=== PATIENT | female | born 1935 | race Caucasian/White ===

== ENCOUNTER 2020-12-06 07:54 | Inpatient (IN) | payer MEDICARE, OTHER, SELFPAY ==
[2020-12-06] VITALS (12 sets, daily range): BP systolic 125–182; BP diastolic 59–81; PULSE 63–84; RESP 15–95; TEMP 36.3–37.2; O2SAT 94–97; BMI 22.6
--- NOTE | ~2020-12-06 | XR_ITS ---
EXAMINATION: XR CHEST CLINICAL INFORMATION: Coughing up blood. COMPARISON: Chest radiographs dated 12/14/2017 and 09/17/2017. TECHNIQUE: Frontal view of the chest was obtained. FINDINGS: An irregular opacity is seen in the right suprahilar region. Mild increased prominence of the right hilum is seen. The left lung is clear. Generalized hyperinflation is seen. The heart and mediastinal structures are unremarkable. XR/XR chest 1V IMPRESSION: Irregular opacity in the right suprahilar region and mild increased prominence of the right hilum. Malignancy cannot be excluded. Further evaluation with a contrast-enhanced chest CT scan is recommended.
--- NOTE | ~2020-12-06 | US_ITS ---
EXAMINATION: US VENOUS ULTRASOUND WITH DOPPLER LOWER EXTREMITY, BILATERAL CLINICAL INFORMATION: Elevated d-dimer. COMPARISON: None TECHNIQUE: Ultrasound of the deep veins is performed from the hip to the calf with compression sonography and color and pulse Doppler assessment. Spectral analysis with color-flow imaging is performed. FINDINGS: RIGHT: There is normal venous compression and respiratory variation and augmented flow. The visualized common femoral vein, superficial femoral vein, profunda femoral vein, popliteal vein, and the trifurcation region shows no evidence of deep venous thrombosis. There is no significant popliteal fossa cyst. LEFT: There is normal venous compression and respiratory variation and augmented flow. The visualized common femoral vein, superficial femoral vein, profunda femoral vein, popliteal vein, and the trifurcation region shows no evidence of deep venous thrombosis. There is no significant popliteal fossa cyst. If the patient's symptoms persist, followup ultrasound in 5 days 7 days might be of value to exclude proximal propagation from a non-visualized calf vein. US/US venous duplex LE BI IMPRESSION: No DVT demonstrated in the bilateral lower extremity.
--- NOTE | ~2020-12-06 | CT_ITS ---
EXAMINATION: CT ANGIOGRAM OF THE CHEST WITH AND WITHOUT CONTRAST (CT PULMONARY ANGIOGRAM FOR PE) CLINICAL INFORMATION: Reason for Exam Hemoptysis and elevated D-dimer. COMPARISON: CT chest November 06, 2007 TECHNIQUE: Prior to contrast administration, noncontrast localization images were obtained. Subsequently, multidetector volumetric imaging was performed from the thoracic inlet to below the diaphragms following the administration of 55 mL Omnipaque 350 intravenous contrast. No contrast reaction reported Sagittal, coronal, and MIP oblique sagittal reformatted images were obtained on the CT workstation, uploaded to PACS, and reviewed. This CT examination was performed using dose optimization techniques as appropriate, variously including the following: *Automated exposure control *Adjustment of mA and/or kV according to patient size (this includes techniques or standardized protocols for targeted exams where dose is matched to indication/reason for exam; i.e. extremities or head) *Use of iterative reconstruction technique Total exam dose-length product 177 mGy-cm FINDINGS: QUALITY OF STUDY/CONTRAST BOLUS: Satisfactory. PULMONARY ARTERIES: No central or segmental pulmonary emboli. THORACIC AORTA: No aneurysm or dissection. There is nonocclusive calcified plaque seen in the aortic arch. LUNG: Central airways are patent. There are changes of centrilobular emphysema seen bilaterally. No significant bronchial wall thickening is seen. No bronchiectasis appreciated. There are a few calcified granulomas present. Scattered sub-4 mm densities present. There is a region of airspace disease seen within the posterior aspects of the left upper lobe which may be secondary to aspiration or blood. There is a suspicious spiculated mass seen within the right upper lobe adjacent to the major fissure with some linear attachments seen to the lateral pleura and right hilar region. The mass measures approximately 2.6 x 2.3 x 3.5 cm in size. There are some ossifications present within the mass. No cavitation is seen. There is a 9 mm spiculated mass seen within the right upper lobe which is not calcified on image 218 of 464. There is a 4 mm noncalcified density seen within the right upper lobe on image 69 of 464 in series #7. There is a stable 5 mm noncalcified density seen within the right upper lobe on image 159 of 464. There is a 4 mm noncalcified nodule seen within the right upper lobe on image 192 of 464. There is a 6 mm noncalcified nodule seen within the right lower lobe on image 232 of 464. There is a 10 x 5 mm somewhat spiculated density within the left upper lobe on image 69 of 464. This has some pleural attachments posteriorly. PLEURA: No pleural effusion or pneumothorax. MEDIASTINUM: Heart upper limits of normal in size. Coronary artery calcification present. No evidence of septal bowing or right heart strain. There is right hilar lymphadenopathy. There is precarinal and subcarinal lymphadenopathy present which is difficult to evaluate due to the high density contrast for the CTA study. CHEST WALL/AXILLA: No axillary or internal mammary lymphadenopathy. OSSEOUS STRUCTURES: No acute destructive bony lesions identified. There is severe degenerative disease glenohumeral joint on the left. Multilevel degenerative disc disease is present. UPPER ABDOMEN: Low density lesions likely representing hepatic cysts present. No reflux of contrast into the hepatic veins to suggest elevated right heart pressures. CT/CT angio chest PE protocol IMPRESSION: No evidence of acute pulmonary artery emboli. No thoracic aortic aneurysm or dissection. Lung lesions as described above with 2 very suspicious lesions within the right upper lobe consistent with malignancy. There is right hilar and mediastinal lymphadenopathy. Old granulomatous disease. VTE:
--- NOTE | 2020-12-06 08:32 | ECG_ITS ---
Test Reason : SOB Blood Pressure : / mmHG Vent. Rate : 070 BPM Atrial Rate : 070 BPM P-R Int : 154 ms QRS Dur : 080 ms QT Int : 378 ms P-R-T Axes : 051 017 025 degrees QTc Int : 408 ms Normal sinus rhythm with sinus arrhythmia Nonspecific ST and T wave abnormality Abnormal ECG When compared with ECG of 11-OCT-2006 06:58, Non-specific change in ST segment in Inferior leads Referred By: Juan Miguel Leiva Electronically Signed By:CLARIBEL MARCANO MD
--- NOTE | 2020-12-06 08:46 | ED.URI ---
HPI - URI/Sore Throat General Chief Complaint: Upper Respiratory Symptoms Stated Complaint: coughing up blood Time Seen by Provider: 12/06/20 08:32 Source: patient and family (Spouse) Mode of arrival: ambulatory Limitations: no limitations History of Present Illness HPI Narrative: 85 years old female walked to the emergency department for evaluation of productive cough with streaks of blood. Patient has been coughing with clear phlegm and streaks of blood, no blood clots in sputum or massive bright red blood when she coughs, patient declined chest pain, patient decline difficulty breathing, patient declined any recent prolonged immobilization or traveling, no history of DVT/PE. Patient with history of COPD/former smoker 20 years ago, do not use supplemental oxygen at home. Related Data Home Medications Medication Instructions Recorded Confirmed albuterol sulfate 2 puff INHALATION Q4H PRN 12/06/20 12/06/20 atenolol 1 tab PO DAILY 12/06/20 12/06/20 clorazepate dipotassium 3.75 mg PO BID PRN 12/06/20 12/06/20 digoxin 1 tab PO DAILY 12/06/20 12/06/20 fluticasone propion-salmeterol 1 inh INHALATION BID 12/06/20 12/06/20 [Advair Diskus] guaifenesin [Mucinex] 600 mg PO BID 12/06/20 12/06/20 levothyroxine 1 tab PO QAM 12/06/20 12/06/20 montelukast 1 tab PO DAILY 12/06/20 12/06/20 tiotropium bromide [Spiriva with 18 mcg INHALATION QAM 12/06/20 12/06/20 HandiHaler] Allergies Allergy/AdvReac Type Severity Reaction Status Date / Time Carbapenems Allergy Unknown RASH Unverified 04/30/20 15:23 cefaclor Allergy Unknown rash, Verified 09/20/18 00:00 itching cefadroxil [Cefadroxil] Allergy Unknown RASH Unverified 04/30/20 15:23 cephalexin [From KEFLEX] Allergy Unknown RASH Unverified 04/30/20 15:23 Cephalosporins Allergy Unknown RASH Unverified 04/30/20 15:23 chlorhexidine Allergy Unknown MUMPS LIKE Unverified 04/30/20 15:23 SWELLING TO MOUTH ciprofloxacin Allergy Unknown RASH Unverified 04/30/20 15:23 ibuprofen [IBUPROFEN] Allergy Unknown RASH Unverified 04/30/20 15:23 naproxen Allergy Unknown RASH, Unverified 04/30/20 15:23 rash, itching penicillin V Allergy Unknown Verified 09/20/18 00:00 Penicillins Allergy Unknown RASH, HIVES Unverified 04/30/20 15:23 Sulfa (Sulfonamide Allergy Unknown RASH Unverified 04/30/20 15:23 Antibiotics) acetaminophen AdvReac Unknown PALPITATION Unverified 04/30/20 15:23 S adhesives Allergy Unknown skin Uncoded 09/20/18 00:00 irritation antiperspirants, deodorants Allergy Unknown Uncoded 09/20/18 00:00 carbapenam Allergy Unknown Uncoded 09/20/18 00:00 chephlasporins Allergy Unknown rash, Uncoded 09/20/18 00:00 itching Chlorhexidine Allergy Unknown Uncoded 09/20/18 00:00 chlorhexidine Allergy Unknown Uncoded 09/20/18 00:00 duracef Allergy Unknown rash, Uncoded 09/20/18 00:00 itching DURACEPT Allergy Unknown RASH Uncoded 04/30/20 15:23 keflex Allergy Unknown rash, Uncoded 09/20/18 00:00 itching shellfish Allergy Unknown severe Uncoded 09/20/18 00:00 hives Review of Systems Review of Systems: All other systems are reviewed and are negative Constitutional: Reports as per HPI and Reports no additional constitutional complaints Eyes: Reports as per HPI and Reports no additional eye complaints Reports system reviewed and no additional complaints, except as documented Cardiovascular: Reports as per HPI and Reports no additional cardiovascular complaints Respiratory: Reports as per HPI and Reports no additional respiratory complaints Gastrointestinal: Reports as per HPI and Reports no additional gastrointestinal complaints Genitourinary: Reports no additional female genitourinary complaints Musculoskeletal: Reports no additional musculoskeletal complaints Skin/Breast: Reports system reviewed and no additional complaints, except as docu Psychiatric: Reports no additional psychiatric complaints Endocrine: Reports no additional endocrine complaints Hematologic/Lymphatic: Reports no additional hematologic/lymphatic complaints Allergic/Immunologic: Reports no additional allergic/immunologic complaints Reports system reviewed and no additional complaints, except as documented and Reports Abnormal speech present PMFSH Past Medical History Medical History Breast CA COPD (chronic obstructive pulmonary disease) HTN (hypertension) Thyroid disease Social History Social History Alcohol intake: never Smoking Status: Former smoker Smoked in Last 30 Days: No Use of substances other than those prescribed or required for medical reasons: No Advance Directives: No Advance Directives Information Provided: No Physical Exam Vital Signs: Vital Signs: Last Vital Signs Temp 97.8 F 12/06/20 09:51 Pulse 63 12/06/20 09:51 Resp 15 12/06/20 09:51 BP 148/63 H 12/06/20 09:51 Pulse Ox 95 12/06/20 09:51 Body Mass Index 22.6 Vital signs have been reviewed as appeared to be correct. Blood pressure elevated. Heart rate normal. Respiration rate normal. Temperature normal. Oxygen saturation normal. Appearance: Alert. Oriented X3. No acute distress. Head: Normal external exam. Normocephalic. Atraumatic. No Crain signs noted. No raccoon eyes noted Eyes: PERRLA. EOMI. Conjunctiva and sclera normal. Eyelids normal. ENT: TM's Normal. Pharynx normal. Uvula midline. Moist mucous membranes. No trismus noted. No drooling noted. No muffled voice noted. Neck: Normal inspection. Neck supple. FROM. No adenopathy. Thyroid Normal. No meningeal signs. No neck mass noted. CVS: Normal heart rate and rhythm. Heart sound normal. No murmurs noted. Pulses normal throughout. Respiratory: No respiratory distress. Painless inspiration. Breath sounds normal. No wheezes/rales/rhonchi noted. Chest nontender. No accessory muscle usage noted or decreased air movement noted. Abdomen: Soft and nontender. Bowel sounds normal in all 4 quadrants. No distention noted. No organomegaly noted. No visible injury noted. Back: No CVA tenderness. Full range of motion noted. Skin: Skin warm and dry. Normal skin color. Normal skin turgor. No rashes/lesions/lacerations noted. Extremities: No lower extremity edema. Extremities exhibit normal range of motion. Extremities nontender. Neuro: Oriented X 3. No motor deficit. No sensory deficit. Reflexes normal. Course Course Course Narrative: Assessment and plan. 85-year-old female presented with hemoptysis for the past 5 days. 1. Because elevated D-dimer patient had CT of the chest showed no pulmonary embolism but suspicious mass for malignancy in the right lung which may explain patient's hemoptysis. 2. Thrombocytopenia: Dr. 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 Maldonado recommendation was transfuse 1 unit of platelets, and prednisone 60 mg p.o. and admit the patient. MDM - URI/Sore Throat Lab Data Attestation: I reviewed the patient's lab results. Result diagrams: 12/06/20 08:48 12/06/20 08:49 Labs: Lab Results 12/06/20 12/06/20 12/06/20 Range/Units 08:46 08:46 08:48 WBC 7.2 (4.8-10.8) X10*3/uL RBC 4.32 (4.20-5.50) X10*6/uL Hgb 12.4 (12.0-16.0) g/dl Hct 36.9 L (37-47) % MCV 85.4 (80-98) fL MCH 28.7 (27.0-33.0) pg MCHC 33.6 (31.0-35.0) g/dl RDW 13.5 (11.0-16.0) % Plt Count 7 L* (160-400) X10*3/uL MPV Not Reportable Immature Gran % (Auto) 1.4 H (0.0-0.4) % Neut % (Auto) 79.9 H (45-73) % Lymph % (Auto) 8.4 L (20-40) % [place] % (Auto) 8.5 (2-11) % Eos % (Auto) 1.1 (0-4) % Baso % (Auto) 0.7 (0-2) % Lymph # (Auto) 0.6 L (1.2-4.9) X10*3/uL [place] # (Auto) 0.6 (0.1-1.2) X10*3/uL Eos # (Auto) 0.1 (0.0-0.4) X10*3/uL Baso # (Auto) 0.1 (0.0-0.2) X10*3/uL Abs Immat Gran (auto) 0.10 H (0.00-0.03) X10*3/uL Absolute Neuts (auto) 5.7 (2.0-8.3) X10*3/uL Absolute Nucleated RBC 0.000 (0.0-0.012) X10*3/uL Nucleated RBC % (auto) 0.0 (0.0-0.2) /100WBC Smear Tech's Comments VERIFIED D-Dimer NG/ML Sodium (135-145) mmol/L Potassium (3.3-5.1) mmol/L Chloride (96-108) mmol/L Carbon Dioxide (22-29) mmol/L Anion Gap (12-20) BUN (9-16) mg/dL Creatinine (0.5-1.4) mg/dL Estim Creat Clear Calc Estimated GFR Random Glucose (60-115) mg/dL Calcium (8.4-10.2) mg/dL Total Bilirubin (0.0-1.0) mg/dL Direct Bilirubin (0.0-0.5) mg/dL AST (5-31) U/L ALT (0-31) U/L Alkaline Phosphatase (39-117) U/L Troponin I High Sens (<3.5-17.0) ng/L B-Natriuretic Peptide (<100) pg/mL Total Protein (6.5-8.0) g/dL Albumin (3.5-5.0) g/dL Lipase (8-78) U/L Urine Color YELLOW Urine Appearance CLEAR Urine pH 6.5 (5.0-8.0) Ur Specific Allen 1.015 (1.005-1.025) Urine Protein NEG (NEG-TRACE) MG/DL Urine Glucose (UA) NEG (NEG) MG/DL Urine Ketones NEG (NEG) MG/DL Urine Blood NEG (NEG) Urine Nitrite NEG (NEG) Ur Leukocyte Esterase NEG (NEG) COVID-19 (J LUIS) Negative (Negative) COVID-19 Clin Com See Note Blood Type Antibody Screen 12/06/20 12/06/20 12/06/20 Range/Units 08:48 08:48 08:49 WBC (4.8-10.8) X10*3/uL RBC (4.20-5.50) X10*6/uL Hgb (12.0-16.0) g/dl Hct (37-47) % MCV (80-98) fL MCH (27.0-33.0) pg MCHC (31.0-35.0) g/dl RDW (11.0-16.0) % Plt Count (160-400) X10*3/uL MPV Immature Gran % (Auto) (0.0-0.4) % Neut % (Auto) (45-73) % Lymph % (Auto) (20-40) % [place] % (Auto) (2-11) % Eos % (Auto) (0-4) % Baso % (Auto) (0-2) % Lymph # (Auto) (1.2-4.9) X10*3/uL [place] # (Auto) (0.1-1.2) X10*3/uL Eos # (Auto) (0.0-0.4) X10*3/uL Baso # (Auto) (0.0-0.2) X10*3/uL Abs Immat Gran (auto) (0.00-0.03) X10*3/uL Absolute Neuts (auto) (2.0-8.3) X10*3/uL Absolute Nucleated RBC (0.0-0.012) X10*3/uL Nucleated RBC % (auto) (0.0-0.2) /100WBC Smear Tech's Comments D-Dimer NG/ML Sodium 133 L (135-145) mmol/L Potassium 4.5 (3.3-5.1) mmol/L Chloride 101 (96-108) mmol/L Carbon Dioxide 23 (22-29) mmol/L Anion Gap 14 (12-20) BUN 22 H (9-16) mg/dL Creatinine 0.76 (0.5-1.4) mg/dL Estim Creat Clear Calc 45.6 Estimated GFR > 60 Random Glucose 97 (60-115) mg/dL Calcium 9.3 (8.4-10.2) mg/dL Total Bilirubin 0.7 (0.0-1.0) mg/dL Direct Bilirubin 0.2 (0.0-0.5) mg/dL AST 23 (5-31) U/L ALT 20 (0-31) U/L Alkaline Phosphatase 102 (39-117) U/L Troponin I High Sens < 3.5 (<3.5-17.0) ng/L B-Natriuretic Peptide 84 (<100) pg/mL Total Protein 7.5 (6.5-8.0) g/dL Albumin 4.1 (3.5-5.0) g/dL Lipase 116 H (8-78) U/L Urine Color Urine Appearance Urine pH (5.0-8.0) Ur Specific Allen (1.005-1.025) Urine Protein (NEG-TRACE) MG/DL Urine Glucose (UA) (NEG) MG/DL Urine Ketones (NEG) MG/DL Urine Blood (NEG) Urine Nitrite (NEG) Ur Leukocyte Esterase (NEG) COVID-19 (J LUIS) (Negative) COVID-19 Clin Com Blood Type Antibody Screen 12/06/20 12/06/20 Range/Units 08:49 10:06 WBC (4.8-10.8) X10*3/uL RBC (4.20-5.50) X10*6/uL Hgb (12.0-16.0) g/dl Hct (37-47) % MCV (80-98) fL MCH (27.0-33.0) pg MCHC (31.0-35.0) g/dl RDW (11.0-16.0) % Plt Count (160-400) X10*3/uL MPV Immature Gran % (Auto) (0.0-0.4) % Neut % (Auto) (45-73) % Lymph % (Auto) (20-40) % [place] % (Auto) (2-11) % Eos % (Auto) (0-4) % Baso % (Auto) (0-2) % Lymph # (Auto) (1.2-4.9) X10*3/uL [place] # (Auto) (0.1-1.2) X10*3/uL Eos # (Auto) (0.0-0.4) X10*3/uL Baso # (Auto) (0.0-0.2) X10*3/uL Abs Immat Gran (auto) (0.00-0.03) X10*3/uL Absolute Neuts (auto) (2.0-8.3) X10*3/uL Absolute Nucleated RBC (0.0-0.012) X10*3/uL Nucleated RBC % (auto) (0.0-0.2) /100WBC Smear Tech's Comments D-Dimer 6064 NG/ML Sodium (135-145) mmol/L Potassium (3.3-5.1) mmol/L Chloride (96-108) mmol/L Carbon Dioxide (22-29) mmol/L Anion Gap (12-20) BUN (9-16) mg/dL Creatinine (0.5-1.4) mg/dL Estim Creat Clear Calc Estimated GFR Random Glucose (60-115) mg/dL Calcium (8.4-10.2) mg/dL Total Bilirubin (0.0-1.0) mg/dL Direct Bilirubin (0.0-0.5) mg/dL AST (5-31) U/L ALT (0-31) U/L Alkaline Phosphatase (39-117) U/L Troponin I High Sens (<3.5-17.0) ng/L B-Natriuretic Peptide (<100) pg/mL Total Protein (6.5-8.0) g/dL Albumin (3.5-5.0) g/dL Lipase (8-78) U/L Urine Color Urine Appearance Urine pH (5.0-8.0) Ur Specific Allen (1.005-1.025) Urine Protein (NEG-TRACE) MG/DL Urine Glucose (UA) (NEG) MG/DL Urine Ketones (NEG) MG/DL Urine Blood (NEG) Urine Nitrite (NEG) Ur Leukocyte Esterase (NEG) COVID-19 (J LUIS) (Negative) COVID-19 Clin Com Blood Type B Positive Antibody Screen NEGATIVE Imaging Data CTA chest: Radiologist's impression: No evidence of acute pulmonary artery emboli. No thoracic aortic aneurysm or dissection. Lung lesions as described above with 2 very suspicious lesions within the right upper lobe consistent with malignancy. There is right hilar and mediastinal lymphadenopathy. Old granulomatous disease. Chest x-ray: Radiologist's impression: irregular opacity in the right suprahilar region and mild increased prominence of the right hilum. Malignancy cannot be excluded. Further evaluation with a contrast-enhanced chest CT scan is recommended. ECG Data Interpretation: Normal sinus rhythm with sinus arrhythmia, normal axis deviation, normal interval, diffuse ST-T nonspecific abnormalities in lead II,III and AVF. Discharge Plan Discharge Clinical Impression: Thrombocytopenia, Hemoptysis, Lung mass Patient Disposition: Admitted As Inpatient Prescriptions: No Action fluticasone propion-salmeterol [Advair Diskus] 250-50 mcg/dose Blister With Device 1 inh INHALATION BID RF: 0 atenolol 25 mg tablet 1 tab PO DAILY RF: 0 digoxin 250 mcg (0.25 mg) tablet 1 tab PO DAILY RF: 0 levothyroxine 75 mcg tablet 1 tab PO QAM RF: 0 montelukast 10 mg tablet 1 tab PO DAILY RF: 0 albuterol sulfate 90 mcg/actuation HFA aerosol inhaler 2 puff inhalation Q4H PRN (Reason: Shortness Of Breath Or Wheezing) RF: 0 Spiriva with HandiHaler 18 mcg Capsule, W/Inhalation Device 18 mcg INHALATION QAM RF: 0 guaifenesin [Mucinex] 600 mg Tablet Extended Release 12hr 600 mg PO BID RF: 0 clorazepate dipotassium 3.75 mg Tablet 3.75 mg PO BID PRN (Reason: Anxiety) RF: 0
[2020-12-06] MEDS: 0.9 % Sodium Chloride 1,000 ML 999 ML IVCONT (08:52)
[2020-12-06 08:56] LABS: MANUAL DIFF FLAG SCAN; Neutrophils Absolute Auto 5.7 X10*3/uL (2.0-8.3); Red Blood Count 4.32 X10*6/uL (4.20-5.50); SCAN SMEAR FLAG 1
[2020-12-06 08:57] LABS: Glucose Urine UA NEG (NEG); Leukocyte Esterase Urine NEG (NEG); Nitrite Urine NEG (NEG); PH 6.5 (5.0-8.0); Specific Gravity - Urine 1.015 (1.005-1.025); Urine Blood NEG (NEG); Urine Ketones NEG (NEG); Urine Protein NEG (NEG-TRACE)
[2020-12-06 08:58] LABS: Appearance Urine CLEAR; Color Urine YELLOW
[2020-12-06 08:58] LABS: Basophils Absolute Auto 0.1 X10*3/uL (0.0-0.2); Basophils Percent Auto 0.7 % (0-2); Eosinophils Absolute Auto 0.1 X10*3/uL (0.0-0.4); Eosinophils Percent Auto 1.1 % (0-4); Hematocrit 36.9 % (37-47); Hemoglobin 12.4 g/dl (12.0-16.0); Imm Gran Pct Auto 1.4 % (0.0-0.4); Lymphocytes Absolute Auto 0.6 X10*3/uL (1.2-4.9); Lymphocytes Percent Auto 8.4 % (20-40); Mean Corpuscular HGB Conc 33.6 g/dl (31.0-35.0); Mean Corpuscular Hemoglobin 28.7 pg (27.0-33.0); Mean Corpuscular Volume 85.4 fL (80-98); Monocytes Absolute Auto 0.6 X10*3/uL (0.1-1.2); Monocytes Percent Auto 8.5 % (2-11); Neutrophils Percent Auto 79.9 % (45-73); Red Cell Distribution Width 13.5 % (11.0-16.0)
[2020-12-06 09:03] LABS: PLT ABN DIST 1
[2020-12-06 09:17] LABS: White Blood Count 7.2 X10*3/uL (4.8-10.8)
[2020-12-06 09:17] LABS: COVID-19 Test Negative (Negative); IDNOW Serial# 9DD0AD1C
[2020-12-06 09:18] LABS: Platelet Count 7 X10*3/uL (160-400)
[2020-12-06 09:19] LABS: SLIDE REVIEW VERIFIED
[2020-12-06 09:20] LABS: D Dimer 6064 NG/ML
[2020-12-06 09:28] LABS: B Type Natriuretic Peptide 84 pg/mL (<100); Troponin-I High Sensitivity < 3.5 ng/L (<3.5-17.0)
[2020-12-06 09:29] LABS: Alanine Aminotransferase 20 U/L (0-31); Albumin Level 4.1 g/dL (3.5-5.0); Alkaline Phosphatase 102 U/L (39-117); Anion Gap 14 (12-20); Aspartate Amino Transferase 23 U/L (5-31); Bilirubin Direct 0.2 mg/dL (0.0-0.5); Bilirubin Total 0.7 mg/dL (0.0-1.0); Blood Urea Nitrogen 22 mg/dL (9-16); Calcium 9.3 mg/dL (8.4-10.2); Carbon Dioxide 23 mmol/L (22-29); Chloride 101 mmol/L (96-108); Creatinine Clr Calc Pharmacy 45.6; Estimated Glomerular Filt Rate > 60; Glucose Random 97 mg/dL (60-115); Potassium 4.5 mmol/L (3.3-5.1); Sodium 133 mmol/L (135-145); Total Protein 7.5 g/dL (6.5-8.0)
[2020-12-06 09:42] LABS: Lipase 116 U/L (8-78)
[2020-12-06] MEDS: predniSONE 20 MG TABLET 60 MG PO (09:52)
[2020-12-06] MEDS: diphenhydrAMINE HCL 25 MG TABLET 50 MG PO (11:12)
[2020-12-06] MEDS: iohexoL 350 MG/ML 100 ML INFUS..BTL IV (11:56)
[2020-12-06 13:35] LABS: Lactate Dehydrogenase 212 U/L (122-220)
--- NOTE | 2020-12-06 14:00 | PC.NURSE ---
Hospitalist at bedside for eval. Pt is aox3, ambulates w/ cane at baseline, pleasant. Pt VSS, speaking in clear and full sentences, skin w/p/d w/ scattered bruising on legs and bruise on l shoulder, pt denies falls or injury.
[2020-12-06 14:35] LABS: Fibrinogen 694 MG/DL (259-690)
--- NOTE | 2020-12-06 14:36 | PM.IMHP ---
History of Present Illness Date of Service: 12/06/20 <KERRY Flores Last Filed: 12/06/20 15:24> Chief Complaint: coughing up blood <KERRY Flores Last Filed: 12/06/20 15:24> This is an 85 year old female with a history of COPD, breast cancer, HTN, who presents to the ED with hemoptysis. She reports 5 days of intermittent cough productive of clear phlegm mixed with blood. She has some shortness of breath which is chronic and unchanged from her baseline. She denies any fevers or chills. She denies chest pain or palpitations. Her workup in the emergency department was significant for severe thrombocytopenia with platelets of 7, D-dimer of 6064. She underwent CTA which showed no evidence of pulmonary embolism but 2 right upper lobe lung lesions concerning for malignancy. She denies a known history of thrombocytopenia, although her previous CBC from April 2020 shows a platelet count of 117. She denies the use of blood thinner or aspirin at home. She denies any hematuria or bleeding from the gums or nose. She has had hemorrhoidal bleeding in the past, but not right now. She may have lost a few pounds over the past month or so, but no significant weight loss noted. She has been fully vaccinated for COVID 19 with Pfizer vaccine, the second dose of which she received 11/04. One unit of platelets was ordered in the ED and has been transfused. <KERRY Flores - Last Filed: 12/06/20 15:24> Review of Systems Review of Systems: Yes all other systems are reviewed and are negative <KERRY Flores Last Filed: 12/06/20 15:24> Constitutional: Constitutional: Denies body ache(s), Denies chills, Denies fever(s) and Denies frequent falls <KERRY Flores Last Filed: 12/06/20 15:24> Cardiovascular: Cardiovascular: Denies chest pain and Denies palpitations <KERRY Flores Last Filed: 12/06/20 15:24> Respiratory: Respiratory: Reports cough and Reports hemoptysis <KERRY Flores Last Filed: 12/06/20 15:24> Gastrointestinal: Gastrointestinal: Denies abdominal pain <KERRY Flores - Last Filed: 12/06/20 15:24> Neurologic: Denies frequent falls <KERRY Flores - Last Filed: 12/06/20 15:24> Endocrine: Endocrine: Denies palpitations <KERRY Flores - Last Filed: 12/06/20 15:24> [facility] Medical History: Medical History (Updated 12/06/20 @ 14:53 by KERRY Flores) Breast CA COPD (chronic obstructive pulmonary disease) Fibrocystic breast changes HTN (hypertension) Irregular heart beat Thyroid disease <KERRY Flores - Last Filed: 12/06/20 15:24> Functional capacity: uses cane/walker <KERRY Flores - Last Filed: 12/06/20 15:24> Family History: Family History Other No family history of breast cancer <KERRY Flores - Last Filed: 12/06/20 15:24> Pertinent family history: No history of lung cancer <KERRY Flores - Last Filed: 12/06/20 15:24> Surgical History: Surgical History (Updated 12/06/20 @ 14:53 by KERRY Flores) S/P breast lumpectomy S/P hip replacement <KERRY Flores - Last Filed: 12/06/20 15:24> Social History: Social History (Updated 12/06/20 @ 14:56 by KERRY Flores) Household Members: Spouse Alcohol intake: never Smoking Status: Former smoker Years Smoked: 40 Smoked in Last 30 Days: No Smoking Quit Date: 20 years ago Use of substances other than those prescribed or required for medical reasons: No Advance Directives: No Advance Directives Information Provided: No <KERRY Flores - Last Filed: 12/06/20 15:24> Meds Allergies/Adverse reactions: Allergies Allergy/AdvReac Type Severity Reaction Status Date / Time Carbapenems Allergy Unknown RASH Verified 12/06/20 13:59 cefaclor Allergy Unknown rash, Verified 12/06/20 13:59 itching cefadroxil [Cefadroxil] Allergy Unknown RASH Verified 12/06/20 13:59 cephalexin [From KEFLEX] Allergy Unknown RASH Verified 12/06/20 13:59 Cephalosporins Allergy Unknown RASH Verified 12/06/20 13:59 chlorhexidine Allergy Unknown MUMPS LIKE Verified 12/06/20 13:59 SWELLING TO MOUTH ciprofloxacin Allergy Unknown RASH Verified 12/06/20 13:59 ibuprofen [IBUPROFEN] Allergy Unknown RASH Verified 12/06/20 13:59 naproxen Allergy Unknown RASH, Verified 12/06/20 13:59 rash, itching penicillin V Allergy Unknown Rash Verified 12/06/20 13:59 Penicillins Allergy Unknown RASH, HIVES Verified 12/06/20 13:59 Sulfa (Sulfonamide Allergy Unknown RASH Verified 12/06/20 13:59 Antibiotics) acetaminophen AdvReac Unknown PALPITATION Verified 12/06/20 13:59 S adhesives Allergy Unknown skin Uncoded 09/20/18 00:00 irritation antiperspirants, deodorants Allergy Unknown Rash Uncoded 12/06/20 13:59 carbapenam Allergy Unknown Rash Uncoded 12/06/20 13:59 chephlasporins Allergy Unknown rash, Uncoded 09/20/18 00:00 itching Chlorhexidine Allergy Unknown Rash Uncoded 12/06/20 13:59 chlorhexidine Allergy Unknown Rash Uncoded 12/06/20 13:59 duracef Allergy Unknown rash, Uncoded 09/20/18 00:00 itching DURACEPT Allergy Unknown RASH Uncoded 04/30/20 15:23 keflex Allergy Unknown rash, Uncoded 09/20/18 00:00 itching shellfish Allergy Unknown severe Uncoded 09/20/18 00:00 hives <KERRY Flores - Last Filed: 12/06/20 15:24> Home medications: Home Medications Medication Instructions Recorded Confirmed Last Taken Type albuterol sulfate 2 puff INHALATION Q4H PRN 12/06/20 12/06/20 12/05/20 History atenolol 1 tab PO DAILY 12/06/20 12/06/20 12/05/20 History clorazepate dipotassium 3.75 mg PO BID PRN 12/06/20 12/06/20 1 Day Ago History ~12/05/20 digoxin 1 tab PO DAILY 12/06/20 12/06/20 12/05/20 History fluticasone propion-salmeterol 1 inh INHALATION BID 12/06/20 12/06/20 12/05/20 History [Advair Diskus] guaifenesin [Mucinex] 600 mg PO BID 12/06/20 12/06/20 12/05/20 History levothyroxine 1 tab PO QAM 12/06/20 12/06/20 12/05/20 History montelukast 1 tab PO DAILY 12/06/20 12/06/20 12/05/20 History tiotropium bromide [Spiriva with 18 mcg INHALATION QAM 12/06/20 12/06/20 12/05/20 History HandiHaler] <KERRY Flores - Last Filed: 12/06/20 15:24> Physical Exam Vital Signs and Narrative: Vital Signs: Last Vital Signs Temp 98.3 F 12/06/20 14:08 Pulse 70 12/06/20 14:08 Resp 16 12/06/20 14:08 BP 149/71 H 12/06/20 14:08 Pulse Ox 95 12/06/20 13:54 Body Mass Index 22.6 <KERRY Flores - Last Filed: 12/06/20 15:24> Const: General: comfortable, no acute distress, alert and awake <KERRY Flores - Last Filed: 12/06/20 15:24> Nutritional Appearance: well nourished <KERRY Flores Last Filed: 12/06/20 15:24> Orientation/consciousness: patient oriented x3 <KERRY Flores Last Filed: 12/06/20 15:24> HENMT: Head: Yes normocephalic and Yes atraumatic <KERRY Flores Last Filed: 12/06/20 15:24> Eyes: Sclerae: sclerae normal <KERRY Flores Last Filed: 12/06/20 15:24> Chest: Chest palpation & inspection: normal inspection of the chest <KERRY Flores Last Filed: 12/06/20 15:24> Resp: Other: left side diminished, clear on right side; no wheezing, no rales <KERRY Flores - Last Filed: 12/06/20 15:24> Effort & Inspection: normal respiratory effort and no respiratory distress <KERRY Flores - Last Filed: 12/06/20 15:24> Cardio: Rate: regular rate <KERRY Flores - Last Filed: 12/06/20 15:24> Rhythm: regular rhythm <KERRY Flores - Last Filed: 12/06/20 15:24> GI: Palpation (GI): Soft to palpation and nontender <KERRY Flores - Last Filed: 12/06/20 15:24> Skin: Other: few small scattered bruises, right upper thigh, left shoulder, left chest wall <KERRY Flores - Last Filed: 12/06/20 15:24> Neuro: General: patient oriented x3 <KERRY Flores - Last Filed: 12/06/20 15:24> Cranial nerves: Yes CN's II-XII intact bilaterally and Yes Bilaterally intact EOM present <KERRY Flores - Last Filed: 12/06/20 15:24> Extrem: Other: no edema <KERRY Flores - Last Filed: 12/06/20 15:24> General: Yes normal to inspection <KERRY Flores - Last Filed: 12/06/20 15:24> Results Labs CBC and Chem 7: : 12/06/20 08:48 12/06/20 08:49 <KERRY Flores - Last Filed: 12/06/20 15:24> Labs: Laboratory Results - last 24 hr 12/06/20 12/06/20 12/06/20 08:46 08:46 08:48 MCV 85.4 MCH 28.7 MCHC 33.6 RDW 13.5 Plt Count 7 L* MPV Not Reportable Immature Gran % (Auto) 1.4 H Neut % (Auto) 79.9 H Lymph % (Auto) 8.4 L [place] % (Auto) 8.5 Eos % (Auto) 1.1 Baso % (Auto) 0.7 Lymph # (Auto) 0.6 L [place] # (Auto) 0.6 Eos # (Auto) 0.1 Baso # (Auto) 0.1 Abs Immat Gran (auto) 0.10 H Absolute Neuts (auto) 5.7 Absolute Nucleated RBC 0.000 Nucleated RBC % (auto) 0.0 Smear Tech's Comments VERIFIED D-Dimer Anion Gap Estim Creat Clear Calc Estimated GFR Random Glucose Calcium Total Bilirubin Direct Bilirubin AST ALT Alkaline Phosphatase Lactate Dehydrogenase Troponin I High Sens B-Natriuretic Peptide Total Protein Albumin Lipase Urine Color YELLOW Urine Appearance CLEAR Urine pH 6.5 Ur Specific [place] 1.015 Urine Protein NEG Urine Glucose (UA) NEG Urine Ketones NEG Urine Blood NEG Urine Nitrite NEG Ur Leukocyte Esterase NEG COVID-19 (J LUIS) Negative COVID-19 Clin Com See Note Blood Type Antibody Screen 12/06/20 12/06/20 12/06/20 08:48 08:48 08:49 MCV MCH MCHC RDW Plt Count MPV Immature Gran % (Auto) Neut % (Auto) Lymph % (Auto) [place] % (Auto) Eos % (Auto) Baso % (Auto) Lymph # (Auto) [place] # (Auto) Eos # (Auto) Baso # (Auto) Abs Immat Gran (auto) Absolute Neuts (auto) Absolute Nucleated RBC Nucleated RBC % (auto) Smear Tech's Comments D-Dimer Anion Gap 14 Estim Creat Clear Calc 45.6 Estimated GFR > 60 Random Glucose 97 Calcium 9.3 Total Bilirubin 0.7 Direct Bilirubin 0.2 AST 23 ALT 20 Alkaline Phosphatase 102 Lactate Dehydrogenase 212 Troponin I High Sens < 3.5 B-Natriuretic Peptide 84 Total Protein 7.5 Albumin 4.1 Lipase 116 H Urine Color Urine Appearance Urine pH Ur Specific [place] Urine Protein Urine Glucose (UA) Urine Ketones Urine Blood Urine Nitrite Ur Leukocyte Esterase COVID-19 (J LUIS) COVID-19 Clin Com Blood Type Antibody Screen 12/06/20 12/06/20 08:49 10:06 MCV MCH MCHC RDW Plt Count MPV Immature Gran % (Auto) Neut % (Auto) Lymph % (Auto) [place] % (Auto) Eos % (Auto) Baso % (Auto) Lymph # (Auto) [place] # (Auto) Eos # (Auto) Baso # (Auto) Abs Immat Gran (auto) Absolute Neuts (auto) Absolute Nucleated RBC Nucleated RBC % (auto) Smear Tech's Comments D-Dimer 6064 Anion Gap Estim Creat Clear Calc Estimated GFR Random Glucose Calcium Total Bilirubin Direct Bilirubin AST ALT Alkaline Phosphatase Lactate Dehydrogenase Troponin I High Sens B-Natriuretic Peptide Total Protein Albumin Lipase Urine Color Urine Appearance Urine pH Ur Specific [place] Urine Protein Urine Glucose (UA) Urine Ketones Urine Blood Urine Nitrite Ur Leukocyte Esterase COVID-19 (J LUIS) COVID-19 Clin Com Blood Type B Positive Antibody Screen NEGATIVE <KERRY Flores - Last Filed: 12/06/20 15:24> Imaging Radiologist's Impressions: Impressions Chest X-Ray 12/06/20 08:32 IMPRESSION: Irregular opacity in the right suprahilar region and mild increased prominence of the right hilum. Malignancy cannot be excluded. Further evaluation with a contrast-enhanced chest CT scan is recommended. Chest CTA 12/06/20 09:33 IMPRESSION: No evidence of acute pulmonary artery emboli. No thoracic aortic aneurysm or dissection. Lung lesions as described above with 2 very suspicious lesions within the right upper lobe consistent with malignancy. There is right hilar and mediastinal lymphadenopathy. Old granulomatous disease. VTE: <KERRY Flores - Last Filed: 12/06/20 15:24> Assessment and Plan (1) Thrombocytopenia: Status: Acute <KERRY Flores - Last Filed: 12/06/20 15:24> (2) Hemoptysis: Status: Acute <KERRY Flores - Last Filed: 12/06/20 15:24> (3) Lung mass: Status: Acute <KERRY Flores - Last Filed: 12/06/20 15:24> This is an 85-year-old female with history of COPD, breast cancer status post lumpectomy, hypertension, irregular heartbeat who presents to the emergency department with 5 days of hemoptysis found to have severe thrombocytopenia and new lung mass concerning for malignancy Severe thrombocytopenia. platelet of 7 with hemoptysis. ?area of aspiration vs blood on CTA s/p 1U platelets in ED -follow CBC -hematology consult, pulmonology consult -monitor for bleeding -avoid anti-platelet agents, AC Hemoptysis r/t above also with new lung mass -follow CBC New lung mass concerning for malignancy h/o breast CA and long h/o smoking -oncology consult ?aspiration on CTA Afebrile, no leukocytosis, no hypoxia due to multiple allergies will hold off on antibiotics at this time. irregular heartbeat pt reports h/o irregular heartbeat, but denies afib. previous indicate she is on digoxin for h/o SVT EKG today with NSR -continue digoxin (level pending) HTN -Continue atenolol COPD No wheezing on exam -continue home inhalers hypothyroidism -continue levothyroxine DVT ppx - mechanical devices HCP - daughter Sara [phone]. She asked me not to call any family at this time. Code status - DNR Attending: Dr. Haro <KERRY Flores - Last Filed: 12/06/20 15:24> Addendum to documentation by midlevel I saw and examined the patient and participated in the sahu portion of the E/M service. I agree with the history and exam as documented by /PA. 85/F has history of breast cancer and has been doing well, she completed both Pfizer vaccine about 1 month ago. She presents with hemopytis and is found to have platlets of 7 without Petechaia and incidental spiculated lung mass worrisome for malignance. Exam: unrelmarkable, no petechia, lungs well arearated. DDx: lung CA from, vaccine-induced immune thrombotic thrombocytopenia, a delayed type. Will admit for further work-up with oncology and Pulmonology consultation, avoid heparin/lovenox.and work up. Otherwise, I agree with assessment and plan as outlined in the H and P. <Agus Haro MD - Last Filed: 12/06/20 15:41>
[2020-12-06 15:15] LABS: Digoxin 0.8 ng/mL (0.8-2.0)
--- NOTE | 2020-12-06 16:47 | PC.NURSE ---
pt is alert and oriented x 3. CARVAJAL, follows commands, speech clear and coherent. Pt satting 94% on RA with no resp complaints. Denies pain, other complaints. Pt with #20 angio to RAC. Report given to MIGUEL Jaffe. Pt ready for transport
[2020-12-06] MEDS: 0.9 % Sodium Chloride Flush 3 ML SYRINGE IVFLUSH ×2 (18:26→20:26)
[2020-12-06] MEDS: Digoxin 0.25 MG TABLET PO (19:21)
[2020-12-06] MEDS: guaiFENesin LA 600 MG TAB.ER.12H PO (20:24)
[2020-12-06] MEDS: Fluticasone/Vilanterol 100/25 BLST.W.DEV 1 PUFF INHALE (21:36)
[2020-12-06] MEDS: diazePAM 5 MG TABLET 2.5 MG PO (21:50)
[2020-12-06] MEDS: Montelukast Sodium 10 MG TABLET PO (21:50)
[2020-12-07] VITALS (7 sets, daily range): BP systolic 113–165; BP diastolic 59–77; PULSE 63–78; RESP 14–18; TEMP 36.4–37.2; O2SAT 95–97
--- NOTE | 2020-12-07 05:35 | P.CNHO_ITS ---
Subjective - Subjective Patient: known to practice within the last 3 years Consult date: 12/06/20 (new onset thrombocytopenia) Primary Care Provider: Raheem Domínguez MD HPI - Consult Narrative Reason for consult: thrombocytopenia Narrative: Isabell Deshpande is a 85 year old female Pleasaant 85 year old current patient of Dr. Harrison with seven day history of hemoptysis and low platelet count who received Pfizer vaccination for COVID in September 2020 presents with 7,000 platelets and elevated D-dimer. A possible mass was seen on imaging and she has blu a nodule in the past. Review of Systems - Constitutional Reports fatigue - ENT Reports system reviewed and no additional complaints, except as documented - Cardiovascular Reports lightheadedness - Respiratory Reports hemoptysis - Gastrointestinal Reports other - Genitourinary Reports absent period - Musculoskeletal Reports stiffness - Neurologic Reports system reviewed and no additional complaints, except as documented, Denies frequent falls [facility] Medical History: Medical History (Last Updated 12/06/20 @ 14:53 by KERRY Flores) Breast CA COPD (chronic obstructive pulmonary disease) Fibrocystic breast changes HTN (hypertension) Irregular heart beat Thyroid disease Functional capacity: uses cane/walker Family History: Family History (Last Reviewed 12/06/20 @ 14:56 by KERRY Flores) Other No family history of breast cancer Surgical History: Surgical History (Last Updated 12/06/20 @ 14:53 by KERRY Flores) S/P breast lumpectomy S/P hip replacement Social History: Social History (Last Updated 12/06/20 @ 14:56 by KERRY Flores) Living Situation History: Household Members: Spouse Housing: House Do you presently have visiting nurse or other home services: No Alcohol History: Alcohol intake: never Tobacco History: Smoking Status: Former smoker Years Smoked: 40 Smoked in Last 30 Days: No Smoking Quit Date: 20 years ago Substance Use History: Use of substances other than those prescribed or required for medical reasons : No Currently Displaying Signs/Symptoms of Drug Intoxication Withdrawal: No Domestic Abuse History: Have you been hit, kicked, punched, or otherwise hurt by someone within the past year? If so, by whom?: No Do you feel safe in your current relationship?: Yes Is there a partner from a previous relationship who is making you feel unsafe now?: No Are you made to feel afraid or neglected: No Advance Directives: Advance Directives: No Advance Directives Information Provided: No Homicidal Assessment: Do you have thoughts of harming others: None Do you have a plan to hurt others: No Plan Nutrition Assessment: Nutrition Risks: No Nutritional Risk Patient : No : No Poor oral hygiene: No Smoking status: Former smoker Home Medications and Allergies Current Medications: Current Medications Generic Name Dose Route Start Last Admin Trade Name Freq PRN Reason Stop Dose Admin Acetaminophen 650 mg 12/06/20 17:29 Acetaminophen 325 Mg Tablet PO Q6H PRN Pain, Mild (Pain Scale 1-3) Albuterol Sulfate 2 puff 12/06/20 17:29 Albuterol Sulfate 90 Mcg 8 Gm Inhaler INHALE Q4H PRN Shortness Of Breath Or Wheezing Atenolol 25 mg 12/07/20 09:00 Atenolol 25 Mg Tablet PO DAILY [facility] Protocol Diazepam 2.5 mg 12/06/20 17:36 12/06/20 21:50 Diazepam 5 Mg Tablet PO 2.5 mg BID PRN Administration Anxiety Digoxin 0.25 mg 12/06/20 21:00 12/06/20 20:08 Digoxin 0.25 Mg Tablet PO Not Given BEDTIME FAY Docusate Sodium 100 mg 12/06/20 17:29 Docusate Sodium 100 Mg Capsule PO DAILY PRN Constipation Fluticasone/Vilanterol 1 puff 12/06/20 21:05 12/06/20 21:36 Fluticasone/Vilanterol 100/25 Blst.W.Dev INHALE 1 puff RBID FAY Administration Guaifenesin 600 mg 12/06/20 21:00 12/06/20 20:24 Guaifenesin [place] 600 Mg Tab.Er.12h PO 600 mg BID FAY Administration Levothyroxine Sodium 75 mcg 12/07/20 06:00 Levothyroxine Sodium 75 Mcg Tablet PO DAILY@0600 FAY Montelukast Sodium 10 mg 12/06/20 21:45 12/06/20 21:50 Montelukast Sodium 10 Mg Tablet PO 10 mg BEDTIME FAY Administration Sodium Chloride 3 ml 12/06/20 17:29 12/06/20 20:26 0.9 % Sodium Chloride Flush 3 Ml Syringe IVFLUSH 3 ml QSHIFT FAY Administration Tiotropium [place] 1 puff 12/07/20 08:00 Tiotropium [place] 18 Mcg Cap.W.Dev INHALE [facility] Home Medications Medication Instructions Recorded Confirmed Type albuterol sulfate 2 puff INHALATION Q4H PRN 12/06/20 12/06/20 History atenolol 1 tab PO DAILY 12/06/20 12/06/20 History clorazepate dipotassium 3.75 mg PO BID PRN 12/06/20 12/06/20 History digoxin 1 tab PO DAILY 12/06/20 12/06/20 History fluticasone propion-salmeterol 1 inh INHALATION BID 12/06/20 12/06/20 History [Advair Diskus] guaifenesin [Mucinex] 600 mg PO BID 12/06/20 12/06/20 History levothyroxine 1 tab PO QAM 12/06/20 12/06/20 History montelukast 1 tab PO DAILY 12/06/20 12/06/20 History tiotropium bromide [Spiriva with 18 mcg INHALATION QAM 12/06/20 12/06/20 History HandiHaler] Allergies Allergy/AdvReac Type Severity Reaction Status Date / Time Carbapenems Allergy Unknown RASH Verified 12/06/20 13:59 cefaclor Allergy Unknown rash, Verified 12/06/20 13:59 itching cefadroxil [Cefadroxil] Allergy Unknown RASH Verified 12/06/20 13:59 cephalexin [From KEFLEX] Allergy Unknown RASH Verified 12/06/20 13:59 Cephalosporins Allergy Unknown RASH Verified 12/06/20 13:59 chlorhexidine Allergy Unknown MUMPS LIKE Verified 12/06/20 13:59 SWELLING TO MOUTH ciprofloxacin Allergy Unknown RASH Verified 12/06/20 13:59 ibuprofen [IBUPROFEN] Allergy Unknown RASH Verified 12/06/20 13:59 naproxen Allergy Unknown RASH, Verified 12/06/20 13:59 rash, itching penicillin V Allergy Unknown Rash Verified 12/06/20 13:59 Penicillins Allergy Unknown RASH, HIVES Verified 12/06/20 13:59 Sulfa (Sulfonamide Allergy Unknown RASH Verified 12/06/20 13:59 Antibiotics) acetaminophen AdvReac Unknown PALPITATION Verified 12/06/20 13:59 S adhesives Allergy Unknown skin Uncoded 09/20/18 00:00 irritation antiperspirants, deodorants Allergy Unknown Rash Uncoded 12/06/20 13:59 carbapenam Allergy Unknown Rash Uncoded 12/06/20 13:59 chephlasporins Allergy Unknown rash, Uncoded 09/20/18 00:00 itching Chlorhexidine Allergy Unknown Rash Uncoded 12/06/20 13:59 chlorhexidine Allergy Unknown Rash Uncoded 12/06/20 13:59 duracef Allergy Unknown rash, Uncoded 09/20/18 00:00 itching DURACEPT Allergy Unknown RASH Uncoded 04/30/20 15:23 keflex Allergy Unknown rash, Uncoded 09/20/18 00:00 itching shellfish Allergy Unknown severe Uncoded 09/20/18 00:00 hives Physical Exam Vital signs: Vital Signs Temp 99 F 12/07/20 03:56 Pulse 71 12/07/20 03:56 Resp 14 12/07/20 03:56 BP 113/59 L 12/07/20 03:56 Pulse Ox 95 12/07/20 03:56 Intake & Output 12/06/20 12/06/20 12/07/20 06:59 18:59 06:59 Intake Total 1322 / 1442 120 / 1442 Balance 1322 / 1442 120 / 1442 Intake: Intake, Oral Amount 120 / 120 Intake (Blood Product) Amount 322 / 322 Plt Aph Pas Pathreduced(E8342) 322 / 322 Unit [id number] Intake, IV Amount 1000 / 1000 0.9 % Sodium Chloride 1,000 ml 1000 / 1000 @ 999 mls/hr IVCONT .Q1H1M [facility] Rx#:[id number] Other: Number of Unmeasured Voids 1 Urine Bathroom Urine Color Yellow Last Bowel Movement 12/06/20 Weight 58.06 kg Weight 58.06 kg - Constitutional Present: no acute distress - Routine HEENT Exam Head: Present: atraumatic - Routine Neck Exam Present: supple - Routine Chest/Breast/Axilla Exam Breast: Present: right mastectomy - Routine Respiratory Exam Present: decreased breath sounds, rhonchi - Routine Cardiovascular Exam Cardiovascular: Present: RRR - Routine Abdominal Exam Present: diminished bowel sounds - Routine Rectal Exam Patient deferred: visual exam - Routine Extremities Exam Present: nontender Hem/Onc Consult Result - Labs CBC & Chem 7: 12/06/20 08:48 12/06/20 08:49 Labs: Short CBC 12/06/20 Range/Units 08:48 WBC 7.2 (4.8-10.8) X10*3/uL Hgb 12.4 (12.0-16.0) g/dl Hct 36.9 L (37-47) % Plt Count 7 L* (160-400) X10*3/uL BMP 12/06/20 08:49 Sodium 133 L Potassium 4.5 Chloride 101 Carbon Dioxide 23 BUN 22 H Creatinine 0.76 Calcium 9.3 Liver Function 12/06/20 Range/Units 08:49 Total Bilirubin 0.7 (0.0-1.0) mg/dL Direct Bilirubin 0.2 (0.0-0.5) mg/dL AST 23 (5-31) U/L ALT 20 (0-31) U/L Alkaline Phosphatase 102 (39-117) U/L Albumin 4.1 (3.5-5.0) g/dL Urine 12/06/20 Range/Units 08:46 Urine Color YELLOW Urine Appearance CLEAR Urine pH 6.5 (5.0-8.0) Ur Specific [place] 1.015 (1.005-1.025) Urine Protein NEG (NEG-TRACE) MG/DL Urine Glucose (UA) NEG (NEG) MG/DL Assessment and Plan (1) Thrombocytopenia Start date: 12/06/20 (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 She should have a daily cbc and d-dimer and begin 60 mg of prednisone a day. We should transfuse one pheresis unit of ;platelets adye.y ) Status: Acute (2) Lung mass Start date: 12/06/20 (I will review the images with IR and advise.) Status: Acute
[2020-12-07 06:17] LABS: Hemoglobin 11.6 g/dl (12.0-16.0); PLT CLUMP 1; Red Cell Distribution Width 13.7 % (11.0-16.0); SCAN SMEAR FLAG 1
[2020-12-07 06:20] LABS: Basophils Percent Auto 0.6 % (0-2); Eosinophils Absolute Auto 0.1 X10*3/uL (0.0-0.4); Eosinophils Percent Auto 1.3 % (0-4); Hematocrit 34.9 % (37-47); Imm Gran Abs Auto 0.07 X10*3/uL (0.00-0.03); Lymphocytes Percent Auto 14.1 % (20-40); Mean Corpuscular HGB Conc 33.2 g/dl (31.0-35.0); Mean Corpuscular Hemoglobin 28.8 pg (27.0-33.0); Mean Corpuscular Volume 86.6 fL (80-98); Mean Platelet Volume 12.8 fL (9.4-12.3); Monocytes Absolute Auto 0.7 X10*3/uL (0.1-1.2); Red Blood Count 4.03 X10*6/uL (4.20-5.50); White Blood Count 6.8 X10*3/uL (4.8-10.8)
[2020-12-07 06:25] LABS: MANUAL DIFF FLAG NO
[2020-12-07] MEDS: Fluticasone/Vilanterol 100/25 BLST.W.DEV 1 PUFF INHALE (06:27)
[2020-12-07 06:44] LABS: Platelet Count 9 X10*3/uL (160-400)
[2020-12-07 06:54] LABS: Anion Gap 13 (12-20); Blood Urea Nitrogen 17 mg/dL (9-16); Calcium 8.7 mg/dL (8.4-10.2); Carbon Dioxide 22 mmol/L (22-29); Chloride 105 mmol/L (96-108); Creatinine Clr Calc Pharmacy 49.5; Estimated Glomerular Filt Rate > 60; Glucose Random 80 mg/dL (60-115); Potassium 4.6 mmol/L (3.3-5.1); Sodium 135 mmol/L (135-145)
[2020-12-07] MEDS: guaiFENesin LA 600 MG TAB.ER.12H PO (08:35)
[2020-12-07] MEDS: atenoloL 25 MG TABLET PO (08:36)
[2020-12-07] MEDS: 0.9 % Sodium Chloride Flush 3 ML SYRINGE IVFLUSH ×3 (08:36→19:56)
--- NOTE | 2020-12-07 08:40 | MHC.CM.PN ---
pt lives c her in their home. she reports that she is independent in her care, but that she has a and they care for eachother. he will be providing transportation at [place].. pt also has 3 children, 2 live on the [place] and the one that lives locally is limited in the support he can offer d/t medical issues. pt has no svcs in the home. she uses a cane c ambulation. she denies the need for vna at this time. dc plan is home no svcs. cm to cont. to follow.
--- NOTE | 2020-12-07 10:20 | P.EN_ITS ---
Event Note Date of Service: 12/07/20 Event Note: I saw this 85 years old female is this morning for pulmonary consu ltation. She is admitted because of cough and hemoptysis for a few days. Hemoptysis is minor and almost in active at present. She has to her thrombocytopenia with platelet count of 7 K She has to masses in the right upper lobe suspicious for malignancy. Once thrombocytopenia is controlled and improved to a reasonable level, she will need to undergo bronchoscopy with biopsy and or bronchial washings for cytology. I would discuss the case with my colleague Dr. Romero who will be performing bronchoscopy at and appropriate timing..
--- NOTE | 2020-12-07 10:24 | P.PNIM_ITS ---
Subjective Subjective Date of Service: 12/07/20 Interval History: Patient feeling better, less frequent episodes of hemoptysis, denies chest pain, no shortness of breath, no other acute issues overnight. ROS General no headache, no dizziness, no fever chills. CVS no chest pain, no palpitation. Respiratory no shortness of breath Gastrointestinal no nausea no vomiting, no abdominal pain Physical Exam Vital Signs: Vital Signs: Last Vital Signs Temp 97.5 F 12/07/20 07:40 Pulse 72 12/07/20 08:36 Resp 18 12/07/20 07:40 BP 147/72 H 12/07/20 08:36 Pulse Ox 96 12/07/20 07:40 Body Mass Index 22.6 General ambulating in room, no acute distress. Neck no JVD. CVS regular rate rhythm, Respiratory lungs clear to auscultation, no respiratory distress, no wheeze, no rhonchi. Gastrointestinal abdomen soft, nontender, bowel sounds audible, no guarding , no rigidity. Extremities no edema. Neuro nonfocal Psych appropriate affect Skin no rash Objective Data Current Medications Generic Name Dose Route Start Last Admin Trade Name Freq PRN Reason Stop Dose Admin Acetaminophen 650 mg 12/06/20 17:29 Acetaminophen 325 Mg Tablet PO Q6H PRN Pain, Mild (Pain Scale 1-3) Albuterol Sulfate 2 puff 12/06/20 17:29 Albuterol Sulfate 90 Mcg 8 Gm Inhaler INHALE Q4H PRN Shortness Of Breath Or Wheezing Atenolol 25 mg 12/07/20 09:00 12/07/20 08:36 Atenolol 25 Mg Tablet PO 25 mg DAILY FAY Administration Protocol Diazepam 2.5 mg 12/06/20 17:36 12/06/20 21:50 Diazepam 5 Mg Tablet PO 2.5 mg BID PRN Administration Anxiety Digoxin 0.25 mg 12/06/20 21:00 12/06/20 20:08 Digoxin 0.25 Mg Tablet PO Not Given BEDTIME FAY Docusate Sodium 100 mg 12/06/20 17:29 Docusate Sodium 100 Mg Capsule PO DAILY PRN Constipation Fluticasone/Vilanterol 1 puff 12/06/20 21:05 12/07/20 06:27 Fluticasone/Vilanterol 100/25 Blst.W.Dev INHALE 1 puff RBID FAY Administration Guaifenesin 600 mg 12/06/20 21:00 12/07/20 08:35 Guaifenesin [place] 600 Mg Tab.Er.12h PO 600 mg BID FAY Administration Levothyroxine Sodium 75 mcg 12/07/20 06:00 12/07/20 06:35 Levothyroxine Sodium 75 Mcg Tablet PO Not Given DAILY@0600 FAY Montelukast Sodium 10 mg 12/06/20 21:45 12/06/20 21:50 Montelukast Sodium 10 Mg Tablet PO 10 mg BEDTIME FAY Administration Prednisone 60 mg 12/07/20 09:30 Prednisone 20 Mg Tablet PO DAILY FAY Sodium Chloride 3 ml 12/06/20 17:29 12/07/20 08:36 0.9 % Sodium Chloride Flush 3 Ml Syringe IVFLUSH 3 ml QSHIFT FAY Administration Tiotropium [place] 1 puff 12/07/20 08:00 12/07/20 08:35 Tiotropium [place] 18 Mcg Cap.W.Dev INHALE 1 puff RDAILY FAY Administration Labs CBC & Chem 7: 12/07/20 06:03 12/07/20 06:03 Assessment and Plan (1) Thrombocytopenia: Status: Acute (2) Hemoptysis: Status: Acute (3) Lung mass: Status: Acute Assessment and Plan: 85-year-old female with history of COPD, breast cancer status post lumpectomy, hypertension, irregular heartbeat who presents to the emergency department with 5 days of hemoptysis found to have severe thrombocytopenia and new lung mass concerning for malignancy Severe thrombocytopenia. platelet of 7 on admission Less frequent episode of hemoptysis today, status post 1 unit of platelet transfusion, platelet remains low around [address] Maldonado and started on prednisone 60 mg daily with concern for ITP, follow CBC,monitor for bleeding avoid anti-platelet agents, AC Hemoptysis r/t a thrombocytopenia and new lung mass Case discussed with Dr. Romero, due to low platelet count no further testing can be obtained at this time however patient will be followed by pulmonology once platelet count improves then we will proceed with lung biopsy. ?aspiration on CTA Afebrile, no leukocytosis, no hypoxia, hold antibiotics follow clinical course irregular heartbeat pt reports h/o irregular heartbeat, but denies afib. previous indicate she is on digoxin for h/o SVT EKG with NSR,continue digoxin , digoxin level within therapeutic range 0.8 HTN BP stable, Continue atenolol COPD No wheezing on exam,continue home inhalers hypothyroidism continue levothyroxine DVT ppx - mechanical devices HCP - daughter Sara [phone]. Daughter requested PA not to call any family at this time. Code status - DNR
[2020-12-07] MEDS: predniSONE 20 MG TABLET 60 MG PO (10:29)
--- NOTE | 2020-12-07 15:32 | CONS_ITS ---
DATE OF SERVICE: 12/07/2020 HISTORY OF PRESENT ILLNESS: This 85-year-old female is admitted to the hospital since yesterday with about 5 days history of intermittent cough and expectorating some blood. She denies fever, chills, or any recent respiratory infection. Her lab workup is significant showing a rather severe degree of thrombocytopenia. The CTA of the chest does not show any pulmonary embolism, but does show 2 suspicious masses in the right upper lobe. The patient denies any chest pain. Denies fever, chills, and also denies any increased degree of shortness of breath. Recent history indicates that she had COVID-19 Pfizer vaccine in September and the second dose completed on 11/04. REVIEW OF SYSTEMS: Basically as noted above. She denies fever, chills, or any body aches and pains. Denies chest pain. She does have mild cough, but denies any wheezing or any increased shortness of breath. PAST MEDICAL HISTORY: Includes chronic obstructive pulmonary disease for many years, but has been relatively stable. She has had previous right mastectomy for CA of the breast. Hypertension. Chronic atrial fibrillation. Thyroid disease. PERSONAL HISTORY: Denies smoking or drinking. She is living at home. Walks around with cane. PHYSICAL EXAMINATION: GENERAL: 85-year-old female, is alert and orientated, does not seem to be in distress at this time. VITAL SIGNS: Respiratory rate 14, O2 saturation is 95%. EAR, NOSE, THROAT EXAMINATION: Normal. There is no active bleeding. NECK: No lymphadenopathy. Trachea in midline. CHEST: Percussion note is resonant. Breath sounds are distant. A few fine crepitations heard over the basilar areas. No wheezes. CARDIAC: Sounds are distant. Rhythm irregular, but stable. No murmurs. ABDOMEN: Flat, soft, nontender. No palpable mass. EXTREMITIES: No edema or varicosities. DIAGNOSTIC STUDIES: Platelet count 7000. COVID test is negative. CT scan of the chest shows 2 spiculated masses in the right upper lobe, one is 2.6 x 2.3 x 3.5. The second one is 9 mm mass. CLINICAL IMPRESSION: 1. Acute hemoptysis, most likely related to thrombocytopenia. 2. Two masses in the right upper lobe suspicious for malignancy, especially in the background of her previous breast cancer. RECOMMENDATIONS: At this time, she needs any further workup or treatment for thrombocytopenia to bring up her platelet count to a reasonable level. As far as pulmonary masses in the right upper lobe are concerned, I think as a part of initial workup, she can have bronchoscopy with bronchial washing and cytology, but this would need to be done once her thrombocytopenia is well controlled and treated. For COPD, she should be continued on her regular medicine including Advair and Spiriva and use albuterol 2 puffs q.4-6 hours p.r.n. I would discuss this case with my colleague, Dr. Nikolay Romero, who will follow her up for the pulmonary issues and also plan to do bronchoscopy at an appropriate time. Thank you very much for asking me to see this patient. MD ALYSON Raymond/JUANIS / [id number]
--- NOTE | 2020-12-07 16:15 | PM.HEMONCPN ---
Medical Summary - Medical Summary Date of Service: 12/07/20 Chief complaint: Progress note for thrombocytopenia. Lung mass. Medical Summary: DIAGNOSIS: 1. THROMBOCYTOPENIA. 2. LUNG MASS. 3. ELEVATED D-DIMER LEVEL. Interval History Interval history: This is a pleasant 85 year old lady, with a history of COPD, breast cancer, HTN, who presented with hemoptysis. She reported 5 days of intermittent cough, productive of clear phlegm mixed with blood. She had some shortness of breath, which is chronic and unchanged from her baseline. She denies any fevers or chills. She denies chest pain or palpitations. Her workup in the ER was significant for severe thrombocytopenia with platelets of 7, D-dimer of 6064. She underwent CTA which showed: No evidence of pulmonary embolism but 2 right upper lobe lung lesions concerning for malignancy. She denies a known history of thrombocytopenia, although her previous CBC from April 2020 shows a platelet count of 117. She denies the use of blood thinner or aspirin at home. She denies any hematuria or bleeding from the gums or nose. She denies obvious GI bleeding however she has had hemorrhoidal bleeding in the past. Her appetite is fair. She may have lost a few pounds over the past month or so, but denies any significant weight loss. She has been fully vaccinated for COVID 19 with Pfizer vaccine, the second dose of which she received 11/04. One unit of platelets was transfused. 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 Review of Systems - Constitutional Reports system reviewed and no additional complaints, except as documented, Reports lack of energy - Eyes Reports system reviewed and no additional complaints, except as documented - ENT Reports system reviewed and no additional complaints, except as documented - Cardiovascular Reports system reviewed and no additional complaints, except as documented - Respiratory Reports no additional respiratory complaints - Gastrointestinal Reports system reviewed and no additional complaints, except as documented - Genitourinary Reports no additional female genitourinary complaints - Musculoskeletal Reports system reviewed and no additional complaints, except as documented - Integumentary/Breasts Skin/Breast: Reports no additional skin complaints - Neurologic Reports system reviewed and no additional complaints, except as documented, Denies frequent falls - Psychiatric Reports system reviewed and no additional complaints, except as documented - Endocrine Reports no additional endocrine complaints - Hematologic/Lymphatic Reports system reviewed and no additional complaints, except as documented - Allergic/Immunologic Reports system reviewed and no additional complaints, except as documented [facility] Medical History: Medical History (Last Updated 12/06/20 @ 14:53 by KERRY Flores) Breast CA COPD (chronic obstructive pulmonary disease) Fibrocystic breast changes HTN (hypertension) Irregular heart beat Thyroid disease Functional capacity: uses cane/walker Patient : No Family History: Family History (Last Reviewed 12/06/20 @ 14:56 by KERRY Flores) Other No family history of breast cancer Surgical History: Surgical History (Last Updated 12/06/20 @ 14:53 by KERRY Flores) S/P breast lumpectomy S/P hip replacement Social History: Social History (Last Updated 12/06/20 @ 14:56 by KERRY Flores) Living Situation History: Household Members: Spouse Housing: House Alcohol History: Alcohol intake: never Occupation Assessmet: service: No Current occupational status: retired Smoking status: Former smoker Oncology Screenings - ECOG Performance Status ECOG Performance Status: 1 Home Medications and Allergies Current Medications: Current Medications Generic Name Dose Route Start Last Admin Trade Name Freq PRN Reason Stop Dose Admin Acetaminophen 650 mg 12/06/20 17:29 Acetaminophen 325 Mg Tablet PO Q6H PRN Pain, Mild (Pain Scale 1-3) Albuterol Sulfate 2 puff 12/06/20 17:29 Albuterol Sulfate 90 Mcg 8 Gm Inhaler INHALE Q4H PRN Shortness Of Breath Or Wheezing Atenolol 25 mg 12/07/20 09:00 12/07/20 08:36 Atenolol 25 Mg Tablet PO 25 mg DAILY FAY Administration Protocol Diazepam 2.5 mg 12/06/20 17:36 12/06/20 21:50 Diazepam 5 Mg Tablet PO 2.5 mg BID PRN Administration Anxiety Digoxin 0.25 mg 12/06/20 21:00 12/06/20 20:08 Digoxin 0.25 Mg Tablet PO Not Given BEDTIME FAY Docusate Sodium 100 mg 12/06/20 17:29 Docusate Sodium 100 Mg Capsule PO DAILY PRN Constipation Guaifenesin/Dextromethorphan 10 ml 12/07/20 10:53 Guaifenesin Dm 100/10/5 Ml 5 Ml Syrup PO Q6H PRN cough Montelukast Sodium 10 mg 12/06/20 21:45 12/06/20 21:50 Montelukast Sodium 10 Mg Tablet PO 10 mg BEDTIME FAY Administration Pat Own Med ( 1 each 12/08/20 06:00 Levothyroxine Sodium PO 75 Mcg) DAILY@0600 [facility] Pat Own Med ( 1 each 12/07/20 21:00 Latanoprost 0.005% EYE-RIGHT Eye Drops) BEDTIME FAY Pat Own Med (Advair 1 each 12/07/20 20:00 250/50 Mcg Diskus) INHALE RBID FAY Pat Own Med ( Advair 1 each 12/07/20 20:00 250/50 Mcg Diskus) INHALE RBID FAY Prednisone 60 mg 12/07/20 09:30 12/07/20 10:29 Prednisone 20 Mg Tablet PO 60 mg DAILY [facility] Administration Sodium Chloride 3 ml 12/06/20 17:29 12/07/20 14:55 0.9 % Sodium Chloride Flush 3 Ml Syringe IVFLUSH 3 ml QSHIFT [facility] Administration Tiotropium [place] 1 puff 12/07/20 08:00 12/07/20 08:35 Tiotropium [place] 18 Mcg Cap.W.Dev INHALE 1 puff RDAILY [facility] Administration Home Medications Medication Instructions Recorded Confirmed Type albuterol sulfate 2 puff INHALATION Q4H PRN 12/06/20 12/06/20 History atenolol 1 tab PO DAILY 12/06/20 12/06/20 History clorazepate dipotassium 3.75 mg PO BID PRN 12/06/20 12/06/20 History digoxin 1 tab PO DAILY 12/06/20 12/06/20 History fluticasone propion-salmeterol 1 inh INHALATION BID 12/06/20 12/06/20 History [Advair Diskus] guaifenesin [Mucinex] 600 mg PO BID 12/06/20 12/06/20 History levothyroxine 1 tab PO QAM 12/06/20 12/06/20 History montelukast 1 tab PO DAILY 12/06/20 12/06/20 History tiotropium bromide [Spiriva with 18 mcg INHALATION QAM 12/06/20 12/06/20 History HandiHaler] latanoprost 1 drp OPHTHALMIC-RIGHT BEDTIME 12/07/20 12/07/20 History Allergies Allergy/AdvReac Type Severity Reaction Status Date / Time Carbapenems Allergy Unknown RASH Verified 12/06/20 13:59 cefaclor Allergy Unknown rash, Verified 12/06/20 13:59 itching cefadroxil [Cefadroxil] Allergy Unknown RASH Verified 12/06/20 13:59 cephalexin [From KEFLEX] Allergy Unknown RASH Verified 12/06/20 13:59 Cephalosporins Allergy Unknown RASH Verified 12/06/20 13:59 chlorhexidine Allergy Unknown MUMPS LIKE Verified 12/06/20 13:59 SWELLING TO MOUTH ciprofloxacin Allergy Unknown RASH Verified 12/06/20 13:59 ibuprofen [IBUPROFEN] Allergy Unknown RASH Verified 12/06/20 13:59 naproxen Allergy Unknown RASH, Verified 12/06/20 13:59 rash, itching penicillin V Allergy Unknown Rash Verified 12/06/20 13:59 Penicillins Allergy Unknown RASH, HIVES Verified 12/06/20 13:59 Sulfa (Sulfonamide Allergy Unknown RASH Verified 12/06/20 13:59 Antibiotics) acetaminophen AdvReac Unknown PALPITATION Verified 12/06/20 13:59 S adhesives Allergy Unknown skin Uncoded 09/20/18 00:00 irritation antiperspirants, deodorants Allergy Unknown Rash Uncoded 12/06/20 13:59 carbapenam Allergy Unknown Rash Uncoded 12/06/20 13:59 chephlasporins Allergy Unknown rash, Uncoded 09/20/18 00:00 itching Chlorhexidine Allergy Unknown Rash Uncoded 12/06/20 13:59 chlorhexidine Allergy Unknown Rash Uncoded 12/06/20 13:59 duracef Allergy Unknown rash, Uncoded 09/20/18 00:00 itching DURACEPT Allergy Unknown RASH Uncoded 04/30/20 15:23 keflex Allergy Unknown rash, Uncoded 09/20/18 00:00 itching shellfish Allergy Unknown severe Uncoded 09/20/18 00:00 hives Exam Vital signs: Vital Signs Temp 98.1 F 12/07/20 15:48 Pulse 65 12/07/20 15:48 Resp 15 12/07/20 15:48 BP 147/69 H 12/07/20 15:48 Pulse Ox 95 12/07/20 15:48 Intake & Output 12/06/20 12/07/20 12/07/20 18:59 06:59 18:59 Intake Total 1322 / 1442 120 / 1442 480 / 480 Balance 1322 / 1442 120 / 1442 480 / 480 Intake: Intake, Oral Amount 120 / 120 480 / 480 Intake (Blood Product) Amount 322 / 322 Plt Aph Pas Pathreduced([id number]) 322 / 322 Unit [id number] Intake, IV Amount 1000 / 1000 0.9 % Sodium Chloride 1,000 ml 1000 / 1000 @ 999 mls/hr IVCONT .Q1H1M [facility] Rx#:[id number] Other: Breakfast % Eaten 75% Lunch % Eaten 50% Number of Unmeasured Voids 1 1 Urine Bathroom Bathroom Urine Color Yellow Last Bowel Movement 12/06/20 Weight 58.06 kg Weight 58.06 kg Body Mass Index 22.6 - Constitutional Present: no acute distress - Routine HEENT Exam Head: Present: atraumatic Eye: Present: normal appearance ENT: Present: mucous membranes moist - Routine Neck Exam Present: full ROM - Routine Respiratory Exam Present: decreased breath sounds, rhonchi - Routine Cardiovascular Exam Cardiovascular: Present: RRR - Routine Abdominal Exam Present: diminished bowel sounds - Routine Rectal Exam Patient deferred: visual exam - Routine Extremities Exam Present: nontender - Routine Back/Spine/Pelvis Exam Back/Spine: Present: full ROM - Routine Skin Exam Present: intact - Routine Neurological Exam Present: alert, oriented X3 - Routine Psychiatric Exam Present: normal affect Data - Labs CBC & Chem 7: 12/13/20 06:15 12/07/20 06:03 Labs: 12/06/20 08:32 ECG 12 lead EKG Stat EKG Documentation DIRECTED XR chest 1V Stat 12/06/20 08:45 0.9 % Sodium Chloride [Ns] 1,000 ml IVCONT 999 mls/hr 12/06/20 08:46 COVID-19 ID NOW (Rizvi) Stat UA CC w/rflx Micro + Cult Stat 12/06/20 08:48 B Type Natriuretic Peptide Stat Complete Blood Count Auto Diff Stat SLIDE REVIEW Stat Troponin-I High Sensitivity Stat 12/06/20 08:49 Basic Metabolic Panel Stat D-Dimer [D Dimer] Stat Fibrinogen Stat Lactate Dehydrogenase Stat Lipase Stat Liver Panel Stat 12/06/20 09:33 CT angio chest PE protocol Stat 12/06/20 09:42 predniSONE 60 mg PO ONCE ONE 12/06/20 10:06 Pheresis Platelets Stat Type and Screen Stat 12/06/20 10:59 diphenhydrAMINE HCL [Benadryl] 50 mg PO ONCE ONE 12/06/20 11:09 diphenhydrAMINE HCL [Benadryl] 25 mg .ROUTE .STK-MED ONE 12/06/20 11:56 iohexoL 350 MG/ML [Omnipaque 350 MG/ML] 100 ml IV ONCE ONE 12/06/20 13:21 Add Laboratory Test Routine 12/06/20 14:10 Transfer Order Routine 12/06/20 14:29 Digoxin Stat 12/06/20 14:30 Add Laboratory Test Stat 12/06/20 17:29 Vital Signs QSHIFT 12/06/20 21:00 guaiFENesin LA [Mucinex] 600 mg PO BID 12/06/20 21:05 Fluticasone/Vilanterol 100/25 [Breo Ellipta 100/25] 1 puff INHALE RBID 12/07/20 06:00 Levothyroxine Sodium [Synthroid] 75 mcg PO DAILY@0600 12/07/20 06:03 Basic Metabolic Panel DAILY@0600 Complete Blood Count Auto Diff DAILY@0600 12/07/20 08:00 Fluticasone/Vilanterol 100/25 [Breo Ellipta 100/25] 1 puff INHALE RDAILY 12/07/20 09:00 Digoxin [Lanoxin] 0.25 mg PO DAILY Montelukast Sodium [Singulair] 10 mg PO DAILY Laboratory Last Values WBC 6.8 X10*3/uL (4.8-10.8) 12/07/20 06:03 RBC 4.03 X10*6/uL (4.20-5.50) L 12/07/20 06:03 Hgb 11.6 g/dl (12.0-16.0) L 12/07/20 06:03 Hct 34.9 % (37-47) L 12/07/20 06:03 MCV 86.6 fL (80-98) 12/07/20 06:03 MCH 28.8 pg (27.0-33.0) 12/07/20 06:03 MCHC 33.2 g/dl (31.0-35.0) 12/07/20 06:03 RDW 13.7 % (11.0-16.0) 12/07/20 06:03 Plt Count 9 X10*3/uL (160-400) L* 12/07/20 06:03 MPV 12.8 fL (9.4-12.3) H 12/07/20 06:03 Immature Gran % (Auto) 1.0 % (0.0-0.4) H 12/07/20 06:03 Neut % (Auto) 73.0 % (45-73) 12/07/20 06:03 Lymph % (Auto) 14.1 % (20-40) L 12/07/20 06:03 [place] % (Auto) 10.0 % (2-11) 12/07/20 06:03 Eos % (Auto) 1.3 % (0-4) 12/07/20 06:03 Baso % (Auto) 0.6 % (0-2) 12/07/20 06:03 Lymph # (Auto) 1.0 X10*3/uL (1.2-4.9) L 12/07/20 06:03 [place] # (Auto) 0.7 X10*3/uL (0.1-1.2) 12/07/20 06:03 Eos # (Auto) 0.1 X10*3/uL (0.0-0.4) 12/07/20 06:03 Baso # (Auto) 0.0 X10*3/uL (0.0-0.2) 12/07/20 06:03 Abs Immat Gran (auto) 0.07 X10*3/uL (0.00-0.03) H 12/07/20 06:03 Absolute Neuts (auto) 5.0 X10*3/uL (2.0-8.3) 12/07/20 06:03 Absolute Nucleated RBC 0.000 X10*3/uL (0.0-0.012) 12/07/20 06:03 Nucleated RBC % (auto) 0.0 /100WBC (0.0-0.2) 12/07/20 06:03 Smear Tech's Comments VERIFIED 12/06/20 08:48 Smear Path Review SEE NOTE 12/06/20 08:48 Fibrinogen 694 MG/DL (259-690) H 12/06/20 08:49 D-Dimer 6064 NG/ML 12/06/20 08:49 Sodium 135 mmol/L (135-145) 12/07/20 06:03 Potassium 4.6 mmol/L (3.3-5.1) 12/07/20 06:03 Chloride 105 mmol/L (96-108) 12/07/20 06:03 Carbon Dioxide 22 mmol/L (22-29) 12/07/20 06:03 Anion Gap 13 (12-20) 12/07/20 06:03 BUN 17 mg/dL (9-16) H 12/07/20 06:03 Creatinine 0.70 mg/dL (0.5-1.4) 12/07/20 06:03 Estim Creat Clear Calc 49.5 12/07/20 06:03 Estimated GFR > 60 12/07/20 06:03 Random Glucose 80 mg/dL (60-115) 12/07/20 06:03 Calcium 8.7 mg/dL (8.4-10.2) D 12/07/20 06:03 Total Bilirubin 0.7 mg/dL (0.0-1.0) 12/06/20 08:49 Direct Bilirubin 0.2 mg/dL (0.0-0.5) 12/06/20 08:49 AST 23 U/L (5-31) 12/06/20 08:49 ALT 20 U/L (0-31) 12/06/20 08:49 Alkaline Phosphatase 102 U/L (39-117) 12/06/20 08:49 Lactate Dehydrogenase 212 U/L (122-220) 12/06/20 08:49 Troponin I High Sens < 3.5 ng/L (<3.5-17.0) 12/06/20 08:48 B-Natriuretic Peptide 84 pg/mL (<100) 12/06/20 08:48 Total Protein 7.5 g/dL (6.5-8.0) 12/06/20 08:49 Albumin 4.1 g/dL (3.5-5.0) 12/06/20 08:49 Lipase 116 U/L (8-78) H 12/06/20 08:49 Urine Color YELLOW 12/06/20 08:46 Urine Appearance CLEAR 12/06/20 08:46 Urine pH 6.5 (5.0-8.0) 12/06/20 08:46 Ur Specific [place] 1.015 (1.005-1.025) 12/06/20 08:46 Urine Protein NEG MG/DL (NEG-TRACE) 12/06/20 08:46 Urine Glucose (UA) NEG MG/DL (NEG) 12/06/20 08:46 Urine Ketones NEG MG/DL (NEG) 12/06/20 08:46 Urine Blood NEG (NEG) 12/06/20 08:46 Urine Nitrite NEG (NEG) 12/06/20 08:46 Ur Leukocyte Esterase NEG (NEG) 12/06/20 08:46 Digoxin 0.8 ng/mL (0.8-2.0) 12/06/20 14:29 COVID-19 (J LUIS) Negative (Negative) 12/06/20 08:46 COVID-19 Clin Com See Note 12/06/20 08:46 Blood Type B Positive 12/06/20 10:06 Antibody Screen NEGATIVE 12/06/20 10:06 - Imaging Radiologist's impression: ITS Impressions Chest X-Ray 12/06/20 08:32 IMPRESSION: Irregular opacity in the right suprahilar region and mild increased prominence of the right hilum. Malignancy cannot be excluded. Further evaluation with a contrast-enhanced chest CT scan is recommended. Chest CTA 12/06/20 09:33 IMPRESSION: No evidence of acute pulmonary artery emboli. No thoracic aortic aneurysm or dissection. Lung lesions as described above with 2 very suspicious lesions within the right upper lobe consistent with malignancy. There is right hilar and mediastinal lymphadenopathy. Old granulomatous disease. VTE: Progress Note: A/P (1) Thrombocytopenia Start date: 12/06/20 (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 She should have a daily cbc and d-dimer and begin 60 mg of prednisone a day. We should transfuse one pheresis unit of ;platelets ayde.y ) Status: Acute Assessment and plan: This is a pleasant 85-year-old lady who has been noted to have significant Thrombocytopenia. This appears to be rather an acute drop. Concern is ITP. Differential diagnosis: 2. DIC: She does have an elevated D-dimer level however her fibrinogen is high as opposed to being low in the setting of DIC. 3. Underlying myelo infiltrative disorder: Lymphoma versus myelodysplastic syndrome versus multiple myeloma. 4. 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 is likely to be a very uncommon occurrence. 20 cases have been reported. Onset of symptoms: Days 1 till 23). Treatment has included: Steroids, platelet transfusion, IVIG, rituximab, romiplostim, Vincristine and Amicar. Elevated D-dimer level: Concern would be underlying thromboembolism. CTA is negative for any PE. Question is if it is related to the of COVID vaccine. There are case reports of DVT after vaccination. However the incidence is rather low,(1 case, per 5889.) HIT ab: Negative. PLAN: Will check ultrasound of the lower extremities to look for any occult DVTs: Negative. Check LDH: 212 and SIEP: faint IgG kappa band. Will monitor her platelet count carefully on the prednisone and follow the trend. If the platelets do not started trending upwards will proceed with a bone marrow exam. If ITP confirmed, consider IVIG or rituximab therapy. Thank you, CC: Frantz. (2) Lung mass Start date: 12/06/20 (I will review the images with IR and advise.) Status: Acute Assessment and plan: 85-year-old lady presented with hemoptysis. CT chest revealed: No evidence of acute pulmonary artery emboli. No thoracic aortic aneurysm or dissection. Lung lesions as described above with 2 very suspicious lesions within the right upper lobe consistent with malignancy. There is right hilar and mediastinal lymphadenopathy. Old granulomatous disease. Patient is significantly thrombocytopenic. PLAN: Will arrange for a biopsy versus bronchoscopy, once her platelets have improved above 50,000 range. She has been seen by Pulmonary for that. - Time Spent With Patient Total time spent is greater than 50% in coordination of care (as documented) at patient's floor/unit and/or counseling patient: 15 - 24 minutes
[2020-12-07 17:15] LABS: Lactate Dehydrogenase 219 U/L (122-220)
[2020-12-07] MEDS: Digoxin 0.25 MG TABLET PO (17:26)
[2020-12-07 17:59] LABS: Folate 18.6 ng/mL (> or = 4.0); Vitamin B12 756 pg/mL (200-900)
[2020-12-07] MEDS: Montelukast Sodium 10 MG TABLET PO (19:55)
[2020-12-07] MEDS: diazePAM 5 MG TABLET 2.5 MG PO (22:21)
[2020-12-08] VITALS (7 sets, daily range): BP systolic 127–167; BP diastolic 73–88; PULSE 62–69; RESP 16–18; TEMP 36.2–36.8; O2SAT 95–98
[2020-12-08] MEDS: 0.9 % Sodium Chloride Flush 3 ML SYRINGE IVFLUSH ×3 (07:39→20:19)
[2020-12-08] MEDS: predniSONE 20 MG TABLET 60 MG PO (08:12)
[2020-12-08] MEDS: atenoloL 25 MG TABLET PO (08:12)
[2020-12-08 08:24] LABS: MANUAL DIFF FLAG SCAN; PLT CLUMP 1; SCAN SMEAR FLAG 1
[2020-12-08 08:26] LABS: Basophils Absolute Auto 0.1 X10*3/uL (0.0-0.2); Basophils Percent Auto 0.7 % (0-2); Eosinophils Absolute Auto 0.1 X10*3/uL (0.0-0.4); Eosinophils Percent Auto 1.3 % (0-4); Hemoglobin 12.4 g/dl (12.0-16.0); Imm Gran Abs Auto 0.09 X10*3/uL (0.00-0.03); Imm Gran Pct Auto 1.2 % (0.0-0.4); Lymphocytes Absolute Auto 0.9 X10*3/uL (1.2-4.9); Lymphocytes Percent Auto 12.2 % (20-40); Mean Corpuscular HGB Conc 32.6 g/dl (31.0-35.0); Mean Corpuscular Hemoglobin 28.2 pg (27.0-33.0); Mean Corpuscular Volume 86.4 fL (80-98); Mean Platelet Volume 11.8 fL (9.4-12.3); Monocytes Absolute Auto 0.7 X10*3/uL (0.1-1.2); Monocytes Percent Auto 9.5 % (2-11); Neutrophils Absolute Auto 5.7 X10*3/uL (2.0-8.3); Neutrophils Percent Auto 75.1 % (45-73); Red Cell Distribution Width 13.5 % (11.0-16.0); White Blood Count 7.6 X10*3/uL (4.8-10.8)
[2020-12-08 09:09] LABS: Platelet Count 8 X10*3/uL (160-400)
[2020-12-08 09:12] LABS: SLIDE REVIEW VERIFIED
--- NOTE | 2020-12-08 12:28 | P.PNHO_ITS ---
Medical Summary - Medical Summary Date of Service: 12/08/20 (ITP) Medical Summary: DIAGNOSIS: 1. THROMBOCYTOPENIA. 2. LUNG MASS. 3. ELEVATED D-DIMER LEVEL. Interval History Interval history: Isabell Deshpande is a 85 year old female Pleasant 85 year old current patient of Dr. Harrison with seven day history of hemoptysis and low platelet count who received Pfizer vaccination for COVID in September 2020 presents with 7,000 platelets and elevated D-dimer. A possible mass was seen on imaging and she has had a nodule in the past.She has been seen by Dr. Harrison of Hematology who recommends bone marrow land possibley ivig if the prednisone is ineffective. The chest xray shows a tumor which will be investigated after resolution of the thrombocytopenia. Review of Systems - Neurologic Reports system reviewed and no additional complaints, except as documented, Denies frequent falls PMFSH Medical History: Medical History (Last Updated 12/06/20 @ 14:53 by KERRY Flores) Breast CA COPD (chronic obstructive pulmonary disease) Fibrocystic breast changes HTN (hypertension) Irregular heart beat Thyroid disease Functional capacity: uses cane/walker Family History: Family History (Last Reviewed 12/06/20 @ 14:56 by KERRY Flores) Other No family history of breast cancer Surgical History: Surgical History (Last Updated 12/06/20 @ 14:53 by KERRY Flores) S/P breast lumpectomy S/P hip replacement Social History: Social History (Last Updated 12/06/20 @ 14:56 by KERRY Flores) Living Situation History: Household Members: Spouse Housing: House Alcohol History: Alcohol intake: never Occupation Assessmet: service: No Current occupational status: retired Smoking status: Former smoker Home Medications and Allergies Current Medications: Current Medications Generic Name Dose Route Start Last Admin Trade Name Freq PRN Reason Stop Dose Admin Acetaminophen 650 mg 12/06/20 17:29 Acetaminophen 325 Mg Tablet PO Q6H PRN Pain, Mild (Pain Scale 1-3) Albuterol Sulfate 2 puff 12/06/20 17:29 Albuterol Sulfate 90 Mcg 8 Gm Inhaler INHALE Q4H PRN Shortness Of Breath Or Wheezing Atenolol 25 mg 12/07/20 09:00 12/08/20 08:12 Atenolol 25 Mg Tablet PO 25 mg DAILY FAY Administration Protocol Diazepam 2.5 mg 12/06/20 17:36 12/07/20 22:21 Diazepam 5 Mg Tablet PO 2.5 mg BID PRN Administration Anxiety Digoxin 0.25 mg 12/06/20 21:00 12/07/20 17:26 Digoxin 0.25 Mg Tablet PO 0.25 mg BEDTIME FAY Administration Docusate Sodium 100 mg 12/06/20 17:29 Docusate Sodium 100 Mg Capsule PO DAILY PRN Constipation Guaifenesin/Dextromethorphan 10 ml 12/07/20 10:53 Guaifenesin Dm 100/10/5 Ml 5 Ml Syrup PO Q6H PRN cough Montelukast Sodium 10 mg 12/06/20 21:45 12/07/20 19:55 Montelukast Sodium 10 Mg Tablet PO 10 mg BEDTIME FAY Administration Pat Own Med ( 1 each 12/08/20 06:00 12/08/20 05:45 Levothyroxine Sodium PO 1 each 75 Mcg) DAILY@0600 FAY Administration Pat Own Med ( 1 each 12/07/20 21:00 12/07/20 22:21 Latanoprost 0.005% EYE-RIGHT 1 each Eye Drops) BEDTIME FAY Administration Pat Own Med ( Advair 1 each 12/07/20 20:00 12/08/20 07:39 250/50 Mcg Diskus) INHALE 1 each RBID FAY Administration Prednisone 60 mg 12/07/20 09:30 12/08/20 08:12 Prednisone 20 Mg Tablet PO 60 mg DAILY FAY Administration Sodium Chloride 3 ml 12/06/20 17:29 12/08/20 07:39 0.9 % Sodium Chloride Flush 3 Ml Syringe IVFLUSH 3 ml QSHIFT FAY Administration Tiotropium [place] 1 puff 12/07/20 08:00 12/08/20 07:39 Tiotropium [place] 18 Mcg Cap.W.Dev INHALE 1 puff RDAILY FAY Administration Home Medications Medication Instructions Recorded Confirmed Type albuterol sulfate 2 puff INHALATION Q4H PRN 12/06/20 12/06/20 History atenolol 1 tab PO DAILY 12/06/20 12/06/20 History clorazepate dipotassium 3.75 mg PO BID PRN 12/06/20 12/06/20 History digoxin 1 tab PO DAILY 12/06/20 12/06/20 History fluticasone propion-salmeterol 1 inh INHALATION BID 12/06/20 12/06/20 History [Advair Diskus] guaifenesin [Mucinex] 600 mg PO BID 12/06/20 12/06/20 History levothyroxine 1 tab PO QAM 12/06/20 12/06/20 History montelukast 1 tab PO DAILY 12/06/20 12/06/20 History tiotropium bromide [Spiriva with 18 mcg INHALATION QAM 12/06/20 12/06/20 History HandiHaler] latanoprost 1 drp OPHTHALMIC-RIGHT BEDTIME 12/07/20 12/07/20 History Allergies Allergy/AdvReac Type Severity Reaction Status Date / Time Carbapenems Allergy Unknown RASH Verified 12/06/20 13:59 cefaclor Allergy Unknown rash, Verified 12/06/20 13:59 itching cefadroxil [Cefadroxil] Allergy Unknown RASH Verified 12/06/20 13:59 cephalexin [From KEFLEX] Allergy Unknown RASH Verified 12/06/20 13:59 Cephalosporins Allergy Unknown RASH Verified 12/06/20 13:59 chlorhexidine Allergy Unknown MUMPS LIKE Verified 12/06/20 13:59 SWELLING TO MOUTH ciprofloxacin Allergy Unknown RASH Verified 12/06/20 13:59 ibuprofen [IBUPROFEN] Allergy Unknown RASH Verified 12/06/20 13:59 naproxen Allergy Unknown RASH, Verified 12/06/20 13:59 rash, itching penicillin V Allergy Unknown Rash Verified 12/06/20 13:59 Penicillins Allergy Unknown RASH, HIVES Verified 12/06/20 13:59 Sulfa (Sulfonamide Allergy Unknown RASH Verified 12/06/20 13:59 Antibiotics) acetaminophen AdvReac Unknown PALPITATION Verified 12/06/20 13:59 S adhesives Allergy Unknown skin Uncoded 09/20/18 00:00 irritation antiperspirants, deodorants Allergy Unknown Rash Uncoded 12/06/20 13:59 carbapenam Allergy Unknown Rash Uncoded 12/06/20 13:59 chephlasporins Allergy Unknown rash, Uncoded 09/20/18 00:00 itching Chlorhexidine Allergy Unknown Rash Uncoded 12/06/20 13:59 chlorhexidine Allergy Unknown Rash Uncoded 12/06/20 13:59 duracef Allergy Unknown rash, Uncoded 09/20/18 00:00 itching DURACEPT Allergy Unknown RASH Uncoded 04/30/20 15:23 keflex Allergy Unknown rash, Uncoded 09/20/18 00:00 itching shellfish Allergy Unknown severe Uncoded 09/20/18 00:00 hives Exam Vital signs: Vital Signs Temp 97.1 F 12/08/20 07:47 Pulse 69 12/08/20 08:12 Resp 18 12/08/20 07:47 BP 127/88 12/08/20 08:12 Pulse Ox 96 12/08/20 07:47 Intake & Output 12/07/20 12/08/20 12/08/20 18:59 06:59 18:59 Intake Total 480 / 780 300 / 780 Balance 480 / 780 300 / 780 Intake: Intake, Oral Amount 480 / 780 300 / 780 Other: Breakfast % Eaten 75% Lunch % Eaten 50% Dinner % Eaten 75% Evening Snack % Eaten 50 Number of Unmeasured Voids 1 1 Urine Bathroom Bathroom Urine Color Yellow Weight 58.06 kg Body Mass Index 22.6 - Constitutional Present: no acute distress - Routine HEENT Exam Head: Present: atraumatic - Routine Neck Exam Present: full ROM - Routine Respiratory Exam Present: decreased breath sounds, rhonchi - Routine Cardiovascular Exam Cardiovascular: Present: RRR - Routine Abdominal Exam Present: diminished bowel sounds - Routine Rectal Exam Patient deferred: visual exam - Routine Extremities Exam Present: nontender - Routine Back/Spine/Pelvis Exam Back/Spine: Present: full ROM - Routine Skin Exam Present: intact - Routine Neurological Exam Present: alert, oriented X3 - Routine Psychiatric Exam Present: normal affect Data - Labs CBC & Chem 7: 12/08/20 07:55 12/07/20 06:03 Labs: 12/06/20 08:32 ECG 12 lead EKG Stat EKG Documentation DIRECTED XR chest 1V Stat 12/06/20 08:45 0.9 % Sodium Chloride [Ns] 1,000 ml IVCONT 999 mls/hr 12/06/20 08:46 COVID-19 ID NOW (Rizvi) Stat UA CC w/rflx Micro + Cult Stat 12/06/20 08:48 B Type Natriuretic Peptide Stat Complete Blood Count Auto Diff Stat SLIDE REVIEW Stat Troponin-I High Sensitivity Stat 12/06/20 08:49 Basic Metabolic Panel Stat D-Dimer [D Dimer] Stat Fibrinogen Stat Lactate Dehydrogenase Stat Lipase Stat Liver Panel Stat 12/06/20 09:33 CT angio chest PE protocol Stat 12/06/20 09:42 predniSONE 60 mg PO ONCE ONE 12/06/20 10:06 Pheresis Platelets Stat Type and Screen Stat 12/06/20 10:59 diphenhydrAMINE HCL [Benadryl] 50 mg PO ONCE ONE 12/06/20 11:09 diphenhydrAMINE HCL [Benadryl] 25 mg .ROUTE .STK-MED ONE 12/06/20 11:56 iohexoL 350 MG/ML [Omnipaque 350 MG/ML] 100 ml IV ONCE ONE 12/06/20 13:21 Add Laboratory Test Routine 12/06/20 14:10 Transfer Order Routine 12/06/20 14:29 Digoxin Stat 12/06/20 14:30 Add Laboratory Test Stat 12/06/20 17:29 Vital Signs QSHIFT 12/06/20 21:00 guaiFENesin LA [Mucinex] 600 mg PO BID 12/06/20 21:05 Fluticasone/Vilanterol 100/25 [Breo Ellipta 100/25] 1 puff INHALE RBID 12/07/20 06:00 Levothyroxine Sodium [Synthroid] 75 mcg PO DAILY@0600 12/07/20 06:03 Basic Metabolic Panel DAILY@0600 Complete Blood Count Auto Diff DAILY@0600 12/07/20 08:00 Fluticasone/Vilanterol 100/25 [Breo Ellipta 100/25] 1 puff INHALE RDAILY 12/07/20 09:00 Digoxin [Lanoxin] 0.25 mg PO DAILY Montelukast Sodium [Singulair] 10 mg PO DAILY Laboratory Last Values WBC 6.8 X10*3/uL (4.8-10.8) 12/07/20 06:03 RBC 4.03 X10*6/uL (4.20-5.50) L 12/07/20 06:03 Hgb 11.6 g/dl (12.0-16.0) L 12/07/20 06:03 Hct 34.9 % (37-47) L 12/07/20 06:03 MCV 86.6 fL (80-98) 12/07/20 06:03 MCH 28.8 pg (27.0-33.0) 12/07/20 06:03 MCHC 33.2 g/dl (31.0-35.0) 12/07/20 06:03 RDW 13.7 % (11.0-16.0) 12/07/20 06:03 Plt Count 9 X10*3/uL (160-400) L* 12/07/20 06:03 MPV 12.8 fL (9.4-12.3) H 12/07/20 06:03 Immature Gran % (Auto) 1.0 % (0.0-0.4) H 12/07/20 06:03 Neut % (Auto) 73.0 % (45-73) 12/07/20 06:03 Lymph % (Auto) 14.1 % (20-40) L 12/07/20 06:03 [place] % (Auto) 10.0 % (2-11) 12/07/20 06:03 Eos % (Auto) 1.3 % (0-4) 12/07/20 06:03 Baso % (Auto) 0.6 % (0-2) 12/07/20 06:03 Lymph # (Auto) 1.0 X10*3/uL (1.2-4.9) L 12/07/20 06:03 [place] # (Auto) 0.7 X10*3/uL (0.1-1.2) 12/07/20 06:03 Eos # (Auto) 0.1 X10*3/uL (0.0-0.4) 12/07/20 06:03 Baso # (Auto) 0.0 X10*3/uL (0.0-0.2) 12/07/20 06:03 Abs Immat Gran (auto) 0.07 X10*3/uL (0.00-0.03) H 12/07/20 06:03 Absolute Neuts (auto) 5.0 X10*3/uL (2.0-8.3) 12/07/20 06:03 Absolute Nucleated RBC 0.000 X10*3/uL (0.0-0.012) 12/07/20 06:03 Nucleated RBC % (auto) 0.0 /100WBC (0.0-0.2) 12/07/20 06:03 Smear Tech's Comments VERIFIED 12/06/20 08:48 Smear Path Review SEE NOTE 12/06/20 08:48 Fibrinogen 694 MG/DL (259-690) H 12/06/20 08:49 D-Dimer 6064 NG/ML 12/06/20 08:49 Sodium 135 mmol/L (135-145) 12/07/20 06:03 Potassium 4.6 mmol/L (3.3-5.1) 12/07/20 06:03 Chloride 105 mmol/L (96-108) 12/07/20 06:03 Carbon Dioxide 22 mmol/L (22-29) 12/07/20 06:03 Anion Gap 13 (12-20) 12/07/20 06:03 BUN 17 mg/dL (9-16) H 12/07/20 06:03 Creatinine 0.70 mg/dL (0.5-1.4) 12/07/20 06:03 Estim Creat Clear Calc 49.5 12/07/20 06:03 Estimated GFR > 60 12/07/20 06:03 Random Glucose 80 mg/dL (60-115) 12/07/20 06:03 Calcium 8.7 mg/dL (8.4-10.2) D 12/07/20 06:03 Total Bilirubin 0.7 mg/dL (0.0-1.0) 12/06/20 08:49 Direct Bilirubin 0.2 mg/dL (0.0-0.5) 12/06/20 08:49 AST 23 U/L (5-31) 12/06/20 08:49 ALT 20 U/L (0-31) 12/06/20 08:49 Alkaline Phosphatase 102 U/L (39-117) 12/06/20 08:49 Lactate Dehydrogenase 212 U/L (122-220) 12/06/20 08:49 Troponin I High Sens < 3.5 ng/L (<3.5-17.0) 12/06/20 08:48 B-Natriuretic Peptide 84 pg/mL (<100) 12/06/20 08:48 Total Protein 7.5 g/dL (6.5-8.0) 12/06/20 08:49 Albumin 4.1 g/dL (3.5-5.0) 12/06/20 08:49 Lipase 116 U/L (8-78) H 12/06/20 08:49 Urine Color YELLOW 12/06/20 08:46 Urine Appearance CLEAR 12/06/20 08:46 Urine pH 6.5 (5.0-8.0) 12/06/20 08:46 Ur Specific [place] 1.015 (1.005-1.025) 12/06/20 08:46 Urine Protein NEG MG/DL (NEG-TRACE) 12/06/20 08:46 Urine Glucose (UA) NEG MG/DL (NEG) 12/06/20 08:46 Urine Ketones NEG MG/DL (NEG) 12/06/20 08:46 Urine Blood NEG (NEG) 12/06/20 08:46 Urine Nitrite NEG (NEG) 12/06/20 08:46 Ur Leukocyte Esterase NEG (NEG) 12/06/20 08:46 Digoxin 0.8 ng/mL (0.8-2.0) 12/06/20 14:29 COVID-19 (J LUIS) Negative (Negative) 12/06/20 08:46 COVID-19 Clin Com See Note 12/06/20 08:46 Blood Type B Positive 12/06/20 10:06 Antibody Screen NEGATIVE 12/06/20 10:06 - Imaging Radiologist's impression: ITS Impressions Chest X-Ray 12/06/20 08:32 IMPRESSION: Irregular opacity in the right suprahilar region and mild increased prominence of the right hilum. Malignancy cannot be excluded. Further evaluation with a contrast-enhanced chest CT scan is recommended. Chest CTA 12/06/20 09:33 IMPRESSION: No evidence of acute pulmonary artery emboli. No thoracic aortic aneurysm or dissection. Lung lesions as described above with 2 very suspicious lesions within the right upper lobe consistent with malignancy. There is right hilar and mediastinal lymphadenopathy. Old granulomatous disease. VTE: Venous Duplex 12/07/20 17:04 IMPRESSION: No DVT demonstrated in the bilateral lower extremity. Progress Note: A/P (1) Thrombocytopenia Start date: 12/06/20 (The hematology evaluation is greatly appreciated. Ayakan di will continue. I spoke at length with her about allowing the bone marrow and she says she will consent to it tomorrow. ) Status: Acute (2) Lung mass Start date: 12/06/20 (I will review the images with IR and advise.) Status: Acute - Time Spent With Patient Total time spent is greater than 50% in coordination of care (as documented) at patient's floor/unit and/or counseling patient: 15 - 24 minutes
--- NOTE | 2020-12-08 13:10 | P.PNIM_ITS ---
Subjective Subjective Date of Service: 12/08/20 Interval History: Hemoptysis has resolved. No dyspnea. No gum bleeding. No hematuria or hematochezia. Physical Exam Vital Signs: Vital Signs: Last Vital Signs Temp 97.1 F 12/08/20 07:47 Pulse 69 12/08/20 08:12 Resp 18 12/08/20 07:47 BP 127/88 12/08/20 08:12 Pulse Ox 96 12/08/20 07:47 Body Mass Index 22.6 Gen: in no acute distress HEENT: sclera anicteric, moist mucus membranes Neck: supple Lungs: clear to auscultation bilaterally Heart: regular rate and rhythm, no murmurs Abd: soft, non-tender, non-distended Ext: no edema Skin: warm/well-perfused Neuro: alert and oriented x3, no focal findings Psych: appropriate affect Objective Data Current Medications Generic Name Dose Route Start Last Admin Trade Name Freq PRN Reason Stop Dose Admin Acetaminophen 650 mg 12/06/20 17:29 Acetaminophen 325 Mg Tablet PO Q6H PRN Pain, Mild (Pain Scale 1-3) Albuterol Sulfate 2 puff 12/06/20 17:29 Albuterol Sulfate 90 Mcg 8 Gm Inhaler INHALE Q4H PRN Shortness Of Breath Or Wheezing Atenolol 25 mg 12/07/20 09:00 12/08/20 08:12 Atenolol 25 Mg Tablet PO 25 mg DAILY FAY Administration Protocol Diazepam 2.5 mg 12/06/20 17:36 12/07/20 22:21 Diazepam 5 Mg Tablet PO 2.5 mg BID PRN Administration Anxiety Digoxin 0.25 mg 12/06/20 21:00 12/07/20 17:26 Digoxin 0.25 Mg Tablet PO 0.25 mg BEDTIME FAY Administration Docusate Sodium 100 mg 12/06/20 17:29 Docusate Sodium 100 Mg Capsule PO DAILY PRN Constipation Guaifenesin/Dextromethorphan 10 ml 12/07/20 10:53 Guaifenesin Dm 100/10/5 Ml 5 Ml Syrup PO Q6H PRN cough Montelukast Sodium 10 mg 12/06/20 21:45 12/07/20 19:55 Montelukast Sodium 10 Mg Tablet PO 10 mg BEDTIME FAY Administration Pat Own Med ( 1 each 12/08/20 06:00 12/08/20 05:45 Levothyroxine Sodium PO 1 each 75 Mcg) DAILY@0600 FAY Administration Pat Own Med ( 1 each 12/07/20 21:00 12/07/20 22:21 Latanoprost 0.005% EYE-RIGHT 1 each Eye Drops) BEDTIME FAY Administration Pat Own Med ( Advair 1 each 12/07/20 20:00 12/08/20 07:39 250/50 Mcg Diskus) INHALE 1 each RBID FAY Administration Prednisone 60 mg 12/07/20 09:30 12/08/20 08:12 Prednisone 20 Mg Tablet PO 60 mg DAILY FAY Administration Sodium Chloride 3 ml 12/06/20 17:29 12/08/20 07:39 0.9 % Sodium Chloride Flush 3 Ml Syringe IVFLUSH 3 ml QSHIFT FAY Administration Tiotropium [place] 1 puff 12/07/20 08:00 12/08/20 07:39 Tiotropium [place] 18 Mcg Cap.W.Dev INHALE 1 puff RDAILY FAY Administration Labs CBC & Chem 7: 12/08/20 07:55 12/07/20 06:03 Labs: Laboratory Results - last 24 hr 12/06/20 12/07/20 12/07/20 08:48 06:03 06:03 WBC RBC Hgb Hct MCV MCH MCHC RDW Plt Count MPV Immature Gran % (Auto) Neut % (Auto) Lymph % (Auto) [place] % (Auto) Eos % (Auto) Baso % (Auto) Lymph # (Auto) [place] # (Auto) Eos # (Auto) Baso # (Auto) Abs Immat Gran (auto) Absolute Neuts (auto) Absolute Nucleated RBC Nucleated RBC % (auto) Smear Tech's Comments Smear Path Review SEE NOTE Lactate Dehydrogenase 219 Vitamin B12 756 Folate 18.6 12/08/20 07:55 WBC 7.6 RBC 4.40 Hgb 12.4 Hct 38.0 MCV 86.4 MCH 28.2 MCHC 32.6 RDW 13.5 Plt Count 8 L* MPV 11.8 Immature Gran % (Auto) 1.2 H Neut % (Auto) 75.1 H Lymph % (Auto) 12.2 L [place] % (Auto) 9.5 Eos % (Auto) 1.3 Baso % (Auto) 0.7 Lymph # (Auto) 0.9 L [place] # (Auto) 0.7 Eos # (Auto) 0.1 Baso # (Auto) 0.1 Abs Immat Gran (auto) 0.09 H Absolute Neuts (auto) 5.7 Absolute Nucleated RBC 0.000 Nucleated RBC % (auto) 0.0 Smear Tech's Comments VERIFIED Smear Path Review Lactate Dehydrogenase Vitamin B12 Folate Assessment and Plan (1) Thrombocytopenia: Status: Acute (2) Hemoptysis: Status: Acute (3) Lung mass: Status: Acute Assessment and Plan: hospital d#3 85yo F with COPD, breast CA s/p lumpectomy, HTN, SVT presented with hemoptysis x5d found to have severe thrombocytopenia and new lung mass concerning for malignancy # 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 will send anti-PF4 though cases of [id number] vaccination were associated with adenovirus-based vaccines from [employer] and [employer], not the [employer] vaccine # hemoptysis # suspicious lung mass due to thrombocytopenia + lung mass - pulmonology consulted; bronchoscopy with biopsy deferred pending improvement in platelet count # hx SVT - continue digoxin, atenolol # HTN - continue atenolol # COPD - continue LAMA, ICS/LABA, prn DANIEL # hypothyroidism - continue LT4 # VTE ppx - SCDs, heparin contraindicated by thrombocytopenia
[2020-12-08] MEDS: Digoxin 0.25 MG TABLET PO (18:32)
[2020-12-08] MEDS: Montelukast Sodium 10 MG TABLET PO (20:18)
[2020-12-08] MEDS: diazePAM 5 MG TABLET 2.5 MG PO (23:35)
[2020-12-08] MEDS: Docusate Sodium 100 MG CAPSULE PO (23:36)
[2020-12-09] VITALS (10 sets, daily range): BP systolic 135–172; BP diastolic 62–87; PULSE 64–101; RESP 16–18; TEMP 36–37.1; O2SAT 94–98
[2020-12-09] MEDS: 0.9 % Sodium Chloride Flush 3 ML SYRINGE IVFLUSH ×3 (05:54→20:45)
[2020-12-09 06:18] LABS: Basophils Percent Auto 0.4 % (0-2); Eosinophils Absolute Auto 0.1 X10*3/uL (0.0-0.4); Eosinophils Percent Auto 1.3 % (0-4); MANUAL DIFF FLAG SCAN; Mean Corpuscular Volume 84.8 fL (80-98); PLT ABN DIST 1; SCAN SMEAR FLAG 1
[2020-12-09 06:20] LABS: Hematocrit 35.2 % (37-47); Imm Gran Abs Auto 0.11 X10*3/uL (0.00-0.03); Imm Gran Pct Auto 1.6 % (0.0-0.4); Lymphocytes Absolute Auto 1.1 X10*3/uL (1.2-4.9); Lymphocytes Percent Auto 15.8 % (20-40); Mean Corpuscular HGB Conc 34.1 g/dl (31.0-35.0); Mean Corpuscular Hemoglobin 28.9 pg (27.0-33.0); Monocytes Absolute Auto 0.6 X10*3/uL (0.1-1.2); Monocytes Percent Auto 9.3 % (2-11); Neutrophils Absolute Auto 4.9 X10*3/uL (2.0-8.3); Neutrophils Percent Auto 71.6 % (45-73); Red Blood Count 4.15 X10*6/uL (4.20-5.50); Red Cell Distribution Width 13.5 % (11.0-16.0); White Blood Count 6.9 X10*3/uL (4.8-10.8)
[2020-12-09 06:22] LABS: Platelet Count 8 X10*3/uL (160-400)
[2020-12-09 06:30] LABS: SLIDE REVIEW VERIFIED
[2020-12-09] MEDS: guaiFENesin DM 600/30 1 TAB TAB.ER.12H PO ×2 (08:52→20:44)
[2020-12-09] MEDS: predniSONE 20 MG TABLET 60 MG PO (08:52)
[2020-12-09] MEDS: atenoloL 25 MG TABLET PO (08:52)
[2020-12-09 13:21] LABS: HIT-Patient Optical Density 0.038 OD UNITS (<OR= 0.300); Heparin Induced Plt Ab NEGATIVE (NEGATIVE)
--- NOTE | 2020-12-09 14:37 | HO.PM.IMPN ---
Subjective Subjective Date of Service: 12/09/20 Interval History: Minimal cough. Insists on taking Advair and Spiriva in the morning at the same time and requests Mucinex. No further hemoptysis; no gum bleeding. No headache. Physical Exam Vital Signs: Vital Signs: Last Vital Signs Temp 97.0 F 12/09/20 11:05 Pulse 69 12/09/20 11:05 Resp 16 12/09/20 11:05 BP 157/77 H 12/09/20 11:05 Pulse Ox 96 12/09/20 11:05 Body Mass Index 22.6 Gen: in no acute distress HEENT: sclera anicteric, moist mucus membranes Neck: supple Lungs: clear to auscultation bilaterally Heart: regular rate and rhythm, no murmurs Abd: soft, non-tender, non-distended Ext: no edema Skin: warm/well-perfused Neuro: alert and oriented x3, no focal findings Psych: appropriate affect Objective Data Current Medications Generic Name Dose Route Start Last Admin Trade Name Freq PRN Reason Stop Dose Admin Acetaminophen 650 mg 12/06/20 17:29 Acetaminophen 325 Mg Tablet PO Q6H PRN Pain, Mild (Pain Scale 1-3) Albuterol Sulfate 2 puff 12/06/20 17:29 Albuterol Sulfate 90 Mcg 8 Gm Inhaler INHALE Q4H PRN Shortness Of Breath Or Wheezing Atenolol 25 mg 12/07/20 09:00 12/09/20 08:52 Atenolol 25 Mg Tablet PO 25 mg DAILY FAY Administration Protocol Diazepam 2.5 mg 12/06/20 17:36 12/08/20 23:35 Diazepam 5 Mg Tablet PO 2.5 mg BID PRN Administration Anxiety Digoxin 0.25 mg 12/06/20 21:00 12/08/20 18:32 Digoxin 0.25 Mg Tablet PO 0.25 mg BEDTIME FAY Administration Docusate Sodium 100 mg 12/06/20 17:29 12/08/20 23:36 Docusate Sodium 100 Mg Capsule PO 100 mg DAILY PRN Administration Constipation Guaifenesin/Dextromethorphan 1 tab 12/09/20 08:10 12/09/20 08:52 Guaifenesin Dm 600/30 1 Tab Tab.Er.12h PO 1 tab BID PRN Administration cough Montelukast Sodium 10 mg 12/06/20 21:45 12/08/20 20:18 Montelukast Sodium 10 Mg Tablet PO 10 mg BEDTIME FAY Administration Pat Own Med ( 1 each 12/08/20 06:00 12/09/20 05:54 Levothyroxine Sodium PO 1 each 75 Mcg) DAILY@0600 FAY Administration Pat Own Med ( 1 each 12/07/20 21:00 12/08/20 20:18 Latanoprost 0.005% EYE-RIGHT 1 each Eye Drops) BEDTIME FAY Administration Non-Formulary Medication 1 each 12/09/20 18:30 Patient Own Medication INHALE BID@0630,1830 [facility] Prednisone 60 mg 12/07/20 09:30 12/09/20 08:52 Prednisone 20 Mg Tablet PO 60 mg DAILY FAY Administration Sodium Chloride 3 ml 12/06/20 17:29 12/09/20 05:54 0.9 % Sodium Chloride Flush 3 Ml Syringe IVFLUSH 3 ml QSHIFT [facility] Administration Tiotropium [place] 1 puff 12/10/20 06:30 Tiotropium [place] 18 Mcg Cap.W.Dev INHALE DAILY@0630 [facility] Labs CBC & Chem 7: 12/09/20 05:44 12/07/20 06:03 Labs: Laboratory Results - last 24 hr 12/06/20 12/08/20 12/09/20 10:06 13:15 05:44 WBC 6.9 RBC 4.15 L Hgb 12.0 Hct 35.2 L MCV 84.8 MCH 28.9 MCHC 34.1 RDW 13.5 Plt Count 8 L* MPV 12.0 Immature Gran % (Auto) 1.6 H Neut % (Auto) 71.6 Lymph % (Auto) 15.8 L [place] % (Auto) 9.3 Eos % (Auto) 1.3 Baso % (Auto) 0.4 Lymph # (Auto) 1.1 L [place] # (Auto) 0.6 Eos # (Auto) 0.1 Baso # (Auto) 0.0 Abs Immat Gran (auto) 0.11 H Absolute Neuts (auto) 4.9 Absolute Nucleated RBC 0.000 Nucleated RBC % (auto) 0.0 Smear Tech's Comments VERIFIED Hep-Ind Thrombocytop Com See Below Heparin Dep Plt Ab OD 0.038 Hep-Induced Plt Ab Renee NEGATIVE Blood Type B Positive Antibody Screen NEGATIVE Assessment and Plan (1) Thrombocytopenia: Status: Acute (2) Hemoptysis: Status: Acute (3) Lung mass: Status: Acute Assessment and Plan: hospital d#4 85yo F with COPD, breast CA s/p lumpectomy, HTN, SVT presented with hemoptysis x5d found to have severe thrombocytopenia and new lung mass concerning for malignancy # 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
[2020-12-09 15:46] LABS: IgA 136 mg/dL (70-320); IgG 1553 mg/dL (600-1540); IgM 233 mg/dL (50-300)
[2020-12-09] MEDS: Digoxin 0.25 MG TABLET PO (17:25)
[2020-12-09] MEDS: Montelukast Sodium 10 MG TABLET PO (20:41)
[2020-12-09] MEDS: diazePAM 5 MG TABLET 2.5 MG PO (22:42)
[2020-12-09] MEDS: Docusate Sodium 100 MG CAPSULE PO (22:42)
[2020-12-10] VITALS (14 sets, daily range): BP systolic 122–177; BP diastolic 70–92; PULSE 63–77; RESP 16–19; TEMP 35.9–36.6; O2SAT 93–98
[2020-12-10 06:49] LABS: MANUAL DIFF FLAG SCAN; Mean Corpuscular Volume 84.4 fL (80-98); SCAN SMEAR FLAG 1
[2020-12-10 06:51] LABS: Basophils Percent Auto 0.4 % (0-2); Eosinophils Absolute Auto 0.1 X10*3/uL (0.0-0.4); Eosinophils Percent Auto 1.7 % (0-4); Hematocrit 35.2 % (37-47); Hemoglobin 11.9 g/dl (12.0-16.0); Imm Gran Pct Auto 1.4 % (0.0-0.4); Lymphocytes Absolute Auto 1.2 X10*3/uL (1.2-4.9); Lymphocytes Percent Auto 16.8 % (20-40); Mean Corpuscular HGB Conc 33.8 g/dl (31.0-35.0); Mean Corpuscular Hemoglobin 28.5 pg (27.0-33.0); Mean Platelet Volume 13.6 fL (9.4-12.3); Monocytes Absolute Auto 0.7 X10*3/uL (0.1-1.2); Monocytes Percent Auto 9.3 % (2-11); Neutrophils Absolute Auto 5.1 X10*3/uL (2.0-8.3); Neutrophils Percent Auto 70.4 % (45-73); Red Blood Count 4.17 X10*6/uL (4.20-5.50); Red Cell Distribution Width 13.5 % (11.0-16.0); White Blood Count 7.2 X10*3/uL (4.8-10.8)
[2020-12-10 08:08] LABS: PLT ABN DIST 1
[2020-12-10 08:09] LABS: Platelet Count 9 X10*3/uL (160-400)
--- NOTE | 2020-12-10 08:41 | P.PNIM_ITS ---
Subjective Subjective Date of Service: 12/10/20 Interval History: Seen in f/u [facility] with provisional diagnosis of ITP, No further hemoptysis; no gum bleeding. No headache. Review of Systems no fever bruses all over Physical Exam Vital Signs: Vital Signs: Last Vital Signs Temp 97.5 F 12/10/20 07:33 Pulse 74 12/10/20 07:33 Resp 16 12/10/20 07:33 BP 158/83 H 12/10/20 07:33 Pulse Ox 95 12/10/20 07:33 Body Mass Index 22.6 Const: Other: Gen: in no acute distress Lungs: clear to auscultation bilaterally Heart: regular rate and rhythm, no murmurs Abd: soft, non-tender, non-distended Ext: no edema Skin: has bruses all arms, torso, sparing face Neuro: alert and oriented x3, no focal findings Psych: appropriate affect Objective Data Current Medications Generic Name Dose Route Start Last Admin Trade Name Freq PRN Reason Stop Dose Admin Acetaminophen 650 mg 12/06/20 17:29 Acetaminophen 325 Mg Tablet PO Q6H PRN Pain, Mild (Pain Scale 1-3) Albuterol Sulfate 2 puff 12/06/20 17:29 Albuterol Sulfate 90 Mcg 8 Gm Inhaler INHALE Q4H PRN Shortness Of Breath Or Wheezing Atenolol 25 mg 12/07/20 09:00 12/09/20 08:52 Atenolol 25 Mg Tablet PO 25 mg DAILY FAY Administration Protocol Diazepam 2.5 mg 12/06/20 17:36 12/09/20 22:42 Diazepam 5 Mg Tablet PO 2.5 mg BID PRN Administration Anxiety Docusate Sodium 100 mg 12/06/20 17:29 12/09/20 22:42 Docusate Sodium 100 Mg Capsule PO 100 mg DAILY PRN Administration Constipation Guaifenesin/Dextromethorphan 1 tab 12/09/20 08:10 12/09/20 20:44 Guaifenesin Dm 600/30 1 Tab Tab.Er.12h PO 1 tab BID PRN Administration cough Montelukast Sodium 10 mg 12/06/20 21:45 12/09/20 20:41 Montelukast Sodium 10 Mg Tablet PO 10 mg BEDTIME FAY Administration Pat Own Med ( 1 each 12/08/20 06:00 12/10/20 05:29 Levothyroxine Sodium PO 1 each 75 Mcg) DAILY@0600 [facility] Administration Pat Own Med ( 1 each 12/07/20 21:00 12/09/20 20:41 Latanoprost 0.005% EYE-RIGHT 1 each Eye Drops) BEDTIME FAY Administration Non-Formulary Medication 1 each 12/09/20 18:30 12/10/20 06:11 Patient Own Medication INHALE Not Given BID@0630,1830 [facility] Prednisone 60 mg 12/07/20 09:30 12/09/20 08:52 Prednisone 20 Mg Tablet PO 60 mg DAILY FAY Administration Sodium Chloride 3 ml 12/06/20 17:29 12/09/20 20:45 0.9 % Sodium Chloride Flush 3 Ml Syringe IVFLUSH 3 ml QSHIFT [facility] Administration Tiotropium [place] 1 puff 12/10/20 06:30 12/10/20 06:11 Tiotropium [place] 18 Mcg Cap.W.Dev INHALE Not Given DAILY@0630 [facility] Labs CBC & Chem 7: 12/10/20 05:54 12/07/20 06:03 Assessment and Plan (1) Thrombocytopenia: Status: Acute (2) Hemoptysis: Status: Acute (3) Lung mass: Status: Acute Assessment and Plan: hospital d#5 85yo F with COPD, breast CA s/p lumpectomy, HTN, SVT presented with hemoptysis x5d found to have severe thrombocytopenia and new lung mass concerning for malignancy # severe thrombocytopenia - suspected ITP, on prednisone d#4, still fairly low. To be consider for IVIg if no improvement; continue to monitor CBC; plan bone marrow biopsy for today 12/10 - pending: SIEP, anti-PF4 # hemoptysis # suspicious lung mass - pulmonology consulted; bronchoscopy with biopsy deferred pending improvement in platelet count # hx SVT - continue digoxin, atenolol # HTN - continue atenolol # COPD - continue LAMA, ICS/LABA, prn DANIEL # hypothyroidism - continue LT4 # VTE ppx - SCDs, heparin contraindicated by thrombocytopenia Will check with hematology when safe to go home
[2020-12-10] MEDS: atenoloL 25 MG TABLET PO (09:21)
[2020-12-10] MEDS: 0.9 % Sodium Chloride Flush 3 ML SYRINGE IVFLUSH ×2 (09:27→17:09)
[2020-12-10] MEDS: predniSONE 20 MG TABLET 60 MG PO (09:38)
--- NOTE | 2020-12-10 12:39 | HO.ANESPROP2 ---
[facility] Active Problems Active Problems: All Active Problems (Updated 12/07/20 @ 05:45 by Jae Maldonado MD) Thrombocytopenia (Acute) Hemoptysis (Acute) Lung mass (Acute) Past Medical History Medical History (Updated 12/07/20 @ 05:45 by Jae Maldonado MD) Breast CA COPD (chronic obstructive pulmonary disease) Fibrocystic breast changes HTN (hypertension) Irregular heart beat Thyroid disease Functional capacity: uses cane/walker Family History Family History Other No family history of breast cancer Surgical History Surgical History (Updated 12/07/20 @ 05:45 by Jae Maldonado MD) S/P breast lumpectomy S/P hip replacement Social History Social History (Updated 12/06/20 @ 14:56 by KERRY Flores) Household Members: Spouse Housing: House Alcohol intake: never Smoking Status: Former smoker Years Smoked: 40 service: No Current occupational status: retired Meds Allergies Allergy/AdvReac Type Severity Reaction Status Date / Time Carbapenems Allergy Unknown RASH Verified 12/06/20 13:59 cefaclor Allergy Unknown rash, Verified 12/06/20 13:59 itching cefadroxil [Cefadroxil] Allergy Unknown RASH Verified 12/06/20 13:59 cephalexin [From KEFLEX] Allergy Unknown RASH Verified 12/06/20 13:59 Cephalosporins Allergy Unknown RASH Verified 12/06/20 13:59 chlorhexidine Allergy Unknown MUMPS LIKE Verified 12/06/20 13:59 SWELLING TO MOUTH ciprofloxacin Allergy Unknown RASH Verified 12/06/20 13:59 ibuprofen [IBUPROFEN] Allergy Unknown RASH Verified 12/06/20 13:59 naproxen Allergy Unknown RASH, Verified 12/06/20 13:59 rash, itching penicillin V Allergy Unknown Rash Verified 12/06/20 13:59 Penicillins Allergy Unknown RASH, HIVES Verified 12/06/20 13:59 Sulfa (Sulfonamide Allergy Unknown RASH Verified 12/06/20 13:59 Antibiotics) acetaminophen AdvReac Unknown PALPITATION Verified 12/06/20 13:59 S adhesives Allergy Unknown skin Uncoded 09/20/18 00:00 irritation antiperspirants, deodorants Allergy Unknown Rash Uncoded 12/06/20 13:59 carbapenam Allergy Unknown Rash Uncoded 12/06/20 13:59 chephlasporins Allergy Unknown rash, Uncoded 09/20/18 00:00 itching Chlorhexidine Allergy Unknown Rash Uncoded 12/06/20 13:59 chlorhexidine Allergy Unknown Rash Uncoded 12/06/20 13:59 duracef Allergy Unknown rash, Uncoded 09/20/18 00:00 itching DURACEPT Allergy Unknown RASH Uncoded 04/30/20 15:23 keflex Allergy Unknown rash, Uncoded 09/20/18 00:00 itching shellfish Allergy Unknown severe Uncoded 09/20/18 00:00 hives Active Medications: Current Medications Generic Name Dose Route Start Last Admin Trade Name Freq PRN Reason Stop Dose Admin Acetaminophen 650 mg 12/06/20 17:29 Acetaminophen 325 Mg Tablet PO Q6H PRN Pain, Mild (Pain Scale 1-3) Albuterol Sulfate 2 puff 12/06/20 17:29 Albuterol Sulfate 90 Mcg 8 Gm Inhaler INHALE Q4H PRN Shortness Of Breath Or Wheezing Atenolol 25 mg 12/07/20 09:00 12/10/20 09:21 Atenolol 25 Mg Tablet PO 25 mg DAILY FAY Administration Protocol Diazepam 2.5 mg 12/06/20 17:36 12/09/20 22:42 Diazepam 5 Mg Tablet PO 2.5 mg BID PRN Administration Anxiety Digoxin 0.25 mg 12/10/20 09:00 Digoxin 0.25 Mg Tablet PO DAILY FAY Docusate Sodium 100 mg 12/06/20 17:29 12/09/20 22:42 Docusate Sodium 100 Mg Capsule PO 100 mg DAILY PRN Administration Constipation Guaifenesin/Dextromethorphan 1 tab 12/09/20 08:10 12/09/20 20:44 Guaifenesin Dm 600/30 1 Tab Tab.Er.12h PO 1 tab BID PRN Administration cough Montelukast Sodium 10 mg 12/06/20 21:45 12/09/20 20:41 Montelukast Sodium 10 Mg Tablet PO 10 mg BEDTIME FAY Administration Pat Own Med ( 1 each 12/08/20 06:00 12/10/20 05:29 Levothyroxine Sodium PO 1 each 75 Mcg) DAILY@0600 FAY Administration Pat Own Med ( 1 each 12/07/20 21:00 12/09/20 20:41 Latanoprost 0.005% EYE-RIGHT 1 each Eye Drops) BEDTIME [facility] Administration Non-Formulary Medication 1 each 12/09/20 18:30 12/10/20 06:11 Patient Own Medication INHALE Not Given BID@0630,1830 [facility] Prednisone 60 mg 12/07/20 09:30 12/10/20 09:38 Prednisone 20 Mg Tablet PO 60 mg DAILY [facility] Administration Sodium Chloride 3 ml 12/06/20 17:29 12/10/20 09:27 0.9 % Sodium Chloride Flush 3 Ml Syringe IVFLUSH 3 ml QSHIFT [facility] Administration Tiotropium [place] 1 puff 12/10/20 06:30 12/10/20 06:11 Tiotropium [place] 18 Mcg Cap.W.Dev INHALE Not Given DAILY@0630 [facility] Home Medications Medication Instructions Recorded Confirmed Last Taken Type albuterol sulfate 2 puff INHALATION Q4H PRN 12/06/20 12/06/20 12/05/20 History atenolol 1 tab PO DAILY 12/06/20 12/06/20 12/05/20 History clorazepate dipotassium 3.75 mg PO BID PRN 12/06/20 12/06/20 1 Day Ago History ~12/05/20 digoxin 1 tab PO DAILY 12/06/20 12/06/20 12/05/20 History fluticasone propion-salmeterol 1 inh INHALATION BID 12/06/20 12/06/20 12/05/20 History [Advair Diskus] guaifenesin [Mucinex] 600 mg PO BID 12/06/20 12/06/20 12/05/20 History levothyroxine 1 tab PO QAM 12/06/20 12/06/20 12/05/20 History montelukast 1 tab PO DAILY 12/06/20 12/06/20 12/05/20 History tiotropium bromide [Spiriva with 18 mcg INHALATION QAM 12/06/20 12/06/20 12/05/20 History HandiHaler] latanoprost 1 drp OPHTHALMIC-RIGHT BEDTIME 12/07/20 12/07/20 Unknown History Exam Exam Date and Time: December 10, 2020 1239 Height,Weight and Vital Signs: Height 5 ft 3 in Weight 58.06 kg Last Vital Signs Temp 97.1 F 12/10/20 11:39 Pulse 65 12/10/20 11:39 Resp 18 12/10/20 11:39 BP 168/88 H 12/10/20 11:39 Pulse Ox 96 12/10/20 11:14 Pertinent Lab Results Pertinent Lab Results: Laboratory Tests 12/06/20 12/06/20 12/06/20 08:46 08:46 08:48 WBC 7.2 RBC 4.32 Hgb 12.4 Hct 36.9 L MCV 85.4 MCH 28.7 MCHC 33.6 RDW 13.5 Plt Count 7 L* MPV Not Reportable Immature Gran % (Auto) 1.4 H Neut % (Auto) 79.9 H Lymph % (Auto) 8.4 L [place] % (Auto) 8.5 Eos % (Auto) 1.1 Baso % (Auto) 0.7 Lymph # (Auto) 0.6 L [place] # (Auto) 0.6 Eos # (Auto) 0.1 Baso # (Auto) 0.1 Abs Immat Gran (auto) 0.10 H Absolute Neuts (auto) 5.7 Absolute Nucleated RBC 0.000 Nucleated RBC % (auto) 0.0 Smear Tech's Comments VERIFIED Smear Path Review SEE NOTE Fibrinogen D-Dimer Hep-Ind Thrombocytop Com Sodium Potassium Chloride Carbon Dioxide Anion Gap BUN Creatinine Estim Creat Clear Calc Estimated GFR Random Glucose Calcium Total Bilirubin Direct Bilirubin AST ALT Alkaline Phosphatase Lactate Dehydrogenase Troponin I High Sens B-Natriuretic Peptide Total Protein Albumin Lipase Vitamin B12 Folate Urine Color YELLOW Urine Appearance CLEAR Urine pH 6.5 Ur Specific [place] 1.015 Urine Protein NEG Urine Glucose (UA) NEG Urine Ketones NEG Urine Blood NEG Urine Nitrite NEG Ur Leukocyte Esterase NEG Digoxin IgG Total IgA Total IgM SHERRI Interpretation Heparin Dep Plt Ab OD Hep-Induced Plt Ab Renee COVID-19 (J LUIS) Negative COVID-19 Clin Com See Note Blood Type Antibody Screen 12/06/20 12/06/20 12/06/20 08:48 08:48 08:49 WBC RBC Hgb Hct MCV MCH MCHC RDW Plt Count MPV Immature Gran % (Auto) Neut % (Auto) Lymph % (Auto) [place] % (Auto) Eos % (Auto) Baso % (Auto) Lymph # (Auto) [place] # (Auto) Eos # (Auto) Baso # (Auto) Abs Immat Gran (auto) Absolute Neuts (auto) Absolute Nucleated RBC Nucleated RBC % (auto) Smear Tech's Comments Smear Path Review Fibrinogen D-Dimer Hep-Ind Thrombocytop Com Sodium 133 L Potassium 4.5 Chloride 101 Carbon Dioxide 23 Anion Gap 14 BUN 22 H Creatinine 0.76 Estim Creat Clear Calc 45.6 Estimated GFR > 60 Random Glucose 97 Calcium 9.3 Total Bilirubin 0.7 Direct Bilirubin 0.2 AST 23 ALT 20 Alkaline Phosphatase 102 Lactate Dehydrogenase 212 Troponin I High Sens < 3.5 B-Natriuretic Peptide 84 Total Protein 7.5 Albumin 4.1 Lipase 116 H Vitamin B12 Folate Urine Color Urine Appearance Urine pH Ur Specific [place] Urine Protein Urine Glucose (UA) Urine Ketones Urine Blood Urine Nitrite Ur Leukocyte Esterase Digoxin IgG Total IgA Total IgM SHERRI Interpretation Heparin Dep Plt Ab OD Hep-Induced Plt Ab Renee COVID-19 (J LUIS) COVID-19 Jipio Com Blood Type Antibody Screen 12/06/20 12/06/20 12/06/20 08:49 10:06 14:29 WBC RBC Hgb Hct MCV MCH MCHC RDW Plt Count MPV Immature Gran % (Auto) Neut % (Auto) Lymph % (Auto) [place] % (Auto) Eos % (Auto) Baso % (Auto) Lymph # (Auto) [place] # (Auto) Eos # (Auto) Baso # (Auto) Abs Immat Gran (auto) Absolute Neuts (auto) Absolute Nucleated RBC Nucleated RBC % (auto) Smear Tech's Comments Smear Path Review Fibrinogen 694 H D-Dimer 6064 Hep-Ind Thrombocytop Com Sodium Potassium Chloride Carbon Dioxide Anion Gap BUN Creatinine Estim Creat Clear Calc Estimated GFR Random Glucose Calcium Total Bilirubin Direct Bilirubin AST ALT Alkaline Phosphatase Lactate Dehydrogenase Troponin I High Sens B-Natriuretic Peptide Total Protein Albumin Lipase Vitamin B12 Folate Urine Color Urine Appearance Urine pH Ur Specific [place] Urine Protein Urine Glucose (UA) Urine Ketones Urine Blood Urine Nitrite Ur Leukocyte Esterase Digoxin 0.8 IgG Total IgA Total IgM SHERRI Interpretation Heparin Dep Plt Ab OD Hep-Induced Plt Ab Renee COVID-19 (J LUIS) COVID-19 Clin Com Blood Type B Positive Antibody Screen NEGATIVE 12/07/20 12/07/20 12/07/20 06:03 06:03 06:03 WBC 6.8 RBC 4.03 L Hgb 11.6 L Hct 34.9 L MCV 86.6 MCH 28.8 MCHC 33.2 RDW 13.7 Plt Count 9 L* MPV 12.8 H Immature Gran % (Auto) 1.0 H Neut % (Auto) 73.0 Lymph % (Auto) 14.1 L [place] % (Auto) 10.0 Eos % (Auto) 1.3 Baso % (Auto) 0.6 Lymph # (Auto) 1.0 L [place] # (Auto) 0.7 Eos # (Auto) 0.1 Baso # (Auto) 0.0 Abs Immat Gran (auto) 0.07 H Absolute Neuts (auto) 5.0 Absolute Nucleated RBC 0.000 Nucleated RBC % (auto) 0.0 Smear Tech's Comments Smear Path Review Fibrinogen D-Dimer Hep-Ind Thrombocytop Com Sodium 135 Potassium 4.6 Chloride 105 Carbon Dioxide 22 Anion Gap 13 BUN 17 H Creatinine 0.70 Estim Creat Clear Calc 49.5 Estimated GFR > 60 Random Glucose 80 Calcium 8.7 D Total Bilirubin Direct Bilirubin AST ALT Alkaline Phosphatase Lactate Dehydrogenase 219 Troponin I High Sens B-Natriuretic Peptide Total Protein Albumin Lipase Vitamin B12 756 Folate 18.6 Urine Color Urine Appearance Urine pH Ur Specific [place] Urine Protein Urine Glucose (UA) Urine Ketones Urine Blood Urine Nitrite Ur Leukocyte Esterase Digoxin IgG Total IgA Total IgM SHERRI Interpretation Heparin Dep Plt Ab OD Hep-Induced Plt Ab Renee COVID-19 (J LUIS) COVID-19 Clin Com Blood Type Antibody Screen 12/07/20 12/08/20 12/08/20 06:03 07:55 13:15 WBC 7.6 RBC 4.40 Hgb 12.4 Hct 38.0 MCV 86.4 MCH 28.2 MCHC 32.6 RDW 13.5 Plt Count 8 L* MPV 11.8 Immature Gran % (Auto) 1.2 H Neut % (Auto) 75.1 H Lymph % (Auto) 12.2 L [place] % (Auto) 9.5 Eos % (Auto) 1.3 Baso % (Auto) 0.7 Lymph # (Auto) 0.9 L [place] # (Auto) 0.7 Eos # (Auto) 0.1 Baso # (Auto) 0.1 Abs Immat Gran (auto) 0.09 H Absolute Neuts (auto) 5.7 Absolute Nucleated RBC 0.000 Nucleated RBC % (auto) 0.0 Smear Tech's Comments VERIFIED Smear Path Review Fibrinogen D-Dimer Hep-Ind Thrombocytop Com See Below Sodium Potassium Chloride Carbon Dioxide Anion Gap BUN Creatinine Estim Creat Clear Calc Estimated GFR Random Glucose Calcium Total Bilirubin Direct Bilirubin AST ALT Alkaline Phosphatase Lactate Dehydrogenase Troponin I High Sens B-Natriuretic Peptide Total Protein Albumin Lipase Vitamin B12 Folate Urine Color Urine Appearance Urine pH Ur Specific [place] Urine Protein Urine Glucose (UA) Urine Ketones Urine Blood Urine Nitrite Ur Leukocyte Esterase Digoxin IgG Total 1553 H IgA Total 136 IgM 233 SHERRI Interpretation SEE NOTE Heparin Dep Plt Ab OD 0.038 Hep-Induced Plt Ab Renee NEGATIVE COVID-19 (J LUIS) COVID-19 Clin Com Blood Type Antibody Screen 12/09/20 12/10/20 12/10/20 05:44 05:54 06:25 WBC 6.9 7.2 RBC 4.15 L 4.17 L Hgb 12.0 11.9 L Hct 35.2 L 35.2 L MCV 84.8 84.4 MCH 28.9 28.5 MCHC 34.1 33.8 RDW 13.5 13.5 Plt Count 8 L* 9 L* MPV 12.0 13.6 H Immature Gran % (Auto) 1.6 H 1.4 H Neut % (Auto) 71.6 70.4 Lymph % (Auto) 15.8 L 16.8 L [place] % (Auto) 9.3 9.3 Eos % (Auto) 1.3 1.7 Baso % (Auto) 0.4 0.4 Lymph # (Auto) 1.1 L 1.2 [place] # (Auto) 0.6 0.7 Eos # (Auto) 0.1 0.1 Baso # (Auto) 0.0 0.0 Abs Immat Gran (auto) 0.11 H 0.10 H Absolute Neuts (auto) 4.9 5.1 Absolute Nucleated RBC 0.000 0.000 Nucleated RBC % (auto) 0.0 0.0 Smear Tech's Comments VERIFIED Not Reportable Smear Path Review Fibrinogen D-Dimer Hep-Ind Thrombocytop Com Sodium Potassium Chloride Carbon Dioxide Anion Gap BUN Creatinine Estim Creat Clear Calc Estimated GFR Random Glucose Calcium Total Bilirubin Direct Bilirubin AST ALT Alkaline Phosphatase Lactate Dehydrogenase Troponin I High Sens B-Natriuretic Peptide Total Protein Albumin Lipase Vitamin B12 Folate Urine Color Urine Appearance Urine pH Ur Specific [place] Urine Protein Urine Glucose (UA) Urine Ketones Urine Blood Urine Nitrite Ur Leukocyte Esterase Digoxin IgG Total IgA Total IgM SHERRI Interpretation Heparin Dep Plt Ab OD Hep-Induced Plt Ab Renee COVID-19 (J LUIS) COVID-19 Clin Com Blood Type B Positive Antibody Screen NEGATIVE Airway Mallampati Class: III TM Dist: >3cm Neck ROM: Full Loose/Missing/Broken Teeth: No Heart: RRR Lungs: NL Assessment and Plan Assessment Anesthesia Assessment: Anesthesia Plan Discussed and Chart Reviewed Final Anesthetic Review NPO: Yes ASA Class: III Final Preanesthetic Review: No Changes in Pt Med Stat, Meds/Allgs Chart Reviewed, Consent Obtained/Reviewed and Anes Risks/Benef Reviewed Patient Risk: Intermediate Procedure Risk: Low Anesthetic Plan Anesthetic Plan: MAC: Disposition: Standard PACU
--- NOTE | 2020-12-10 13:23 | PC.NURSE ---
PATIENTS UPPER RIGHT ARM IV WAS REMOVED IT WAS LEAKING. PATIENT STARTED TO BLEED AFTER REMOVED AND APPLIED PRESSURE TO IV SITE. NO LONGER BLEEDING. MD PRASAD AWARE. PATIENT HAD RECEIVED ALL THREE UNIT OF FFP PER BLOOD BANK.
[2020-12-10 13:52] LABS: Bone Marrow SEE SEPARATE REPORT
--- NOTE | 2020-12-10 13:53 | PM.HEMONCBM ---
Bone Marrow Aspiration - Bone Marrow Aspiration Procedure:: *Service Date: [12/10/20] Pre Op Diagnosis:: Thrombocytopenia. Post Op Diagnosis:: Same. Surgeon:: William Harrison. Anesthesia:: MAC. Consent:: Informed consent obtained from the patient for the procedure. Pros and cons of biopsy explained. The patient was willing to proceed with the procedure under local anesthesia. Procedure in Detail:: *Service Date: 12/10/20. *Procedure: Bone Marrow Aspirate and Biopsy. *Pre Op Dx: Thrombocytopenia. *Post Op Dx: Thrombocytopenia. *Surgeon: William Harrison. The patient was positioned prone, and the left posterior superior iliac spine prepped and draped. Under aseptic precautions, 5 ml of 1% lidocaine used for local anesthesia. Bone marrow aspirate was taken. With the Jamshidi needle, a core biopsy obtained without any complications. Specimens were sent for Jimenez stain, flow cytometry and cytogenetics. Biopsy was sent for histology. The patient tolerated the procedure well. Bandage was applied and patient was positioned on her back for 10 to 15 minutes after the procedure. The patient will continue to be monitored for any pain or swelling at the surgical site. Will review the bone marrow and decide about further treatment. If she has ITP then will arrange for IVIG. CC: Dr. Landry.
[2020-12-10] MEDS: Digoxin 0.25 MG TABLET PO (21:31)
[2020-12-10] MEDS: Montelukast Sodium 10 MG TABLET PO (21:33)
[2020-12-10] MEDS: diazePAM 5 MG TABLET 2.5 MG PO (22:38)
[2020-12-11] VITALS (10 sets, daily range): BP systolic 148–170; BP diastolic 69–79; PULSE 61–75; RESP 16–19; TEMP 36–37; O2SAT 95–98
[2020-12-11] MEDS: 0.9 % Sodium Chloride Flush 3 ML SYRINGE IVFLUSH ×3 (01:09→17:39)
[2020-12-11 06:33] LABS: MANUAL DIFF FLAG NO
[2020-12-11 06:51] LABS: Basophils Absolute Auto 0.1 X10*3/uL (0.0-0.2); Basophils Percent Auto 0.8 % (0-2); Eosinophils Absolute Auto 0.1 X10*3/uL (0.0-0.4); Eosinophils Percent Auto 1.6 % (0-4); Hematocrit 36.8 % (37-47); Hemoglobin 12.3 g/dl (12.0-16.0); Imm Gran Abs Auto 0.15 X10*3/uL (0.00-0.03); Imm Gran Pct Auto 2.1 % (0.0-0.4); Lymphocytes Percent Auto 13.7 % (20-40); Mean Corpuscular HGB Conc 33.4 g/dl (31.0-35.0); Mean Corpuscular Hemoglobin 28.7 pg (27.0-33.0); Mean Corpuscular Volume 85.8 fL (80-98); Monocytes Absolute Auto 0.8 X10*3/uL (0.1-1.2); Monocytes Percent Auto 10.4 % (2-11); Neutrophils Absolute Auto 5.2 X10*3/uL (2.0-8.3); Neutrophils Percent Auto 71.4 % (45-73); Red Blood Count 4.29 X10*6/uL (4.20-5.50); Red Cell Distribution Width 13.7 % (11.0-16.0); White Blood Count 7.3 X10*3/uL (4.8-10.8)
[2020-12-11 07:07] LABS: Platelet Count 21 X10*3/uL (160-400)
[2020-12-11] MEDS: predniSONE 20 MG TABLET 60 MG PO (08:26)
[2020-12-11] MEDS: atenoloL 25 MG TABLET PO (08:27)
--- NOTE | 2020-12-11 12:05 | P.PNIM_ITS ---
Subjective Subjective Date of Service: 12/11/20 Interval History: Patient offers no acute complaints, coughing up small amount of blood, denies fever chills, no other acute issues overnight. ROS General no headache, no dizziness, no fever chills. CVS no chest pain, no palpitation. Respiratory no cough no sob. Gastrointestinal no nausea, no vomiting, no abdominal pain,+ constipation Physical Exam Vital Signs: Vital Signs: Last Vital Signs Temp 97.9 F 12/11/20 11:34 Pulse 64 12/11/20 11:34 Resp 18 12/11/20 11:34 BP 148/69 H 12/11/20 11:34 Pulse Ox 95 12/11/20 11:34 Body Mass Index 22.6 Gen: no acute distress Lungs: clear to auscultation , no respiratory distress Heart: regular rate and rhythm, no murmurs Abd: soft, non-tender, non-distended Ext: no edema Skin: Bruising/ecchymosis right upper extremity greater than left Neuro: alert and oriented x3, no focal findings Psych: appropriate affect Objective Data Current Medications Generic Name Dose Route Start Last Admin Trade Name Freq PRN Reason Stop Dose Admin Acetaminophen 650 mg 12/06/20 17:29 Acetaminophen 325 Mg Tablet PO Q6H PRN Pain, Mild (Pain Scale 1-3) Acetaminophen 650 mg 12/10/20 12:42 Acetaminophen 325 Mg Tablet PO ONCE PRN Pain, Mild (Pain Scale 1-3) Albuterol Sulfate 2 puff 12/06/20 17:29 Albuterol Sulfate 90 Mcg 8 Gm Inhaler INHALE Q4H PRN Shortness Of Breath Or Wheezing Atenolol 25 mg 12/07/20 09:00 12/11/20 08:27 Atenolol 25 Mg Tablet PO 25 mg DAILY FAY Administration Protocol Diazepam 2.5 mg 12/06/20 17:36 12/10/20 22:38 Diazepam 5 Mg Tablet PO 2.5 mg BID PRN Administration Anxiety Digoxin 0.25 mg 12/10/20 21:00 12/10/20 21:31 Digoxin 0.25 Mg Tablet PO 0.25 mg BEDTIME FAY Administration Docusate Sodium 100 mg 12/06/20 17:29 12/09/20 22:42 Docusate Sodium 100 Mg Capsule PO 100 mg DAILY PRN Administration Constipation Guaifenesin/Dextromethorphan 1 tab 12/09/20 08:10 12/09/20 20:44 Guaifenesin Dm 600/30 1 Tab Tab.Er.12h PO 1 tab BID PRN Administration cough Montelukast Sodium 10 mg 12/06/20 21:45 12/10/20 21:33 Montelukast Sodium 10 Mg Tablet PO 10 mg BEDTIME FAY Administration Pat Own Med ( 1 each 12/08/20 06:00 12/11/20 06:42 Levothyroxine Sodium PO 1 each 75 Mcg) DAILY@0600 FAY Administration Pat Own Med ( 1 each 12/07/20 21:00 12/10/20 22:33 Latanoprost 0.005% EYE-RIGHT Not Given Eye Drops) BEDTIME [facility] Non-Formulary Medication 1 each 12/09/20 18:30 12/11/20 06:38 Patient Own Medication INHALE Not Given BID@0630,1830 [facility] Oxycodone HCl 2.5 mg 12/10/20 12:42 Oxycodone Hcl Immed Release 5 Mg Tablet PO ONCE PRN Pain, Severe (Pain Scale 7-10) Prednisone 60 mg 12/07/20 09:30 12/11/20 08:26 Prednisone 20 Mg Tablet PO 60 mg DAILY [facility] Administration Sodium Chloride 3 ml 12/06/20 17:29 12/11/20 11:04 0.9 % Sodium Chloride Flush 3 Ml Syringe IVFLUSH 3 ml QSHIFT [facility] Administration Tiotropium [place] 1 puff 12/10/20 06:30 12/11/20 06:39 Tiotropium [place] 18 Mcg Cap.W.Dev INHALE Not Given DAILY@0630 [facility] Labs CBC & Chem 7: 12/11/20 06:12 12/07/20 06:03 Assessment and Plan (1) Thrombocytopenia: Status: Acute (2) Hemoptysis: Status: Acute (3) Lung mass: Status: Acute Assessment and Plan: hospital d#6 85yo F with COPD, breast CA s/p lumpectomy, HTN, SVT presented with hemoptysis x5d found to have severe thrombocytopenia and new lung mass concerning for malignancy # severe thrombocytopenia/suspected ITP - persistent hemoptysis less frequent, platelet count [id number], likely slow response to prednisone continue prednisone 60 mg d#6, status post bone marrow biopsy yesterday, await pathology report Case discussed with Dr. Harrison follow CBC and bone marrow report - pending: SIEP, anti-PF4 # suspicious lung mass - pulmonology consulted, bronchoscopy with biopsy deferred pending improvement in platelet count. # hx SVT - stable ventricular rate, continue digoxin, and atenolol. # HTN - elevated blood pressure on atenolol, follow BP closely. # COPD - no acute exacerbation, continue LAMA, ICS/LABA, prn DANIEL. # hypothyroidism - continue LT4 # VTE ppx - SCDs, heparin contraindicated due to thrombocytopenia
--- NOTE | 2020-12-11 14:09 | HO.POSTANES ---
Post Anesthesia Evaluation Post Anesthesia Evaluation Vital Signs: Vital Signs Temp Pulse Resp BP Pulse Ox 12/11/20 12:42 98 12/11/20 11:34 97.9 F 64 18 148/69 H 95 12/11/20 08:27 68 165/74 H 12/11/20 07:22 97.2 F 68 18 165/74 H 95 12/11/20 04:00 97.2 F 70 18 150/73 H 96 Anesthesia: Monitored Mental Status: Awake Pain Control: Satisfactory Nausea/Vomiting: None Hydration: Adequate Anesthesia-Related Issues: No Anes. Related Issues
[2020-12-11] MEDS: Digoxin 0.25 MG TABLET PO (17:39)
[2020-12-11] MEDS: Montelukast Sodium 10 MG TABLET PO (20:13)
[2020-12-11] MEDS: diphenhydrAMINE HCL 25 MG TABLET PO (23:11)
[2020-12-12] VITALS (7 sets, daily range): BP systolic 126–153; BP diastolic 70–78; PULSE 65–70; RESP 16–19; TEMP 36.4–36.8; O2SAT 94–97
[2020-12-12 06:55] LABS: Basophils Percent Auto 0.6 % (0-2); Hematocrit 36.9 % (37-47); Lymphocytes Percent Auto 15.9 % (20-40); MANUAL DIFF FLAG SCAN; Mean Corpuscular Volume 85.6 fL (80-98); Red Blood Count 4.31 X10*6/uL (4.20-5.50); SCAN SMEAR FLAG 1
[2020-12-12 06:57] LABS: Eosinophils Absolute Auto 0.1 X10*3/uL (0.0-0.4); Hemoglobin 12.2 g/dl (12.0-16.0); Imm Gran Abs Auto 0.11 X10*3/uL (0.00-0.03); Imm Gran Pct Auto 1.6 % (0.0-0.4); Lymphocytes Absolute Auto 1.1 X10*3/uL (1.2-4.9); Mean Corpuscular HGB Conc 33.1 g/dl (31.0-35.0); Mean Corpuscular Hemoglobin 28.3 pg (27.0-33.0); Mean Platelet Volume 13.3 fL (9.4-12.3); Monocytes Absolute Auto 0.7 X10*3/uL (0.1-1.2); Monocytes Percent Auto 9.5 % (2-11); Neutrophils Percent Auto 70.4 % (45-73); Red Cell Distribution Width 13.7 % (11.0-16.0)
[2020-12-12 07:18] LABS: PLT ABN DIST 1
[2020-12-12 07:25] LABS: Platelet Count 13 X10*3/uL (160-400)
[2020-12-12 07:46] LABS: SLIDE REVIEW VERIFIED
[2020-12-12] MEDS: predniSONE 20 MG TABLET 60 MG PO (09:02)
[2020-12-12] MEDS: atenoloL 25 MG TABLET PO (09:02)
[2020-12-12] MEDS: Docusate Sodium 100 MG CAPSULE 200 MG PO (09:02)
--- NOTE | 2020-12-12 11:50 | HO.PM.IMPN ---
Subjective Subjective Date of Service: 12/12/20 Interval History: Patient had no episode of hemoptysis yesterday but this morning noticed small amount of blood-tinged phlegm, feels discouraged since platelet count dropped to 13,000. ROS General no headache, no dizziness, no fever chills. CVS no chest pain, no palpitation. Respiratory no cough no sob. Gastrointestinal no nausea, no vomiting, no abdominal pain Physical Exam Vital Signs: Vital Signs: Last Vital Signs Temp 97.9 F 12/12/20 07:44 Pulse 69 12/12/20 09:02 Resp 19 12/12/20 07:44 BP 153/70 H 12/12/20 09:02 Pulse Ox 96 12/12/20 07:44 Body Mass Index 22.6 Gen: no acute distress Lungs: clear to auscultation , no respiratory distress Heart: regular rate and rhythm, no murmurs Abd: soft, non-tender, non-distended Ext: no edema Skin: Bruising/ecchymosis right upper extremity gradually fading no new areas of bruising Neuro: alert and oriented x3, no focal findings Psych: appropriate affect Objective Data Current Medications Generic Name Dose Route Start Last Admin Trade Name Freq PRN Reason Stop Dose Admin Acetaminophen 650 mg 12/06/20 17:29 Acetaminophen 325 Mg Tablet PO Q6H PRN Pain, Mild (Pain Scale 1-3) Acetaminophen 650 mg 12/10/20 12:42 Acetaminophen 325 Mg Tablet PO ONCE PRN Pain, Mild (Pain Scale 1-3) Albuterol Sulfate 2 puff 12/06/20 17:29 Albuterol Sulfate 90 Mcg 8 Gm Inhaler INHALE Q4H PRN Shortness Of Breath Or Wheezing Atenolol 25 mg 12/07/20 09:00 12/12/20 09:02 Atenolol 25 Mg Tablet PO 25 mg DAILY FAY Administration Protocol Digoxin 0.25 mg 12/10/20 21:00 12/11/20 17:39 Digoxin 0.25 Mg Tablet PO 0.25 mg BEDTIME FAY Administration Diphenhydramine HCl 25 mg 12/11/20 22:10 12/11/20 23:11 Diphenhydramine Hcl 25 Mg Tablet PO 25 mg BEDTIME PRN Administration Insomnia Docusate Sodium 200 mg 12/12/20 09:00 12/12/20 09:02 Docusate Sodium 100 Mg Capsule PO 200 mg DAILY FAY Administration Guaifenesin/Dextromethorphan 1 tab 12/09/20 08:10 12/09/20 20:44 Guaifenesin Dm 600/30 1 Tab Tab.Er.12h PO 1 tab BID PRN Administration cough Montelukast Sodium 10 mg 12/06/20 21:45 12/11/20 20:13 Montelukast Sodium 10 Mg Tablet PO 10 mg BEDTIME FAY Administration Pat Own Med ( 1 each 12/08/20 06:00 12/12/20 06:09 Levothyroxine Sodium PO 1 each 75 Mcg) DAILY@0600 [facility] Administration Pat Own Med ( 1 each 12/07/20 21:00 12/11/20 22:22 Latanoprost 0.005% EYE-RIGHT 1 each Eye Drops) BEDTIME [facility]AY Administration Non-Formulary Medication 1 each 12/09/20 18:30 12/12/20 06:11 Patient Own Medication INHALE Not Given BID@0630,1830 [facility] Oxycodone HCl 2.5 mg 12/10/20 12:42 Oxycodone Hcl Immed Release 5 Mg Tablet PO ONCE PRN Pain, Severe (Pain Scale 7-10) Prednisone 60 mg 12/07/20 09:30 12/12/20 09:02 Prednisone 20 Mg Tablet PO 60 mg DAILY [facility] Administration Sodium Chloride 3 ml 12/06/20 17:29 12/12/20 09:07 0.9 % Sodium Chloride Flush 3 Ml Syringe IVFLUSH Not Given QSHIFT [facility] Tiotropium [place] 1 puff 12/10/20 06:30 12/12/20 06:11 Tiotropium [place] 18 Mcg Cap.W.Dev INHALE Not Given DAILY@0630 [facility] Labs CBC & Chem 7: 12/12/20 06:21 12/07/20 06:03 Assessment and Plan (1) Thrombocytopenia: Status: Acute (2) Hemoptysis: Status: Acute (3) Lung mass: Status: Acute Assessment and Plan: 85yo F with COPD, breast CA s/p lumpectomy, HTN, SVT presented with hemoptysis x5d found to have severe thrombocytopenia and new lung mass concerning for malignancy # 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 Harrison follow CBC and bone marrow report, continue current treatment - SIEP consistent with MGUS #suspicious lung mass - pulmonology consulted, bronchoscopy with biopsy deferred pending improvement in platelet count. # hx SVT - stable ventricular rate, continue digoxin, and atenolol. # HTN - elevated blood pressure on atenolol 25 mg will increase dose to atenolol 50 mg, and follow BP closely. # COPD - no acute exacerbation, continue LAMA, ICS/LABA, prn DANIEL. # hypothyroidism - continue LT4 # VTE ppx - SCDs, heparin contraindicated due to thrombocytopenia
[2020-12-12] MEDS: Digoxin 0.25 MG TABLET PO (21:07)
[2020-12-12] MEDS: Montelukast Sodium 10 MG TABLET PO (21:07)
[2020-12-12] MEDS: diazePAM 2 MG TABLET PO (22:37)
[2020-12-13] VITALS (13 sets, daily range): BP systolic 122–181; BP diastolic 58–86; PULSE 61–72; RESP 14–19; TEMP 35.6–36.8; O2SAT 95–98
[2020-12-13 06:31] LABS: MANUAL DIFF FLAG NO
[2020-12-13 07:08] LABS: Basophils Percent Auto 0.4 % (0-2); Eosinophils Absolute Auto 0.1 X10*3/uL (0.0-0.4); Eosinophils Percent Auto 1.5 % (0-4); Hematocrit 36.8 % (37-47); Hemoglobin 12.2 g/dl (12.0-16.0); Imm Gran Abs Auto 0.11 X10*3/uL (0.00-0.03); Imm Gran Pct Auto 1.4 % (0.0-0.4); Lymphocytes Absolute Auto 1.2 X10*3/uL (1.2-4.9); Lymphocytes Percent Auto 14.6 % (20-40); Mean Corpuscular HGB Conc 33.2 g/dl (31.0-35.0); Mean Corpuscular Hemoglobin 28.3 pg (27.0-33.0); Mean Corpuscular Volume 85.4 fL (80-98); Monocytes Absolute Auto 0.7 X10*3/uL (0.1-1.2); Monocytes Percent Auto 8.8 % (2-11); Neutrophils Absolute Auto 5.9 X10*3/uL (2.0-8.3); Neutrophils Percent Auto 73.3 % (45-73); Red Blood Count 4.31 X10*6/uL (4.20-5.50); Red Cell Distribution Width 13.7 % (11.0-16.0)
[2020-12-13 07:27] LABS: Platelet Count 7 X10*3/uL (160-400)
[2020-12-13] MEDS: predniSONE 20 MG TABLET 60 MG PO (09:20)
[2020-12-13] MEDS: Docusate Sodium 100 MG CAPSULE 200 MG PO (09:21)
[2020-12-13] MEDS: atenoloL 50 MG TABLET PO (09:21)
--- NOTE | 2020-12-13 10:38 | HO.PM.IMPN ---
Subjective Subjective Date of Service: 12/13/20 Interval History: Patient did not have a good night sleep due to issues with patient in next room , elevated blood pressure due to anxiety now normalized, otherwise no issues with bleeding, no hemoptysis, no gum bleeding. ROS General no headache, no dizziness, no fever chills. CVS no chest pain, no palpitation. Respiratory no cough no sob. Gastrointestinal no nausea, no vomiting, no abdominal pain Physical Exam Vital Signs: Vital Signs: Last Vital Signs Temp 97.7 F 12/13/20 08:00 Pulse 71 12/13/20 09:21 Resp 17 12/13/20 08:00 BP 142/66 H 12/13/20 09:21 Pulse Ox 97 12/13/20 08:00 Body Mass Index 22.6 Gen: no acute distress Lungs: clear to auscultation , no respiratory distress Heart: regular rate and rhythm, no murmurs Abd: soft, non-tender, non-distended Ext: no edema Skin: Bruising/ecchymosis upper extremities gradually fading, no new areas of bruising Neuro: alert and oriented x3, no focal findings Psych: appropriate affect Objective Data Current Medications Generic Name Dose Route Start Last Admin Trade Name Freq PRN Reason Stop Dose Admin Acetaminophen 650 mg 12/06/20 17:29 Acetaminophen 325 Mg Tablet PO Q6H PRN Pain, Mild (Pain Scale 1-3) Acetaminophen 650 mg 12/10/20 12:42 Acetaminophen 325 Mg Tablet PO ONCE PRN Pain, Mild (Pain Scale 1-3) Albuterol Sulfate 2 puff 12/06/20 17:29 Albuterol Sulfate 90 Mcg 8 Gm Inhaler INHALE Q4H PRN Shortness Of Breath Or Wheezing Atenolol 50 mg 12/13/20 09:00 12/13/20 09:21 Atenolol 50 Mg Tablet PO 50 mg DAILY [facility] Administration Protocol Diazepam 2 mg 12/12/20 13:14 12/12/20 22:37 Diazepam 2 Mg Tablet PO 2 mg BEDTIME PRN Administration Insomnia Digoxin 0.25 mg 12/10/20 21:00 12/12/20 21:07 Digoxin 0.25 Mg Tablet PO 0.25 mg BEDTIME [facility] Administration Diphenhydramine HCl 25 mg 12/11/20 22:10 12/11/20 23:11 Diphenhydramine Hcl 25 Mg Tablet PO 25 mg BEDTIME PRN Administration Insomnia Docusate Sodium 200 mg 12/12/20 09:00 12/13/20 09:21 Docusate Sodium 100 Mg Capsule PO 200 mg DAILY [facility] Administration Guaifenesin/Dextromethorphan 1 tab 12/09/20 08:10 12/09/20 20:44 Guaifenesin Dm 600/30 1 Tab Tab.Er.12h PO 1 tab BID PRN Administration cough Montelukast Sodium 10 mg 12/06/20 21:45 12/12/20 21:07 Montelukast Sodium 10 Mg Tablet PO 10 mg BEDTIME [facility] Administration Pat Own Med ( 1 each 12/08/20 06:00 12/13/20 06:12 Levothyroxine Sodium PO 1 each 75 Mcg) DAILY@0600 [facility] Administration Pat Own Med ( 1 each 12/07/20 21:00 12/12/20 22:37 Latanoprost 0.005% EYE-RIGHT 1 each Eye Drops) BEDTIME [facility] Administration Non-Formulary Medication 1 each 12/09/20 18:30 12/13/20 06:14 Patient Own Medication INHALE Not Given BID@0630,1830 [facility] Oxycodone HCl 2.5 mg 12/10/20 12:42 Oxycodone Hcl Immed Release 5 Mg Tablet PO ONCE PRN Pain, Severe (Pain Scale 7-10) Prednisone 60 mg 12/07/20 09:30 12/13/20 09:20 Prednisone 20 Mg Tablet PO 60 mg DAILY [facility] Administration Sodium Chloride 3 ml 12/06/20 17:29 12/13/20 09:10 0.9 % Sodium Chloride Flush 3 Ml Syringe IVFLUSH Not Given QSHIFT [facility] Tiotropium [place] 1 puff 12/10/20 06:30 12/13/20 06:14 Tiotropium [place] 18 Mcg Cap.W.Dev INHALE Not Given DAILY@0630 [facility] Labs CBC & Chem 7: 12/13/20 06:15 12/07/20 06:03 Assessment and Plan (1) Thrombocytopenia: Status: Acute (2) Hemoptysis: Status: Acute (3) Lung mass: Status: Acute Assessment and Plan: 85yo F with COPD, breast CA s/p lumpectomy, HTN, SVT presented with hemoptysis x5d found to have severe thrombocytopenia and new lung mass concerning for malignancy # 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 Harrison she recommend to give IVIG follow CBC and bone marrow report, continue current treatment SIEP consistent with MGUS #suspicious lung mass - pulmonology consulted, bronchoscopy with biopsy deferred pending improvement in platelet count, outpatient follow-up with Dr. Romero. # hx SVT - stable ventricular rate, continue digoxin, and atenolol. # HTN - better blood pressure control since dose of atenolol increased to 50 mg , elevated blood pressure last night due to anxiety. # COPD - no acute exacerbation, continue LAMA, ICS/LABA, prn DANIEL. # hypothyroidism - continue LT4 # VTE ppx with mechanical device hold anticoagulation due to thrombocytopenia
[2020-12-13] MEDS: methylPREDNISolone Sod Succ 40 MG/ML VIAL IVPUSH (14:00)
[2020-12-13] MEDS: diphenhydrAMINE HCL 50 MG/ML VIAL 25 MG IVPUSH (14:00)
[2020-12-13] MEDS: 0.9 % Sodium Chloride Flush 3 ML SYRINGE IVFLUSH (20:25)
[2020-12-13] MEDS: Digoxin 0.25 MG TABLET PO (20:25)
[2020-12-13] MEDS: Montelukast Sodium 10 MG TABLET PO (20:25)
[2020-12-13] MEDS: diazePAM 2 MG TABLET 2.5 MG PO (22:18)
[2020-12-14] VITALS (8 sets, daily range): BP systolic 129–186; BP diastolic 60–94; PULSE 60–78; RESP 15–18; TEMP 36.4–37; O2SAT 94–97
[2020-12-14 05:58] LABS: MANUAL DIFF FLAG NO
[2020-12-14 06:17] LABS: Basophils Percent Auto 0.1 % (0-2); Eosinophils Percent Auto 0.4 % (0-4); Hematocrit 33.8 % (37-47); Hemoglobin 11.3 g/dl (12.0-16.0); Imm Gran Abs Auto 0.15 X10*3/uL (0.00-0.03); Imm Gran Pct Auto 2.2 % (0.0-0.4); Lymphocytes Absolute Auto 0.8 X10*3/uL (1.2-4.9); Lymphocytes Percent Auto 12.6 % (20-40); Mean Corpuscular HGB Conc 33.4 g/dl (31.0-35.0); Mean Corpuscular Hemoglobin 28.5 pg (27.0-33.0); Mean Corpuscular Volume 85.4 fL (80-98); Mean Platelet Volume 12.8 fL (9.4-12.3); Monocytes Absolute Auto 0.6 X10*3/uL (0.1-1.2); Monocytes Percent Auto 8.4 % (2-11); Neutrophils Absolute Auto 5.1 X10*3/uL (2.0-8.3); Neutrophils Percent Auto 76.3 % (45-73); Red Blood Count 3.96 X10*6/uL (4.20-5.50); Red Cell Distribution Width 13.8 % (11.0-16.0); White Blood Count 6.7 X10*3/uL (4.8-10.8)
[2020-12-14 06:29] LABS: Platelet Count 33 X10*3/uL (160-400)
[2020-12-14] MEDS: predniSONE 20 MG TABLET 60 MG PO (08:15)
[2020-12-14] MEDS: atenoloL 50 MG TABLET PO (08:15)
[2020-12-14] MEDS: Docusate Sodium 100 MG CAPSULE 200 MG PO (08:15)
[2020-12-14] MEDS: 0.9 % Sodium Chloride Flush 3 ML SYRINGE IVFLUSH ×2 (08:16→20:17)
--- NOTE | 2020-12-14 14:05 | P.PNIM_ITS ---
Subjective Subjective Date of Service: 12/14/20 Interval History: seen and examined this AM she is feeling better today, was able to get some sleep last night she is happy about her platelet counts increasing she denies any new complaints she reports she is lactose intolerant but that is limiting her dietary choices. she requests for this to be removed and she tells me she normally takes lactaid at home and knows how to manage her food Ros General - no fevers or chills Cardiovascular - no chest pain Respiratory - no shortness of breath or cough Abdominal- no abdominal pain, nausea, vomiting, diarrhea Physical Exam Vital Signs: Vital Signs: Last Vital Signs Temp 97.6 F 12/14/20 11:51 Pulse 64 12/14/20 11:51 Resp 17 12/14/20 11:51 BP 186/86 H 12/14/20 11:51 Pulse Ox 95 12/14/20 12:00 Body Mass Index 22.6 Const: Other: Gen: no acute distress Lungs: clear to auscultation , no respiratory distress Heart: regular rate and rhythm, no murmurs Abd: soft, non-tender, non-distended Ext: no edema Skin: Bruising/ecchymosis upper extremities gradually fading, no new areas of bruising Neuro: alert and oriented x3, no focal findings Psych: appropriate affect Objective Data Current Medications Generic Name Dose Route Start Last Admin Trade Name Harshalq PRN Reason Stop Dose Admin Acetaminophen 650 mg 12/06/20 17:29 Acetaminophen 325 Mg Tablet PO Q6H PRN Pain, Mild (Pain Scale 1-3) Acetaminophen 650 mg 12/10/20 12:42 Acetaminophen 325 Mg Tablet PO ONCE PRN Pain, Mild (Pain Scale 1-3) Albuterol Sulfate 2 puff 12/06/20 17:29 Albuterol Sulfate 90 Mcg 8 Gm Inhaler INHALE Q4H PRN Shortness Of Breath Or Wheezing Atenolol 50 mg 12/13/20 09:00 12/14/20 08:15 Atenolol 50 Mg Tablet PO 50 mg DAILY [facility]AY Administration Protocol Diazepam 2.5 mg 12/13/20 18:01 12/13/20 22:18 Diazepam 2 Mg Tablet PO 2.5 mg BID PRN Administration anxiety/restlessness Digoxin 0.25 mg 12/10/20 21:00 12/13/20 20:25 Digoxin 0.25 Mg Tablet PO 0.25 mg BEDTIME [facility] Administration Diphenhydramine HCl 25 mg 12/11/20 22:10 12/11/20 23:11 Diphenhydramine Hcl 25 Mg Tablet PO 25 mg BEDTIME PRN Administration Insomnia Docusate Sodium 200 mg 12/12/20 09:00 12/14/20 08:15 Docusate Sodium 100 Mg Capsule PO 200 mg DAILY [facility] Administration Guaifenesin/Dextromethorphan 1 tab 12/09/20 08:10 12/09/20 20:44 Guaifenesin Dm 600/30 1 Tab Tab.Er.12h PO 1 tab BID PRN Administration cough Immune Globulin 20 gm in 200 mls @ 35 mls/hr 12/14/20 14:30 Flebogamma 10% IV 12/14/20 20:12 ONCE ONE Immune Globulin 20 gm in 200 mls @ 35 mls/hr 12/14/20 20:13 Flebogamma 10% IV 12/15/20 01:55 ONCE ONE Immune Globulin 20 gm in 200 mls @ 35 mls/hr 12/15/20 01:55 Flebogamma 10% IV 12/15/20 07:37 ONCE ONE Montelukast Sodium 10 mg 12/06/20 21:45 12/13/20 20:25 Montelukast Sodium 10 Mg Tablet PO 10 mg BEDTIME [facility] Administration Pat Own Med ( 1 each 12/08/20 06:00 12/14/20 05:45 Levothyroxine Sodium PO 1 each 75 Mcg) DAILY@0600 [facility] Administration Pat Own Med ( 1 each 12/07/20 21:00 12/13/20 20:24 Latanoprost 0.005% EYE-RIGHT 1 each Eye Drops) BEDTIME [facility] Administration Non-Formulary Medication 1 each 12/09/20 18:30 12/14/20 08:16 Patient Own Medication INHALE Not Given BID@0630,1830 [facility] Oxycodone HCl 2.5 mg 12/10/20 12:42 Oxycodone Hcl Immed Release 5 Mg Tablet PO ONCE PRN Pain, Severe (Pain Scale 7-10) Sodium Chloride 3 ml 12/06/20 17:29 12/14/20 08:16 0.9 % Sodium Chloride Flush 3 Ml Syringe IVFLUSH 3 ml QSHIFT [facility]AY Administration Tiotropium [place] 1 puff 12/10/20 06:30 12/14/20 06:45 Tiotropium [place] 18 Mcg Cap.W.Dev INHALE Not Given DAILY@0630 [facility] Labs CBC & Chem 7: 12/14/20 05:36 12/07/20 06:03 Assessment and Plan (1) Thrombocytopenia: Status: Acute (2) Hemoptysis: Status: Acute (3) Lung mass: Status: Acute Assessment and Plan: 85yo F with COPD, breast CA s/p lumpectomy, HTN, SVT presented with hemoptysis x5d found to have severe thrombocytopenia and new lung mass concerning for malignancy 1.severe thrombocytopenia suspected secondry to ITP bone marrow completed -- showing evidence of peripheral destruction Platets improved to >30k now s/p 1 IVIG and will be getting a second dose today d/w Dr. Harrison today re: plan --> will start prednisone taper -- 10mg q3 days will need f/u with her tomorrow to follow remainder of work up done 2. suspicious lung mass d/w Dr. Romero -- will give outpatient f/u with him and will need eventual biopsy once platelets stble 3.History of x SVT\ stable ventricular rate, continue digoxin, and atenolol. 4. HTN - better blood pressure control since dose of atenolol increased to 50 mg , elevated blood pressure last night due to anxiety. 5. COPD - no acute exacerbation, continue LAMA, ICS/LABA, prn DANIEL. 6. hypothyroidism - continue LT4 7. Lactose intolerace pt requested removal of dietary restrictions as she tells me she is well aware of how to manage her food. Will remove intolerance as to allow pt to have more options to eat DNR/DNI DVT pptx, mechanical due to severe thrombocyptonia Dispo: anticipate home tomorrow if platelets continue to rise and no further issues
[2020-12-14] MEDS: Digoxin 0.25 MG TABLET PO (20:17)
[2020-12-14] MEDS: Montelukast Sodium 10 MG TABLET PO (20:17)
[2020-12-14] MEDS: diazePAM 2 MG TABLET 2.5 MG PO (22:09)
[2020-12-15] VITALS: BP 141/66; PULSE 52; RESP 20; TEMP 36.5; O2SAT 97
[2020-12-15 03:30] VITALS: BP 167/68; PULSE 66; RESP 20; TEMP 36.2; O2SAT 94
[2020-12-15 06:40] LABS: Anion Gap 7 (12-20); Blood Urea Nitrogen 21 mg/dL (9-16); Calcium 8.3 mg/dL (8.4-10.2); Carbon Dioxide 26 mmol/L (22-29); Chloride 103 mmol/L (96-108); Creatinine Clr Calc Pharmacy 46.2; Estimated Glomerular Filt Rate > 60; Glucose Random 75 mg/dL (60-115); Potassium 4.1 mmol/L (3.3-5.1); Sodium 132 mmol/L (135-145)
[2020-12-15 07:48] VITALS: BP 191/85; PULSE 61; RESP 16; TEMP 36.1; O2SAT 96
[2020-12-15] MEDS: predniSONE 10 MG TABLET 50 MG PO (08:30)
[2020-12-15] MEDS: Docusate Sodium 100 MG CAPSULE 200 MG PO (08:30)
[2020-12-15 08:31] VITALS: BP 191/85; PULSE 61
[2020-12-15] MEDS: atenoloL 50 MG TABLET PO (08:31)
[2020-12-15 08:35] LABS: Hematocrit 33.5 % (37-47); Hemoglobin 11.1 g/dl (12.0-16.0); Mean Corpuscular HGB Conc 33.1 g/dl (31.0-35.0); Mean Corpuscular Hemoglobin 28.4 pg (27.0-33.0); Mean Corpuscular Volume 85.7 fL (80-98); Mean Platelet Volume 11.3 fL (9.4-12.3); Red Blood Count 3.91 X10*6/uL (4.20-5.50); Red Cell Distribution Width 14.1 % (11.0-16.0); White Blood Count 5.1 X10*3/uL (4.8-10.8)
[2020-12-15 08:39] LABS: Platelet Count 63 X10*3/uL (160-400)
--- NOTE | 2020-12-15 09:31 | HO.PM.IMPN ---
Subjective Subjective Date of Service: 12/15/20 Interval History: seen and examined feeling better concerned re: her BP being high ROS General - no fevers or chills Cardiovascular - no chest pain Respiratory - no shortness of breath or cough Abdominal- no abdominal pain, nausea, vomiting, diarrhea Physical Exam Vital Signs: Vital Signs: Last Vital Signs Temp 97.0 F 12/15/20 07:48 Pulse 61 12/15/20 08:31 Resp 16 12/15/20 07:48 BP 191/85 H 12/15/20 08:31 Pulse Ox 96 12/15/20 07:48 Body Mass Index 22.6 Const: Other: Gen: no acute distress Lungs: clear to auscultation , no respiratory distress Heart: regular rate and rhythm, no murmurs Abd: soft, non-tender, non-distended Ext: no edema Skin: bruising improving Neuro: alert and oriented x3, no focal findings Psych: appropriate affect Objective Data Current Medications Generic Name Dose Route Start Last Admin Trade Name Freq PRN Reason Stop Dose Admin Acetaminophen 650 mg 12/06/20 17:29 Acetaminophen 325 Mg Tablet PO Q6H PRN Pain, Mild (Pain Scale 1-3) Acetaminophen 650 mg 12/10/20 12:42 Acetaminophen 325 Mg Tablet PO ONCE PRN Pain, Mild (Pain Scale 1-3) Albuterol Sulfate 2 puff 12/06/20 17:29 Albuterol Sulfate 90 Mcg 8 Gm Inhaler INHALE Q4H PRN Shortness Of Breath Or Wheezing Atenolol 50 mg 12/13/20 09:00 12/15/20 08:31 Atenolol 50 Mg Tablet PO 50 mg DAILY [facility] Administration Protocol Diazepam 2.5 mg 12/13/20 18:01 12/14/20 22:09 Diazepam 2 Mg Tablet PO 2.5 mg BID PRN Administration anxiety/restlessness Digoxin 0.25 mg 12/10/20 21:00 12/14/20 20:17 Digoxin 0.25 Mg Tablet PO 0.25 mg BEDTIME [facility] Administration Diphenhydramine HCl 25 mg 12/11/20 22:10 12/11/20 23:11 Diphenhydramine Hcl 25 Mg Tablet PO 25 mg BEDTIME PRN Administration Insomnia Docusate Sodium 200 mg 12/12/20 09:00 12/15/20 08:30 Docusate Sodium 100 Mg Capsule PO 200 mg DAILY [facility] Administration Guaifenesin/Dextromethorphan 1 tab 12/09/20 08:10 12/09/20 20:44 Guaifenesin Dm 600/30 1 Tab Tab.Er.12h PO 1 tab BID PRN Administration cough Montelukast Sodium 10 mg 12/06/20 21:45 12/14/20 20:17 Montelukast Sodium 10 Mg Tablet PO 10 mg BEDTIME [facility] Administration Pat Own Med ( 1 each 12/08/20 06:00 12/15/20 06:16 Levothyroxine Sodium PO 1 each 75 Mcg) DAILY@0600 [facility] Administration Pat Own Med ( 1 each 12/07/20 21:00 12/14/20 20:17 Latanoprost 0.005% EYE-RIGHT 1 each Eye Drops) BEDTIME [facility] Administration Non-Formulary Medication 1 each 12/09/20 18:30 12/15/20 09:07 Patient Own Medication INHALE Not Given BID@0630,1830 [facility] Oxycodone HCl 2.5 mg 12/10/20 12:42 Oxycodone Hcl Immed Release 5 Mg Tablet PO ONCE PRN Pain, Severe (Pain Scale 7-10) Prednisone 50 mg 12/15/20 09:00 12/15/20 08:30 Prednisone 10 Mg Tablet PO 12/17/20 09:01 50 mg DAILY [facility] Administration Sodium Chloride 3 ml 12/06/20 17:29 12/15/20 08:32 0.9 % Sodium Chloride Flush 3 Ml Syringe IVFLUSH Not Given QSHIFT [facility] Tiotropium [place] 1 puff 12/10/20 06:30 12/15/20 08:02 Tiotropium [place] 18 Mcg Cap.W.Dev INHALE Not Given DAILY@0630 [facility] Labs CBC & Chem 7: 12/15/20 06:40 12/15/20 05:27 Assessment and Plan (1) Thrombocytopenia: Status: Acute (2) Hemoptysis: Status: Acute (3) Lung mass: Status: Acute Assessment and Plan: 85yo F with COPD, breast CA s/p lumpectomy, HTN, SVT presented with hemoptysis x5d found to have severe thrombocytopenia and new lung mass concerning for malignancy 1.severe thrombocytopenia 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 Harrison today re: plan --> will start prednisone taper -- 10mg q3 days to follow up the hematology as outpatient 2. suspicious lung mass d/w Dr. Romero -- will give outpatient f/u with him and will need eventual biopsy once platelets stble 3.History of x SVT\ stable ventricular rate, continue digoxin, and atenolol. 4. HTN - better blood pressure control since dose of atenolol increased to 50 mg , elevated blood pressure last night due to anxiety. 5. COPD - no acute exacerbation, continue LAMA, ICS/LABA, prn DANIEL. 6. hypothyroidism - continue LT4 7. Lactose intolerace pt requested removal of dietary restrictions as she tells me she is well aware of how to manage her food. Will remove intolerance as to allow pt to have more options to eat DNR/DNI DVT pptx, mechanical due to severe thrombocyptonia Dispo: home with services today
--- NOTE | 2020-12-15 09:46 | MHC.CM.PN ---
Addendum entered by Bhargavi Cho 12/15/20 10:02: CORRECTION - PATIENT IS RETURNING HOME WITH A REFERRAL PLACED TO [facility]. IF AGENCY IS UNABLE TO OFFER, ADDITIONAL CHOICE WILL BE OBTAINED. Original Note: PATIENT AGREES TO TODAY'S DISCHARGE PLAN. SHE IS HOPING THAT HER SON WILL PROVIDE TRANSPORT HOME. SHE IS ALSO AWARE THAT CASE MANAGEMENT CAN ASSIST IF NEEDED. CURRENT PLAN IS HOME WITH NO SERVICES.
--- NOTE | 2020-12-15 09:54 | P.DS_ITS ---
DS: Providers Provider Date of Service: 12/15/20 Date of admission: 12/06/20 14:25 Primary care physician: Raheem Domínguez MD Consults: 12/06/20 14:25 Consult to Hematology / Oncology Routine Consulting Provider: Jae Maldonado Reason for consultation: severe thrombocytopenia, lung mass Has provider been notified: No 12/06/20 15:08 Consult to Pulmonology Routine Consulting Provider: Nikolay Romero Reason for consultation: lung mass and ?area of aspiration vs blood Has provider been notified: No 12/07/20 12:07 Consult to Hematology / Oncology Routine Consulting Provider: William Harrison Reason for consultation: thrombocytopenia DS: Diagnosis 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 (2) Hemoptysis: Status: Acute (3) Lung mass: Status: Acute DS: Medications Discharge Medications Home Medications: Home Medications Medication Instructions Recorded Confirmed Spiriva with HandiHaler 18 mcg INHALATION QAM 12/06/20 12/06/20 albuterol sulfate 2 puff INHALATION Q4H PRN 12/06/20 12/06/20 atenolol 1 tab PO DAILY 12/06/20 12/06/20 clorazepate dipotassium 3.75 mg PO BID PRN 12/06/20 12/06/20 digoxin 1 tab PO DAILY 12/06/20 12/06/20 fluticasone propion-salmeterol 1 inh INHALATION BID 12/06/20 12/06/20 [Advair Diskus] guaifenesin [Mucinex] 600 mg PO BID 12/06/20 12/06/20 levothyroxine 1 tab PO QAM 12/06/20 12/06/20 montelukast 1 tab PO DAILY 12/06/20 12/06/20 latanoprost 1 drp OPHTHALMIC-RIGHT BEDTIME 12/07/20 12/07/20 Previous Rx's Medication Instructions Recorded prednisone See Taper PO DAILY #45 tab 12/15/20 DS: Summary Hospital Course Hospital Course: HPI from the admission H&P: This is an 85 year old female with a history of COPD, breast cancer, HTN, who presents to the ED with hemoptysis. She reports 5 days of intermittent cough productive of clear phlegm mixed with blood. She has some shortness of breath which is chronic and unchanged from her baseline. She denies any fevers or chills. She denies chest pain or palpitations. Her workup in the emergency department was significant for severe thrombocytopenia with platelets of 7, D- dimer of 6064. She underwent CTA which showed no evidence of pulmonary embolism but 2 right upper lobe lung lesions concerning for malignancy. She denies a known history of thrombocytopenia, although her previous CBC from April 2020 shows a platelet count of 117. She denies the use of blood thinner or aspirin at home. She denies any hematuria or bleeding from the gums or nose. She has had hemorrhoidal bleeding in the past, but not right now. She may have lost a few pounds over the past month or so, but no significant weight loss noted. She has been fully vaccinated for COVID 19 with [employer] vaccine, the second dose of which she received 11/04. One unit of platelets was ordered in the ED and has been transfused. Hospital Course: Patient presented to the hospital hemoptysis and was diagnosed with severe thrombocytopenia with a platelet count less than 10 at the time of admission. She was also diagnosed with this suspicious lung mass. S she was transfused platelets and workup was initiated. She underwent evaluation by both Pulmonary and Hematology. 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 She underwent a bone marrow biopsy which showed: Diagnosis Bone marrow, biopsy, aspirate and clot: Mildly hypercellular marrow with maturing trilineage hematopoiesis and megakaryocyte hyperplasia. See description and comment. COMMENT: The findings are consistent with peripheral platelet destruction/consumption with compensatory megakaryocyte hyperplasia. No marrow infiltrative process is seen and overt features of dysplasia are not present. Concurrent flow cytometry is negative for a B-cell lymphoproliferative disorder (see report in its entirety in the EMR - Reports/Pathology section as a scanned report; camera icon; if appropriate, a copy has also been sent to the ordering provider's office). Please also correlate with cytogenetic findings (pending at the time of this report). In regards to her lung mass, biopsy was deferred due to thrombocytopenia and she will be referred to the pulmonary clinic for outpatient workup. She has to have repeat CBC in 1 weeks time. She is also to follow up with Hematology. She will be discharged home on a short prednisone taper as advised by Hematology. Time Spent with Patient Time attestation: Total time spent providing and/or coordinating discharge services: Discharge coordination time: Greater than 30 minutes Physical Exam Vital Signs: Vital Signs: Last Vital Signs Temp 97.0 F 12/15/20 07:48 Pulse 61 12/15/20 08:31 Resp 16 12/15/20 07:48 BP 191/85 H 12/15/20 08:31 Pulse Ox 96 12/15/20 07:48 Body Mass Index 22.6 Const: Other: Gen: no acute distress Lungs: clear to auscultation , no respiratory distress Heart: regular rate and rhythm, no murmurs Abd: soft, non-tender, non-distended Ext: no edema Skin: bruising improving Neuro: alert and oriented x3, no focal findings Psych: appropriate affect DS: Data Data Completed and Pending Completed studies during hospitalization [Text1]: Pending at discharge 12/10/20 13:37 Surgical [PTH] Stat Labs on day of discharge: Laboratory Results - last 24 hr 12/10/20 12/15/20 12/15/20 13:35 05:27 06:40 WBC 5.1 RBC 3.91 L Hgb 11.1 L Hct 33.5 L MCV 85.7 MCH 28.4 MCHC 33.1 RDW 14.1 Plt Count 63 L D MPV 11.3 Absolute Nucleated RBC 0.000 Nucleated RBC % (auto) 0.0 Sodium 132 L Potassium 4.1 Chloride 103 Carbon Dioxide 26 Anion Gap 7 L BUN 21 H Creatinine 0.75 Estim Creat Clear Calc 46.2 Estimated GFR > 60 Random Glucose 75 Calcium 8.3 L Leuk/Lym Interpretation See Note Discharge Plan Discharge Patient Disposition: Home Health Service Discharge Diagnosis: Thrombocytopenia Referrals: William Harrison MD [Physician] - 1 Week (call office for appt) Raheem Domínguez MD [Primary Care Provider] - 1 Week Nikolay Romero MD [Physician] - 1 Week (call office for appt) Discharge Medications: New prednisone 10 mg tablet See Taper mg PO DAILY Qty: 45 RF: 0 Continued fluticasone propion-salmeterol [Advair Diskus] 250-50 mcg/dose Blister With Device 1 inh INHALATION BID RF: 0 atenolol 25 mg tablet 1 tab PO DAILY RF: 0 digoxin 250 mcg (0.25 mg) tablet 1 tab PO DAILY RF: 0 levothyroxine 75 mcg tablet 1 tab PO QAM RF: 0 montelukast 10 mg tablet 1 tab PO DAILY RF: 0 albuterol sulfate 90 mcg/actuation HFA aerosol inhaler 2 puff inhalation Q4H PRN (Reason: Shortness Of Breath Or Wheezing) RF: 0 Spiriva with HandiHaler 18 mcg Capsule, W/Inhalation Device 18 mcg INHALATION QAM RF: 0 guaifenesin [Mucinex] 600 mg Tablet Extended Release 12hr 600 mg PO BID RF: 0 clorazepate dipotassium 3.75 mg Tablet 3.75 mg PO BID PRN (Reason: Anxiety) RF: 0 latanoprost 0.005 % drops 1 drp ophthalmic-Right BEDTIME RF: 0 Discharge Orders: Discharge Order (Routine); Ordered 12/15/20 Ordered By: John Bruner Diet: advance to usual diet Activity on Discharge: As tolerated Stand Alone Forms: Patient Portal Discharge page Care Plan Goals: To stay healthy and out of the hospital. Health Concerns: Low platelet counts Lung Mass Plan of Treatment: Low platelet counts - Take prednisone (start 50mg and taper by 10 mg every 3 days - 50mg x 3 days, 40mg x 3 days, 30mg x 3 days, 20mg x 3 days, 10mg x 3 days). Follow up with Dr. Harrison Lung Mass - Follow up with Dr Romero Assessment: 85 yo F admitted for low platelets. Work up shows likely secondary to ITP. Also has lung mass. Needs to follow up with hematology and pulmonary as an outpatient.
--- NOTE | 2020-12-15 10:19 | P.F2F_ITS ---
Service Date Service Date: 12/15/20 Encounter Date of encounter: 12/15/20 Reasons for Services Signs and symptoms assessed: Needs repeat CBC - 12/22/2020; [place] [facility] [place]. 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 Certification: Based on the above findings, I certify that this patient is confined to the home and needs intermittent retirement care, physical therapy and/or speech therapy, or continues to need occupational therapy. The patient is under my care, and I have initiated the establishment of the plan of care. The patient will be followed by a physician who will periodically review the plan of care.
== END 2020-12-15 16:14 | disposition home health service (06) | DRG 813 ==
LOC: HO.ED 13:17 → HO.S3 15:05
PROVIDERS: Family Medicine; Hospitalist; Internal Medicine Medical Oncology; Physician Assistant Medical; Admitting Provider Internal Medicine; Emergency Provider Emergency Medicine; PCP Internal Medicine; Visit Provider Family Medicine
PROC: 07DR3ZX Extraction of Iliac Bone Marrow, Percutaneous Approach, Diagnostic (ICD-10-PCS; CPT 38221; principal; 2020-12-10 13:00)
DX: D69.3 Immune thrombocytopenic purpura (principal); R04.2 Hemoptysis; J44.9 Chronic obstructive pulmonary disease, unspecified; E73.9 Lactose intolerance, unspecified; E03.9 Hypothyroidism, unspecified; R91.8 Other nonspecific abnormal finding of lung field; Z85.3 Personal history of malignant neoplasm of breast; Z20.822 Contact with and (suspected) exposure to COVID-19; Z87.891 Personal history of nicotine dependence; Z79.51 Long term (current) use of inhaled steroids; Z79.890 Hormone replacement therapy; Z79.899 Other long term (current) drug therapy; Z66 Do not resuscitate
CPT/HCPCS: 36415; 38222; 71045; 71275; 80048; 80076; 80162; 81003; 82607; 82746; 82784; 83615; 83690; 83880; 84484; 85025; 85027; 85060; 85097; 85379; 85384; 86022; 86334; 86850; 86900; 86901; 87635; 88184; 88185; 88237; 88264; 88280; 88305; 88311; 88313; 93005; 93970; 99285; J1200; J1572; J1642; J2250; J2920; J3010; P9035; P9037; Q0163; Q9967

== ENCOUNTER 2020-12-23 10:20 | Outpatient (REF) | payer MEDICARE, OTHER, SELFPAY ==
[2020-12-23 11:42] LABS: Basophils Percent Auto 0.2 % (0-2); Eosinophils Absolute Auto 0.1 X10*3/uL (0.0-0.4); Eosinophils Percent Auto 0.8 % (0-4); Hematocrit 37.5 % (37-47); Hemoglobin 12.5 g/dl (12.0-16.0); Imm Gran Abs Auto 0.05 X10*3/uL (0.00-0.03); Imm Gran Pct Auto 0.6 % (0.0-0.4); Lymphocytes Absolute Auto 0.4 X10*3/uL (1.2-4.9); Lymphocytes Percent Auto 4.6 % (20-40); MANUAL DIFF FLAG SCAN; Mean Corpuscular HGB Conc 33.3 g/dl (31.0-35.0); Mean Corpuscular Hemoglobin 28.5 pg (27.0-33.0); Mean Corpuscular Volume 85.6 fL (80-98); Mean Platelet Volume 10.7 fL (9.4-12.3); Monocytes Absolute Auto 0.4 X10*3/uL (0.1-1.2); Monocytes Percent Auto 4.5 % (2-11); Neutrophils Absolute Auto 7.4 X10*3/uL (2.0-8.3); Neutrophils Percent Auto 89.3 % (45-73); Red Blood Count 4.38 X10*6/uL (4.20-5.50); Red Cell Distribution Width 14.5 % (11.0-16.0); SCAN SMEAR FLAG 1; White Blood Count 8.3 X10*3/uL (4.8-10.8)
[2020-12-23 11:46] LABS: Platelet Count 81 X10*3/uL (160-400)
[2020-12-23 12:07] LABS: Digoxin 1.2 ng/mL (0.8-2.0)
[2020-12-23 12:09] LABS: SLIDE REVIEW VERIFIED
[2020-12-23 12:16] LABS: Anion Gap 11 (12-20); Blood Urea Nitrogen 14 mg/dL (9-16); Carbon Dioxide 27 mmol/L (22-29); Chloride 97 mmol/L (96-108); Estimated Glomerular Filt Rate > 60; Glucose Random 78 mg/dL (60-115); Potassium 4.4 mmol/L (3.3-5.1); Sodium 131 mmol/L (135-145)
== END 2020-12-23 10:21 | disposition home or self-care (01) ==
LOC: HO.HMGCLDS 10:20
PROVIDERS: PCP Internal Medicine; Visit Provider Internal Medicine
DX: C34.90 Malignant neoplasm of unspecified part of unspecified bronchus or lung (principal); R53.83 Other fatigue
CPT/HCPCS: 36415; 80048; 80162; 85025

== ENCOUNTER 2020-12-31 13:14 | Outpatient (REF) | payer MEDICARE, OTHER, SELFPAY ==
[2020-12-31 13:26] LABS: Basophils Percent Auto 0.3 % (0-2); Eosinophils Percent Auto 0.3 % (0-4); MANUAL DIFF FLAG SCAN; PLT CLUMP 1; Red Cell Distribution Width 14.6 % (11.0-16.0); SCAN SMEAR FLAG 1
[2020-12-31 13:28] LABS: Hematocrit 37.1 % (37-47); Hemoglobin 12.1 g/dl (12.0-16.0); Imm Gran Abs Auto 0.07 X10*3/uL (0.00-0.03); Imm Gran Pct Auto 0.7 % (0.0-0.4); Lymphocytes Absolute Auto 0.2 X10*3/uL (1.2-4.9); Lymphocytes Percent Auto 1.8 % (20-40); Mean Corpuscular HGB Conc 32.6 g/dl (31.0-35.0); Mean Corpuscular Hemoglobin 28.7 pg (27.0-33.0); Mean Corpuscular Volume 87.9 fL (80-98); Mean Platelet Volume 11.6 fL (9.4-12.3); Monocytes Absolute Auto 0.3 X10*3/uL (0.1-1.2); Monocytes Percent Auto 2.7 % (2-11); Neutrophils Absolute Auto 9.8 X10*3/uL (2.0-8.3); Neutrophils Percent Auto 94.2 % (45-73); Red Blood Count 4.22 X10*6/uL (4.20-5.50); White Blood Count 10.4 X10*3/uL (4.8-10.8)
[2020-12-31 13:30] LABS: Platelet Count 44 X10*3/uL (160-400)
[2020-12-31 14:03] LABS: SLIDE REVIEW VERIFIED
[2020-12-31 14:25] LABS: Anion Gap 13 (12-20); Blood Urea Nitrogen 25 mg/dL (9-16); Calcium 9.3 mg/dL (8.4-10.2); Carbon Dioxide 27 mmol/L (22-29); Chloride 97 mmol/L (96-108); Estimated Glomerular Filt Rate > 60; Glucose Random 95 mg/dL (60-115); Potassium 4.7 mmol/L (3.3-5.1); Sodium 132 mmol/L (135-145)
== END 2020-12-31 13:15 | disposition home or self-care (01) ==
LOC: HO.HVNA 13:14
PROVIDERS: Referring Provider Internal Medicine Medical Oncology; Visit Provider Internal Medicine
DX: D69.6 Thrombocytopenia, unspecified (principal); J44.9 Chronic obstructive pulmonary disease, unspecified
CPT/HCPCS: 36415; 80048; 85025

== ENCOUNTER 2021-01-01 10:38 | Outpatient (REF) | payer MEDICARE, OTHER, SELFPAY ==
[2021-01-01 11:24] LABS: Basophils Percent Auto 0.3 % (0-2); Eosinophils Absolute Auto 0.1 X10*3/uL (0.0-0.4); Eosinophils Percent Auto 0.8 % (0-4); Hematocrit 34.7 % (37-47); Hemoglobin 11.5 g/dl (12.0-16.0); Imm Gran Abs Auto 0.07 X10*3/uL (0.00-0.03); Imm Gran Pct Auto 0.7 % (0.0-0.4); Lymphocytes Absolute Auto 0.2 X10*3/uL (1.2-4.9); Lymphocytes Percent Auto 2.3 % (20-40); MANUAL DIFF FLAG SCAN; Mean Corpuscular HGB Conc 33.1 g/dl (31.0-35.0); Mean Corpuscular Hemoglobin 28.7 pg (27.0-33.0); Mean Corpuscular Volume 86.5 fL (80-98); Mean Platelet Volume 10.6 fL (9.4-12.3); Monocytes Absolute Auto 0.4 X10*3/uL (0.1-1.2); Monocytes Percent Auto 4.1 % (2-11); Neutrophils Absolute Auto 8.7 X10*3/uL (2.0-8.3); Neutrophils Percent Auto 91.8 % (45-73); Red Blood Count 4.01 X10*6/uL (4.20-5.50); Red Cell Distribution Width 14.3 % (11.0-16.0); SCAN SMEAR FLAG 1; White Blood Count 9.5 X10*3/uL (4.8-10.8)
[2021-01-01 11:25] LABS: Platelet Count 42 X10*3/uL (160-400)
[2021-01-01 11:45] LABS: SLIDE REVIEW VERIFIED
[2021-01-01 12:02] LABS: Anion Gap 10 (12-20); Blood Urea Nitrogen 23 mg/dL (9-16); Calcium 9.1 mg/dL (8.4-10.2); Carbon Dioxide 28 mmol/L (22-29); Chloride 100 mmol/L (96-108); Estimated Glomerular Filt Rate > 60; Glucose Random 96 mg/dL (60-115); Potassium 5.1 mmol/L (3.3-5.1); Sodium 133 mmol/L (135-145)
== END 2021-01-01 10:39 | disposition home or self-care (01) ==
LOC: HO.LAB 10:38
PROVIDERS: Absent Provider Internal Medicine Medical Oncology; PCP Internal Medicine; Visit Provider Internal Medicine
DX: R53.83 Other fatigue (principal); D64.9 Anemia, unspecified; E87.1 Hypo-osmolality and hyponatremia
CPT/HCPCS: 36415; 80048; 85025

== ENCOUNTER → 2021-01-25 10:12 | Outpatient (BNVA) | payer MEDICARE, OTHER, SELFPAY | PROVIDERS: PCP Internal Medicine; Visit Provider Hospitalist | DX: J41.0 Simple chronic bronchitis (principal); D69.6 Thrombocytopenia, unspecified; R59.0 Localized enlarged lymph nodes; R91.8 Other nonspecific abnormal finding of lung field | CPT/HCPCS: 99212 ==

== ENCOUNTER 2021-02-17 09:58 | Outpatient (REF) | payer MEDICARE, OTHER, SELFPAY ==
--- NOTE | 2021-02-17 11:23 | PFT_ITS ---
INDICATION: Lung mass. SPIROMETRY: The FEV1 to FVC 38% with an FEV1 of 1.09 L, which is 58% predicted, and an FVC of 2.87 L, which is 114% predicted. No significant response to bronchodilators noted. Maximum voluntary ventilation 54% predicted. LUNG VOLUMES: Total lung capacity 100% predicted. DIFFUSION CAPACITY: DLCO 30% predicted. COMPARISONS: None. INTERPRETATION: There is an obstructive ventilatory defect consistent with [id number] COPD. No significant response to bronchodilators noted. There is also a moderate to severe decrease in maximum voluntary ventilation secondary to likely deconditioning. Lung volumes are within normal limits and the patient does have a severe diffusion impairment secondary to emphysema and/or parenchymal lung conditions. Clinical correlation warranted. MD DAVID Granados/[facility] / [id number]
== END 2021-02-17 09:59 | disposition home or self-care (01) ==
LOC: HO.RESP 09:58
PROVIDERS: PCP Internal Medicine; Visit Provider Hospitalist
DX: R59.0 Localized enlarged lymph nodes (principal); R91.8 Other nonspecific abnormal finding of lung field
CPT/HCPCS: 94060; 94727; 94729

== ENCOUNTER 2021-02-25 06:40 | Day surgery (SDC) | payer MEDICARE, OTHER, SELFPAY ==
--- NOTE | 2021-02-24 08:26 | HO.ANESPROP2 ---
Documented by User: Rhiannon Parekh 02/24/21 08:32 HPI - Anesthesia Eval Consult details Narrative: 86yo F for Bronchoscopy Fiberoptic s/p bone marrow bx 11/2020 with MAC showed ITP - daily prednisone 20mg daily [facility] admit 11/2020 with hemoptysis, low platelets @ 7, elevated D-dimer. Rec'd platelets, IVIG infusion and started on steroids. CTA negative for PE, but showed suspicious lesions. Pulm w/u delayed d/t low platelets. Last level WNL. PMFSH Active Problems Active Problems: All Active Problems (Updated 02/11/21 @ 10:46 by William Harrison MD) COPD (chronic obstructive pulmonary disease) (Acute) Lymphadenopathy, mediastinal (Acute) Acute ITP (Acute) Thrombocytopenia (Acute) Lung mass (Acute) Past Medical History Medical History (Updated 02/24/21 @ 08:32 by Rhinanon Parekh) Acute ITP Breast CA COPD (chronic obstructive pulmonary disease) Fibrocystic breast changes HTN (hypertension) Irregular heart beat Lymphadenopathy, mediastinal Thyroid disease Family History Family History Other No family history of breast cancer Surgical History Surgical History S/P breast lumpectomy S/P hip replacement Social History Social History Household Members: Spouse Housing: House Do you presently have visiting nurse or other home services: No Alcohol intake: never Patient Tobacco Use Status: Former Tobacco user Tobacco use type: Cigarette Years Smoked: 40 years Use of substances other than those prescribed or required for medical reasons: No Advance Directives: No Advance Directives Information Provided: Yes service: No Current occupational status: retired Meds Allergies Allergy/AdvReac Type Severity Reaction Status Date / Time Carbapenems Allergy Unknown RASH Verified 01/25/21 10:24 cefaclor Allergy Unknown rash, Verified 01/25/21 10:24 itching cefadroxil [Cefadroxil] Allergy Unknown RASH Verified 01/25/21 10:24 cephalexin [From KEFLEX] Allergy Unknown RASH Verified 01/25/21 10:24 Cephalosporins Allergy Unknown RASH Verified 01/25/21 10:24 chlorhexidine Allergy Unknown MUMPS LIKE Verified 01/25/21 10:24 SWELLING TO MOUTH ciprofloxacin Allergy Unknown RASH Verified 01/25/21 10:24 ibuprofen [IBUPROFEN] Allergy Unknown RASH Verified 01/25/21 10:24 naproxen Allergy Unknown RASH, Verified 01/25/21 10:24 rash, itching penicillin V Allergy Unknown Rash Verified 01/25/21 10:24 Penicillins Allergy Unknown RASH, HIVES Verified 01/25/21 10:24 Sulfa (Sulfonamide Allergy Unknown RASH Verified 01/25/21 10:24 Antibiotics) acetaminophen AdvReac Unknown PALPITATION Verified 01/25/21 10:24 S adhesives Allergy Unknown skin Uncoded 09/20/18 00:00 irritation antiperspirants, deodorants Allergy Unknown Rash Uncoded 12/06/20 13:59 carbapenam Allergy Unknown Rash Uncoded 12/06/20 13:59 chephlasporins Allergy Unknown rash, Uncoded 09/20/18 00:00 itching Chlorhexidine Allergy Unknown Rash Uncoded 12/06/20 13:59 chlorhexidine Allergy Unknown Rash Uncoded 12/06/20 13:59 duracef Allergy Unknown rash, Uncoded 09/20/18 00:00 itching DURACEPT Allergy Unknown RASH Uncoded 04/30/20 15:23 keflex Allergy Unknown rash, Uncoded 09/20/18 00:00 itching shellfish Allergy Unknown severe Uncoded 09/20/18 00:00 hives Home Medications Medication Instructions Recorded Confirmed Last Taken Type Spiriva with HandiHaler 18 mcg INHALATION QAM 12/06/20 02/11/21 12/05/20 History albuterol sulfate 2 puff INHALATION Q4H PRN 12/06/20 02/11/21 12/05/20 History atenolol 1 tab PO DAILY 12/06/20 02/11/21 02/25/21 History digoxin 1 tab PO DAILY 12/06/20 02/11/21 12/05/20 History fluticasone propion-salmeterol 1 inh INHALATION BID 12/06/20 02/11/21 12/05/20 History [Advair Diskus] guaifenesin [Mucinex] 600 mg PO BID 12/06/20 02/11/21 12/05/20 History levothyroxine 1 tab PO QAM 12/06/20 02/11/21 12/05/20 History montelukast 1 tab PO DAILY 12/06/20 02/11/21 12/05/20 History latanoprost 1 drp OPHTHALMIC-RIGHT BEDTIME 12/07/20 02/11/21 Unknown History ascorbate calcium (vitamin C) 500 500 mg PO DAILY 01/25/21 02/11/21 Unknown History mg tablet clorazepate dipotassium 3.75 mg 3.75 mg PO BEDTIME PRN 01/25/21 02/11/21 Unknown History tablet biotin 250 mcg PO DAILY 02/11/21 02/11/21 Unknown History calcium carb-D3-mag ox-zinc ox 3 tab PO DAILY 02/11/21 02/11/21 Unknown History multivitamin 1 cap PO DAILY 02/11/21 02/11/21 Unknown History Exam Exam Date and Time: February 24, [id number] Pertinent Lab Results Pertinent Lab Results: Laboratory Tests 02/11/21 02/11/21 10:16 10:16 WBC 13.9 H Hgb 13.2 Hct 41.7 Plt Count 167 Sodium 137 Potassium 5.3 H Chloride 102 Carbon Dioxide 30 H BUN 26 H Creatinine 0.82 Assessment and Plan Assessment Anesthesia Assessment: Chart Reviewed Documented by User: Juan Manuel Cook MD 02/25/21 07:46 [facility] Past Medical History Medical History (Updated 02/24/21 @ 08:32 by Rhiannon Parekh) Acute ITP Breast CA COPD (chronic obstructive pulmonary disease) Fibrocystic breast changes HTN (hypertension) Irregular heart beat Lymphadenopathy, mediastinal Thyroid disease Family History Family History Other No family history of breast cancer Surgical History Surgical History S/P breast lumpectomy S/P hip replacement Social History Social History Household Members: Spouse Housing: House Do you presently have visiting nurse or other home services: No Alcohol intake: never Patient Tobacco Use Status: Former Tobacco user Tobacco use type: Cigarette Years Smoked: 40 years Use of substances other than those prescribed or required for medical reasons: No Advance Directives: No Advance Directives Information Provided: Yes service: No Current occupational status: retired Meds Allergies Allergy/AdvReac Type Severity Reaction Status Date / Time Carbapenems Allergy Unknown RASH Verified 01/25/21 10:24 cefaclor Allergy Unknown rash, Verified 01/25/21 10:24 itching cefadroxil [Cefadroxil] Allergy Unknown RASH Verified 01/25/21 10:24 cephalexin [From KEFLEX] Allergy Unknown RASH Verified 01/25/21 10:24 Cephalosporins Allergy Unknown RASH Verified 01/25/21 10:24 chlorhexidine Allergy Unknown MUMPS LIKE Verified 01/25/21 10:24 SWELLING TO MOUTH ciprofloxacin Allergy Unknown RASH Verified 01/25/21 10:24 ibuprofen [IBUPROFEN] Allergy Unknown RASH Verified 01/25/21 10:24 naproxen Allergy Unknown RASH, Verified 01/25/21 10:24 rash, itching penicillin V Allergy Unknown Rash Verified 01/25/21 10:24 Penicillins Allergy Unknown RASH, HIVES Verified 01/25/21 10:24 Sulfa (Sulfonamide Allergy Unknown RASH Verified 01/25/21 10:24 Antibiotics) acetaminophen AdvReac Unknown PALPITATION Verified 01/25/21 10:24 S adhesives Allergy Unknown skin Uncoded 09/20/18 00:00 irritation antiperspirants, deodorants Allergy Unknown Rash Uncoded 12/06/20 13:59 carbapenam Allergy Unknown Rash Uncoded 12/06/20 13:59 chephlasporins Allergy Unknown rash, Uncoded 09/20/18 00:00 itching Chlorhexidine Allergy Unknown Rash Uncoded 12/06/20 13:59 chlorhexidine Allergy Unknown Rash Uncoded 12/06/20 13:59 duracef Allergy Unknown rash, Uncoded 09/20/18 00:00 itching DURACEPT Allergy Unknown RASH Uncoded 04/30/20 15:23 keflex Allergy Unknown rash, Uncoded 09/20/18 00:00 itching shellfish Allergy Unknown severe Uncoded 09/20/18 00:00 hives Home Medications Medication Instructions Recorded Confirmed Last Taken Type Spiriva with HandiHaler 18 mcg INHALATION QAM 12/06/20 02/11/21 12/05/20 History albuterol sulfate 2 puff INHALATION Q4H PRN 12/06/20 02/11/21 12/05/20 History atenolol 1 tab PO DAILY 12/06/20 02/11/21 02/25/21 History digoxin 1 tab PO DAILY 12/06/20 02/11/21 12/05/20 History fluticasone propion-salmeterol 1 inh INHALATION BID 12/06/20 02/11/21 12/05/20 History [Advair Diskus] guaifenesin [Mucinex] 600 mg PO BID 12/06/20 02/11/21 12/05/20 History levothyroxine 1 tab PO QAM 12/06/20 02/11/21 12/05/20 History montelukast 1 tab PO DAILY 12/06/20 02/11/21 12/05/20 History latanoprost 1 drp OPHTHALMIC-RIGHT BEDTIME 12/07/20 02/11/21 Unknown History ascorbate calcium (vitamin C) 500 500 mg PO DAILY 01/25/21 02/11/21 Unknown History mg tablet clorazepate dipotassium 3.75 mg 3.75 mg PO BEDTIME PRN 01/25/21 02/11/21 Unknown History tablet biotin 250 mcg PO DAILY 02/11/21 02/11/21 Unknown History calcium carb-D3-mag ox-zinc ox 3 tab PO DAILY 02/11/21 02/11/21 Unknown History multivitamin 1 cap PO DAILY 02/11/21 02/11/21 Unknown History Exam Airway Mallampati Class: II TM Dist: >3cm Neck ROM: Full Loose/Missing/Broken Teeth: Yes Heart: RRR Assessment and Plan Assessment Anesthesia Assessment: Anesthesia Plan Discussed and Chart Reviewed Final Anesthetic Review NPO: Yes ASA Class: III Final Preanesthetic Review: No Changes in Pt Med Stat, Meds/Allgs Chart Reviewed, Consent Obtained/Reviewed and Anes Risks/Benef Reviewed Patient Risk: Intermediate Procedure Risk: Low Anesthetic Plan Anesthetic Plan: GA Disposition: Standard PACU
[2021-02-25] VITALS (7 sets, daily range): BP systolic 112–185; BP diastolic 53–91; PULSE 62–73; RESP 16–22; TEMP 36.3–36.8; O2SAT 94–100
[2021-02-25] MEDS: Lactated Ringers 1,000 ML 50 ML IVCONT (08:01)
--- NOTE | 2021-02-25 08:02 | MHC.SHP ---
Pre-Procedural Eval Section A Date of Service: 02/25/21 Section B Chief Complaint: solitary pulmonary nodule Allergies: Allergies Allergy/AdvReac Type Severity Reaction Status Date / Time Carbapenems Allergy Unknown RASH Verified 01/25/21 10:24 cefaclor Allergy Unknown rash, Verified 01/25/21 10:24 itching cefadroxil [Cefadroxil] Allergy Unknown RASH Verified 01/25/21 10:24 cephalexin [From KEFLEX] Allergy Unknown RASH Verified 01/25/21 10:24 Cephalosporins Allergy Unknown RASH Verified 01/25/21 10:24 chlorhexidine Allergy Unknown MUMPS LIKE Verified 01/25/21 10:24 SWELLING TO MOUTH ciprofloxacin Allergy Unknown RASH Verified 01/25/21 10:24 ibuprofen [IBUPROFEN] Allergy Unknown RASH Verified 01/25/21 10:24 naproxen Allergy Unknown RASH, Verified 01/25/21 10:24 rash, itching penicillin V Allergy Unknown Rash Verified 01/25/21 10:24 Penicillins Allergy Unknown RASH, HIVES Verified 01/25/21 10:24 Sulfa (Sulfonamide Allergy Unknown RASH Verified 01/25/21 10:24 Antibiotics) acetaminophen AdvReac Unknown PALPITATION Verified 01/25/21 10:24 S adhesives Allergy Unknown skin Uncoded 09/20/18 00:00 irritation antiperspirants, deodorants Allergy Unknown Rash Uncoded 12/06/20 13:59 carbapenam Allergy Unknown Rash Uncoded 12/06/20 13:59 chephlasporins Allergy Unknown rash, Uncoded 09/20/18 00:00 itching Chlorhexidine Allergy Unknown Rash Uncoded 12/06/20 13:59 chlorhexidine Allergy Unknown Rash Uncoded 12/06/20 13:59 duracef Allergy Unknown rash, Uncoded 09/20/18 00:00 itching DURACEPT Allergy Unknown RASH Uncoded 04/30/20 15:23 keflex Allergy Unknown rash, Uncoded 09/20/18 00:00 itching shellfish Allergy Unknown severe Uncoded 09/20/18 00:00 hives Plan I have reviewed the history and physical and performed a pertinent physical examination on my patient. No changes have occurred unless specified.
--- NOTE | 2021-02-25 08:51 | PM.OP ---
Brief Operative Note Date of Service: 02/25/21 Pre-op diagnosis: pulmonary nodule Post-op diagnosis: same Procedure: bronchoscopy with biopsies Surgeon: Nikolay Romero MD Anesthesia: GLMA Was an College Archivist used for this Procedure?: No Estimated blood loss (mL): 3 Pathology: other (RUL transbronchial bx) Condition: stable Disposition: same day
--- NOTE | 2021-02-25 21:26 | OP_ITS ---
SURGEON: Nikolay Romero MD PREOPERATIVE DIAGNOSIS: Pulmonary nodule. POSTOPERATIVE DIAGNOSIS: Pulmonary nodule. PROCEDURE PERFORMED: Bronchoscopy with biopsies, washings and brushings. ESTIMATED BLOOD LOSS: 3 mL or less. COMPLICATIONS: None. ANESTHESIA: The patient had an LMA and was monitoring closely the patient throughout the procedure. ASSISTANTS: SPECIMENS: INTERPRETATION: 1. Brushings x2, one on the right upper lobe, one on the right lower lobe. 2. Transbronchial biopsies of the right upper lobe posterior segment. 3. Bronchial washings from the right upper lobe posterior segment. DESCRIPTION OF PROCEDURE: After the patient was adequately sedated, the flexible digital bronchoscope was inserted over the LMA to the level of the vocal cords to the larynx. The vocal cords moved symmetrically to the midline and no evidence of any laryngeal issues. After instilling lidocaine, the bronchoscope was then navigated to the level of the trachea. The patient did have some mucus in the central airways, [id number] in severity. It was easily suctioned. After instilling additional lidocaine, the bronchoscope was navigated to the entire tracheobronchial tree. No obvious endobronchial disease. The patient did have some slight areas of polypoid looking densities in the right lower lobe. Otherwise, the right upper lobe appeared to be relatively normal in appearance. The patient did have mucus secretions throughout the airways. Based on the CT scan images, we were focused mainly in the right upper lobe. Therefore, a cytologic brush was introduced into the right upper lobe, sent for cytology. A second right lower lobe brushings were also done at the area of the polypoid abnormality in the right lower lobe. Both brushes were sent to cytology. The bronchoscope was again navigated to the right upper lobe posterior segment, where transbronchial biopsies were collected from the posterior segment. There were transbronchial biopsies. Multiple biopsies were obtained and placed in formalin for pathology. The bronchial washings were also administered and iced saline was administered with good hemostasis. At the end of the procedure, the patient did receive half an ampule of epinephrine, which she tolerated well without any vital sign changes. No evidence of any active bleeding at the end of the procedure. The total endoscopic time approximately half an hour. The patient tolerated the procedure well. Vital signs were stable throughout the procedure. MD DAVID Granados/JUANIS / [id number]
== END 2021-02-25 10:15 ==
LOC: HO.SSS 06:40
PROVIDERS: PCP Internal Medicine; Visit Provider Hospitalist
PROC: 0BJ08ZZ Inspection of Tracheobronchial Tree, Via Natural or Artificial Opening Endoscopic (ICD-10-PCS; CPT 31622; principal; 2021-02-25 08:00)
DX: R91.1 Solitary pulmonary nodule (principal); J44.9 Chronic obstructive pulmonary disease, unspecified; D69.3 Immune thrombocytopenic purpura; I10 Essential (primary) hypertension; R59.0 Localized enlarged lymph nodes; Z79.51 Long term (current) use of inhaled steroids; Z79.899 Other long term (current) drug therapy; Z85.3 Personal history of malignant neoplasm of breast; Z88.1 Allergy status to other antibiotic agents; Z88.2 Allergy status to sulfonamides; Z88.8 Allergy status to other drugs, medicaments and biological substances; Z87.891 Personal history of nicotine dependence
CPT/HCPCS: 31628; 31623; 87071; 87205; 88112; 88305; J0171; J2405; J3010

== ENCOUNTER → 2021-03-08 10:46 | Outpatient (BNVA) | payer MEDICARE, OTHER, SELFPAY | PROVIDERS: PCP Internal Medicine; Visit Provider Hospitalist | DX: J41.0 Simple chronic bronchitis (principal); D69.6 Thrombocytopenia, unspecified; R91.8 Other nonspecific abnormal finding of lung field | CPT/HCPCS: 99212 ==

== ENCOUNTER 2021-03-30 09:59 | Outpatient (REF) | payer MEDICARE, OTHER, SELFPAY ==
[2021-03-30 11:29] LABS: MANUAL DIFF FLAG NO
[2021-03-30 11:37] LABS: Basophils Absolute Auto 0.1 X10*3/uL (0.0-0.2); Basophils Percent Auto 0.4 % (0-2); Eosinophils Absolute Auto 0.1 X10*3/uL (0.0-0.4); Eosinophils Percent Auto 0.9 % (0-4); Hematocrit 41.1 % (37-47); Hemoglobin 13.1 g/dl (12.0-16.0); Imm Gran Abs Auto 0.15 X10*3/uL (0.00-0.03); Imm Gran Pct Auto 1.3 % (0.0-0.4); Lymphocytes Absolute Auto 0.9 X10*3/uL (1.2-4.9); Lymphocytes Percent Auto 7.5 % (20-40); Mean Corpuscular HGB Conc 31.9 g/dl (31.0-35.0); Mean Corpuscular Hemoglobin 28.5 pg (27.0-33.0); Mean Corpuscular Volume 89.5 fL (80-98); Mean Platelet Volume 9.7 fL (9.4-12.3); Monocytes Absolute Auto 0.7 X10*3/uL (0.1-1.2); Monocytes Percent Auto 6.3 % (2-11); Neutrophils Absolute Auto 9.8 X10*3/uL (2.0-8.3); Neutrophils Percent Auto 83.6 % (45-73); Platelet Count 113 X10*3/uL (160-400); Red Blood Count 4.59 X10*6/uL (4.20-5.50); Red Cell Distribution Width 14.9 % (11.0-16.0); White Blood Count 11.7 X10*3/uL (4.8-10.8)
[2021-03-30 11:59] LABS: Alanine Aminotransferase 21 U/L (0-31); Albumin Level 4.2 g/dL (3.5-5.0); Alkaline Phosphatase 57 U/L (39-117); Anion Gap 12 (12-20); Aspartate Amino Transferase 21 U/L (5-31); Bilirubin Total 0.4 mg/dL (0.0-1.0); Blood Urea Nitrogen 28 mg/dL (9-16); Calcium 9.5 mg/dL (8.4-10.2); Carbon Dioxide 29 mmol/L (22-29); Chloride 101 mmol/L (96-108); Estimated Glomerular Filt Rate > 60; Glucose Random 86 mg/dL (60-115); Potassium 4.1 mmol/L (3.3-5.1); Sodium 138 mmol/L (135-145); Total Protein 6.6 g/dL (6.5-8.0)
== END 2021-03-30 10:00 | disposition home or self-care (01) ==
LOC: HO.HMGCLR 09:59
PROVIDERS: PCP Internal Medicine; Visit Provider Internal Medicine Medical Oncology
DX: D69.3 Immune thrombocytopenic purpura (principal)
CPT/HCPCS: 36415; 80053; 85025

== ENCOUNTER 2021-04-13 08:43 | Outpatient (REF) | payer MEDICARE, OTHER, SELFPAY ==
[2021-04-13 09:38] LABS: MANUAL DIFF FLAG NO
[2021-04-13 09:42] LABS: Basophils Absolute Auto 0.1 X10*3/uL (0.0-0.2); Basophils Percent Auto 0.6 % (0-2); Eosinophils Absolute Auto 0.1 X10*3/uL (0.0-0.4); Eosinophils Percent Auto 0.9 % (0-4); Hematocrit 42.4 % (37-47); Hemoglobin 13.7 g/dl (12.0-16.0); Imm Gran Abs Auto 0.13 X10*3/uL (0.00-0.03); Imm Gran Pct Auto 1.2 % (0.0-0.4); Lymphocytes Absolute Auto 1.1 X10*3/uL (1.2-4.9); Lymphocytes Percent Auto 10.4 % (20-40); Mean Corpuscular HGB Conc 32.3 g/dl (31.0-35.0); Mean Corpuscular Volume 89.6 fL (80-98); Monocytes Absolute Auto 0.9 X10*3/uL (0.1-1.2); Neutrophils Absolute Auto 8.4 X10*3/uL (2.0-8.3); Neutrophils Percent Auto 78.9 % (45-73); Platelet Count 127 X10*3/uL (160-400); Red Blood Count 4.73 X10*6/uL (4.20-5.50); Red Cell Distribution Width 14.1 % (11.0-16.0); White Blood Count 10.7 X10*3/uL (4.8-10.8)
[2021-04-13 10:03] LABS: Alanine Aminotransferase 22 U/L (0-31); Albumin Level 4.3 g/dL (3.5-5.0); Alkaline Phosphatase 62 U/L (39-117); Anion Gap 10 (12-20); Aspartate Amino Transferase 25 U/L (5-31); Bilirubin Total 0.9 mg/dL (0.0-1.0); Blood Urea Nitrogen 28 mg/dL (9-16); Calcium 10.1 mg/dL (8.4-10.2); Carbon Dioxide 31 mmol/L (22-29); Chloride 102 mmol/L (96-108); Estimated Glomerular Filt Rate > 60; Glucose Random 100 mg/dL (60-115); Potassium 4.9 mmol/L (3.3-5.1); Sodium 138 mmol/L (135-145); Total Protein 6.8 g/dL (6.5-8.0)
== END 2021-04-13 08:44 | disposition home or self-care (01) ==
LOC: HO.HMGCLR 08:43
PROVIDERS: PCP Internal Medicine; Visit Provider Internal Medicine Medical Oncology
DX: D69.6 Thrombocytopenia, unspecified (principal)
CPT/HCPCS: 36415; 80053; 85025

== ENCOUNTER 2021-04-27 09:17 | Outpatient (REF) | payer MEDICARE, OTHER, SELFPAY ==
[2021-04-27 11:25] LABS: MANUAL DIFF FLAG NO
[2021-04-27 11:33] LABS: Basophils Absolute Auto 0.1 X10*3/uL (0.0-0.2); Basophils Percent Auto 0.8 % (0-2); Eosinophils Absolute Auto 0.1 X10*3/uL (0.0-0.4); Eosinophils Percent Auto 1.4 % (0-4); Hematocrit 40.7 % (37-47); Hemoglobin 13.5 g/dl (12.0-16.0); Imm Gran Abs Auto 0.06 X10*3/uL (0.00-0.03); Imm Gran Pct Auto 0.7 % (0.0-0.4); Lymphocytes Absolute Auto 1.1 X10*3/uL (1.2-4.9); Lymphocytes Percent Auto 13.3 % (20-40); Mean Corpuscular HGB Conc 33.2 g/dl (31.0-35.0); Mean Corpuscular Hemoglobin 29.3 pg (27.0-33.0); Mean Corpuscular Volume 88.5 fL (80-98); Monocytes Absolute Auto 0.7 X10*3/uL (0.1-1.2); Monocytes Percent Auto 8.7 % (2-11); Neutrophils Absolute Auto 6.3 X10*3/uL (2.0-8.3); Neutrophils Percent Auto 75.1 % (45-73); Platelet Count 120 X10*3/uL (160-400); Red Cell Distribution Width 13.9 % (11.0-16.0); White Blood Count 8.4 X10*3/uL (4.8-10.8)
[2021-04-27 11:38] LABS: Alanine Aminotransferase 20 U/L (0-31); Albumin Level 4.1 g/dL (3.5-5.0); Alkaline Phosphatase 61 U/L (39-117); Anion Gap 12 (12-20); Aspartate Amino Transferase 22 U/L (5-31); Bilirubin Total 0.8 mg/dL (0.0-1.0); Blood Urea Nitrogen 23 mg/dL (9-16); Calcium 10.4 mg/dL (8.4-10.2); Carbon Dioxide 29 mmol/L (22-29); Chloride 101 mmol/L (96-108); Estimated Glomerular Filt Rate > 60; Glucose Random 91 mg/dL (60-115); Potassium 4.1 mmol/L (3.3-5.1); Sodium 138 mmol/L (135-145); Total Protein 6.4 g/dL (6.5-8.0)
== END 2021-04-27 09:18 | disposition home or self-care (01) ==
LOC: HO.HMGCLR 09:17
PROVIDERS: PCP Internal Medicine; Visit Provider Internal Medicine Medical Oncology
DX: D69.3 Immune thrombocytopenic purpura (principal)
CPT/HCPCS: 36415; 80053; 85025

== ENCOUNTER 2021-05-11 09:55 | Outpatient (REF) | payer MEDICARE, OTHER, SELFPAY | END 2021-05-11 09:56 | disposition home or self-care (01) | LOC: HO.LAB 09:55 | PROVIDERS: PCP Internal Medicine; Visit Provider Internal Medicine Medical Oncology | DX: Z13.89 Encounter for screening for other disorder (principal) ==

== ENCOUNTER 2021-05-25 09:37 | Outpatient (REF) | payer MEDICARE, OTHER, SELFPAY ==
[2021-05-25 11:35] LABS: MANUAL DIFF FLAG NO
[2021-05-25 11:40] LABS: Basophils Absolute Auto 0.1 X10*3/uL (0.0-0.2); Basophils Percent Auto 0.6 % (0-2); Eosinophils Absolute Auto 0.1 X10*3/uL (0.0-0.4); Eosinophils Percent Auto 1.1 % (0-4); Hematocrit 40.9 % (37-47); Hemoglobin 13.2 g/dl (12.0-16.0); Imm Gran Abs Auto 0.09 X10*3/uL (0.00-0.03); Lymphocytes Absolute Auto 0.9 X10*3/uL (1.2-4.9); Lymphocytes Percent Auto 9.2 % (20-40); Mean Corpuscular HGB Conc 32.3 g/dl (31.0-35.0); Mean Corpuscular Hemoglobin 29.3 pg (27.0-33.0); Mean Corpuscular Volume 90.9 fL (80-98); Mean Platelet Volume 10.1 fL (9.4-12.3); Monocytes Absolute Auto 0.8 X10*3/uL (0.1-1.2); Monocytes Percent Auto 8.5 % (2-11); Neutrophils Absolute Auto 7.5 X10*3/uL (2.0-8.3); Neutrophils Percent Auto 79.6 % (45-73); Platelet Count 118 X10*3/uL (160-400); Red Cell Distribution Width 13.5 % (11.0-16.0); White Blood Count 9.4 X10*3/uL (4.8-10.8)
[2021-05-25 11:59] LABS: Alanine Aminotransferase 17 U/L (0-31); Albumin Level 4.1 g/dL (3.5-5.0); Alkaline Phosphatase 60 U/L (39-117); Anion Gap 13 (12-20); Aspartate Amino Transferase 20 U/L (5-31); Bilirubin Total 0.6 mg/dL (0.0-1.0); Blood Urea Nitrogen 26 mg/dL (9-16); Calcium 9.8 mg/dL (8.4-10.2); Carbon Dioxide 27 mmol/L (22-29); Chloride 101 mmol/L (96-108); Estimated Glomerular Filt Rate > 60; Glucose Random 91 mg/dL (60-115); Potassium 4.4 mmol/L (3.3-5.1); Sodium 137 mmol/L (135-145); Total Protein 6.5 g/dL (6.5-8.0)
== END 2021-05-25 09:38 | disposition home or self-care (01) ==
LOC: HO.HMGCLDS 09:37
PROVIDERS: PCP Internal Medicine; Visit Provider Internal Medicine Medical Oncology
DX: D69.6 Thrombocytopenia, unspecified (principal)
CPT/HCPCS: 36415; 80053; 85025

== ENCOUNTER → 2021-06-08 09:49 | Outpatient (BNVA) | payer MEDICARE, OTHER, SELFPAY | PROVIDERS: PCP Internal Medicine; Visit Provider Hospitalist | DX: J41.0 Simple chronic bronchitis (principal); D69.6 Thrombocytopenia, unspecified; R91.8 Other nonspecific abnormal finding of lung field | CPT/HCPCS: 99212 ==

== ENCOUNTER 2021-06-14 13:01 | Outpatient (REF) | payer MEDICARE, OTHER, SELFPAY ==
--- NOTE | ~2021-06-14 | XR_ITS ---
EXAMINATION: XR CHEST CLINICAL INFORMATION: Abnormal finding of the lung COMPARISON: 12/06/2020 TECHNIQUE: 2 views of the chest were obtained. FINDINGS: Hyperexpanded lungs. Increased prominence of the right perihilar nodular density. The lungs are otherwise clear. No pleural effusion or pneumothorax. The cardiomediastinal silhouette is unchanged, with a tortuous aorta. XR/XR chest 2V IMPRESSION: Increased prominence of the right perihilar nodular density. This is concerning for increased size of the previously seen suspicious nodule.
== END 2021-06-14 13:02 | disposition home or self-care (01) ==
LOC: HO.HMGCX 13:01
PROVIDERS: PCP Internal Medicine; Visit Provider Hospitalist
DX: J44.9 Chronic obstructive pulmonary disease, unspecified (principal); R91.8 Other nonspecific abnormal finding of lung field
CPT/HCPCS: 71046

== ENCOUNTER 2021-06-22 10:12 | Outpatient (REF) | payer MEDICARE, OTHER, SELFPAY ==
[2021-06-22 11:52] LABS: MANUAL DIFF FLAG NO
[2021-06-22 12:00] LABS: Basophils Absolute Auto 0.1 X10*3/uL (0.0-0.2); Basophils Percent Auto 0.5 % (0-2); Eosinophils Absolute Auto 0.1 X10*3/uL (0.0-0.4); Eosinophils Percent Auto 1.1 % (0-4); Hematocrit 38.4 % (37.0-47.0); Hemoglobin 12.7 g/dl (12.0-16.0); Imm Gran Abs Auto 0.09 X10*3/uL (0.00-0.03); Imm Gran Pct Auto 0.8 % (0.0-0.4); Lymphocytes Absolute Auto 0.5 X10*3/uL (1.2-4.9); Lymphocytes Percent Auto 4.4 % (20-40); Mean Corpuscular HGB Conc 33.1 g/dl (31.0-35.0); Mean Corpuscular Hemoglobin 30.2 pg (27.0-33.0); Mean Corpuscular Volume 91.4 fL (80.0-98.0); Mean Platelet Volume 10.2 fL (9.4-12.3); Monocytes Absolute Auto 0.9 X10*3/uL (0.1-1.2); Monocytes Percent Auto 8.1 % (2-11); Neutrophils Absolute Auto 9.3 x10*3/uL (2.0-8.3); Neutrophils Percent Auto 85.1 % (45-73); Platelet Count 114 X10*3/uL (160-400); Red Cell Distribution Width 13.2 % (11.0-16.0)
== END 2021-06-22 10:13 | disposition home or self-care (01) ==
LOC: HO.HMGCLDS 10:12
PROVIDERS: PCP Internal Medicine; Visit Provider Internal Medicine Medical Oncology
DX: D69.6 Thrombocytopenia, unspecified (principal)
CPT/HCPCS: 36415; 85025

== ENCOUNTER 2021-08-03 09:39 | Outpatient (REF) | payer MEDICARE, OTHER, SELFPAY ==
[2021-08-03 11:25] LABS: MANUAL DIFF FLAG NO
[2021-08-03 11:37] LABS: Basophils Absolute Auto 0.1 X10*3/uL (0.0-0.2); Basophils Percent Auto 0.7 % (0-2); Eosinophils Absolute Auto 0.1 X10*3/uL (0.0-0.4); Eosinophils Percent Auto 1.2 % (0-4); Hematocrit 40.6 % (37.0-47.0); Hemoglobin 13.5 g/dl (12.0-16.0); Imm Gran Abs Auto 0.05 X10*3/uL (0.00-0.03); Imm Gran Pct Auto 0.7 % (0.0-0.4); Lymphocytes Absolute Auto 0.6 X10*3/uL (1.2-4.9); Lymphocytes Percent Auto 8.4 % (20-40); Mean Corpuscular HGB Conc 33.3 g/dl (31.0-35.0); Mean Corpuscular Hemoglobin 30.6 pg (27.0-33.0); Mean Corpuscular Volume 92.1 fL (80.0-98.0); Monocytes Absolute Auto 0.7 X10*3/uL (0.1-1.2); Monocytes Percent Auto 8.6 % (2-11); Neutrophils Absolute Auto 6.2 x10*3/uL (2.0-8.3); Neutrophils Percent Auto 80.4 % (45-73); Red Blood Count 4.41 X10*6/uL (4.20-5.50); White Blood Count 7.6 X10*3/uL (4.8-10.8)
[2021-08-03 11:58] LABS: Alanine Aminotransferase 19 U/L (0-31); Albumin Level 4.2 g/dL (3.5-5.0); Alkaline Phosphatase 77 U/L (39-117); Anion Gap 12 (12-20); Aspartate Amino Transferase 22 U/L (5-31); Bilirubin Total 0.5 mg/dL (0.0-1.0); Blood Urea Nitrogen 28 mg/dL (9-16); Carbon Dioxide 30 mmol/L (22-29); Chloride 101 mmol/L (96-108); Estimated Glomerular Filt Rate > 60; Glucose Random 89 mg/dL (60-115); Potassium 4.5 mmol/L (3.3-5.1); Sodium 138 mmol/L (135-145); Total Protein 6.7 g/dL (6.5-8.0)
[2021-08-03 12:07] LABS: Mean Platelet Volume 10.6 fL (9.4-12.3); Platelet Count 99 X10*3/uL (160-400)
== END 2021-08-03 09:40 | disposition home or self-care (01) ==
LOC: HO.HMGCLR 09:39
PROVIDERS: PCP Internal Medicine; Visit Provider Internal Medicine Medical Oncology
DX: D69.3 Immune thrombocytopenic purpura (principal)
CPT/HCPCS: 36415; 80053; 85025

== ENCOUNTER 2021-08-31 08:43 | Outpatient (REF) | payer MEDICARE, OTHER, SELFPAY ==
[2021-08-31 11:26] LABS: MANUAL DIFF FLAG NO
[2021-08-31 11:35] LABS: Basophils Percent Auto 0.5 % (0-2); Eosinophils Absolute Auto 0.1 X10*3/uL (0.0-0.4); Eosinophils Percent Auto 1.3 % (0-4); Hematocrit 41.8 % (37.0-47.0); Hemoglobin 13.7 g/dl (12.0-16.0); Imm Gran Abs Auto 0.06 X10*3/uL (0.00-0.03); Imm Gran Pct Auto 0.8 % (0.0-0.4); Lymphocytes Absolute Auto 0.7 X10*3/uL (1.2-4.9); Lymphocytes Percent Auto 9.4 % (20-40); Mean Corpuscular HGB Conc 32.8 g/dl (31.0-35.0); Mean Corpuscular Hemoglobin 29.9 pg (27.0-33.0); Mean Corpuscular Volume 91.3 fL (80.0-98.0); Monocytes Absolute Auto 0.6 X10*3/uL (0.1-1.2); Monocytes Percent Auto 8.6 % (2-11); Neutrophils Absolute Auto 5.9 x10*3/uL (2.0-8.3); Neutrophils Percent Auto 79.4 % (45-73); Platelet Count 101 X10*3/uL (160-400); Red Blood Count 4.58 X10*6/uL (4.20-5.50); Red Cell Distribution Width 12.7 % (11.0-16.0); White Blood Count 7.5 X10*3/uL (4.8-10.8)
[2021-08-31 11:51] LABS: Alanine Aminotransferase 14 U/L (0-31); Albumin Level 4.1 g/dL (3.5-5.0); Alkaline Phosphatase 80 U/L (39-117); Anion Gap 12 (12-20); Aspartate Amino Transferase 20 U/L (5-31); Bilirubin Total 0.5 mg/dL (0.0-1.0); Blood Urea Nitrogen 24 mg/dL (9-16); Calcium 9.8 mg/dL (8.4-10.2); Carbon Dioxide 30 mmol/L (22-29); Chloride 100 mmol/L (96-108); Estimated Glomerular Filt Rate > 60; Glucose Random 82 mg/dL (60-115); Sodium 138 mmol/L (135-145); Total Protein 6.9 g/dL (6.5-8.0)
--- NOTE | 2021-08-31 16:29 | MHC.HEMONC ---
Pt called to report on some mistakes with her Prednisone last couple of weeks and to see what her PLT count is. PLT 101 today. She had taken 7.5mg prednisone vs. 2.5 mg daily 2 weeks ago and last 10 days took 5mg vs. 2.[address] Harrison - she should alternate 5mg and 2.5 mg prednisone until appt here in 2 weeks. Pt verbalized understanding and repeated orders. I suggested she write down her dosing.
== END 2021-08-31 08:44 | disposition home or self-care (01) ==
LOC: HO.HMGCLDS 08:43
PROVIDERS: Absent Provider Internal Medicine Medical Oncology; PCP Internal Medicine; Referring Provider Internal Medicine Medical Oncology; Visit Provider Internal Medicine Medical Oncology
DX: D69.3 Immune thrombocytopenic purpura (principal)
CPT/HCPCS: 36415; 80053; 85025

== ENCOUNTER 2021-09-28 09:05 | Outpatient (REF) | payer MEDICARE, OTHER, SELFPAY ==
[2021-09-28 11:36] LABS: MANUAL DIFF FLAG NO
[2021-09-28 11:49] LABS: Basophils Absolute Auto 0.1 X10*3/uL (0.0-0.2); Basophils Percent Auto 0.6 % (0-2); Eosinophils Absolute Auto 0.1 X10*3/uL (0.0-0.4); Eosinophils Percent Auto 1.1 % (0-4); Hematocrit 40.7 % (37.0-47.0); Hemoglobin 13.3 g/dl (12.0-16.0); Imm Gran Abs Auto 0.04 X10*3/uL (0.00-0.03); Imm Gran Pct Auto 0.5 % (0.0-0.4); Lymphocytes Absolute Auto 0.6 X10*3/uL (1.2-4.9); Lymphocytes Percent Auto 7.9 % (20-40); Mean Corpuscular HGB Conc 32.7 g/dl (31.0-35.0); Mean Corpuscular Hemoglobin 29.7 pg (27.0-33.0); Mean Corpuscular Volume 90.8 fL (80.0-98.0); Mean Platelet Volume 10.4 fL (9.4-12.3); Monocytes Absolute Auto 0.7 X10*3/uL (0.1-1.2); Monocytes Percent Auto 8.8 % (2-11); Neutrophils Absolute Auto 6.6 x10*3/uL (2.0-8.3); Neutrophils Percent Auto 81.1 % (45-73); Red Blood Count 4.48 X10*6/uL (4.20-5.50); Red Cell Distribution Width 12.7 % (11.0-16.0); White Blood Count 8.2 X10*3/uL (4.8-10.8)
[2021-09-28 11:51] LABS: Platelet Count 99 X10*3/uL (160-400)
[2021-09-28 11:59] LABS: Alanine Aminotransferase 18 U/L (0-31); Albumin Level 4.1 g/dL (3.5-5.0); Alkaline Phosphatase 86 U/L (39-117); Anion Gap 10 (12-20); Aspartate Amino Transferase 21 U/L (5-31); Bilirubin Total 0.5 mg/dL (0.0-1.0); Blood Urea Nitrogen 26 mg/dL (9-16); Calcium 9.8 mg/dL (8.4-10.2); Carbon Dioxide 31 mmol/L (22-29); Chloride 99 mmol/L (96-108); Estimated Glomerular Filt Rate > 60; Glucose Random 80 mg/dL (60-115); Potassium 4.2 mmol/L (3.3-5.1); Sodium 136 mmol/L (135-145); Total Protein 6.8 g/dL (6.5-8.0)
--- NOTE | 2021-09-28 15:57 | MHC.HEMONC ---
pt called re: labs today. PLT 99. She is on 2.[address] Harriosn - she is to continue this dose. She will be seen here in 2 weeks and may be changed to every other day (same dose) if PLT are stable. Pt verbalized understanding.
== END 2021-09-28 09:06 | disposition home or self-care (01) ==
LOC: HO.HMGCLDS 09:05
PROVIDERS: PCP Internal Medicine; Visit Provider Internal Medicine Medical Oncology
DX: D69.6 Thrombocytopenia, unspecified (principal)
CPT/HCPCS: 36415; 80053; 85025

== ENCOUNTER 2021-10-26 09:16 | Outpatient (REF) | payer MEDICARE, OTHER, SELFPAY ==
[2021-10-26 11:42] LABS: MANUAL DIFF FLAG NO
[2021-10-26 11:55] LABS: Basophils Absolute Auto 0.1 X10*3/uL (0.0-0.2); Basophils Percent Auto 0.6 % (0-2); Eosinophils Absolute Auto 0.1 X10*3/uL (0.0-0.4); Eosinophils Percent Auto 0.9 % (0-4); Hematocrit 39.9 % (37.0-47.0); Hemoglobin 12.9 g/dl (12.0-16.0); Imm Gran Abs Auto 0.09 X10*3/uL (0.00-0.03); Lymphocytes Absolute Auto 0.6 X10*3/uL (1.2-4.9); Lymphocytes Percent Auto 6.9 % (20-40); Mean Corpuscular HGB Conc 32.3 g/dl (31.0-35.0); Mean Corpuscular Hemoglobin 29.1 pg (27.0-33.0); Mean Corpuscular Volume 89.9 fL (80.0-98.0); Mean Platelet Volume 11.4 fL (9.4-12.3); Monocytes Absolute Auto 0.7 X10*3/uL (0.1-1.2); Monocytes Percent Auto 7.7 % (2-11); Neutrophils Absolute Auto 7.5 x10*3/uL (2.0-8.3); Neutrophils Percent Auto 82.9 % (45-73); Red Blood Count 4.44 X10*6/uL (4.20-5.50); Red Cell Distribution Width 12.8 % (11.0-16.0)
[2021-10-26 11:56] LABS: Platelet Count 60 X10*3/uL (160-400)
[2021-10-26 12:16] LABS: Alanine Aminotransferase 15 U/L (0-31); Alkaline Phosphatase 89 U/L (39-117); Anion Gap 13 (12-20); Aspartate Amino Transferase 20 U/L (5-31); Bilirubin Total 0.3 mg/dL (0.0-1.0); Blood Urea Nitrogen 24 mg/dL (9-16); Calcium 9.8 mg/dL (8.4-10.2); Carbon Dioxide 29 mmol/L (22-29); Chloride 96 mmol/L (96-108); Estimated Glomerular Filt Rate > 60; Glucose Random 101 mg/dL (60-115); Potassium 4.3 mmol/L (3.3-5.1); Sodium 134 mmol/L (135-145); Total Protein 6.7 g/dL (6.5-8.0)
== END 2021-10-26 09:17 | disposition home or self-care (01) ==
LOC: HO.HMGCLDS 09:16
PROVIDERS: Visit Provider Internal Medicine Medical Oncology
DX: D69.6 Thrombocytopenia, unspecified (principal)
CPT/HCPCS: 36415; 80053; 85025

== ENCOUNTER 2021-11-09 09:50 | Outpatient (REF) | payer MEDICARE, OTHER, SELFPAY ==
[2021-11-09 11:35] LABS: MANUAL DIFF FLAG NO
[2021-11-09 12:08] LABS: Alanine Aminotransferase 16 U/L (0-31); Alkaline Phosphatase 90 U/L (39-117); Anion Gap 10 (12-20); Aspartate Amino Transferase 18 U/L (5-31); Basophils Percent Auto 0.4 % (0-2); Bilirubin Total 0.5 mg/dL (0.0-1.0); Blood Urea Nitrogen 22 mg/dL (9-16); Carbon Dioxide 31 mmol/L (22-29); Chloride 96 mmol/L (96-108); Eosinophils Absolute Auto 0.1 X10*3/uL (0.0-0.4); Eosinophils Percent Auto 0.7 % (0-4); Estimated Glomerular Filt Rate > 60; Glucose Random 97 mg/dL (60-115); Hematocrit 39.1 % (37.0-47.0); Imm Gran Abs Auto 0.12 X10*3/uL (0.00-0.03); Imm Gran Pct Auto 1.1 % (0.0-0.4); Lymphocytes Absolute Auto 0.6 X10*3/uL (1.2-4.9); Lymphocytes Percent Auto 5.3 % (20-40); Mean Corpuscular HGB Conc 33.2 g/dl (31.0-35.0); Mean Corpuscular Hemoglobin 29.4 pg (27.0-33.0); Mean Corpuscular Volume 88.5 fL (80.0-98.0); Mean Platelet Volume 10.3 fL (9.4-12.3); Monocytes Absolute Auto 0.9 X10*3/uL (0.1-1.2); Monocytes Percent Auto 7.7 % (2-11); Neutrophils Absolute Auto 9.5 x10*3/uL (2.0-8.3); Neutrophils Percent Auto 84.8 % (45-73); Potassium 4.4 mmol/L (3.3-5.1); Red Blood Count 4.42 X10*6/uL (4.20-5.50); Red Cell Distribution Width 12.9 % (11.0-16.0); Sodium 133 mmol/L (135-145); Total Protein 6.8 g/dL (6.5-8.0); White Blood Count 11.2 X10*3/uL (4.8-10.8)
[2021-11-09 12:16] LABS: Platelet Count 75 X10*3/uL (160-400)
== END 2021-11-09 09:51 | disposition home or self-care (01) ==
LOC: HO.HMGCLR 09:50
PROVIDERS: PCP Internal Medicine; Visit Provider Internal Medicine Medical Oncology
DX: D69.3 Immune thrombocytopenic purpura (principal)
CPT/HCPCS: 36415; 80053; 85025

== ENCOUNTER 2021-11-30 10:13 | Outpatient (REF) | payer MEDICARE, OTHER, SELFPAY ==
[2021-11-30 11:24] LABS: MANUAL DIFF FLAG NO
[2021-11-30 12:10] LABS: Basophils Absolute Auto 0.1 X10*3/uL (0.0-0.2); Basophils Percent Auto 0.5 % (0-2); Eosinophils Percent Auto 0.3 % (0-4); Hemoglobin 11.9 g/dl (12.0-16.0); Imm Gran Abs Auto 0.19 X10*3/uL (0.00-0.03); Imm Gran Pct Auto 1.3 % (0.0-0.4); Lymphocytes Absolute Auto 0.4 X10*3/uL (1.2-4.9); Lymphocytes Percent Auto 2.4 % (20-40); Mean Corpuscular HGB Conc 33.1 g/dl (31.0-35.0); Mean Corpuscular Hemoglobin 28.9 pg (27.0-33.0); Mean Corpuscular Volume 87.4 fL (80.0-98.0); Mean Platelet Volume 11.8 fL (9.4-12.3); Monocytes Absolute Auto 1.1 X10*3/uL (0.1-1.2); Monocytes Percent Auto 7.2 % (2-11); Neutrophils Absolute Auto 13.1 x10*3/uL (2.0-8.3); Neutrophils Percent Auto 88.3 % (45-73); Red Blood Count 4.12 X10*6/uL (4.20-5.50); Red Cell Distribution Width 12.8 % (11.0-16.0); White Blood Count 14.8 X10*3/uL (4.8-10.8)
[2021-11-30 12:12] LABS: Platelet Count 28 X10*3/uL (160-400)
== END 2021-11-30 10:14 | disposition home or self-care (01) ==
LOC: HO.HMGCLR 10:13
PROVIDERS: Visit Provider Internal Medicine Medical Oncology
DX: Z79.899 Other long term (current) drug therapy (principal)
CPT/HCPCS: 36415; 85025

== ENCOUNTER 2021-12-06 08:35 | Emergency (ER) | payer MEDICARE, OTHER, SELFPAY ==
--- NOTE | ~2021-12-06 | XR_ITS ---
EXAMINATION: XR CHEST CLINICAL INFORMATION: Hemoptysis COMPARISON: Chest x-ray 06/14/[address] 12/06/2020 TECHNIQUE: Frontal view of the chest was obtained. FINDINGS: Significant interval enlargement of now approximately 7 cm mass centered within the right mid lung. There are a few other smaller nodular densities concerning for pulmonary lesions, for example a 1.4 cm density within the left midlung. The lungs are overall well aerated. No gross pleural effusion. No pneumothorax. XR/XR chest 1V IMPRESSION: Interval worsening in malignancy of the chest.
--- NOTE | ~2021-12-06 | CT_ITS ---
EXAMINATION: CT ANGIOGRAM OF THE CHEST WITH CONTRAST (CT PULMONARY ANGIOGRAM FOR PE) CLINICAL INFORMATION: Hemoptysis. Worsening lung mass. COMPARISON: Chest x-ray earlier today and CTA chest 12/06/2020 TECHNIQUE: Prior to contrast administration, noncontrast localization images were obtained. Subsequently, multidetector volumetric imaging was performed from the thoracic inlet to below the diaphragms following the administration of 55 mL Omnipaque 350 intravenous contrast. No contrast reaction reported Sagittal, coronal, and MIP oblique sagittal reformatted images were obtained on the CT workstation, uploaded to PACS, and reviewed. This CT examination was performed using dose optimization techniques as appropriate, variously including the following: *Automated exposure control *Adjustment of mA and/or kV according to patient size (this includes techniques or standardized protocols for targeted exams where dose is matched to indication/reason for exam; i.e. extremities or head) *Use of iterative reconstruction technique Total exam dose-length product 210 mGy-cm FINDINGS: Significant interval increase in size of now approximately 6 cm right perihilar mass (previously 3.5 cm). There has also been interval development of innumerable other bilateral pulmonary nodule, most measuring approximately 1 to 2 cm in size. Also noted is a large pleural-based mass within the posterior right upper lobe which measures approximately 5 cm with associated destruction of the right posterior fifth rib. Moderate to severe diffuse emphysematous changes are again noted. A small right posterior pleural effusion is present. There is no pneumothorax. The heart is normal in size. Coronary artery calcifications are present. There is no pericardial effusion. No pulmonary arterial filling defect identified to suggest pulmonary embolus. Normal caliber thoracic aorta. Enlarged subcarinal and right hilar lymph nodes. Visualized portions of the upper abdomen again demonstrate 2 small hepatic cysts. Diffuse osteopenia. Moderate diffuse degenerative changes of the spine. Destruction of the right posterior rib. CT/CT angio chest PE protocol IMPRESSION: -Significant interval increase in size of now 6 cm right perihilar mass concerning for malignancy. There has been interval development/enlargement of innumerable bilateral pulmonary nodules concerning for metastatic disease. Also noted is an approximately 5 cm pleural-based mass with associated destruction of the right posterior fifth rib. -No pulmonary embolus identified. VTE: Negative
--- NOTE | 2021-12-06 08:40 | ECG_ITS ---
Test Reason : coughing up blood Blood Pressure : / mmHG Vent. Rate : 071 BPM Atrial Rate : 071 BPM P-R Int : 142 ms QRS Dur : 078 ms QT Int : 358 ms P-R-T Axes : 051 027 035 degrees QTc Int : 389 ms Normal sinus rhythm Nonspecific ST abnormality Abnormal ECG When compared with ECG of 06-DEC-2020 08:44, No significant changes seen Referred By: Tracey Chandler Electronically Signed By:GISSELLE DU
--- NOTE | 2021-12-06 08:49 | ED_ITS ---
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 MD complaint: hemoptysis Onset (ago): day(s) (last night) Location: chest Severity: mild Relieving factors: none Exacerbating factors: other (coughing - noted > 5 episodes of scant brb, also had small nose bleed that resolved with pinching) Associated symptoms: denies other symptoms Treatments prior to arrival: none Related Data Home Medications Medication Instructions Recorded Confirmed albuterol sulfate 90 mcg/actuation 2 puff INHALATION Q4H PRN 12/06/20 11/16/21 aerosol inhaler atenolol 25 mg tablet 1 tab PO DAILY 12/06/20 11/16/21 digoxin 250 mcg (0.25 mg) tablet 1 tab PO DAILY 12/06/20 11/16/21 fluticasone 250 mcg-salmeterol 50 1 inh INHALATION BID 12/06/20 11/16/21 mcg/dose blistr powdr for inhalation (Advair Diskus) guaifenesin 600 mg tablet, 600 mg PO BEDTIME 12/06/20 11/16/21 extended release 12 hr (Mucinex) levothyroxine 75 mcg tablet 1 tab PO QAM 12/06/20 11/16/21 montelukast 10 mg tablet 1 tab PO DAILY 12/06/20 11/16/21 tiotropium bromide 18 mcg capsule 18 mcg INHALATION QAM 12/06/20 11/16/21 with inhalation device (Spiriva with HandiHaler) latanoprost 0.005 % eye drops 1 drp OPHTHALMIC-RIGHT BEDTIME 12/07/20 11/16/21 ascorbate calcium (vitamin C) 500 500 mg PO DAILY 01/25/21 11/16/21 mg tablet clorazepate dipotassium 3.75 mg 3.75 mg PO BEDTIME PRN 01/25/21 11/16/21 tablet biotin 500 mcg capsule 250 mcg PO DAILY 02/11/21 11/16/21 calcium carb 333 mg-vit D3 133 3 tab PO DAILY 02/11/21 11/16/21 unit-mag ox 133 mg-zinc oxide 5 mg tab multivitamin 1 cap PO DAILY 02/11/21 11/16/21 prednisone 2.5 mg PO DAILY 07/13/21 11/16/21 Allergies Allergy/AdvReac Type Severity Reaction Status Date / Time Carbapenems Allergy Severe RASH Verified 11/16/21 09:51 cefaclor Allergy Severe rash, Verified 11/16/21 09:51 itching cefadroxil [Cefadroxil] Allergy Severe RASH Verified 11/16/21 09:51 cephalexin [From KEFLEX] Allergy Severe RASH Verified 11/16/21 09:51 Cephalosporins Allergy Severe RASH Verified 11/16/21 09:51 chlorhexidine Allergy Severe MUMPS LIKE Verified 11/16/21 09:51 SWELLING TO MOUTH ciprofloxacin Allergy Severe RASH Verified 11/16/21 09:51 ibuprofen [IBUPROFEN] Allergy Severe RASH Verified 11/16/21 09:51 naproxen Allergy Severe RASH, Verified 11/16/21 09:51 rash, itching Penicillins Allergy Severe RASH, HIVES Verified 11/16/21 09:51 Sulfa (Sulfonamide Allergy Severe RASH Verified 11/16/21 09:51 Antibiotics) acetaminophen AdvReac Severe PALPITATION Verified 11/16/21 09:51 S adhesives Allergy Severe skin Uncoded 11/16/21 09:51 irritation antiperspirants, deodorants Allergy Severe Rash Uncoded 11/16/21 09:51 duracef Allergy Severe rash, Uncoded 11/16/21 09:51 itching DURACEPT Allergy Severe RASH Uncoded 11/16/21 09:51 shellfish Allergy Severe severe Uncoded 11/16/21 09:51 hives Review of Systems Review of Systems: Constitutional : No Weight loss, No Fever, No Chills, No Fatigue, No Malaise ENT/Mouth : No sore throat, No Rhinorrhea Eyes: No Eye Pain, No Swelling, No Redness Cardiovascular : No Chest Pain, No SOB, No Dyspnea on Exertion, No Orthopnea, No Edema, No Palpitations Respiratory : pos Cough, No Sputum, No Wheezing, pos hemoptysis Gastrointestinal : No Nausea, No Vomiting, No Diarrhea, No Constipation, No abdominal Pain, No Hematochezia, No Melena Genitourinary : No Dysuria, No Urinary Frequency, No Hematuria, Musculoskeletal : No joint pain, No Myalgias, No Joint Swelling Skin : No Skin Lesions, No rash Neuro : No Weakness, No Numbness, No Dizziness, No Headache Psych : No Anxiety/Panic, No Depression Heme/Lymph: pos Bruising, pos Bleeding,No Lymphadenopathy Endocrine : No Polyuria, No Polydipsia All other systems reviewed and are negative PENDING SALE TO [facility] Past Medical History Attestation statement: The following information was validated with the patient. Medical History Acute ITP Breast CA COPD (chronic obstructive pulmonary disease) Fibrocystic breast changes HTN (hypertension) Irregular heart beat Lymphadenopathy, mediastinal Pulmonary nodules Thyroid disease Surgical History S/P breast lumpectomy S/P hip replacement Family History Family History Other No family history of breast cancer Social History Social History Household Members: Spouse Housing: House Are you a primary pet care attendant to a significant other at home: No Do you presently have visiting nurse or other home services: No Alcohol intake: never Patient Tobacco Use Status: Former Tobacco user Quit Date: 2005 Tobacco use type: Cigarette Cigarette Packs Per Day: 2 Years Smoked: 40 years Advance Directives: Yes Advance Directives Information Provided: Yes Advance Directives on File: No service: No Current occupational status: retired Physical Exam ED Vital Signs: Vital Signs - 24 hr 12/06/21 08:51 12/06/21 08:56 12/06/21 13:52 Temperature 98.0 F 98.0 F 97.6 F Pulse Rate 71 73 70 Respiratory Rate 18 20 16 Blood Pressure 161/78 H 161/78 H 143/71 H Pulse Oximetry 98 96 95 12/06/21 14:06 Temperature 97.9 F Pulse Rate 73 Respiratory Rate 18 Blood Pressure 152/69 H Pulse Oximetry 96 BMI result Body Mass Index 19.9 Appearance: Alert. Oriented X3. No acute distress. Eyes: Pupils equal, round and reactive to light. ENT: Pharynx normal. no blood in nares noted. Neck: Normal inspection. Neck supple. CVS: Normal heart rate and rhythm. Pulses normal. Respiratory: No respiratory distress. Breath sounds normal. Abdomen: Soft and non-tender. Skin: Skin warm and dry. Normal skin color. Normal skin turgor. Extremities: No lower extremity edema. No calf ttp Neuro: Oriented X 3. No motor deficit. No sensory deficit. Course Course Course Narrative: Dr. Harrison aware wants CT scan of the chest at this time CT scan worrisome - patient had refused imaging in the past - at this time patient is aware of the mass, plan is to see Dr. Harrison in AM for Rituxan return for worsening hemoptysis - Dr. Harrison involved obs in ED 5.5 hours no hemoptysis or bleeding Medical Decision Making MDM Narrative Medical decision making narrative: 86 yo female with COPD, ITP on 10m prednisone daily last check 12/03 40 comes in with recent resolved bloody nose then over 5 bouts of scant hemoptysis at home per her reports - she has some mild dyspea. 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 Lab Data Result diagrams: 12/06/21 09:24 12/06/21 09:24 Labs: Lab Results 12/06/21 12/06/21 12/06/21 Range/Units 09:24 09:24 09:24 WBC 16.2 H (4.8-10.8) X10*3/uL RBC 4.05 L (4.20-5.50) X10*6/uL Hgb 11.8 L (12.0-16.0) g/dl Hct 34.9 L (37.0-47.0) % MCV 86.2 (80.0-98.0) fL MCH 29.1 (27.0-33.0) pg MCHC 33.8 (31.0-35.0) g/dl RDW 12.9 (11.0-16.0) % Plt Count 19 L* D (160-400) X10*3/uL MPV 11.3 (9.4-12.3) fL Immature Gran % (Auto) 1.9 H (0.0-0.4) % Neut % (Auto) 89.2 H (45-73) % Lymph % (Auto) 2.7 L (20-40) % [place] % (Auto) 5.5 (2-11) % Eos % (Auto) 0.4 (0-4) % Baso % (Auto) 0.3 (0-2) % Lymph # (Auto) 0.4 L (1.2-4.9) X10*3/uL [place] # (Auto) 0.9 (0.1-1.2) X10*3/uL Eos # (Auto) 0.1 (0.0-0.4) X10*3/uL Baso # (Auto) 0.1 (0.0-0.2) X10*3/uL Abs Immat Gran (auto) 0.31 H (0.00-0.03) X10*3/uL Absolute Neuts (auto) 14.5 H (2.0-8.3) x10*3/uL Absolute Nucleated RBC 0.000 (0.0-0.012) X10*3/uL Nucleated RBC % (auto) 0.0 (0.0-0.2) /100WBC PT 14.3 H (9.9-13.0) SEC INR 1.3 H (0.9-1.1) APTT 33.0 (24.1-38.0) SEC Sodium 131 L (135-145) mmol/L Potassium 4.8 (3.3-5.1) mmol/L Chloride 95 L (96-108) mmol/L Carbon Dioxide 27 (22-29) mmol/L Anion Gap 14 (12-20) BUN 16 (9-16) mg/dL Creatinine 0.62 (0.5-1.4) mg/dL Estim Creat Clear Calc 57.0 Estimated GFR > 60 Random Glucose 95 (60-115) mg/dL Calcium 9.4 (8.4-10.2) mg/dL Magnesium 1.9 (1.6-2.6) mg/dL Total Bilirubin 0.7 (0.0-1.0) mg/dL Direct Bilirubin 0.3 (0.0-0.5) mg/dL AST 16 (5-31) U/L ALT 13 (0-31) U/L Alkaline Phosphatase 96 (39-117) U/L Total Protein 6.3 L (6.5-8.0) g/dL Albumin 3.7 (3.5-5.0) g/dL Digoxin (0.8-2.0) ng/mL COVID-19 (J LUIS) (Negative) COVID-19 Clin Com Blood Type Antibody Screen 12/06/21 12/06/21 12/06/21 Range/Units 09:24 09:24 09:24 WBC (4.8-10.8) X10*3/uL RBC (4.20-5.50) X10*6/uL Hgb (12.0-16.0) g/dl Hct (37.0-47.0) % MCV (80.0-98.0) fL MCH (27.0-33.0) pg MCHC (31.0-35.0) g/dl RDW (11.0-16.0) % Plt Count (160-400) X10*3/uL MPV (9.4-12.3) fL Immature Gran % (Auto) (0.0-0.4) % Neut % (Auto) (45-73) % Lymph % (Auto) (20-40) % [place] % (Auto) (2-11) % Eos % (Auto) (0-4) % Baso % (Auto) (0-2) % Lymph # (Auto) (1.2-4.9) X10*3/uL [place] # (Auto) (0.1-1.2) X10*3/uL Eos # (Auto) (0.0-0.4) X10*3/uL Baso # (Auto) (0.0-0.2) X10*3/uL Abs Immat Gran (auto) (0.00-0.03) X10*3/uL Absolute Neuts (auto) (2.0-8.3) x10*3/uL Absolute Nucleated RBC (0.0-0.012) X10*3/uL Nucleated RBC % (auto) (0.0-0.2) /100WBC PT (9.9-13.0) SEC INR (0.9-1.1) APTT (24.1-38.0) SEC Sodium (135-145) mmol/L Potassium (3.3-5.1) mmol/L Chloride (96-108) mmol/L Carbon Dioxide (22-29) mmol/L Anion Gap (12-20) BUN (9-16) mg/dL Creatinine (0.5-1.4) mg/dL Estim Creat Clear Calc Estimated GFR Random Glucose (60-115) mg/dL Calcium (8.4-10.2) mg/dL Magnesium (1.6-2.6) mg/dL Total Bilirubin (0.0-1.0) mg/dL Direct Bilirubin (0.0-0.5) mg/dL AST (5-31) U/L ALT (0-31) U/L Alkaline Phosphatase (39-117) U/L Total Protein (6.5-8.0) g/dL Albumin (3.5-5.0) g/dL Digoxin 0.7 L (0.8-2.0) ng/mL COVID-19 (J LUIS) Negative (Negative) COVID-19 Clin Com See Note Blood Type B Positive Antibody Screen NEGATIVE ECG Data Attestation: I personally reviewed and interpreted this ECG as follows: Interpretation: Rate: 71 Rhythm: NSR [place]: normal Normal P waves. Normal TYRA. Normal QRS complex. ST T wave : no TONY, nonspecific qTC: normal prior studies: no acute ischemia The study has been interpreted contemporaneously by me. . Discharge Plan Discharge Clinical Impression: Thrombocytopenia, Cough with hemoptysis, Lung mass Patient Disposition: Home, Self-Care Instructions: Hemoptysis (ED), Thrombocytopenia (ED) Additional Instructions: return to ED for any worsening symptoms or concerns if the hemoptysis worsens please come back Dr. Harrison wants to see you at 8am for infusion CT/CT angio chest PE protocol IMPRESSION: -Significant interval increase in size of now 6 cm right perihilar mass concerning for malignancy. There has been interval development/enlargement of innumerable bilateral pulmonary nodules concerning for metastatic disease. Also noted is an approximately 5 cm pleural-based mass with associated destruction of the right posterior fifth rib. -No pulmonary embolus identified.? ? VTE: Negative Prescriptions: No Action fluticasone propion-salmeterol [Advair Diskus] 250-50 mcg/dose Blister With Device 1 inh INHALATION BID 0RF atenolol 25 mg tablet 1 tab PO DAILY 0RF digoxin 250 mcg (0.25 mg) tablet 1 tab PO DAILY 0RF levothyroxine 75 mcg tablet 1 tab PO QAM 0RF montelukast 10 mg tablet 1 tab PO DAILY 0RF albuterol sulfate 90 mcg/actuation HFA aerosol inhaler 2 puff inhalation Q4H PRN (Reason: Shortness Of Breath Or Wheezing) 0RF Spiriva with HandiHaler 18 mcg Capsule, W/Inhalation Device 18 mcg INHALATION QAM 0RF guaifenesin [Mucinex] 600 mg Tablet Extended Release 12hr 600 mg PO BEDTIME 0RF latanoprost 0.005 % drops 1 drp ophthalmic-Right BEDTIME 0RF clorazepate dipotassium 3.75 mg tablet 3.75 mg PO BEDTIME PRN (Reason: Insomnia) 0RF biotin 500 mcg Capsule 250 mcg PO DAILY 0RF multivitamin Capsule 1 cap PO DAILY 0RF calcium carb-D3-mag ox-zinc ox 333 mg-133 unit -133 mg-5 mg Tablet 3 tab PO DAILY 0RF prednisone 2.5 mg PO DAILY 0RF ascorbate calcium (vitamin C) 500 mg tablet 500 mg PO DAILY 0RF Referrals: William Harrison MD [Physician] - 12/07/21 9:00 am Interventions: ED Discharge Assessment Last Done: 12/06/21 14:29 Discharge Date/Time: 12/06/21 14:29
[2021-12-06 08:51] VITALS: BP 161/78; PULSE 71; RESP 18; TEMP 36.7; O2SAT 98
[2021-12-06 08:56] VITALS: BP 161/78; PULSE 73; RESP 20; TEMP 36.7; O2SAT 96; BMI 19.9
[2021-12-06 09:31] LABS: MANUAL DIFF FLAG NO
[2021-12-06 09:42] LABS: Basophils Absolute Auto 0.1 X10*3/uL (0.0-0.2); Basophils Percent Auto 0.3 % (0-2); Eosinophils Absolute Auto 0.1 X10*3/uL (0.0-0.4); Eosinophils Percent Auto 0.4 % (0-4); Hematocrit 34.9 % (37.0-47.0); Hemoglobin 11.8 g/dl (12.0-16.0); Imm Gran Abs Auto 0.31 X10*3/uL (0.00-0.03); Imm Gran Pct Auto 1.9 % (0.0-0.4); Lymphocytes Absolute Auto 0.4 X10*3/uL (1.2-4.9); Lymphocytes Percent Auto 2.7 % (20-40); Mean Corpuscular HGB Conc 33.8 g/dl (31.0-35.0); Mean Corpuscular Hemoglobin 29.1 pg (27.0-33.0); Mean Corpuscular Volume 86.2 fL (80.0-98.0); Mean Platelet Volume 11.3 fL (9.4-12.3); Monocytes Absolute Auto 0.9 X10*3/uL (0.1-1.2); Monocytes Percent Auto 5.5 % (2-11); Neutrophils Absolute Auto 14.5 x10*3/uL (2.0-8.3); Neutrophils Percent Auto 89.2 % (45-73); Red Blood Count 4.05 X10*6/uL (4.20-5.50); Red Cell Distribution Width 12.9 % (11.0-16.0); White Blood Count 16.2 X10*3/uL (4.8-10.8)
[2021-12-06 09:45] LABS: INTERNATIONAL NORM RATIO 1.3 (0.9-1.1); Prothrombin Time 14.3 SEC (9.9-13.0)
[2021-12-06 09:46] LABS: Platelet Count 19 X10*3/uL (160-400)
[2021-12-06 09:48] LABS: COVID-19 Test Negative (Negative); IDNOW Serial# 16C4AD1C
[2021-12-06 09:56] LABS: Alanine Aminotransferase 13 U/L (0-31); Albumin Level 3.7 g/dL (3.5-5.0); Alkaline Phosphatase 96 U/L (39-117); Anion Gap 14 (12-20); Aspartate Amino Transferase 16 U/L (5-31); Bilirubin Direct 0.3 mg/dL (0.0-0.5); Bilirubin Total 0.7 mg/dL (0.0-1.0); Blood Urea Nitrogen 16 mg/dL (9-16); Calcium 9.4 mg/dL (8.4-10.2); Carbon Dioxide 27 mmol/L (22-29); Chloride 95 mmol/L (96-108); Estimated Glomerular Filt Rate > 60; Glucose Random 95 mg/dL (60-115); Magnesium 1.9 mg/dL (1.6-2.6); Potassium 4.8 mmol/L (3.3-5.1); Sodium 131 mmol/L (135-145); Total Protein 6.3 g/dL (6.5-8.0)
[2021-12-06 11:07] LABS: Digoxin 0.7 ng/mL (0.8-2.0)
[2021-12-06] MEDS: iohexoL 350 MG/ML 100 ML INFUS..BTL IV (12:33)
[2021-12-06 13:52] VITALS: BP 143/71; PULSE 70; RESP 16; TEMP 36.4; O2SAT 95
[2021-12-06 14:06] VITALS: BP 152/69; PULSE 73; RESP 18; TEMP 36.6; O2SAT 96
== END 2021-12-06 14:29 | disposition home or self-care (01) ==
PROVIDERS: Emergency Provider Emergency Medicine; PCP Internal Medicine
DX: D69.49 Other primary thrombocytopenia (principal); R04.2 Hemoptysis; R91.8 Other nonspecific abnormal finding of lung field; Z20.822 Contact with and (suspected) exposure to COVID-19; Z79.899 Other long term (current) drug therapy; Z87.891 Personal history of nicotine dependence
CPT/HCPCS: 36415; 71045; 71275; 80048; 80076; 80162; 83735; 85025; 85610; 85730; 86850; 86900; 86901; 87635; 93005; 99284; Q9967

== ENCOUNTER → 2021-12-08 10:55 | Outpatient (BNVA) | payer MEDICARE, OTHER, SELFPAY | PROVIDERS: PCP Internal Medicine; Visit Provider Hospitalist | DX: R91.8 Other nonspecific abnormal finding of lung field (principal); C34.91 Malignant neoplasm of unspecified part of right bronchus or lung; C34.92 Malignant neoplasm of unspecified part of left bronchus or lung; R51.9 Headache, unspecified; D69.3 Immune thrombocytopenic purpura; R59.0 Localized enlarged lymph nodes; J41.0 Simple chronic bronchitis | CPT/HCPCS: 99212 ==

== ENCOUNTER 2021-12-13 12:00 | Outpatient (RCR) | payer MEDICARE, OTHER, SELFPAY ==
[2021-01-07 10:42] VITALS: BP 147/65; PULSE 68; RESP 12; TEMP 36.9; O2SAT 94; BMI 21.0
--- NOTE | 2021-01-07 10:58 | PM.HEMONCPN ---
Medical Summary - Medical Summary Date of Service: 01/07/21 Chief complaint: Follow-up for: ITP. Medical Summary: DIAGNOSIS: ITP. CURRENT THERAPY: IVIG. PREDNISONE. Interval History Interval history: Patient was initially seen in house last month. This is an 85 year old lady with a history of COPD, breast cancer, HTN, who presented to the ED, on 12/06, with hemoptysis. She reported 5 days of intermittent cough productive of clear phlegm mixed with blood. She had some shortness of breath which is chronic and unchanged from her baseline. She denied any fevers or chills. She denied chest pain or palpitations. Her workup in the ED was significant for severe thrombocytopenia with platelets of 7, D-dimer of 6064. She underwent CTA which showed no evidence of pulmonary embolism but 2 right upper lobe lung lesions concerning for malignancy. She denies a known history of thrombocytopenia, although her previous CBC from April 2020 shows a platelet count of 117. She denies the use of blood thinner or aspirin at home. She denies any hematuria or bleeding from the gums or nose. She has had hemorrhoidal bleeding in the past, but not right now. She may have lost a few pounds over the past month or so, but no significant weight loss noted. She has been fully vaccinated for COVID 19 with [employer] vaccine, the second dose of which she received 11/04. One unit of platelets was transfused. Hospital course: She presented with severe thrombocytopenia, with a platelet count less than 10. She was also diagnosed with this suspicious lung mass.She was transfused platelets and workup was initiated. She underwent evaluation by both Pulmonary and Hematology. 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 She was subsequently started on systemic steroids. However her platelet counts did not improve right away. She underwent a bone marrow biopsy which showed: Mildly hypercellular marrow with maturing trilineage hematopoiesis and megakaryocyte hyperplasia. See description and comment. The findings are consistent with peripheral platelet destruction/consumption with compensatory megakaryocyte hyperplasia. No marrow infiltrative process is seen and overt features of dysplasia are not present. Concurrent flow cytometry is negative for a B-cell lymphoproliferative disorder. She was started on IVIG (x 2 days) with daily improvement in her platelets counts to >60k at the time of discharge. In regards to her lung mass, biopsy was deferred due to thrombocytopenia and she was referred to the pulmonary clinic for outpatient workup. She was given a prednisone taper. She was getting her labs done at home. She was down to 10 mg prednisone. Platelet count dropped from 80-40,000. She was advised to take 20 mg prednisone daily. She is now here for follow-up visit. ROS: She says her energy level has improved. Her appetite is good. She has been eating like a horse. Her weight is stable. She has been able to stay quite focused. Denies any further hemoptysis. No cough no sputum. No chest pain or trouble breathing. Denies abdominal pain nausea vomiting heartburn indigestion. Her bowels are working however she is constipated. She is taking fiber. She is in good spirits. Rest of the review of systems is unremarkable. Review of Systems - Constitutional Reports no additional constitutional complaints - Eyes Reports no additional eye complaints - ENT Reports no additional ear, nose, mouth, and throat complaints - Cardiovascular Reports no additional cardiovascular complaints - Respiratory Reports no additional respiratory complaints - Gastrointestinal Reports no additional gastrointestinal complaints - Genitourinary Reports no additional female genitourinary complaints - Musculoskeletal Reports no additional musculoskeletal complaints - Integumentary/Breasts Skin/Breast: Reports no additional skin complaints - Neurologic Reports no additional neurologic complaints - Psychiatric Reports no additional psychiatric complaints - Endocrine Reports no additional endocrine complaints - Hematologic/Lymphatic Reports no additional hematologic/lymphatic complaints - Allergic/Immunologic Reports no additional allergic/immunologic complaints [facility] Medical History: Medical History (Last Reviewed 01/07/21 @ 10:46 by Roxanna Shultz) Breast CA COPD (chronic obstructive pulmonary disease) Fibrocystic breast changes HTN (hypertension) Irregular heart beat Thyroid disease Functional capacity: independent ambulation Patient : No Family History: Family History (Last Reviewed 12/06/20 @ 14:56 by KERRY Flores) Other No family history of breast cancer Surgical History: Surgical History (Last Reviewed 01/07/21 @ 10:46 by Roxanna Shultz) S/P breast lumpectomy S/P hip replacement Social History: Social History (Last Reviewed 01/07/21 @ 10:46 by Roxanna Shultz) Living Situation History: Household Members: Spouse Housing: House Do you presently have visiting nurse or other home services: No Alcohol History: Alcohol intake: never Tobacco History: Years Smoked: 41 Nutrition Assessment: Patient : No Occupation Assessmet: service: No Current occupational status: retired Oncology Screenings - ECOG Performance Status ECOG Performance Status: 0 Home Medications and Allergies Home Medications Medication Instructions Recorded Confirmed Type Spiriva with HandiHaler 18 mcg INHALATION QAM 12/06/20 01/07/21 History albuterol sulfate 2 puff INHALATION Q4H PRN 12/06/20 01/07/21 History atenolol 1 tab PO DAILY 12/06/20 01/07/21 History digoxin 1 tab PO DAILY 12/06/20 01/07/21 History fluticasone propion-salmeterol 1 inh INHALATION BID 12/06/20 01/07/21 History [Advair Diskus] guaifenesin [Mucinex] 600 mg PO BID 12/06/20 01/07/21 History levothyroxine 1 tab PO QAM 12/06/20 01/07/21 History montelukast 1 tab PO DAILY 12/06/20 01/07/21 History latanoprost 1 drp OPHTHALMIC-RIGHT BEDTIME 12/07/20 01/07/21 History clorazepate dipotassium [Tranxene 3.75 mg PO BEDTIME PRN 01/07/21 01/07/21 History T-Tab] Allergies Allergy/AdvReac Type Severity Reaction Status Date / Time Carbapenems Allergy Unknown RASH Verified 12/06/20 13:59 cefaclor Allergy Unknown rash, Verified 12/06/20 13:59 itching cefadroxil [Cefadroxil] Allergy Unknown RASH Verified 12/06/20 13:59 cephalexin [From KEFLEX] Allergy Unknown RASH Verified 12/06/20 13:59 Cephalosporins Allergy Unknown RASH Verified 12/06/20 13:59 chlorhexidine Allergy Unknown MUMPS LIKE Verified 12/06/20 13:59 SWELLING TO MOUTH ciprofloxacin Allergy Unknown RASH Verified 12/06/20 13:59 ibuprofen [IBUPROFEN] Allergy Unknown RASH Verified 12/06/20 13:59 naproxen Allergy Unknown RASH, Verified 12/06/20 13:59 rash, itching penicillin V Allergy Unknown Rash Verified 12/06/20 13:59 Penicillins Allergy Unknown RASH, HIVES Verified 12/06/20 13:59 Sulfa (Sulfonamide Allergy Unknown RASH Verified 12/06/20 13:59 Antibiotics) acetaminophen AdvReac Unknown PALPITATION Verified 12/06/20 13:59 S adhesives Allergy Unknown skin Uncoded 09/20/18 00:00 irritation antiperspirants, deodorants Allergy Unknown Rash Uncoded 12/06/20 13:59 carbapenam Allergy Unknown Rash Uncoded 12/06/20 13:59 chephlasporins Allergy Unknown rash, Uncoded 09/20/18 00:00 itching Chlorhexidine Allergy Unknown Rash Uncoded 12/06/20 13:59 chlorhexidine Allergy Unknown Rash Uncoded 12/06/20 13:59 duracef Allergy Unknown rash, Uncoded 09/20/18 00:00 itching DURACEPT Allergy Unknown RASH Uncoded 04/30/20 15:23 keflex Allergy Unknown rash, Uncoded 09/20/18 00:00 itching shellfish Allergy Unknown severe Uncoded 09/20/18 00:00 hives Exam Vital signs: Vital Signs Temp 98.5 F 01/07/21 10:42 Pulse 68 01/07/21 10:42 Resp 12 01/07/21 10:42 BP 147/65 H 01/07/21 10:42 Pulse Ox 94 01/07/21 10:42 Intake & Output 01/06/21 01/07/21 01/07/21 18:59 06:59 18:59 Other: Weight 55.7 kg Weight in Grams 41583 Weight 55.7 kg Body Mass Index 21.0 - Constitutional Present: no acute distress - Routine HEENT Exam Head: Present: normal inspection Eye: Present: normal appearance ENT: Present: mucous membranes moist - Routine Neck Exam Present: full ROM - Routine Respiratory Exam Present: CTAB - Routine Cardiovascular Exam Cardiovascular: Present: RRR, S1, S2 - Routine Abdominal Exam Present: soft, nontender - Routine Rectal Exam Patient deferred: digital exam - Routine Extremities Exam Present: nontender - Routine Back/Spine/Pelvis Exam Back/Spine: Present: full ROM - Routine Skin Exam Present: intact - Routine Neurological Exam Present: alert, oriented X3 - Routine Psychiatric Exam Present: normal affect Data - Labs CBC & Chem 7: 01/07/21 11:11 01/07/21 11:11 Progress Note: A/P (1) Acute ITP Status: Acute Assessment and plan: This is a pleasant 86-year-old lady who had presented to the hospital end of last month with significant thrombocytopenia and hemoptysis. Platelet count was 7. She was initially started on steroids. Initially the trend was still low. Between 12/06 and 12/10 platelets were 7, 8, 9. On 12/11 it was 21. On 12/12 it was 13. 5/2 it was 7. 5/ it was 33. 5/ it was 63. A bone marrow exam was done, on 12/12, under platelet cover which revealed: Mildly hypercellular marrow with maturing trilineage hematopoiesis and megakaryocytic hyperplasia. Findings are consistent with peripheral platelet destruction/consumption with compensated tree megakaryocytic hyperplasia. No marrow infiltrative processes seen and overt features of dysplasia are not present. Flow cytometry is negative for a B-cell lymphoproliferative disorder. She then received IVIG between 12/13 through 12/15. Her platelets started dropping: On 12/23 there were 81, 520 there were 44. She was on a prednisone taper. She was then advised to increase the prednisone to 20 mg. Most recent platelet count: On 01/01 was 42. I was concerned if the platelets are dropping she would need IVIG, however today's count is encouraging at 137. PLAN: Will monitor her platelet count carefully, on a weekly basis. Will give her IVIG, if the platelets drop to below 50, since she responded to it in the past. She will follow-up with Dr. Romero regarding workup of the lung mass. Thank you, CC: Dr. Nikolay Romero. - Time Spent With Patient Total time spent is greater than 50% in coordination of care (as documented) at patient's floor/unit and/or counseling patient: 25 - 35 minutes
[2021-01-07 11:35] LABS: Basophils Percent Auto 0.3 % (0-2); Eosinophils Percent Auto 0.5 % (0-4); Hematocrit 36.3 % (37-47); Hemoglobin 11.9 g/dl (12.0-16.0); Imm Gran Abs Auto 0.07 X10*3/uL (0.00-0.03); Imm Gran Pct Auto 0.8 % (0.0-0.4); Lymphocytes Absolute Auto 0.2 X10*3/uL (1.2-4.9); Lymphocytes Percent Auto 2.3 % (20-40); MANUAL DIFF FLAG SCAN; Mean Corpuscular HGB Conc 32.8 g/dl (31.0-35.0); Mean Corpuscular Hemoglobin 28.3 pg (27.0-33.0); Mean Corpuscular Volume 86.4 fL (80-98); Mean Platelet Volume 9.6 fL (9.4-12.3); Monocytes Absolute Auto 0.2 X10*3/uL (0.1-1.2); Neutrophils Absolute Auto 8.2 X10*3/uL (2.0-8.3); Neutrophils Percent Auto 94.1 % (45-73); Platelet Count 134 X10*3/uL (160-400); Red Cell Distribution Width 14.6 % (11.0-16.0); SCAN SMEAR FLAG 1; White Blood Count 8.7 X10*3/uL (4.8-10.8)
[2021-01-07 11:55] LABS: Alanine Aminotransferase 22 U/L (0-31); Albumin Level 3.9 g/dL (3.5-5.0); Alkaline Phosphatase 66 U/L (39-117); Anion Gap 14 (12-20); Aspartate Amino Transferase 25 U/L (5-31); Bilirubin Total 0.6 mg/dL (0.0-1.0); Blood Urea Nitrogen 22 mg/dL (9-16); Calcium 9.3 mg/dL (8.4-10.2); Carbon Dioxide 26 mmol/L (22-29); Chloride 100 mmol/L (96-108); Creatinine Clr Calc Pharmacy 44.9; Estimated Glomerular Filt Rate > 60; Glucose Random 99 mg/dL (60-115); Sodium 135 mmol/L (135-145); Total Protein 6.7 g/dL (6.5-8.0)
--- NOTE | 2021-01-07 11:55 | MHC.HEMONCMA ---
Pt presents to f/u on thrombocytopenia. History reviewed, labs drawn and pt to return in a month.
[2021-01-07 12:22] LABS: SLIDE REVIEW VERIFIED
[2021-02-11 10:09] VITALS: BP 144/62; PULSE 68; RESP 18; TEMP 36.7; O2SAT 94; BMI 20.3
[2021-02-11 10:31] LABS: Basophils Percent Auto 0.3 % (0-2); Eosinophils Percent Auto 0.2 % (0-4); Hematocrit 41.7 % (37-47); Hemoglobin 13.2 g/dl (12.0-16.0); Imm Gran Abs Auto 0.09 X10*3/uL (0.00-0.03); Imm Gran Pct Auto 0.6 % (0.0-0.4); Lymphocytes Absolute Auto 0.5 X10*3/uL (1.2-4.9); Lymphocytes Percent Auto 3.4 % (20-40); MANUAL DIFF FLAG SCAN; Mean Corpuscular HGB Conc 31.7 g/dl (31.0-35.0); Mean Corpuscular Hemoglobin 28.3 pg (27.0-33.0); Mean Corpuscular Volume 89.5 fL (80-98); Mean Platelet Volume 9.1 fL (9.4-12.3); Monocytes Absolute Auto 0.4 X10*3/uL (0.1-1.2); Monocytes Percent Auto 2.9 % (2-11); Neutrophils Absolute Auto 12.8 X10*3/uL (2.0-8.3); Neutrophils Percent Auto 92.6 % (45-73); Platelet Count 167 X10*3/uL (160-400); Red Blood Count 4.66 X10*6/uL (4.20-5.50); Red Cell Distribution Width 14.9 % (11.0-16.0); SCAN SMEAR FLAG 1; White Blood Count 13.9 X10*3/uL (4.8-10.8)
--- NOTE | 2021-02-11 10:45 | P.PNHO_ITS ---
Medical Summary - Medical Summary Date of Service: 02/11/21 Chief complaint: follow-up for: ITP. Medical Summary: DIAGNOSIS: ITP. CURRENT THERAPY: IVIG. PREDNISONE. Interval History Interval history: This is a pleasant 86-year-old lady, here for a follow-up visit. She tells me she has been doing quite well. She is presently on 20 mg of prednisone. she is able to tolerate it well, without major side effects. She notices little bit of bruising here and there but no major bleeding. She has good energy level. She denies any fever nor chills. No headache no dizziness. She denies chest pain or trouble breathing. No abdominal pain nausea vomiting heartburn indigestion. Her bowels are working without any gross blood in it. she enjoys a good appetite. Her weight is stable. She is in good spirits, Rest of the review of systems is unremarkable. Hospital course: Patient was initially seen in [place], back in November. This is an 85 year old lady with a history of COPD, breast cancer, HTN, who presented to the ED, on 12/06, with hemoptysis. She reported 5 days of intermittent cough productive of clear phlegm mixed with blood. She had some shortness of breath which is chronic and unchanged from her baseline. She denied any fevers or chills. She denied chest pain or palpitations. Her workup in the ED was significant for severe thrombocytopenia with platelets of 7, D-dimer of 6064. She underwent CTA which showed no evidence of pulmonary embolism but 2 right upper lobe lung lesions concerning for malignancy. She denies a known history of thrombocytopenia, although her previous CBC from April 2020 shows a platelet count of 117. She denies the use of blood thinner or aspirin at home. She denies any hematuria or bleeding from the gums or nose. She has had hemorrhoidal bleeding in the past, but not right now. She may have lost a few pounds over the past month or so, but no significant weight loss noted. She has been fully vaccinated for COVID 19 with Pfizer vaccine, the second dose of which she received 11/04. One unit of platelets was transfused. She presented with severe thrombocytopenia, with a platelet count less than 10. She was also diagnosed with this suspicious lung mass.She was transfused platelets and workup was initiated. She underwent evaluation by both Pulmonary and Hematology. 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 She was subsequently started on systemic steroids. However her platelet counts did not improve right away. She underwent a bone marrow biopsy which showed: Mildly hypercellular marrow with maturing trilineage hematopoiesis and megakaryocyte hyperplasia. See description and comment. The findings are consistent with peripheral platelet destruction/consumption with compensatory megakaryocyte hyperplasia. No marrow infiltrative process is seen and overt features of dysplasia are not present. Concurrent flow cytometry is negative for a B-cell lymphoproliferative disorder. She was started on IVIG (x 2 days) with daily improvement in her platelets counts to >60k at the time of discharge. In regards to her lung mass, biopsy was deferred due to thrombocytopenia and she was referred to the pulmonary clinic for outpatient workup. She was given a prednisone taper. She was getting her labs done at home. She was down to 10 mg prednisone. Platelet count dropped from 80-40,000. She was advised to take 20 mg prednisone daily. She is now here for follow-up visit. Review of Systems - Constitutional Reports no additional constitutional complaints, Denies fatigue, Denies fever(s), Denies lack of energy, Denies malaise, Denies poor appetite - Eyes Reports no additional eye complaints - ENT Reports no additional ear, nose, mouth, and throat complaints, Reports hearing n ormal - Cardiovascular Reports no additional cardiovascular complaints - Respiratory Reports no additional respiratory complaints - Gastrointestinal Reports no additional gastrointestinal complaints - Genitourinary Reports no additional female genitourinary complaints - Musculoskeletal Reports no additional musculoskeletal complaints, Reports joint pain - Integumentary/Breasts Skin/Breast: Reports no additional skin complaints, Denies bleeding lesions, Denies unusual bruising - Neurologic Reports no additional neurologic complaints - Psychiatric Reports no additional psychiatric complaints - Endocrine Reports no additional endocrine complaints - Hematologic/Lymphatic Reports no additional hematologic/lymphatic complaints - Allergic/Immunologic Reports no additional allergic/immunologic complaints [facility] Medical History: Medical History (Last Reviewed 02/11/21 @ 10:39 by Nancy Hollis RN) Breast CA COPD (chronic obstructive pulmonary disease) Fibrocystic breast changes HTN (hypertension) Irregular heart beat Lymphadenopathy, mediastinal Thyroid disease Functional capacity: independent ambulation Patient : Yes Family History: Family History (Last Reviewed 01/25/21 @ 21:10 by Nikolay Romero MD) Other No family history of breast cancer Surgical History: Surgical History (Last Reviewed 02/11/21 @ 10:39 by Nancy Hollis RN) S/P breast lumpectomy S/P hip replacement Social History: Social History (Last Reviewed 02/11/21 @ 10:39 by Nancy Hollis RN) Living Situation History: Household Members: Spouse Housing: House Do you presently have visiting nurse or other home services: No Alcohol History: Alcohol intake: never Tobacco History: Patient Tobacco Use Status: Former Tobacco user Tobacco use type: Cigarette Years Smoked: 40 years Nutrition Assessment: Patient : No Occupation Assessmet: service: No Current occupational status: retired Oncology Screenings - ECOG Performance Status ECOG Performance Status: 0 Home Medications and Allergies Home Medications Medication Instructions Recorded Confirmed Type Spiriva with HandiHaler 18 mcg INHALATION QAM 12/06/20 02/11/21 History albuterol sulfate 2 puff INHALATION Q4H PRN 12/06/20 02/11/21 History atenolol 1 tab PO DAILY 12/06/20 02/11/21 History digoxin 1 tab PO DAILY 12/06/20 02/11/21 History fluticasone propion-salmeterol 1 inh INHALATION BID 12/06/20 02/11/21 History [Advair Diskus] guaifenesin [Mucinex] 600 mg PO BID 12/06/20 02/11/21 History levothyroxine 1 tab PO QAM 12/06/20 02/11/21 History montelukast 1 tab PO DAILY 12/06/20 02/11/21 History latanoprost 1 drp OPHTHALMIC-RIGHT BEDTIME 12/07/20 02/11/21 History ascorbate calcium (vitamin C) 500 500 mg PO DAILY 01/25/21 02/11/21 History mg tablet clorazepate dipotassium 3.75 mg 3.75 mg PO BEDTIME PRN 01/25/21 02/11/21 History tablet biotin 250 mcg PO DAILY 02/11/21 02/11/21 History calcium carb-D3-mag ox-zinc ox 3 tab PO DAILY 02/11/21 02/11/21 History multivitamin 1 cap PO DAILY 02/11/21 02/11/21 History Allergies Allergy/AdvReac Type Severity Reaction Status Date / Time Carbapenems Allergy Unknown RASH Verified 01/25/21 10:24 cefaclor Allergy Unknown rash, Verified 01/25/21 10:24 itching cefadroxil [Cefadroxil] Allergy Unknown RASH Verified 01/25/21 10:24 cephalexin [From KEFLEX] Allergy Unknown RASH Verified 01/25/21 10:24 Cephalosporins Allergy Unknown RASH Verified 01/25/21 10:24 chlorhexidine Allergy Unknown MUMPS LIKE Verified 01/25/21 10:24 SWELLING TO MOUTH ciprofloxacin Allergy Unknown RASH Verified 01/25/21 10:24 ibuprofen [IBUPROFEN] Allergy Unknown RASH Verified 01/25/21 10:24 naproxen Allergy Unknown RASH, Verified 01/25/21 10:24 rash, itching penicillin V Allergy Unknown Rash Verified 01/25/21 10:24 Penicillins Allergy Unknown RASH, HIVES Verified 01/25/21 10:24 Sulfa (Sulfonamide Allergy Unknown RASH Verified 01/25/21 10:24 Antibiotics) acetaminophen AdvReac Unknown PALPITATION Verified 01/25/21 10:24 S adhesives Allergy Unknown skin Uncoded 09/20/18 00:00 irritation antiperspirants, deodorants Allergy Unknown Rash Uncoded 12/06/20 13:59 carbapenam Allergy Unknown Rash Uncoded 12/06/20 13:59 chephlasporins Allergy Unknown rash, Uncoded 09/20/18 00:00 itching Chlorhexidine Allergy Unknown Rash Uncoded 12/06/20 13:59 chlorhexidine Allergy Unknown Rash Uncoded 12/06/20 13:59 duracef Allergy Unknown rash, Uncoded 09/20/18 00:00 itching DURACEPT Allergy Unknown RASH Uncoded 04/30/20 15:23 keflex Allergy Unknown rash, Uncoded 09/20/18 00:00 itching shellfish Allergy Unknown severe Uncoded 09/20/18 00:00 hives Exam Vital signs: Vital Signs Temp 98.0 F 02/11/21 10:09 Pulse 68 02/11/21 10:09 Resp 18 02/11/21 10:09 BP 144/62 H 02/11/21 10:09 Pulse Ox 94 02/11/21 10:09 Intake & Output 02/10/21 02/11/21 02/11/21 18:59 06:59 18:59 Other: Weight 53.7 kg [place] Weight in Grams 23917 Weight 53.7 kg Body Mass Index 20.3 - Constitutional Present: no acute distress - Routine HEENT Exam Head: Present: normal inspection Eye: Present: normal appearance ENT: Present: mucous membranes moist - Routine Neck Exam Present: full ROM - Routine Respiratory Exam Present: CTAB - Routine Cardiovascular Exam Cardiovascular: Present: RRR, S1, S2 - Routine Abdominal Exam Present: soft, nontender - Routine Rectal Exam Patient deferred: digital exam - Routine Extremities Exam Present: nontender - Routine Back/Spine/Pelvis Exam Back/Spine: Present: full ROM - Routine Skin Exam Present: intact - Routine Neurological Exam Present: alert, oriented X3 - Routine Psychiatric Exam Present: normal affect Data - Labs CBC & Chem 7: 02/11/21 10:16 02/11/21 10:16 Labs: 01/07/21 11:11 CMP [Comprehensive Met. Panel] Routine Complete Blood Count Auto Diff Routine SLIDE REVIEW Routine Laboratory Last Values WBC 13.9 X10*3/uL (4.8-10.8) H 02/11/21 10:16 RBC 4.20 X10*6/uL (4.20-5.50) 01/07/21 11:11 Hgb 13.2 g/dl (12.0-16.0) 02/11/21 10:16 Hct 41.7 % (37-47) 02/11/21 10:16 MCV 86.4 fL (80-98) 01/07/21 11:11 MCH 28.3 pg (27.0-33.0) 01/07/21 11:11 MCHC 32.8 g/dl (31.0-35.0) 01/07/21 11:11 RDW 14.6 % (11.0-16.0) 01/07/21 11:11 Plt Count 167 X10*3/uL (160-400) 02/11/21 10:16 MPV 9.6 fL (9.4-12.3) 01/07/21 11:11 Immature Gran % (Auto) 0.8 % (0.0-0.4) H 01/07/21 11:11 Neut % (Auto) 94.1 % (45-73) H 01/07/21 11:11 Lymph % (Auto) 2.3 % (20-40) L 01/07/21 11:11 [place] % (Auto) 2.0 % (2-11) 01/07/21 11:11 Eos % (Auto) 0.5 % (0-4) 01/07/21 11:11 Baso % (Auto) 0.3 % (0-2) 01/07/21 11:11 Lymph # (Auto) 0.2 X10*3/uL (1.2-4.9) L 01/07/21 11:11 Alcorn # (Auto) 0.2 X10*3/uL (0.1-1.2) 01/07/21 11:11 Eos # (Auto) 0.0 X10*3/uL (0.0-0.4) 01/07/21 11:11 Baso # (Auto) 0.0 X10*3/uL (0.0-0.2) 01/07/21 11:11 Abs Immat Gran (auto) 0.07 X10*3/uL (0.00-0.03) H 01/07/21 11:11 Absolute Neuts (auto) 8.2 X10*3/uL (2.0-8.3) 01/07/21 11:11 Absolute Nucleated RBC 0.000 X10*3/uL (0.0-0.012) 01/07/21 11:11 Nucleated RBC % (auto) 0.0 /100WBC (0.0-0.2) 01/07/21 11:11 Smear Tech's Comments VERIFIED 01/07/21 11:11 Sodium 135 mmol/L (135-145) 01/07/21 11:11 Potassium 5.0 mmol/L (3.3-5.1) 01/07/21 11:11 Chloride 100 mmol/L (96-108) 01/07/21 11:11 Carbon Dioxide 26 mmol/L (22-29) 01/07/21 11:11 Anion Gap 14 (12-20) 01/07/21 11:11 BUN 22 mg/dL (9-16) H 01/07/21 11:11 Creatinine 0.79 mg/dL (0.5-1.4) 01/07/21 11:11 Estim Creat Clear Calc 44.9 01/07/21 11:11 Estimated GFR > 60 01/07/21 11:11 Random Glucose 99 mg/dL (60-115) 01/07/21 11:11 Calcium 9.3 mg/dL (8.4-10.2) 01/07/21 11:11 Total Bilirubin 0.6 mg/dL (0.0-1.0) 01/07/21 11:11 AST 25 U/L (5-31) 01/07/21 11:11 ALT 22 U/L (0-31) 01/07/21 11:11 Alkaline Phosphatase 66 U/L (39-117) D 01/07/21 11:11 Total Protein 6.7 g/dL (6.5-8.0) 01/07/21 11:11 Albumin 3.9 g/dL (3.5-5.0) 01/07/21 11:11 Progress Note: A/P (1) Acute ITP Status: Acute Assessment and plan: This is a pleasant 86-year-old lady who had presented to the hospital end of last month with significant thrombocytopenia and hemoptysis. Platelet count was 7. She was initially started on steroids. Initially the trend was still low. Between 12/06 and 12/10 platelets were 7, 8, 9. On 12/11 it was 21. On 12/12 it was 13. 5/2 it was 7. 5/3 it was 33. 5/4 it was 63. A bone marrow exam was done, on 12/12, under platelet cover which revealed: Mildly hypercellular marrow with maturing trilineage hematopoiesis and megakaryocytic hyperplasia. Findings are consistent with peripheral platelet destruction/consumption with compensated tree megakaryocytic hyperplasia. No marrow infiltrative processes seen and overt features of dysplasia are not present. Flow cytometry is negative for a B-cell lymphoproliferative disorder. She then received IVIG between 12/13 through 12/15. Her platelets started dropping: On 12/23 there were 81, 12/31 there were 44. She was on a prednisone taper. She was then advised to increase the prednisone to 20 mg. Most recent platelet count: On 01/01 was 42. I was concerned if the platelets are dropping she would need IVIG, however platelet count on 01/07, was encouraging at 137. She has been doing better. Platelet count is actually back up to normal today. This is very encouraging. PLAN: I will now try to proceed with a slow prednisone taper. Will decrease by 2.5 mg weekly. I have sent prescription for prednisone 5 mg tablets to make it convenient to taper. Will monitor her platelet count carefully, on a q 2 weekly basis. Will give her IVIG, if the platelets drop to below 50, since she responded to it in the past. She will follow-up with Dr. Romero regarding workup of the lung mass. A PET scan has been ordered. Thank you, CC: Dr. Nikolay Romero. - Time Spent With Patient 25 - 35 minutes
[2021-02-11 11:09] LABS: Alanine Aminotransferase 17 U/L (0-31); Albumin Level 4.2 g/dL (3.5-5.0); Alkaline Phosphatase 54 U/L (39-117); Anion Gap 10 (12-20); Aspartate Amino Transferase 21 U/L (5-31); Bilirubin Total 0.7 mg/dL (0.0-1.0); Blood Urea Nitrogen 26 mg/dL (9-16); Calcium 9.6 mg/dL (8.4-10.2); Carbon Dioxide 30 mmol/L (22-29); Chloride 102 mmol/L (96-108); Creatinine Clr Calc Pharmacy 42.5; Estimated Glomerular Filt Rate > 60; Glucose Random 92 mg/dL (60-115); Potassium 5.3 mmol/L (3.3-5.1); Sodium 137 mmol/L (135-145); Total Protein 6.7 g/dL (6.5-8.0)
[2021-02-11 11:25] LABS: SLIDE REVIEW VERIFIED
--- NOTE | 2021-02-11 12:24 | MHC.HEMONC ---
Exam with Dr. Harrison. Labs obtained and reviewed. Platelets are 167. Patient instructed by Dr. Harrison to taper Prednisone dose. Clinical summary/medications updated by this RN. Follow up in one month.
[2021-02-12 12:46] LABS: CA 27.29 43 U/mL (<38)
[2021-03-01 10:20] LABS: Basophils Absolute Auto 0.1 X10*3/uL (0.0-0.2); Basophils Percent Auto 0.4 % (0-2); Eosinophils Absolute Auto 0.1 X10*3/uL (0.0-0.4); Eosinophils Percent Auto 0.5 % (0-4); Hematocrit 37.9 % (37-47); Hemoglobin 12.3 g/dl (12.0-16.0); Imm Gran Abs Auto 0.14 X10*3/uL (0.00-0.03); Imm Gran Pct Auto 1.1 % (0.0-0.4); Lymphocytes Absolute Auto 0.5 X10*3/uL (1.2-4.9); Lymphocytes Percent Auto 3.4 % (20-40); MANUAL DIFF FLAG SCAN; Mean Corpuscular HGB Conc 32.5 g/dl (31.0-35.0); Mean Corpuscular Hemoglobin 29.3 pg (27.0-33.0); Mean Corpuscular Volume 90.2 fL (80-98); Mean Platelet Volume 8.6 fL (9.4-12.3); Monocytes Absolute Auto 0.6 X10*3/uL (0.1-1.2); Monocytes Percent Auto 4.2 % (2-11); Neutrophils Percent Auto 90.4 % (45-73); Platelet Count 129 X10*3/uL (160-400); Red Cell Distribution Width 15.2 % (11.0-16.0); SCAN SMEAR FLAG 1; White Blood Count 13.2 X10*3/uL (4.8-10.8)
[2021-03-01 10:53] LABS: SLIDE REVIEW VERIFIED
--- NOTE | 2021-03-01 12:19 | MHC.HEMONC ---
pt here for CBC check. PLT 129.Per Dr Harrison - pt to go down on Prednisone to 15mg daily from 17.5mg daily. Pt understands. Will have labs rechecked in 2 weeks when she has f/u with Dr Harrison.
[2021-03-16 10:59] VITALS: BP 146/88; PULSE 74; RESP 14; TEMP 36.7; O2SAT 95; BMI 21.0
--- NOTE | 2021-03-16 11:08 | PM.HEMONCPN ---
Medical Summary - Medical Summary Date of Service: 03/16/21 Chief complaint: Follow-up for: ITP. Medical Summary: DIAGNOSIS: ITP. CURRENT THERAPY: IVIG. PREDNISONE. Down to 15 mg daily couple weeks ago. Interval History Interval history: This is a pleasant 86-year-old lady, here for a follow-up visit. She tells me she has been doing quite well. She is presently on 15 mg of prednisone. She was previously on 17.5 mg. She is able to tolerate it well, without major side effects, except for the edema feet that lasted a couple days. She does feel rather fatigued and blah, when she goes down on the dose. It lasts 4-5 days and then she is back to having full energy. She has been out enjoying walking. She notices little bit of bruising here and there but no major bleeding. She has good energy level. She denies any fever nor chills. No headache no dizziness. She denies chest pain or trouble breathing. No abdominal pain nausea vomiting heartburn indigestion. Her bowels are working without any gross blood in it. she enjoys a good appetite. Her weight is stable. She is in good spirits, Rest of the review of systems is unremarkable. Hospital course: Patient was initially seen in [place], back in November. This is an 85 year old lady with a history of COPD, breast cancer, HTN, who presented to the ED, on 12/06, with hemoptysis. She reported 5 days of intermittent cough productive of clear phlegm mixed with blood. She had some shortness of breath which is chronic and unchanged from her baseline. She denied any fevers or chills. She denied chest pain or palpitations. Her workup in the ED was significant for severe thrombocytopenia with platelets of 7, D-dimer of 6064. She underwent CTA which showed no evidence of pulmonary embolism but 2 right upper lobe lung lesions concerning for malignancy. She denies a known history of thrombocytopenia, although her previous CBC from April 2020 shows a platelet count of 117. She denies the use of blood thinner or aspirin at home. She denies any hematuria or bleeding from the gums or nose. She has had hemorrhoidal bleeding in the past, but not right now. She may have lost a few pounds over the past month or so, but no significant weight loss noted. She has been fully vaccinated for COVID 19 with [employer], the second dose of which she received 11/04. One unit of platelets was transfused. She presented with severe thrombocytopenia, with a platelet count less than 10. She was also diagnosed with this suspicious lung mass.She was transfused platelets and workup was initiated. She underwent evaluation by both Pulmonary and Hematology. 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 She was subsequently started on systemic steroids. However her platelet counts did not improve right away. She underwent a bone marrow biopsy which showed: Mildly hypercellular marrow with maturing trilineage hematopoiesis and megakaryocyte hyperplasia. See description and comment. The findings are consistent with peripheral platelet destruction/consumption with compensatory megakaryocyte hyperplasia. No marrow infiltrative process is seen and overt features of dysplasia are not present. Concurrent flow cytometry is negative for a B-cell lymphoproliferative disorder. She was started on IVIG (x 2 days) with daily improvement in her platelets counts to >60k at the time of discharge. In regards to her lung mass, biopsy was deferred due to thrombocytopenia and she was referred to the pulmonary clinic for outpatient workup. She was given a prednisone taper. She was getting her labs done at home. She was down to 10 mg prednisone. Platelet count dropped from 80-40,000. She was advised to take 20 mg prednisone daily. She is now here for follow-up visit. Review of Systems - Constitutional Reports no additional constitutional complaints, Reports lack of energy, Denies weight loss Comments: Easy bruising - Eyes Reports no additional eye complaints - ENT Reports no additional ear, nose, mouth, and throat complaints - Cardiovascular Reports no additional cardiovascular complaints - Respiratory Reports no additional respiratory complaints - Gastrointestinal Reports no additional gastrointestinal complaints - Genitourinary Reports no additional female genitourinary complaints - Musculoskeletal Reports no additional musculoskeletal complaints - Integumentary/Breasts Skin/Breast: Reports no additional skin complaints - Neurologic Reports no additional neurologic complaints, Reports hearing normal - Psychiatric Reports no additional psychiatric complaints - Endocrine Reports no additional endocrine complaints - Hematologic/Lymphatic Reports no additional hematologic/lymphatic complaints - Allergic/Immunologic Reports no additional allergic/immunologic complaints [facility] Medical History: Medical History (Last Reviewed 03/16/21 @ 11:01 by Tere Denis) Acute ITP Breast CA COPD (chronic obstructive pulmonary disease) Fibrocystic breast changes HTN (hypertension) Irregular heart beat Lymphadenopathy, mediastinal Pulmonary nodules Thyroid disease Functional capacity: independent ambulation Patient : No Family History: Family History (Last Reviewed 03/16/21 @ 11:01 by Tere Denis) Other No family history of breast cancer Surgical History: Surgical History (Last Reviewed 03/16/21 @ 11:01 by Tere Denis) S/P breast lumpectomy S/P hip replacement Social History: Social History (Last Updated 03/16/21 @ 11:02 by Tere Denis) Living Situation History: Household Members: Spouse Housing: House Do you presently have visiting nurse or other home services: No Alcohol History: Alcohol intake: never Alcohol History Details: Alcohol intake frequency: does not drink Tobacco History: Patient Tobacco Use Status: Former Tobacco user Tobacco use type: Cigarette Cigarette Packs Per Day: 2 Years Smoked: 40 years Smoke Quit Date: 2005 Substance Use History: Use of substances other than those prescribed or required for medical reasons: No Nutrition Assessment: Patient : No Occupation Assessmet: service: No Current occupational status: retired Oncology Screenings - ECOG Performance Status ECOG Performance Status: 1 Home Medications and Allergies Home Medications Medication Instructions Recorded Confirmed Type albuterol sulfate 90 mcg/actuation 2 puff INHALATION Q4H PRN 12/06/20 03/16/21 History aerosol inhaler atenolol 25 mg tablet 1 tab PO DAILY 12/06/20 03/16/21 History digoxin 250 mcg (0.25 mg) tablet 1 tab PO DAILY 12/06/20 03/16/21 History fluticasone 250 mcg-salmeterol 50 1 inh INHALATION BID 12/06/20 03/16/21 History mcg/dose blistr powdr for inhalation (Advair Diskus) guaifenesin 600 mg tablet, 600 mg PO BID 12/06/20 03/16/21 History extended release 12 hr (Mucinex) levothyroxine 75 mcg tablet 1 tab PO QAM 12/06/20 03/16/21 History montelukast 10 mg tablet 1 tab PO DAILY 12/06/20 03/16/21 History tiotropium bromide 18 mcg capsule 18 mcg INHALATION QAM 12/06/20 03/16/21 History with inhalation device (Spiriva with HandiHaler) latanoprost 0.005 % eye drops 1 drp OPHTHALMIC-RIGHT BEDTIME 12/07/20 03/16/21 History ascorbate calcium (vitamin C) 500 500 mg PO DAILY 01/25/21 03/16/21 History mg tablet clorazepate dipotassium 3.75 mg 3.75 mg PO BEDTIME PRN 01/25/21 03/16/21 History tablet biotin 500 mcg capsule 250 mcg PO DAILY 02/11/21 03/16/21 History calcium carb 333 mg-vit D3 133 3 tab PO DAILY 02/11/21 03/16/21 History unit-mag ox 133 mg-zinc oxide 5 mg tab multivitamin 1 cap PO DAILY 02/11/21 03/16/21 History Allergies Allergy/AdvReac Type Severity Reaction Status Date / Time Carbapenems Allergy Severe RASH Verified 03/08/21 21:02 cefaclor Allergy Severe rash, Verified 03/08/21 21:02 itching cefadroxil [Cefadroxil] Allergy Severe RASH Verified 03/08/21 21:02 cephalexin [From KEFLEX] Allergy Severe RASH Verified 03/08/21 21:02 Cephalosporins Allergy Severe RASH Verified 03/08/21 21:02 chlorhexidine Allergy Severe MUMPS LIKE Verified 03/08/21 21:02 SWELLING TO MOUTH ciprofloxacin Allergy Severe RASH Verified 03/08/21 21:02 ibuprofen [IBUPROFEN] Allergy Severe RASH Verified 03/08/21 21:02 naproxen Allergy Severe RASH, Verified 03/08/21 21:02 rash, itching penicillin V Allergy Severe Rash Verified 03/08/21 21:02 Penicillins Allergy Severe RASH, HIVES Verified 03/08/21 21:02 Sulfa (Sulfonamide Allergy Severe RASH Verified 03/08/21 21:02 Antibiotics) acetaminophen AdvReac Severe PALPITATION Verified 03/08/21 21:02 S adhesives Allergy Severe skin Uncoded 03/08/21 21:02 irritation antiperspirants, deodorants Allergy Severe Rash Uncoded 03/08/21 21:02 carbapenam Allergy Severe Rash Uncoded 03/08/21 21:02 chephlasporins Allergy Severe rash, Uncoded 03/08/21 21:02 itching Chlorhexidine Allergy Severe Rash Uncoded 03/08/21 21:02 chlorhexidine Allergy Severe Rash Uncoded 03/08/21 21:02 duracef Allergy Severe rash, Uncoded 03/08/21 21:02 itching DURACEPT Allergy Severe RASH Uncoded 03/08/21 21:02 keflex Allergy Severe rash, Uncoded 03/08/21 21:02 itching shellfish Allergy Severe severe Uncoded 03/08/21 21:02 hives Exam Vital signs: Vital Signs Temp 98.0 F 03/16/21 10:59 Pulse 74 03/16/21 10:59 Resp 14 03/16/21 10:59 BP 146/88 H 03/16/21 10:59 Pulse Ox 95 03/16/21 10:59 Intake & Output 03/15/21 03/16/21 03/16/21 18:59 06:59 18:59 Other: Weight 55.7 kg [place] Weight in Grams 32971 Weight 55.7 kg Body Mass Index 21.0 - Constitutional Present: no acute distress - Routine HEENT Exam Head: Present: normal inspection Eye: Present: normal appearance ENT: Present: mucous membranes moist - Routine Neck Exam Present: full ROM - Routine Respiratory Exam Present: CTAB - Routine Cardiovascular Exam Cardiovascular: Present: RRR, S1, S2 - Routine Abdominal Exam Present: soft, nontender - Routine Rectal Exam Patient deferred: digital exam - Routine Extremities Exam Present: nontender - Routine Back/Spine/Pelvis Exam Back/Spine: Present: full ROM - Routine Skin Exam Present: intact, ecchymosis Comments: Bruising on her right leg - Routine Neurological Exam Present: alert, oriented X3 - Routine Psychiatric Exam Present: normal affect Data - Labs CBC & Chem 7: 03/16/21 11:01 03/16/21 11:01 Labs: 01/07/21 11:11 CMP [Comprehensive Met. Panel] Routine Complete Blood Count Auto Diff Routine SLIDE REVIEW Routine Laboratory Last Values WBC 13.9 X10*3/uL (4.8-10.8) H 02/11/21 10:16 RBC 4.20 X10*6/uL (4.20-5.50) 01/07/21 11:11 Hgb 13.2 g/dl (12.0-16.0) 02/11/21 10:16 Hct 41.7 % (37-47) 02/11/21 10:16 MCV 86.4 fL (80-98) 01/07/21 11:11 MCH 28.3 pg (27.0-33.0) 01/07/21 11:11 MCHC 32.8 g/dl (31.0-35.0) 01/07/21 11:11 RDW 14.6 % (11.0-16.0) 01/07/21 11:11 Plt Count 167 X10*3/uL (160-400) 02/11/21 10:16 MPV 9.6 fL (9.4-12.3) 01/07/21 11:11 Immature Gran % (Auto) 0.8 % (0.0-0.4) H 01/07/21 11:11 Neut % (Auto) 94.1 % (45-73) H 01/07/21 11:11 Lymph % (Auto) 2.3 % (20-40) L 01/07/21 11:11 Kimble % (Auto) 2.0 % (2-11) 01/07/21 11:11 Eos % (Auto) 0.5 % (0-4) 01/07/21 11:11 Baso % (Auto) 0.3 % (0-2) 01/07/21 11:11 Lymph # (Auto) 0.2 X10*3/uL (1.2-4.9) L 01/07/21 11:11 Kimble # (Auto) 0.2 X10*3/uL (0.1-1.2) 01/07/21 11:11 Eos # (Auto) 0.0 X10*3/uL (0.0-0.4) 01/07/21 11:11 Baso # (Auto) 0.0 X10*3/uL (0.0-0.2) 01/07/21 11:11 Abs Immat Gran (auto) 0.07 X10*3/uL (0.00-0.03) H 01/07/21 11:11 Absolute Neuts (auto) 8.2 X10*3/uL (2.0-8.3) 01/07/21 11:11 Absolute Nucleated RBC 0.000 X10*3/uL (0.0-0.012) 01/07/21 11:11 Nucleated RBC % (auto) 0.0 /100WBC (0.0-0.2) 01/07/21 11:11 Smear Tech's Comments VERIFIED 01/07/21 11:11 Sodium 135 mmol/L (135-145) 01/07/21 11:11 Potassium 5.0 mmol/L (3.3-5.1) 01/07/21 11:11 Chloride 100 mmol/L (96-108) 01/07/21 11:11 Carbon Dioxide 26 mmol/L (22-29) 01/07/21 11:11 Anion Gap 14 (12-20) 01/07/21 11:11 BUN 22 mg/dL (9-16) H 01/07/21 11:11 Creatinine 0.79 mg/dL (0.5-1.4) 01/07/21 11:11 Estim Creat Clear Calc 44.9 01/07/21 11:11 Estimated GFR > 60 01/07/21 11:11 Random Glucose 99 mg/dL (60-115) 01/07/21 11:11 Calcium 9.3 mg/dL (8.4-10.2) 01/07/21 11:11 Total Bilirubin 0.6 mg/dL (0.0-1.0) 01/07/21 11:11 AST 25 U/L (5-31) 01/07/21 11:11 ALT 22 U/L (0-31) 01/07/21 11:11 Alkaline Phosphatase 66 U/L (39-117) D 01/07/21 11:11 Total Protein 6.7 g/dL (6.5-8.0) 01/07/21 11:11 Albumin 3.9 g/dL (3.5-5.0) 01/07/21 11:11 Progress Note: A/P (1) Acute ITP Status: Inactive Assessment and plan: This is a pleasant 86-year-old lady who had presented to the hospital end of last month with significant thrombocytopenia and hemoptysis. Platelet count was 7. She was initially started on steroids. Initially the trend was still low. Between 12/06 and 12/10 platelets were 7, 8, 9. On 12/11 it was 21. On 12/12 it was 13. 5/2 it was 7. 5/3 it was 33. 5/4 it was 63. A bone marrow exam was done, on 12/12, under platelet cover which revealed: Mildly hypercellular marrow with maturing trilineage hematopoiesis and megakaryocytic hyperplasia. Findings are consistent with peripheral platelet destruction/consumption with compensated tree megakaryocytic hyperplasia. No marrow infiltrative processes seen and overt features of dysplasia are not present. Flow cytometry is negative for a B-cell lymphoproliferative disorder. She then received IVIG between 12/13 through 12/15. Her platelets started dropping: On 12/23 there were 81, 12/31 there were 44. She was on a prednisone taper. She was then advised to increase the prednisone to 20 mg. Most recent platelet count: On 01/01 was 42. I was concerned if the platelets are dropping she would need IVIG, however platelet count on 01/07, was encouraging at 137. She has been doing better. Platelet count is actually back up to normal today. This is very encouraging. She is on a prednisone taper. She was on 17.5 mg 2 weeks ago. Then down to 15 mg. PLAN: Will decrease by 2.5 mg weekly. She will now be going down to 12.5 mg daily. Will monitor her platelet count carefully, on a q 2 weekly basis. Will give her IVIG, if the platelets drop to below 50, since she responded to it in the past. She will follow-up with Dr. Romero regarding workup of the lung mass. Thank you, CC: Dr. Nikolay Romero. (2) Pulmonary nodules Status: Acute Assessment and plan: The patient is an 86-year-old woman with a known history of COPD, breast cancer status post resection, and pulmonary nodules follow-up for many years. She was admitted to the hospital was found to have severe thrombocytopenia. The patient was given a dose of IVIG and started on prednisone for ITP. She also required platelet transfusions. During the hospitalization she did undergo a CT scan of the chest back in November 2020 which demonstrated a 2.5 x 1.5 cm spiculated nodule along with other satellite spiculated nodules and mediastinal lymphadenopathy. Findings at the time very concerning for a malignant process. However, with her significant thrombocytopenia was deemed unsafe to biopsy the areas. Her platelet count has been better. From a respiratory status the patient has been doing well denies any significant weight loss or night sweats. She denies any significant coughing or shortness of breath. We did review the CT scan in the office and she understands the the findings are much worse than her previous CT scans years ago. Therefore, the patient may need to undergo biopsies. But, need to make sure platelet issue has stabilized. Based on the concerning findings will have undergo a PET scan and also PFTs in order to find the optimal in place to biopsy with the highest yield and low is risk. 03/08/2021 the patient was seen for pulmonary follow-up visit. Overall she is doing well after the bronchoscopy. She tolerated well without any apparent complications. The bronchoscopy demonstrated normal airways without any endobronchial lesions. Patient did undergo right upper lobe washings brushings and also transbronchial biopsies demonstrating bronchoalveolar tissue with reactive inflammatory changes as well as evidence of bleeding. No evidence of any malignancy. It was explained to the patient that although the results are reassuring, still concern is about the interval worsening of the nodular density. Close imaging studies were recommended At this point she would rather not follow the nodular density closely since she is not planned to undergo any further diagnostic or surgical interventions. In addition to that she has described that her platelets are going downward again. She is still on the prednisone. The patient understands that if she develops worsening respiratory symptoms she is to call the pulmonary office for further evaluation otherwise. She is to follow up in 3-4 months to assess clinical status. The patient again would like not to additional imaging studies at this time. PLAN: To discuss it further during follow-up visit. Thanks, - Time Spent With Patient Time Spent with Patient (in minutes): 35
[2021-03-16 11:11] LABS: MANUAL DIFF FLAG NO
[2021-03-16 11:18] LABS: Basophils Percent Auto 0.3 % (0-2); Eosinophils Absolute Auto 0.1 X10*3/uL (0.0-0.4); Eosinophils Percent Auto 0.6 % (0-4); Hematocrit 38.1 % (37-47); Hemoglobin 12.9 g/dl (12.0-16.0); Imm Gran Pct Auto 0.8 % (0.0-0.4); Lymphocytes Absolute Auto 0.5 X10*3/uL (1.2-4.9); Lymphocytes Percent Auto 4.3 % (20-40); Mean Corpuscular HGB Conc 33.9 g/dl (31.0-35.0); Mean Corpuscular Hemoglobin 29.9 pg (27.0-33.0); Mean Corpuscular Volume 88.2 fL (80-98); Mean Platelet Volume 9.4 fL (9.4-12.3); Monocytes Absolute Auto 0.6 X10*3/uL (0.1-1.2); Monocytes Percent Auto 4.7 % (2-11); Neutrophils Absolute Auto 10.6 X10*3/uL (2.0-8.3); Neutrophils Percent Auto 89.3 % (45-73); Platelet Count 127 X10*3/uL (160-400); Red Blood Count 4.32 X10*6/uL (4.20-5.50); Red Cell Distribution Width 14.8 % (11.0-16.0); White Blood Count 11.9 X10*3/uL (4.8-10.8)
[2021-03-16 11:48] LABS: Alanine Aminotransferase 17 U/L (0-31); Alkaline Phosphatase 56 U/L (39-117); Anion Gap 13 (12-20); Aspartate Amino Transferase 18 U/L (5-31); Bilirubin Total 0.4 mg/dL (0.0-1.0); Blood Urea Nitrogen 36 mg/dL (9-16); Calcium 9.4 mg/dL (8.4-10.2); Carbon Dioxide 24 mmol/L (22-29); Chloride 104 mmol/L (96-108); Creatinine Clr Calc Pharmacy 43.8; Estimated Glomerular Filt Rate > 60; Glucose Fasting 112 mg/dL (60-99); Potassium 4.8 mmol/L (3.3-5.1); Sodium 136 mmol/L (135-145); Total Protein 6.4 g/dL (6.5-8.0)
--- NOTE | 2021-03-16 11:49 | MHC.HEMONCMA ---
Patient came in for a hem follow up today, states she is doing well. Clinical summary was reviewed and updated. Patient had labs and will return in 1 month for a follow up.
--- NOTE | 2021-03-30 15:49 | MHC.HEMONC ---
pt to decrease Prednisone to 10mg daily from 12.5mg daily per Dr Garcia (covering). PLT 113 today. Pt has f/u with Dr Harrison in two weeks. She is aware to call us with any s/sx bleeding.
[2021-04-13 10:37] VITALS: BP 138/71; PULSE 66; RESP 20; TEMP 36.6; O2SAT 96; BMI 21.2
--- NOTE | 2021-04-13 10:37 | PM.HEMONCPN ---
Medical Summary - Medical Summary Date of Service: 04/13/21 Chief complaint: Follow-up for: ITP. Medical Summary: DIAGNOSIS: ITP. CURRENT THERAPY: IVIG. PREDNISONE. Down to 12.5 mg rudi, couple weeks ago. Interval History Interval history: This is a pleasant 86-year-old lady, here for a follow-up visit. She tells me she has been doing quite well. She denies feeling fatigued. Only the humidity in the weather bothers her. She has been out enjoying walking. She notices little bit of bruising here and there but no major bleeding. She has good energy level. She denies any fever nor chills. No headache no dizziness. She denies chest pain or trouble breathing. No abdominal pain nausea vomiting heartburn indigestion. Her bowels are working without any gross blood in it. she enjoys a good appetite. Her weight is stable. She is presently on 12.5 mg of prednisone. She was previously on 15 mg. She is able to tolerate it well, without major side effects, except for the edema feet that lasted a couple days. She is in good spirits, Rest of the review of systems is unremarkable. Hospital course: Patient was initially seen in [facility] in November. This is an 85 year old lady with a history of COPD, breast cancer, HTN, who presented to the ED, on 12/06, with hemoptysis. She reported 5 days of intermittent cough productive of clear phlegm mixed with blood. She had some shortness of breath which is chronic and unchanged from her baseline. She denied any fevers or chills. She denied chest pain or palpitations. Her workup in the ED was significant for severe thrombocytopenia with platelets of 7, D-dimer of 6064. She underwent CTA which showed no evidence of pulmonary embolism but 2 right upper lobe lung lesions concerning for malignancy. She denies a known history of thrombocytopenia, although her previous CBC from April 2020 shows a platelet count of 117. She denies the use of blood thinner or aspirin at home. She denies any hematuria or bleeding from the gums or nose. She has had hemorrhoidal bleeding in the past, but not right now. She may have lost a few pounds over the past month or so, but no significant weight loss noted. She has been fully vaccinated for COVID 19 with Create vaccine, the second dose of which she received 11/04. One unit of platelets was transfused. She presented with severe thrombocytopenia, with a platelet count less than 10. She was also diagnosed with this suspicious lung mass.She was transfused platelets and workup was initiated. She underwent evaluation by both Pulmonary and Hematology. 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 She was subsequently started on systemic steroids. However her platelet counts did not improve right away. She underwent a bone marrow biopsy which showed: Mildly hypercellular marrow with maturing trilineage hematopoiesis and megakaryocyte hyperplasia. See description and comment. The findings are consistent with peripheral platelet destruction/consumption with compensatory megakaryocyte hyperplasia. No marrow infiltrative process is seen and overt features of dysplasia are not present. Concurrent flow cytometry is negative for a B-cell lymphoproliferative disorder. She was started on IVIG (x 2 days) with daily improvement in her platelets counts to >60k at the time of discharge. In regards to her lung mass, biopsy was deferred due to thrombocytopenia and she was referred to the pulmonary clinic for outpatient workup. This turned out to be benign. Review of Systems - Constitutional Reports no additional constitutional complaints - Eyes Reports no additional eye complaints - ENT Reports no additional ear, nose, mouth, and throat complaints - Cardiovascular Reports no additional cardiovascular complaints - Respiratory Reports no additional respiratory complaints - Gastrointestinal Reports no additional gastrointestinal complaints - Genitourinary Reports no additional female genitourinary complaints - Musculoskeletal Reports no additional musculoskeletal complaints - Integumentary/Breasts Skin/Breast: Reports no additional skin complaints - Neurologic Reports no additional neurologic complaints, Reports hearing normal - Psychiatric Reports no additional psychiatric complaints - Endocrine Reports no additional endocrine complaints - Hematologic/Lymphatic Reports no additional hematologic/lymphatic complaints - Allergic/Immunologic Reports no additional allergic/immunologic complaints [facility] Medical History: Medical History (Last Reviewed 04/13/21 @ 10:38 by William German) Acute ITP Breast CA COPD (chronic obstructive pulmonary disease) Fibrocystic breast changes HTN (hypertension) Irregular heart beat Lymphadenopathy, mediastinal Pulmonary nodules Thyroid disease Functional capacity: uses cane/walker Patient : No Family History: Family History (Last Reviewed 04/13/21 @ 10:38 by William German) Other No family history of breast cancer Surgical History: Surgical History (Last Reviewed 04/13/21 @ 10:38 by William German) S/P breast lumpectomy S/P hip replacement Social History: Social History (Last Reviewed 04/13/21 @ 10:38 by William German) Living Situation History: Household Members: Spouse Housing: House Do you presently have visiting nurse or other home services: No Alcohol History: Alcohol intake: never Alcohol History Details: Alcohol intake frequency: does not drink Tobacco History: Patient Tobacco Use Status: Former Tobacco user Tobacco use type: Cigarette Cigarette Packs Per Day: 2 Years Smoked: 40 years Smoke Quit Date: 2005 Substance Use History: Use of substances other than those prescribed or required for medical reasons: No Nutrition Assessment: Patient : No Occupation Assessmet: service: No Current occupational status: retired Oncology Screenings - ECOG Performance Status ECOG Performance Status: 1 Home Medications and Allergies Home Medications Medication Instructions Recorded Confirmed Type albuterol sulfate 90 mcg/actuation 2 puff INHALATION Q4H PRN 12/06/20 04/13/21 History aerosol inhaler atenolol 25 mg tablet 1 tab PO DAILY 12/06/20 04/13/21 History digoxin 250 mcg (0.25 mg) tablet 1 tab PO DAILY 12/06/20 04/13/21 History fluticasone 250 mcg-salmeterol 50 1 inh INHALATION BID 12/06/20 04/13/21 History mcg/dose blistr powdr for inhalation (Advair Diskus) guaifenesin 600 mg tablet, 600 mg PO BID 12/06/20 04/13/21 History extended release 12 hr (Mucinex) levothyroxine 75 mcg tablet 1 tab PO QAM 12/06/20 04/13/21 History montelukast 10 mg tablet 1 tab PO DAILY 12/06/20 04/13/21 History tiotropium bromide 18 mcg capsule 18 mcg INHALATION QAM 12/06/20 04/13/21 History with inhalation device (Spiriva with HandiHaler) latanoprost 0.005 % eye drops 1 drp OPHTHALMIC-RIGHT BEDTIME 12/07/20 04/13/21 History ascorbate calcium (vitamin C) 500 500 mg PO DAILY 01/25/21 04/13/21 History mg tablet clorazepate dipotassium 3.75 mg 3.75 mg PO BEDTIME PRN 01/25/21 04/13/21 History tablet biotin 500 mcg capsule 250 mcg PO DAILY 02/11/21 04/13/21 History calcium carb 333 mg-vit D3 133 3 tab PO DAILY 02/11/21 04/13/21 History unit-mag ox 133 mg-zinc oxide 5 mg tab multivitamin 1 cap PO DAILY 02/11/21 04/13/21 History Allergies Allergy/AdvReac Type Severity Reaction Status Date / Time Carbapenems Allergy Severe RASH Verified 03/08/21 21:02 cefaclor Allergy Severe rash, Verified 03/08/21 21:02 itching cefadroxil [Cefadroxil] Allergy Severe RASH Verified 03/08/21 21:02 cephalexin [From KEFLEX] Allergy Severe RASH Verified 03/08/21 21:02 Cephalosporins Allergy Severe RASH Verified 03/08/21 21:02 chlorhexidine Allergy Severe MUMPS LIKE Verified 03/08/21 21:02 SWELLING TO MOUTH ciprofloxacin Allergy Severe RASH Verified 03/08/21 21:02 ibuprofen [IBUPROFEN] Allergy Severe RASH Verified 03/08/21 21:02 naproxen Allergy Severe RASH, Verified 03/08/21 21:02 rash, itching penicillin V Allergy Severe Rash Verified 03/08/21 21:02 Penicillins Allergy Severe RASH, HIVES Verified 03/08/21 21:02 Sulfa (Sulfonamide Allergy Severe RASH Verified 03/08/21 21:02 Antibiotics) acetaminophen AdvReac Severe PALPITATION Verified 03/08/21 21:02 S adhesives Allergy Severe skin Uncoded 03/08/21 21:02 irritation antiperspirants, deodorants Allergy Severe Rash Uncoded 03/08/21 21:02 carbapenam Allergy Severe Rash Uncoded 03/08/21 21:02 chephlasporins Allergy Severe rash, Uncoded 03/08/21 21:02 itching Chlorhexidine Allergy Severe Rash Uncoded 03/08/21 21:02 chlorhexidine Allergy Severe Rash Uncoded 03/08/21 21:02 duracef Allergy Severe rash, Uncoded 03/08/21 21:02 itching DURACEPT Allergy Severe RASH Uncoded 03/08/21 21:02 keflex Allergy Severe rash, Uncoded 03/08/21 21:02 itching shellfish Allergy Severe severe Uncoded 03/08/21 21:02 hives Exam Vital signs: Vital Signs Temp 98.0 F 03/16/21 10:59 Pulse 74 03/16/21 10:59 Resp 14 03/16/21 10:59 BP 146/88 H 03/16/21 10:59 Pulse Ox 95 03/16/21 10:59 Weight 55.7 kg Body Mass Index 21.0 - Constitutional Present: no acute distress - Routine HEENT Exam Head: Present: normal inspection Eye: Present: normal appearance ENT: Present: mucous membranes moist - Routine Neck Exam Present: full ROM - Routine Respiratory Exam Present: CTAB - Routine Cardiovascular Exam Cardiovascular: Present: RRR, S1, S2 - Routine Abdominal Exam Present: soft, nontender - Routine Rectal Exam Patient deferred: digital exam - Routine Extremities Exam Present: nontender - Routine Back/Spine/Pelvis Exam Back/Spine: Present: full ROM - Routine Skin Exam Present: intact, ecchymosis - Routine Neurological Exam Present: alert, oriented X3 - Routine Psychiatric Exam Present: normal affect Data - Labs CBC & Chem 7: 03/16/21 11:01 03/16/21 11:01 Labs: 01/07/21 11:11 CMP [Comprehensive Met. Panel] Routine Complete Blood Count Auto Diff Routine SLIDE REVIEW Routine Laboratory Last Values WBC 13.9 X10*3/uL (4.8-10.8) H 02/11/21 10:16 RBC 4.20 X10*6/uL (4.20-5.50) 01/07/21 11:11 Hgb 13.2 g/dl (12.0-16.0) 02/11/21 10:16 Hct 41.7 % (37-47) 02/11/21 10:16 MCV 86.4 fL (80-98) 01/07/21 11:11 MCH 28.3 pg (27.0-33.0) 01/07/21 11:11 MCHC 32.8 g/dl (31.0-35.0) 01/07/21 11:11 RDW 14.6 % (11.0-16.0) 01/07/21 11:11 Plt Count 167 X10*3/uL (160-400) 02/11/21 10:16 MPV 9.6 fL (9.4-12.3) 01/07/21 11:11 Immature Gran % (Auto) 0.8 % (0.0-0.4) H 01/07/21 11:11 Neut % (Auto) 94.1 % (45-73) H 01/07/21 11:11 Lymph % (Auto) 2.3 % (20-40) L 01/07/21 11:11 [place] % (Auto) 2.0 % (2-11) 01/07/21 11:11 Eos % (Auto) 0.5 % (0-4) 01/07/21 11:11 Baso % (Auto) 0.3 % (0-2) 01/07/21 11:11 Lymph # (Auto) 0.2 X10*3/uL (1.2-4.9) L 01/07/21 11:11 [place] # (Auto) 0.2 X10*3/uL (0.1-1.2) 01/07/21 11:11 Eos # (Auto) 0.0 X10*3/uL (0.0-0.4) 01/07/21 11:11 Baso # (Auto) 0.0 X10*3/uL (0.0-0.2) 01/07/21 11:11 Abs Immat Gran (auto) 0.07 X10*3/uL (0.00-0.03) H 01/07/21 11:11 Absolute Neuts (auto) 8.2 X10*3/uL (2.0-8.3) 01/07/21 11:11 Absolute Nucleated RBC 0.000 X10*3/uL (0.0-0.012) 01/07/21 11:11 Nucleated RBC % (auto) 0.0 /100WBC (0.0-0.2) 01/07/21 11:11 Smear Tech's Comments VERIFIED 01/07/21 11:11 Sodium 135 mmol/L (135-145) 01/07/21 11:11 Potassium 5.0 mmol/L (3.3-5.1) 01/07/21 11:11 Chloride 100 mmol/L (96-108) 01/07/21 11:11 Carbon Dioxide 26 mmol/L (22-29) 01/07/21 11:11 Anion Gap 14 (12-20) 01/07/21 11:11 BUN 22 mg/dL (9-16) H 01/07/21 11:11 Creatinine 0.79 mg/dL (0.5-1.4) 01/07/21 11:11 Estim Creat Clear Calc 44.9 01/07/21 11:11 Estimated GFR > 60 01/07/21 11:11 Random Glucose 99 mg/dL (60-115) 01/07/21 11:11 Calcium 9.3 mg/dL (8.4-10.2) 01/07/21 11:11 Total Bilirubin 0.6 mg/dL (0.0-1.0) 01/07/21 11:11 AST 25 U/L (5-31) 01/07/21 11:11 ALT 22 U/L (0-31) 01/07/21 11:11 Alkaline Phosphatase 66 U/L (39-117) D 01/07/21 11:11 Total Protein 6.7 g/dL (6.5-8.0) 01/07/21 11:11 Albumin 3.9 g/dL (3.5-5.0) 01/07/21 11:11 Assessment and Plan Patient Active problem list reviewed?: Yes (1) Acute ITP Status: Inactive Assessment and plan: This is a pleasant 86-year-old lady who had presented to the hospital end of last month with significant thrombocytopenia and hemoptysis. Platelet count was 7. She was initially started on steroids. Initially the trend was still low. Between 12/06 and 12/10 platelets were 7, 8, 9. On 12/11 it was 21. On 12/12 it was 13. 5/2 it was 7. 5/3 it was 33. 5/4 it was 63. A bone marrow exam was done, on 12/12, under platelet cover which revealed: Mildly hypercellular marrow with maturing trilineage hematopoiesis and megakaryocytic hyperplasia. Findings are consistent with peripheral platelet destruction/consumption with compensated tree megakaryocytic hyperplasia. No marrow infiltrative processes seen and overt features of dysplasia are not present. Flow cytometry is negative for a B-cell lymphoproliferative disorder. She then received IVIG between 12/13 through 12/15. Her platelets started dropping: On 12/23 there were 81, 12/31 there were 44. She was on a prednisone taper. She was then advised to increase the prednisone to 20 mg. Most recent platelet count: On 01/01 was 42. I was concerned if the platelets are dropping she would need IVIG, however platelet count on 01/07, was encouraging at 137. Platelet count was actually back up to normal on February 11, at 167. She has been doing better. Today's platelets are 127. They do appear to be holding more or less stable. This is very encouraging. She is on a prednisone taper. She was on 15 mg 3 weeks ago. Then down to 12.5 mg. PLAN: Will decrease by 2.5 mg Q 2 weekly. She will now be going down to 10 mg daily. Will monitor her platelet count carefully, on a q 2 weekly basis. Will give her IVIG, if the platelets drop to below 50, since she responded to it in the past. She will return in 1 month for a follow-up visit. Thank you, CC: Dr. Nikolay Romero. (2) Pulmonary nodules Status: Acute Assessment and plan: The patient is an 86-year-old woman with a known history of COPD, breast cancer status post resection, and pulmonary nodules follow-up for many years. She was admitted to the hospital was found to have severe thrombocytopenia. The patient was given a dose of IVIG and started on prednisone for ITP. She also required platelet transfusions. During the hospitalization she did undergo a CT scan of the chest back in November 2020 which demonstrated a 2.5 x 1.5 cm spiculated nodule along with other satellite spiculated nodules and mediastinal lymphadenopathy. Findings at the time very concerning for a malignant process. However, with her significant thrombocytopenia was deemed unsafe to biopsy the areas. Her platelet count has been better. From a respiratory status the patient has been doing well denies any significant weight loss or night sweats. She denies any significant coughing or shortness of breath. We did review the CT scan in the office and she understands the the findings are much worse than her previous CT scans years ago. Therefore, the patient may need to undergo biopsies. But, need to make sure platelet issue has stabilized. Based on the concerning findings will have undergo a PET scan and also PFTs in order to find the optimal in place to biopsy with the highest yield and low is risk. 03/08/2021 the patient was seen for pulmonary follow-up visit. Overall she is doing well after the bronchoscopy. She tolerated well without any apparent complications. The bronchoscopy demonstrated normal airways without any endobronchial lesions. Patient did undergo right upper lobe washings brushings and also transbronchial biopsies demonstrating bronchoalveolar tissue with reactive inflammatory changes as well as evidence of bleeding. No evidence of any malignancy. It was explained to the patient that although the results are reassuring, still concern is about the interval worsening of the nodular density. Close imaging studies were recommended At this point she would rather not follow the nodular density closely since she is not planned to undergo any further diagnostic or surgical interventions. She is still on the prednisone, taper.. The patient understands that if she develops worsening respiratory symptoms she is to call the pulmonary office for further evaluation otherwise. She is to follow up in 3-4 months to assess clinical status. The patient again would like not to additional imaging studies at this time. PLAN: To discuss it further during follow-up visit. Thanks, - Time Spent With Patient Time Spent with Patient (in minutes): 30
--- NOTE | 2021-04-13 16:23 | MHC.HEMONCMA ---
Pt came in for hem follow up and states she is doing well. clinical summary was updated and labs were drawn. pt will be in 1 month for follow up on 05/11/2021.
[2021-05-11 10:30] VITALS: BP 139/67; PULSE 61; RESP 22; TEMP 36.3; O2SAT 94; BMI 20.8
[2021-05-11 10:36] LABS: MANUAL DIFF FLAG NO
[2021-05-11 10:41] LABS: Basophils Absolute Auto 0.1 X10*3/uL (0.0-0.2); Basophils Percent Auto 0.5 % (0-2); Eosinophils Absolute Auto 0.1 X10*3/uL (0.0-0.4); Eosinophils Percent Auto 1.2 % (0-4); Hematocrit 40.9 % (37-47); Hemoglobin 13.7 g/dl (12.0-16.0); Lymphocytes Absolute Auto 0.9 X10*3/uL (1.2-4.9); Mean Corpuscular HGB Conc 33.5 g/dl (31.0-35.0); Mean Corpuscular Hemoglobin 30.4 pg (27.0-33.0); Mean Corpuscular Volume 90.9 fL (80-98); Mean Platelet Volume 9.1 fL (9.4-12.3); Monocytes Absolute Auto 0.6 X10*3/uL (0.1-1.2); Monocytes Percent Auto 6.3 % (2-11); Neutrophils Absolute Auto 7.9 X10*3/uL (2.0-8.3); Platelet Count 126 X10*3/uL (160-400); Red Cell Distribution Width 13.7 % (11.0-16.0); White Blood Count 9.7 X10*3/uL (4.8-10.8)
--- NOTE | 2021-05-11 10:46 | P.PNHO_ITS ---
Medical Summary - Medical Summary Date of Service: 05/11/21 Chief complaint: Follow-up for: ITP. Medical Summary: DIAGNOSIS: ITP. CURRENT THERAPY: IVIG. PREDNISONE. Down to 10 mg daily, for last 1 month. Interval History Interval history: This is a pleasant 86-year-old lady, here for a follow-up visit. She tells me she has been doing quite well. She denies feeling fatigued. She has been out enjoying walking. She notices little bit of bruising here and there but no major bleeding. She has good energy level. She denies any fever nor chills. No headache no dizziness. She denies chest pain or trouble breathing. No abdominal pain nausea vomiting heartburn indigestion. Her bowels are working without any gross blood in it. she enjoys a good appetite. Her weight is stable. She is presently on 10 mg of prednisone. She was previously on 12.5 mg. She is able to tolerate it well, without major side effects. She is in good spirits, Rest of the review of systems is unremarkable. Hospital course: Patient was initially seen in [facility] in November. This is an 85 year old lady with a history of COPD, breast cancer, HTN, who presented to the ED, on 12/06, with hemoptysis. She reported 5 days of intermittent cough productive of clear phlegm mixed with blood. She had some shortness of breath which is chronic and unchanged from her baseline. She denied any fevers or chills. She denied chest pain or palpitations. Her workup in the ED was significant for severe thrombocytopenia with platelets of 7, D-dimer of 6064. She underwent CTA which showed no evidence of pulmonary embolism but 2 right upper lobe lung lesions concerning for malignancy. She denies a known history of thrombocytopenia, although her previous CBC from April 2020 shows a platelet count of 117. She denies the use of blood thinner or aspirin at home. She denies any hematuria or bleeding from the gums or nose. She has had hemorrhoidal bleeding in the past, but not right now. She may have lost a few pounds over the past month or so, but no significant weight loss noted. She has been fully vaccinated for COVID 19 with Pfizer vaccine, the second dose of which she received 11/04. One unit of platelets was transfused. She presented with severe thrombocytopenia, with a platelet count less than 10. She was also diagnosed with this suspicious lung mass.She was transfused platelets and workup was initiated. She underwent evaluation by both Pulmonary and Hematology. 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 She was subsequently started on systemic steroids. However her platelet counts did not improve right away. She underwent a bone marrow biopsy which showed: Mildly hypercellular marrow with maturing trilineage hematopoiesis and megakaryocyte hyperplasia. See description and comment. The findings are consistent with peripheral platelet destruction/consumption with compensatory megakaryocyte hyperplasia. No marrow infiltrative process is seen and overt features of dysplasia are not present. Concurrent flow cytometry is negative for a B-cell lymphoproliferative disorder. She was started on IVIG (x 2 days) with daily improvement in her platelets counts to >60k at the time of discharge. In regards to her lung mass, biopsy was deferred due to thrombocytopenia and she was referred to the pulmonary clinic for outpatient workup. This turned out to be benign. Review of Systems - Constitutional Reports system reviewed and no additional complaints, except as documented - Eyes Reports system reviewed and no additional complaints, except as documented - ENT Reports system reviewed and no additional complaints, except as documented - Cardiovascular Reports system reviewed and no additional complaints, except as documented - Respiratory Reports no additional respiratory complaints - Gastrointestinal Reports system reviewed and no additional complaints, except as documented - Genitourinary Reports no additional female genitourinary complaints - Musculoskeletal Reports system reviewed and no additional complaints, except as documented - Integumentary/Breasts Skin/Breast: Reports no additional skin complaints - Neurologic Reports system reviewed and no additional complaints, except as documented, Reports hearing normal - Psychiatric Reports system reviewed and no additional complaints, except as documented - Endocrine Reports no additional endocrine complaints - Hematologic/Lymphatic Reports system reviewed and no additional complaints, except as documented - Allergic/Immunologic Reports system reviewed and no additional complaints, except as documented PMFSH Medical History: Medical History (Last Reviewed 05/11/21 @ 10:31 by William German) Acute ITP Breast CA COPD (chronic obstructive pulmonary disease) Fibrocystic breast changes HTN (hypertension) Irregular heart beat Lymphadenopathy, mediastinal Pulmonary nodules Thyroid disease Functional capacity: uses cane/walker Patient : No Family History: Family History (Last Reviewed 05/11/21 @ 10:31 by William German) Other No family history of breast cancer Surgical History: Surgical History (Last Reviewed 05/11/21 @ 10:31 by William German) S/P breast lumpectomy S/P hip replacement Social History: Social History (Last Reviewed 05/11/21 @ 10:31 by William German) Living Situation History: Household Members: Spouse Housing: House Do you presently have visiting nurse or other home services: No Alcohol History: Alcohol intake: never Alcohol History Details: Alcohol intake frequency: does not drink Tobacco History: Patient Tobacco Use Status: Former Tobacco user Tobacco use type: Cigarette Cigarette Packs Per Day: 2 Years Smoked: 40 years Smoke Quit Date: 2005 Substance Use History: Use of substances other than those prescribed or required for medical reasons : No Nutrition Assessment: Patient : No Occupation Assessmet: service: No Current occupational status: retired Oncology Screenings - ECOG Performance Status ECOG Performance Status: 1 Home Medications and Allergies Home Medications Medication Instructions Recorded Confirmed Type albuterol sulfate 90 mcg/actuation 2 puff INHALATION Q4H PRN 12/06/20 05/11/21 History aerosol inhaler atenolol 25 mg tablet 1 tab PO DAILY 12/06/20 05/11/21 History digoxin 250 mcg (0.25 mg) tablet 1 tab PO DAILY 12/06/20 05/11/21 History fluticasone 250 mcg-salmeterol 50 1 inh INHALATION BID 12/06/20 05/11/21 History mcg/dose blistr powdr for inhalation (Advair Diskus) guaifenesin 600 mg tablet, 600 mg PO BID 12/06/20 05/11/21 History extended release 12 hr (Mucinex) levothyroxine 75 mcg tablet 1 tab PO QAM 12/06/20 05/11/21 History montelukast 10 mg tablet 1 tab PO DAILY 12/06/20 05/11/21 History tiotropium bromide 18 mcg capsule 18 mcg INHALATION QAM 12/06/20 05/11/21 History with inhalation device (Spiriva with HandiHaler) latanoprost 0.005 % eye drops 1 drp OPHTHALMIC-RIGHT BEDTIME 12/07/20 05/11/21 History ascorbate calcium (vitamin C) 500 500 mg PO DAILY 01/25/21 05/11/21 History mg tablet clorazepate dipotassium 3.75 mg 3.75 mg PO BEDTIME PRN 01/25/21 05/11/21 History tablet biotin 500 mcg capsule 250 mcg PO DAILY 02/11/21 05/11/21 History calcium carb 333 mg-vit D3 133 3 tab PO DAILY 02/11/21 05/11/21 History unit-mag ox 133 mg-zinc oxide 5 mg tab multivitamin 1 cap PO DAILY 02/11/21 05/11/21 History Allergies Allergy/AdvReac Type Severity Reaction Status Date / Time Carbapenems Allergy Severe RASH Verified 03/08/21 21:02 cefaclor Allergy Severe rash, Verified 03/08/21 21:02 itching cefadroxil [Cefadroxil] Allergy Severe RASH Verified 03/08/21 21:02 cephalexin [From KEFLEX] Allergy Severe RASH Verified 03/08/21 21:02 Cephalosporins Allergy Severe RASH Verified 03/08/21 21:02 chlorhexidine Allergy Severe MUMPS LIKE Verified 03/08/21 21:02 SWELLING TO MOUTH ciprofloxacin Allergy Severe RASH Verified 03/08/21 21:02 ibuprofen [IBUPROFEN] Allergy Severe RASH Verified 03/08/21 21:02 naproxen Allergy Severe RASH, Verified 03/08/21 21:02 rash, itching penicillin V Allergy Severe Rash Verified 03/08/21 21:02 Penicillins Allergy Severe RASH, HIVES Verified 03/08/21 21:02 Sulfa (Sulfonamide Allergy Severe RASH Verified 03/08/21 21:02 Antibiotics) acetaminophen AdvReac Severe PALPITATION Verified 03/08/21 21:02 S adhesives Allergy Severe skin Uncoded 03/08/21 21:02 irritation antiperspirants, deodorants Allergy Severe Rash Uncoded 03/08/21 21:02 carbapenam Allergy Severe Rash Uncoded 03/08/21 21:02 chephlasporins Allergy Severe rash, Uncoded 03/08/21 21:02 itching Chlorhexidine Allergy Severe Rash Uncoded 03/08/21 21:02 chlorhexidine Allergy Severe Rash Uncoded 03/08/21 21:02 duracef Allergy Severe rash, Uncoded 03/08/21 21:02 itching DURACEPT Allergy Severe RASH Uncoded 03/08/21 21:02 keflex Allergy Severe rash, Uncoded 03/08/21 21:02 itching shellfish Allergy Severe severe Uncoded 03/08/21 21:02 hives Exam Vital signs: Vital Signs Temp 97.4 F 05/11/21 10:30 Pulse 61 05/11/21 10:30 Resp 22 H 05/11/21 10:30 BP 139/67 05/11/21 10:30 Pulse Ox 94 05/11/21 10:30 Intake & Output 05/10/21 05/11/21 05/11/21 18:59 06:59 18:59 Other: Weight 55 kg Weight in Grams 92002 Weight 55 kg Body Mass Index 20.8 - Constitutional Present: no acute distress - Routine HEENT Exam Head: Present: normal inspection Eye: Present: normal appearance ENT: Present: mucous membranes moist - Routine Neck Exam Present: full ROM - Routine Respiratory Exam Present: CTAB - Routine Cardiovascular Exam Cardiovascular: Present: RRR, S1, S2 - Routine Abdominal Exam Present: soft, nontender - Routine Rectal Exam Patient deferred: digital exam - Routine Extremities Exam Present: nontender - Routine Back/Spine/Pelvis Exam Back/Spine: Present: full ROM - Routine Skin Exam Present: intact, ecchymosis - Routine Neurological Exam Present: alert, oriented X3 - Routine Psychiatric Exam Present: normal affect Data - Labs CBC & Chem 7: 05/11/21 10:17 05/11/21 10:17 Labs: 01/07/21 11:11 CMP [Comprehensive Met. Panel] Routine Complete Blood Count Auto Diff Routine SLIDE REVIEW Routine Laboratory Last Values WBC 13.9 X10*3/uL (4.8-10.8) H 02/11/21 10:16 RBC 4.20 X10*6/uL (4.20-5.50) 01/07/21 11:11 Hgb 13.2 g/dl (12.0-16.0) 02/11/21 10:16 Hct 41.7 % (37-47) 02/11/21 10:16 MCV 86.4 fL (80-98) 01/07/21 11:11 MCH 28.3 pg (27.0-33.0) 01/07/21 11:11 MCHC 32.8 g/dl (31.0-35.0) 01/07/21 11:11 RDW 14.6 % (11.0-16.0) 01/07/21 11:11 Plt Count 167 X10*3/uL (160-400) 02/11/21 10:16 MPV 9.6 fL (9.4-12.3) 01/07/21 11:11 Immature Gran % (Auto) 0.8 % (0.0-0.4) H 01/07/21 11:11 Neut % (Auto) 94.1 % (45-73) H 01/07/21 11:11 Lymph % (Auto) 2.3 % (20-40) L 01/07/21 11:11 [place] % (Auto) 2.0 % (2-11) 01/07/21 11:11 Eos % (Auto) 0.5 % (0-4) 01/07/21 11:11 Baso % (Auto) 0.3 % (0-2) 01/07/21 11:11 Lymph # (Auto) 0.2 X10*3/uL (1.2-4.9) L 01/07/21 11:11 [place] # (Auto) 0.2 X10*3/uL (0.1-1.2) 01/07/21 11:11 Eos # (Auto) 0.0 X10*3/uL (0.0-0.4) 01/07/21 11:11 Baso # (Auto) 0.0 X10*3/uL (0.0-0.2) 01/07/21 11:11 Abs Immat Gran (auto) 0.07 X10*3/uL (0.00-0.03) H 01/07/21 11:11 Absolute Neuts (auto) 8.2 X10*3/uL (2.0-8.3) 01/07/21 11:11 Absolute Nucleated RBC 0.000 X10*3/uL (0.0-0.012) 01/07/21 11:11 Nucleated RBC % (auto) 0.0 /100WBC (0.0-0.2) 01/07/21 11:11 Smear Tech's Comments VERIFIED 01/07/21 11:11 Sodium 135 mmol/L (135-145) 01/07/21 11:11 Potassium 5.0 mmol/L (3.3-5.1) 01/07/21 11:11 Chloride 100 mmol/L (96-108) 01/07/21 11:11 Carbon Dioxide 26 mmol/L (22-29) 01/07/21 11:11 Anion Gap 14 (12-20) 01/07/21 11:11 BUN 22 mg/dL (9-16) H 01/07/21 11:11 Creatinine 0.79 mg/dL (0.5-1.4) 01/07/21 11:11 Estim Creat Clear Calc 44.9 01/07/21 11:11 Estimated GFR > 60 01/07/21 11:11 Random Glucose 99 mg/dL (60-115) 01/07/21 11:11 Calcium 9.3 mg/dL (8.4-10.2) 01/07/21 11:11 Total Bilirubin 0.6 mg/dL (0.0-1.0) 01/07/21 11:11 AST 25 U/L (5-31) 01/07/21 11:11 ALT 22 U/L (0-31) 01/07/21 11:11 Alkaline Phosphatase 66 U/L (39-117) D 01/07/21 11:11 Total Protein 6.7 g/dL (6.5-8.0) 01/07/21 11:11 Albumin 3.9 g/dL (3.5-5.0) 01/07/21 11:11 Assessment and Plan Patient Active problem list reviewed?: Yes (1) Acute ITP Status: Inactive Assessment and plan: This is a pleasant 86-year-old lady who had presented to the hospital end of last month with significant thrombocytopenia and hemoptysis. Platelet count was 7. She was initially started on steroids. Initially the trend was still low. Between 12/06 and 12/10 platelets were 7, 8, 9. On 12/11 it was 21. On 12/12 it was 13. 5/2 it was 7. 5/3 it was 33. 5/4 it was 63. A bone marrow exam was done, on 12/12, under platelet cover which revealed: Mildly hypercellular marrow with maturing trilineage hematopoiesis and megakaryocytic hyperplasia. Findings are consistent with peripheral platelet destruction/consumption with compensated tree megakaryocytic hyperplasia. No marrow infiltrative processes seen and overt features of dysplasia are not present. Flow cytometry is negative for a B-cell lymphoproliferative disorder. She then received IVIG between 12/13 through 12/15. Her platelets started dropping: On 12/23 there were 81, 12/31 there were 44. She was on a prednisone taper. She was then advised to increase the prednisone to 20 mg. Most recent platelet count: On 01/01 was 42. I was concerned if the platelets are dropping she would need IVIG, however platelet count on 01/07, was encouraging at 137. Platelet count was actually back up to normal on February 11, at 167. She has been doing better. Today's platelets are 126. They do appear to be more or less stable. This is very encouraging. She is on a prednisone taper. She was on 15 mg 8 weeks ago. Then down to 12.5 mg, and then 10 mg, over the past month or so. PLAN: Will decrease by 2.5 mg Q 2 weekly. She will now be going down to 7.5 mg daily. Will monitor her platelet count carefully, on a q 2 weekly basis. Will give her IVIG, if the platelets drop to below 50, since she responded to it in the past. She will return in 1 month for a follow-up visit. Thank you, CC: Dr. Nikolay Romero. (2) Pulmonary nodules Status: Acute Assessment and plan: The patient is an 86-year-old woman with a known history of COPD, breast cancer status post resection, and pulmonary nodules follow-up for many years. She was admitted to the hospital was found to have severe thrombocytopenia. The patient was given a dose of IVIG and started on prednisone for ITP. She also required platelet transfusions. During the hospitalization she did undergo a CT scan of the chest back in November 2020 which demonstrated a 2.5 x 1.5 cm spiculated nodule along with other satellite spiculated nodules and mediastinal lymphadenopathy. Findings at the time very concerning for a malignant process. However, with her significant thrombocytopenia was deemed unsafe to biopsy the areas. Her platelet count has been better. From a respiratory status the patient has been doing well denies any significant weight loss or night sweats. She denies any significant coughing or shortness of breath. We did review the CT scan in the office and she understands the the findings are much worse than her previous CT scans years ago. Therefore, the patient may need to undergo biopsies. But, need to make sure platelet issue has stabilized. Based on the concerning findings will have undergo a PET scan and also PFTs in order to find the optimal in place to biopsy with the highest yield and low is risk. 03/08/2021 the patient was seen for pulmonary follow-up visit. Overall she is doing well after the bronchoscopy. She tolerated well without any apparent complications. The bronchoscopy demonstrated normal airways without any endobronchial lesions. Patient did undergo right upper lobe washings brushings and also transbronchial biopsies demonstrating bronchoalveolar tissue with reactive inflammatory changes as well as evidence of bleeding. No evidence of any malignancy. It was explained to the patient that although the results are reassuring, still concern is about the interval worsening of the nodular density. Close imaging studies were recommended At this point she would rather not follow the nodular density closely since she is not planned to undergo any further diagnostic or surgical interventions. She is still on the prednisone, taper.. The patient understands that if she develops worsening respiratory symptoms she is to call the pulmonary office for further evaluation otherwise. She is to follow up in 3-4 months to assess clinical status. The patient again would like not to additional imaging studies at this time. PLAN: To discuss it further during follow-up visit. Thanks, - Time Spent With Patient Time Spent with Patient (in minutes): 30
[2021-05-11 11:00] LABS: Alanine Aminotransferase 18 U/L (0-31); Albumin Level 3.9 g/dL (3.5-5.0); Alkaline Phosphatase 54 U/L (39-117); Anion Gap 13 (12-20); Aspartate Amino Transferase 20 U/L (5-31); Bilirubin Total 0.5 mg/dL (0.0-1.0); Blood Urea Nitrogen 30 mg/dL (9-16); Calcium 9.6 mg/dL (8.4-10.2); Carbon Dioxide 28 mmol/L (22-29); Chloride 102 mmol/L (96-108); Creatinine Clr Calc Pharmacy 43.3; Estimated Glomerular Filt Rate > 60; Glucose Random 96 mg/dL (60-115); Potassium 4.5 mmol/L (3.3-5.1); Sodium 138 mmol/L (135-145); Total Protein 6.2 g/dL (6.5-8.0)
--- NOTE | 2021-05-11 15:56 | MHC.HEMONCMA ---
Pt came in for hem follow up and states she is doing well. clinical summary was updated and labs were drawn. pt will be seen in 1 month for follow up visit on 06/08/2021.
--- NOTE | 2021-05-20 10:36 | MHC.HEMONC ---
Patient called regarding third booster vaccine and whether she should have it. Dr. Harrison notified and states ok to get 3rd vaccine. Patient aware.
--- NOTE | 2021-05-31 10:52 | MHC.HEMONC ---
Pt called unit with question for Dr Harrison. Pt wants to know if she can receive the booster shot for covid. Dr Harrison notified-pt can receive booster shot. Pt called and notified
[2021-06-08 10:39] LABS: MANUAL DIFF FLAG NO
[2021-06-08 10:40] VITALS: BP 148/69; PULSE 66; RESP 14; TEMP 36.7; O2SAT 94; BMI 20.8
[2021-06-08 10:44] LABS: Basophils Absolute Auto 0.1 X10*3/uL (0.0-0.2); Basophils Percent Auto 0.6 % (0-2); Eosinophils Absolute Auto 0.1 X10*3/uL (0.0-0.4); Eosinophils Percent Auto 1.1 % (0-4); Hematocrit 39.8 % (37-47); Hemoglobin 13.4 g/dl (12.0-16.0); Imm Gran Abs Auto 0.12 X10*3/uL (0.00-0.03); Imm Gran Pct Auto 1.2 % (0.0-0.4); Lymphocytes Absolute Auto 0.7 X10*3/uL (1.2-4.9); Mean Corpuscular HGB Conc 33.7 g/dl (31.0-35.0); Mean Corpuscular Hemoglobin 30.3 pg (27.0-33.0); Mean Platelet Volume 9.1 fL (9.4-12.3); Monocytes Absolute Auto 0.7 X10*3/uL (0.1-1.2); Monocytes Percent Auto 6.4 % (2-11); Neutrophils Absolute Auto 8.5 X10*3/uL (2.0-8.3); Neutrophils Percent Auto 83.7 % (45-73); Platelet Count 127 X10*3/uL (160-400); Red Blood Count 4.42 X10*6/uL (4.20-5.50); Red Cell Distribution Width 13.4 % (11.0-16.0); White Blood Count 10.2 X10*3/uL (4.8-10.8)
[2021-06-08 11:01] LABS: Alanine Aminotransferase 16 U/L (0-31); Albumin Level 4.1 g/dL (3.5-5.0); Alkaline Phosphatase 62 U/L (39-117); Anion Gap 12 (12-20); Aspartate Amino Transferase 21 U/L (5-31); Bilirubin Total 0.5 mg/dL (0.0-1.0); Blood Urea Nitrogen 30 mg/dL (9-16); Calcium 9.4 mg/dL (8.4-10.2); Carbon Dioxide 28 mmol/L (22-29); Chloride 103 mmol/L (96-108); Creatinine Clr Calc Pharmacy 44.4; Estimated Glomerular Filt Rate > 60; Glucose Random 95 mg/dL (60-115); Potassium 4.5 mmol/L (3.3-5.1); Sodium 138 mmol/L (135-145); Total Protein 6.4 g/dL (6.5-8.0)
--- NOTE | 2021-06-08 11:13 | P.PNHO_ITS ---
Medical Summary - Medical Summary Date of Service: 06/08/21 Chief complaint: Follow-up for: ITP. Medical Summary: DIAGNOSIS: ITP. CURRENT THERAPY: IVIG. PREDNISONE. Down to 7.5 mg daily, for last 1 month. Interval History Interval history: This is a pleasant 86-year-old lady, here for a follow-up visit. She tells me she has been doing very well. She denies any complaints today. She denies feeling fatigued. She notices little bit of bruising here and there but no major bleeding. She has good energy level. She denies any fever nor chills. No headache no dizziness. She denies chest pain or trouble breathing. No abdominal pain nausea vomiting heartburn indigestion. Her bowels are working without any gross blood in it. She enjoys a good appetite. Her weight is stable. She is presently on 7.5 mg of prednisone. She was previously on 10 mg. She is able to tolerate it well, without major side effects. She is in good spirits, Rest of the review of systems is unremarkable. Hospital course: Patient was initially seen in [facility] in November. This is an 85 year old lady with a history of COPD, breast cancer, HTN, who presented to the ED, on 12/06, with hemoptysis. She reported 5 days of intermittent cough productive of clear phlegm mixed with blood. She had some shortness of breath which is chronic and unchanged from her baseline. She denied any fevers or chills. She denied chest pain or palpitations. Her workup in the ED was significant for severe thrombocytopenia with platelets of 7, D-dimer of 6064. She underwent CTA which showed no evidence of pulmonary embolism but 2 right upper lobe lung lesions concerning for malignancy. She denies a known history of thrombocytopenia, although her previous CBC from April 2020 shows a platelet count of 117. She denies the use of blood thinner or aspirin at home. She denies any hematuria or bleeding from the gums or nose. She has had hemorrhoidal bleeding in the past, but not right now. She may have lost a few pounds over the past month or so, but no significant weight loss noted. She has been fully vaccinated for COVID 19 with Pfizer vaccine, the second dose of which she received 11/04. One unit of platelets was transfused. She presented with severe thrombocytopenia, with a platelet count less than 10. She was also diagnosed with this suspicious lung mass.She was transfused platelets and workup was initiated. She underwent evaluation by both Pulmonary and Hematology. 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 She was subsequently started on systemic steroids. However her platelet counts did not improve right away. She underwent a bone marrow biopsy which showed: Mildly hypercellular marrow with maturing trilineage hematopoiesis and megakaryocyte hyperplasia. See description and comment. The findings are consistent with peripheral platelet destruction/consumption with compensatory megakaryocyte hyperplasia. No marrow infiltrative process is seen and overt features of dysplasia are not present. Concurrent flow cytometry is negative for a B-cell lymphoproliferative disorder. She was started on IVIG (x 2 days) with daily improvement in her platelets counts to >60k at the time of discharge. In regards to her lung mass, biopsy was deferred due to thrombocytopenia and she was referred to the pulmonary clinic for outpatient workup. This turned out to be benign. Review of Systems - Constitutional Reports system reviewed and no additional complaints, except as documented - Eyes Reports system reviewed and no additional complaints, except as documented - ENT Reports system reviewed and no additional complaints, except as documented - Cardiovascular Reports system reviewed and no additional complaints, except as documented - Respiratory Reports no additional respiratory complaints - Gastrointestinal Reports system reviewed and no additional complaints, except as documented - Genitourinary Reports no additional female genitourinary complaints - Musculoskeletal Reports system reviewed and no additional complaints, except as documented - Integumentary/Breasts Skin/Breast: Reports no additional skin complaints - Neurologic Reports system reviewed and no additional complaints, except as documented, Reports hearing normal - Psychiatric Reports system reviewed and no additional complaints, except as documented - Endocrine Reports no additional endocrine complaints - Hematologic/Lymphatic Reports system reviewed and no additional complaints, except as documented - Allergic/Immunologic Reports system reviewed and no additional complaints, except as documented PMF Medical History: Medical History (Last Reviewed 06/08/21 @ 10:44 by William German) Acute ITP Breast CA COPD (chronic obstructive pulmonary disease) Fibrocystic breast changes HTN (hypertension) Irregular heart beat Lymphadenopathy, mediastinal Pulmonary nodules Thyroid disease Functional capacity: uses cane/walker Patient : No Family History: Family History (Last Reviewed 06/08/21 @ 10:44 by William German) Other No family history of breast cancer Surgical History: Surgical History (Last Reviewed 06/08/21 @ 10:44 by William German) S/P breast lumpectomy S/P hip replacement Social History: Social History (Last Reviewed 06/08/21 @ 10:44 by William German) Living Situation History: Household Members: Spouse Housing: House Do you presently have visiting nurse or other home services: No Alcohol History: Alcohol intake: never Alcohol History Details: Alcohol intake frequency: does not drink Tobacco History: Patient Tobacco Use Status: Former Tobacco user Tobacco use type: Cigarette Cigarette Packs Per Day: 2 Years Smoked: 40 years Smoke Quit Date: 2005 Substance Use History: Use of substances other than those prescribed or required for medical reasons : No Nutrition Assessment: Patient : No Occupation Assessmet: service: No Current occupational status: retired Oncology Screenings - ECOG Performance Status ECOG Performance Status: 1 Home Medications and Allergies Home Medications Medication Instructions Recorded Confirmed Type albuterol sulfate 90 mcg/actuation 2 puff INHALATION Q4H PRN 12/06/20 06/08/21 History aerosol inhaler atenolol 25 mg tablet 1 tab PO DAILY 12/06/20 06/08/21 History digoxin 250 mcg (0.25 mg) tablet 1 tab PO DAILY 12/06/20 06/08/21 History fluticasone 250 mcg-salmeterol 50 1 inh INHALATION BID 12/06/20 06/08/21 History mcg/dose blistr powdr for inhalation (Advair Diskus) guaifenesin 600 mg tablet, 600 mg PO BID 12/06/20 06/08/21 History extended release 12 hr (Mucinex) levothyroxine 75 mcg tablet 1 tab PO QAM 12/06/20 06/08/21 History montelukast 10 mg tablet 1 tab PO DAILY 12/06/20 06/08/21 History tiotropium bromide 18 mcg capsule 18 mcg INHALATION QAM 12/06/20 06/08/21 History with inhalation device (Spiriva with HandiHaler) latanoprost 0.005 % eye drops 1 drp OPHTHALMIC-RIGHT BEDTIME 12/07/20 06/08/21 History ascorbate calcium (vitamin C) 500 500 mg PO DAILY 01/25/21 06/08/21 History mg tablet clorazepate dipotassium 3.75 mg 3.75 mg PO BEDTIME PRN 01/25/21 06/08/21 History tablet biotin 500 mcg capsule 250 mcg PO DAILY 02/11/21 06/08/21 History calcium carb 333 mg-vit D3 133 3 tab PO DAILY 02/11/21 06/08/21 History unit-mag ox 133 mg-zinc oxide 5 mg tab multivitamin 1 cap PO DAILY 02/11/21 06/08/21 History Allergies Allergy/AdvReac Type Severity Reaction Status Date / Time Carbapenems Allergy Severe RASH Verified 06/08/21 09:59 cefaclor Allergy Severe rash, Verified 06/08/21 09:59 itching cefadroxil [Cefadroxil] Allergy Severe RASH Verified 06/08/21 09:59 cephalexin [From KEFLEX] Allergy Severe RASH Verified 06/08/21 09:59 Cephalosporins Allergy Severe RASH Verified 06/08/21 09:59 chlorhexidine Allergy Severe MUMPS LIKE Verified 06/08/21 09:59 SWELLING TO MOUTH ciprofloxacin Allergy Severe RASH Verified 06/08/21 09:59 ibuprofen [IBUPROFEN] Allergy Severe RASH Verified 06/08/21 09:59 naproxen Allergy Severe RASH, Verified 06/08/21 09:59 rash, itching penicillin V Allergy Severe Rash Verified 06/08/21 09:59 Penicillins Allergy Severe RASH, HIVES Verified 06/08/21 09:59 Sulfa (Sulfonamide Allergy Severe RASH Verified 06/08/21 09:59 Antibiotics) acetaminophen AdvReac Severe PALPITATION Verified 06/08/21 09:59 S adhesives Allergy Severe skin Uncoded 06/08/21 09:59 irritation antiperspirants, deodorants Allergy Severe Rash Uncoded 06/08/21 09:59 carbapenam Allergy Severe Rash Uncoded 06/08/21 09:59 chephlasporins Allergy Severe rash, Uncoded 06/08/21 09:59 itching Chlorhexidine Allergy Severe Rash Uncoded 06/08/21 09:59 chlorhexidine Allergy Severe Rash Uncoded 06/08/21 09:59 duracef Allergy Severe rash, Uncoded 06/08/21 09:59 itching DURACEPT Allergy Severe RASH Uncoded 06/08/21 09:59 keflex Allergy Severe rash, Uncoded 06/08/21 09:59 itching shellfish Allergy Severe severe Uncoded 06/08/21 09:59 hives Exam Vital signs: Vital Signs Temp 98.1 F 06/08/21 10:40 Pulse 66 06/08/21 10:40 Resp 14 06/08/21 10:40 BP 148/69 H 06/08/21 10:40 Pulse Ox 94 06/08/21 10:40 Intake & Output 06/07/21 06/08/21 06/08/21 18:59 06:59 18:59 Other: Weight 55 kg Weight in Grams [id number] Weight 55 kg Body Mass Index 20.8 - Constitutional Present: no acute distress - Routine HEENT Exam Head: Present: normal inspection Eye: Present: normal appearance ENT: Present: mucous membranes moist - Routine Neck Exam Present: full ROM - Routine Respiratory Exam Present: CTAB - Routine Cardiovascular Exam Cardiovascular: Present: RRR, S1, S2 - Routine Abdominal Exam Present: soft, nontender - Routine Rectal Exam Patient deferred: digital exam - Routine Extremities Exam Present: nontender - Routine Back/Spine/Pelvis Exam Back/Spine: Present: full ROM - Routine Skin Exam Present: intact, ecchymosis - Routine Neurological Exam Present: alert, oriented X3 - Routine Psychiatric Exam Present: normal affect Data - Labs CBC & Chem 7: 06/08/21 10:37 06/08/21 10:37 Labs: 01/07/21 11:11 CMP [Comprehensive Met. Panel] Routine Complete Blood Count Auto Diff Routine SLIDE REVIEW Routine Laboratory Last Values WBC 13.9 X10*3/uL (4.8-10.8) H 02/11/21 10:16 RBC 4.20 X10*6/uL (4.20-5.50) 01/07/21 11:11 Hgb 13.2 g/dl (12.0-16.0) 02/11/21 10:16 Hct 41.7 % (37-47) 02/11/21 10:16 MCV 86.4 fL (80-98) 01/07/21 11:11 MCH 28.3 pg (27.0-33.0) 01/07/21 11:11 MCHC 32.8 g/dl (31.0-35.0) 01/07/21 11:11 RDW 14.6 % (11.0-16.0) 01/07/21 11:11 Plt Count 167 X10*3/uL (160-400) 02/11/21 10:16 MPV 9.6 fL (9.4-12.3) 01/07/21 11:11 Immature Gran % (Auto) 0.8 % (0.0-0.4) H 01/07/21 11:11 Neut % (Auto) 94.1 % (45-73) H 01/07/21 11:11 Lymph % (Auto) 2.3 % (20-40) L 01/07/21 11:11 [place] % (Auto) 2.0 % (2-11) 01/07/21 11:11 Eos % (Auto) 0.5 % (0-4) 01/07/21 11:11 Baso % (Auto) 0.3 % (0-2) 01/07/21 11:11 Lymph # (Auto) 0.2 X10*3/uL (1.2-4.9) L 01/07/21 11:11 [place] # (Auto) 0.2 X10*3/uL (0.1-1.2) 01/07/21 11:11 Eos # (Auto) 0.0 X10*3/uL (0.0-0.4) 01/07/21 11:11 Baso # (Auto) 0.0 X10*3/uL (0.0-0.2) 01/07/21 11:11 Abs Immat Gran (auto) 0.07 X10*3/uL (0.00-0.03) H 01/07/21 11:11 Absolute Neuts (auto) 8.2 X10*3/uL (2.0-8.3) 01/07/21 11:11 Absolute Nucleated RBC 0.000 X10*3/uL (0.0-0.012) 01/07/21 11:11 Nucleated RBC % (auto) 0.0 /100WBC (0.0-0.2) 01/07/21 11:11 Smear Tech's Comments VERIFIED 01/07/21 11:11 Sodium 135 mmol/L (135-145) 01/07/21 11:11 Potassium 5.0 mmol/L (3.3-5.1) 01/07/21 11:11 Chloride 100 mmol/L (96-108) 01/07/21 11:11 Carbon Dioxide 26 mmol/L (22-29) 01/07/21 11:11 Anion Gap 14 (12-20) 01/07/21 11:11 BUN 22 mg/dL (9-16) H 01/07/21 11:11 Creatinine 0.79 mg/dL (0.5-1.4) 01/07/21 11:11 Estim Creat Clear Calc 44.9 01/07/21 11:11 Estimated GFR > 60 01/07/21 11:11 Random Glucose 99 mg/dL (60-115) 01/07/21 11:11 Calcium 9.3 mg/dL (8.4-10.2) 01/07/21 11:11 Total Bilirubin 0.6 mg/dL (0.0-1.0) 01/07/21 11:11 AST 25 U/L (5-31) 01/07/21 11:11 ALT 22 U/L (0-31) 01/07/21 11:11 Alkaline Phosphatase 66 U/L (39-117) D 01/07/21 11:11 Total Protein 6.7 g/dL (6.5-8.0) 01/07/21 11:11 Albumin 3.9 g/dL (3.5-5.0) 01/07/21 11:11 Assessment and Plan Patient Active problem list reviewed?: Yes (1) Acute ITP Status: Inactive Assessment and plan: This is a pleasant 86-year-old lady who had presented to the hospital back in November with significant thrombocytopenia and hemoptysis. Platelet count was 7. She was initially started on steroids. Initially the trend was still low. Between 12/06 and 12/10 platelets were 7, 8, 9. On 12/11 it was 21. On 12/12 it was 13. 5/2 it was 7. 5/3 it was 33. 5/4 it was 63. A bone marrow exam was done, on 12/12, under platelet cover which revealed: Mildly hypercellular marrow with maturing trilineage hematopoiesis and megakaryocytic hyperplasia. Findings are consistent with peripheral platelet destruction/consumption with compensated tree megakaryocytic hyperplasia. No marrow infiltrative processes seen and overt features of dysplasia are not present. Flow cytometry is negative for a B-cell lymphoproliferative disorder. She then received IVIG between 12/13 through 12/15. Her platelets started improving: On 12/23 there were 81, 12/31 there were 44. She was on a prednisone taper. She was then advised to increase the prednisone to 20 mg. her platelet count on 01/01: was 42. I was concerned if the platelets are dropping she would need IVIG, however platelet count on 01/07, was encouraging at 137. Platelet count was actually back up to normal on February 11, at 167. She has been doing better. Last platelet count was 118. Today's platelets are 127. They do appear to be on the upswing. This is very encouraging. She is on a prednisone taper. She was on 7.5mg, over the past month. PLAN: Will decrease prednisone to 5 mg for the next couple of weeks. I will monitor her platelet count carefully, on a q 2 weekly basis. Will give her IVIG, if the platelets drop to below 50, since she responded to it in the past. She will return in 1 month for a follow-up visit. Thank you, CC: Dr. Nikolay Romero. (2) Pulmonary nodules Status: Acute Assessment and plan: The patient is an 86-year-old woman with a known history of COPD, breast cancer status post resection, and pulmonary nodules follow-up for many years. She was admitted to the hospital was found to have severe thrombocytopenia. The patient was given a dose of IVIG and started on prednisone for ITP. She also required platelet transfusions. During the hospitalization she did undergo a CT scan of the chest back in November 2020 which demonstrated a 2.5 x 1.5 cm spiculated nodule along with other satellite spiculated nodules and mediastinal lymphadenopathy. Findings at the time very concerning for a malignant process. However, with her significant thrombocytopenia was deemed unsafe to biopsy the areas. Her platelet count has been better. From a respiratory status the patient has been doing well denies any significant weight loss or night sweats. She denies any significant coughing or shortness of breath. We did review the CT scan in the office and she understands the the findings are much worse than her previous CT scans years ago. Therefore, the patient may need to undergo biopsies. But, need to make sure platelet issue has stabilized. Based on the concerning findings will have undergo a PET scan and also PFTs in order to find the optimal in place to biopsy with the highest yield and low is risk. 03/08/2021 the patient was seen for pulmonary follow-up visit. Overall she is doing well after the bronchoscopy. She tolerated well without any apparent com plications. The bronchoscopy demonstrated normal airways without any endobronchial lesions. Patient did undergo right upper lobe washings brushings and also transbronchial biopsies demonstrating bronchoalveolar tissue with reactive inflammatory changes as well as evidence of bleeding. No evidence of any malignancy. It was explained to the patient that although the results are reassuring, still concern is about the interval worsening of the nodular density. Close imaging studies were recommended At this point she would rather not follow the nodular density closely since she is not planned to undergo any further diagnostic or surgical interventions. She is still on the prednisone, taper. She will cut down to 5 mg now. The patient understands that if she develops worsening respiratory symptoms she is to call the pulmonary office for further evaluation otherwise. She is to follow up in 3-4 months to assess clinical status. The patient again would like not to additional imaging studies at this time. PLAN: To discuss it further with Dr. Romero, during follow-up visit. Thanks, - Time Spent With Patient Time Spent with Patient (in minutes): 30
[2021-07-13 10:51] VITALS: BMI 20.5
[2021-07-13 10:52] VITALS: BP 129/63; PULSE 68; RESP 18; TEMP 36.2; O2SAT 97
[2021-07-13 10:53] LABS: MANUAL DIFF FLAG NO
--- NOTE | 2021-07-13 10:59 | MHC.HEMONC ---
Here for follow up with Dr Harrison. pt looking and feeling well. Current dose of prednisone is 2.5 mg daily for the last 2 weeks. last plt count was 114 drawn on 06/22/2021
[2021-07-13 11:00] LABS: Basophils Absolute Auto 0.1 X10*3/uL (0.0-0.2); Basophils Percent Auto 0.6 % (0-2); Eosinophils Absolute Auto 0.1 X10*3/uL (0.0-0.4); Eosinophils Percent Auto 1.3 % (0-4); Hematocrit 39.1 % (37.0-47.0); Hemoglobin 13.2 g/dl (12.0-16.0); Imm Gran Abs Auto 0.06 X10*3/uL (0.00-0.03); Imm Gran Pct Auto 0.7 % (0.0-0.4); Lymphocytes Absolute Auto 0.6 X10*3/uL (1.2-4.9); Lymphocytes Percent Auto 7.1 % (20-40); Mean Corpuscular HGB Conc 33.8 g/dl (31.0-35.0); Mean Corpuscular Hemoglobin 30.3 pg (27.0-33.0); Mean Corpuscular Volume 89.9 fL (80.0-98.0); Mean Platelet Volume 9.7 fL (9.4-12.3); Monocytes Absolute Auto 0.7 X10*3/uL (0.1-1.2); Monocytes Percent Auto 7.6 % (2-11); Neutrophils Percent Auto 82.7 % (45-73); Platelet Count 108 X10*3/uL (160-400); Red Blood Count 4.35 X10*6/uL (4.20-5.50); Red Cell Distribution Width 12.8 % (11.0-16.0); White Blood Count 8.5 X10*3/uL (4.8-10.8)
--- NOTE | 2021-07-13 11:00 | P.PNHO_ITS ---
Medical Summary - Medical Summary Date of Service: 07/13/21 Chief complaint: Follow-up for: ITP. Medical Summary: DIAGNOSIS: ITP. CURRENT THERAPY: IVIG. PREDNISONE. Down to 2.5 mg daily, for last 3 weeks. Interval History Interval history: This is a pleasant 86-year-old lady, here for a follow-up visit. She tells me she has been doing very well. She had a nice Thanksgiving. She denies any complaints today. She denies feeling fatigued. However she wishes she had more energy. She notices little bit of bruising here and there but no major bleeding. She denies any fever nor chills. No headache no dizziness. She denies chest pain or trouble breathing. No abdominal pain nausea vomiting heartburn indigestion. Her bowels are working without any gross blood in it. She enjoys a good appetite. Her weight is stable. She is presently on 2.5 mg of prednisone. She was previously on 5 mg. She is able to tolerate it well, without major side effects. She is in good spirits, Rest of the review of systems is unremarkable. Hospital course: Patient was initially seen in [facility] in November. This is an 85 year old lady with a history of COPD, breast cancer, HTN, who presented to the ED, on 12/06, with hemoptysis. She reported 5 days of intermittent cough productive of clear phlegm mixed with blood. She had some shortness of breath which is chronic and unchanged from her baseline. She denied any fevers or chills. She denied chest pain or palpitations. Her workup in the ED was significant for severe thrombocytopenia with platelets of 7, D-dimer of 6064. She underwent CTA which showed no evidence of pulmonary embolism but 2 right upper lobe lung lesions concerning for malignancy. She denies a known history of thrombocytopenia, although her previous CBC from [facility] 2019 shows a platelet count of 117. She denies the use of blood thinner or aspirin at home. She denies any hematuria or bleeding from the gums or nose. She has had hemorrhoidal bleeding in the past, but not right now. She may have lost a few pounds over the past month or so, but no significant weight loss noted. She has been fully vaccinated for COVID 19 with Pfizer vaccine, the second dose of which she received 11/04. One unit of platelets was transfused. She presented with severe thrombocytopenia, with a platelet count less than 10. She was also diagnosed with this suspicious lung mass.She was transfused platelets and workup was initiated. She underwent evaluation by both Pulmonary and Hematology. 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 She was subsequently started on systemic steroids. However her platelet counts did not improve right away. She underwent a bone marrow biopsy which showed: Mildly hypercellular marrow with maturing trilineage hematopoiesis and megakaryocyte hyperplasia. See description and comment. The findings are consistent with peripheral platelet destruction/consumption with compensatory megakaryocyte hyperplasia. No marrow infiltrative process is seen and overt features of dysplasia are not present. Concurrent flow cytometry is negative for a B-cell lymphoproliferative disorder. She was started on IVIG (x 2 days) with daily improvement in her platelets counts to >60k at the time of discharge. In regards to her lung mass, biopsy was deferred due to thrombocytopenia and she was referred to the pulmonary clinic for outpatient workup. This turned out to be benign. Review of Systems - Constitutional Reports no additional constitutional complaints - Eyes Reports no additional eye complaints - ENT Reports no additional ear, nose, mouth, and throat complaints - Cardiovascular Reports no additional cardiovascular complaints - Respiratory Reports no additional respiratory complaints - Gastrointestinal Reports no additional gastrointestinal complaints - Genitourinary Reports no additional female genitourinary complaints - Musculoskeletal Reports no additional musculoskeletal complaints - Integumentary/Breasts Skin/Breast: Reports no additional skin complaints - Neurologic Reports no additional neurologic complaints, Reports hearing normal - Psychiatric Reports no additional psychiatric complaints - Endocrine Reports no additional endocrine complaints - Hematologic/Lymphatic Reports no additional hematologic/lymphatic complaints - Allergic/Immunologic Reports no additional allergic/immunologic complaints [facility] Medical History: Medical History (Last Reviewed 06/08/21 @ 10:44 by William German) Acute ITP Breast CA COPD (chronic obstructive pulmonary disease) Fibrocystic breast changes HTN (hypertension) Irregular heart beat Lymphadenopathy, mediastinal Pulmonary nodules Thyroid disease Functional capacity: uses cane/walker Patient : No Family History: Family History (Last Reviewed 06/08/21 @ 10:44 by William German) Other No family history of breast cancer Surgical History: Surgical History (Last Reviewed 06/08/21 @ 10:44 by William German) S/P breast lumpectomy S/P hip replacement Social History: Social History (Last Reviewed 06/08/21 @ 10:44 by William German) Living Situation History: Household Members: Spouse Housing: House Do you presently have visiting nurse or other home services: No Alcohol History: Alcohol intake: never Alcohol History Details: Alcohol intake frequency: does not drink Tobacco History: Patient Tobacco Use Status: Former Tobacco user Tobacco use type: Cigarette Cigarette Packs Per Day: 2 Years Smoked: 40 years Smoke Quit Date: 2005 Substance Use History: Use of substances other than those prescribed or required for medical reasons : No Nutrition Assessment: Patient : No Occupation Assessmet: service: No Current occupational status: retired Oncology Screenings - ECOG Performance Status ECOG Performance Status: 1 Home Medications and Allergies Home Medications Medication Instructions Recorded Confirmed Type albuterol sulfate 90 mcg/actuation 2 puff INHALATION Q4H PRN 12/06/20 07/13/21 History aerosol inhaler atenolol 25 mg tablet 1 tab PO DAILY 12/06/20 07/13/21 History digoxin 250 mcg (0.25 mg) tablet 1 tab PO DAILY 12/06/20 07/13/21 History fluticasone 250 mcg-salmeterol 50 1 inh INHALATION BID 12/06/20 07/13/21 History mcg/dose blistr powdr for inhalation (Advair Diskus) guaifenesin 600 mg tablet, 600 mg PO BID 12/06/20 07/13/21 History extended release 12 hr (Mucinex) levothyroxine 75 mcg tablet 1 tab PO QAM 12/06/20 07/13/21 History montelukast 10 mg tablet 1 tab PO DAILY 12/06/20 07/13/21 History tiotropium bromide 18 mcg capsule 18 mcg INHALATION QAM 12/06/20 07/13/21 History with inhalation device (Spiriva with HandiHaler) latanoprost 0.005 % eye drops 1 drp OPHTHALMIC-RIGHT BEDTIME 12/07/20 07/13/21 History ascorbate calcium (vitamin C) 500 500 mg PO DAILY 01/25/21 07/13/21 History mg tablet clorazepate dipotassium 3.75 mg 3.75 mg PO BEDTIME PRN 01/25/21 07/13/21 History tablet biotin 500 mcg capsule 250 mcg PO DAILY 02/11/21 07/13/21 History calcium carb 333 mg-vit D3 133 3 tab PO DAILY 02/11/21 07/13/21 History unit-mag ox 133 mg-zinc oxide 5 mg tab multivitamin 1 cap PO DAILY 02/11/21 07/13/21 History prednisone 2.5 mg DAILY 07/13/21 07/13/21 History Allergies Allergy/AdvReac Type Severity Reaction Status Date / Time Carbapenems Allergy Severe RASH Verified 06/08/21 09:59 cefaclor Allergy Severe rash, Verified 06/08/21 09:59 itching cefadroxil [Cefadroxil] Allergy Severe RASH Verified 06/08/21 09:59 cephalexin [From KEFLEX] Allergy Severe RASH Verified 06/08/21 09:59 Cephalosporins Allergy Severe RASH Verified 06/08/21 09:59 chlorhexidine Allergy Severe MUMPS LIKE Verified 06/08/21 09:59 SWELLING TO MOUTH ciprofloxacin Allergy Severe RASH Verified 06/08/21 09:59 ibuprofen [IBUPROFEN] Allergy Severe RASH Verified 06/08/21 09:59 naproxen Allergy Severe RASH, Verified 06/08/21 09:59 rash, itching penicillin V Allergy Severe Rash Verified 06/08/21 09:59 Penicillins Allergy Severe RASH, HIVES Verified 06/08/21 09:59 Sulfa (Sulfonamide Allergy Severe RASH Verified 06/08/21 09:59 Antibiotics) acetaminophen AdvReac Severe PALPITATION Verified 06/08/21 09:59 S adhesives Allergy Severe skin Uncoded 06/08/21 09:59 irritation antiperspirants, deodorants Allergy Severe Rash Uncoded 06/08/21 09:59 carbapenam Allergy Severe Rash Uncoded 06/08/21 09:59 chephlasporins Allergy Severe rash, Uncoded 06/08/21 09:59 itching Chlorhexidine Allergy Severe Rash Uncoded 06/08/21 09:59 chlorhexidine Allergy Severe Rash Uncoded 06/08/21 09:59 duracef Allergy Severe rash, Uncoded 06/08/21 09:59 itching DURACEPT Allergy Severe RASH Uncoded 06/08/21 09:59 keflex Allergy Severe rash, Uncoded 06/08/21 09:59 itching shellfish Allergy Severe severe Uncoded 06/08/21 09:59 hives Exam Vital signs: Vital Signs Temp 97.2 F 07/13/21 10:52 Pulse 68 07/13/21 10:52 Resp 18 07/13/21 10:52 BP 129/63 07/13/21 10:52 Pulse Ox 97 07/13/21 10:52 Intake & Output 07/12/21 07/13/21 07/13/21 18:59 06:59 18:59 Other: Weight 54.1 kg [place] Weight in Grams 53742 Weight 54.1 kg Body Mass Index 20.5 - Constitutional Present: no acute distress - Routine HEENT Exam Head: Present: normal inspection Eye: Present: normal appearance ENT: Present: mucous membranes moist - Routine Neck Exam Present: full ROM - Routine Respiratory Exam Present: CTAB - Routine Cardiovascular Exam Cardiovascular: Present: RRR, S1, S2 - Routine Abdominal Exam Present: soft, nontender - Routine Rectal Exam Patient deferred: digital exam - Routine Extremities Exam Present: nontender - Routine Back/Spine/Pelvis Exam Back/Spine: Present: full ROM - Routine Skin Exam Present: intact, ecchymosis - Routine Neurological Exam Present: alert, oriented X3 - Routine Psychiatric Exam Present: normal affect Data - Labs CBC & Chem 7: 07/13/21 10:49 07/13/21 10:49 Assessment and Plan Patient Active problem list reviewed?: Yes (1) Acute ITP Status: Inactive Assessment and plan: This is a pleasant 86-year-old lady who had presented to the hospital back in November with significant thrombocytopenia and hemoptysis. Platelet count was 7. She was initially started on steroids. Initially the trend was still low. Between 12/06 and 12/10 platelets were 7, 8, 9. On 12/11 it was 21. On 12/12 it was 13. 5/2 it was 7. 5/3 it was 33. 5/4 it was 63. A bone marrow exam was done, on 12/12, under platelet cover which revealed: Mildly hypercellular marrow with maturing trilineage hematopoiesis and megakaryocytic hyperplasia. Findings are consistent with peripheral platelet destruction/consumption with compensated tree megakaryocytic hyperplasia. No marrow infiltrative processes seen and overt features of dysplasia are not present. Flow cytometry is negative for a B-cell lymphoproliferative disorder. She then received IVIG between 12/13 through 12/15. Her platelets started improving: On 12/23 there were 81, 12/31 there were 44. She was on a prednisone taper. She was then advised to increase the prednisone to 20 mg. her platelet count on 01/01: was 42. I was concerned if the platelets are dropping she would need IVIG, however platelet count on 01/07, was encouraging at 137. Platelet count was actually back up to normal on February 11, at 167. She has been doing better. Last platelet count was 114. Today's platelets are 108. They do appear to be more or less stable. This is encouraging. She is on a prednisone taper. She was on 2.5mg, over the 3 weeks. PLAN: Will continue her on the same dose of prednisone for the next couple of weeks. I will monitor her platelet count carefully, on a q 2 weekly basis. Will give her IVIG, if the platelets drop to below 50, since she responded to it in the past. She will return in 1 month for a follow-up visit. Thank you, CC: Dr. Nikolay Romero. (2) Pulmonary nodules Status: Acute Assessment and plan: The patient is an 86-year-old woman with a known history of COPD, breast cancer status post resection, and pulmonary nodules follow-up for many years. She was admitted to the hospital was found to have severe thrombocytopenia. The patient was given a dose of IVIG and started on prednisone for ITP. She also required platelet transfusions. During the hospitalization she did undergo a CT scan of the chest back in November 2020 which demonstrated a 2.5 x 1.5 cm spiculated nodule along with other satellite spiculated nodules and mediastinal lymphadenopathy. Findings at the time very concerning for a malignant process. However, with her significant thrombocytopenia was deemed unsafe to biopsy the areas. Her platelet count has been better. From a respiratory status the patient has been doing well denies any significant weight loss or night sweats. She denies any significant coughing or shortness of breath. We did review the CT scan in the office and she understands the the findings are much worse than her previous CT scans years ago. Therefore, the patient may need to undergo biopsies. But, need to make sure platelet issue has stabilized. Based on the concerning findings will have undergo a PET scan and also PFTs in order to find the optimal in place to biopsy with the highest yield and low is risk. 03/08/2021 the patient was seen for pulmonary follow-up visit. Overall she is doing well after the bronchoscopy. She tolerated well without any apparent complications. The bronchoscopy demonstrated normal airways without any endobronchial lesions. Patient did undergo right upper lobe washings brushings and also transbronchial biopsies demonstrating bronchoalveolar tissue with reactive inflammatory changes as well as evidence of bleeding. No evidence of any malignancy. It was explained to the patient that although the results are reassuring, still concern is about the interval worsening of the nodular density. Close imaging studies were recommended At this point she would rather not follow the nodular density closely since she is not planned to undergo any further diagnostic or surgical interventions. She is still on the prednisone, taper. She will cut down to 5 mg now. The patient understands that if she develops worsening respiratory symptoms she is to call the pulmonary office for further evaluation otherwise. She is to follow up in 3-4 months to assess clinical status. The patient again would like not to additional imaging studies at this time. PLAN: To discuss it further with Dr. Romero, during follow-up visit. Thanks, - Time Spent With Patient Time Spent with Patient (in minutes): 30
[2021-07-13 11:16] LABS: Alanine Aminotransferase 16 U/L (0-31); Albumin Level 4.1 g/dL (3.5-5.0); Alkaline Phosphatase 76 U/L (39-117); Anion Gap 14 (12-20); Aspartate Amino Transferase 21 U/L (5-31); Bilirubin Total 0.5 mg/dL (0.0-1.0); Blood Urea Nitrogen 27 mg/dL (9-16); Calcium 9.6 mg/dL (8.4-10.2); Carbon Dioxide 26 mmol/L (22-29); Chloride 101 mmol/L (96-108); Creatinine Clr Calc Pharmacy 47.4; Estimated Glomerular Filt Rate > 60; Glucose Random 91 mg/dL (60-115); Potassium 4.8 mmol/L (3.3-5.1); Sodium 136 mmol/L (135-145); Total Protein 6.6 g/dL (6.5-8.0)
--- NOTE | 2021-08-03 15:41 | MHC.HEMONC ---
Pt called to see what PLT cnt is today (outpayient blood draw). Result was 99. She is taking 2.5 mg Prednisone and she will stay on that dose per Dr Harrison.
[2021-08-17 10:39] VITALS: BP 149/73; PULSE 73; RESP 18; TEMP 36.1; O2SAT 97; BMI 20.5
--- NOTE | 2021-08-17 10:51 | PM.HEMONCPN ---
Medical Summary - Medical Summary Date of Service: 08/17/21 Chief complaint: Follow-up for: ITP. Medical Summary: DIAGNOSIS: ITP. CURRENT THERAPY: IVIG. PREDNISONE. Down to 2.5 mg daily, for last 5 weeks. Interval History Interval history: This is a pleasant 86-year-old lady, here for a follow-up visit. She tells me she has been doing very well. She had nice holidays. She denies any complaints today. She feels rather fatigued. She wishes she had more energy. She still notices some bruising here and there but no major bleeding. She denies any fever nor chills. No headache no dizziness. She denies chest pain or trouble breathing. No abdominal pain nausea vomiting heartburn indigestion. Her bowels are working without any gross blood in it. She enjoys a good appetite. Her weight is stable. She is presently on 2.5 mg of prednisone, over the past 6 weeks or so. She is able to tolerate it well, without major side effects. She is in good spirits, Rest of the review of systems is unremarkable. Hospital course: Patient was initially seen in [facility] in [facility]. This is an 85 year old lady with a history of COPD, breast cancer, HTN, who presented to the ED, on 12/06, with hemoptysis. She reported 5 days of intermittent cough productive of clear phlegm mixed with blood. She had some shortness of breath which is chronic and unchanged from her baseline. She denied any fevers or chills. She denied chest pain or palpitations. Her workup in the ED was significant for severe thrombocytopenia with platelets of 7, D-dimer of 6064. She underwent CTA which showed no evidence of pulmonary embolism but 2 right upper lobe lung lesions concerning for malignancy. She denies a known history of thrombocytopenia, although her previous CBC from April 2020 shows a platelet count of 117. She denies the use of blood thinner or aspirin at home. She denies any hematuria or bleeding from the gums or nose. She has had hemorrhoidal bleeding in the past, but not right now. She may have lost a few pounds over the past month or so, but no significant weight loss noted. She has been fully vaccinated for COVID 19 with Pfizer vaccine, the second dose of which she received 11/04. One unit of platelets was transfused. She presented with severe thrombocytopenia, with a platelet count less than 10. She was also diagnosed with this suspicious lung mass.She was transfused platelets and workup was initiated. She underwent evaluation by both Pulmonary and Hematology. 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 She was subsequently started on systemic steroids. However her platelet counts did not improve right away. She underwent a bone marrow biopsy which showed: Mildly hypercellular marrow with maturing trilineage hematopoiesis and megakaryocyte hyperplasia. See description and comment. The findings are consistent with peripheral platelet destruction/consumption with compensatory megakaryocyte hyperplasia. No marrow infiltrative process is seen and overt features of dysplasia are not present. Concurrent flow cytometry is negative for a B-cell lymphoproliferative disorder. She was started on IVIG (x 2 days) with daily improvement in her platelets counts to >60k at the time of discharge. In regards to her lung mass, biopsy was deferred due to thrombocytopenia and she was referred to the pulmonary clinic for outpatient workup. This turned out to be benign. Review of Systems - Constitutional Reports no additional constitutional complaints - Eyes Reports no additional eye complaints - ENT Reports no additional ear, nose, mouth, and throat complaints - Cardiovascular Reports no additional cardiovascular complaints - Respiratory Reports no additional respiratory complaints - Gastrointestinal Reports no additional gastrointestinal complaints - Genitourinary Reports no additional female genitourinary complaints - Musculoskeletal Reports no additional musculoskeletal complaints - Integumentary/Breasts Skin/Breast: Reports no additional skin complaints - Neurologic Reports no additional neurologic complaints, Reports hearing normal - Psychiatric Reports no additional psychiatric complaints - Endocrine Reports no additional endocrine complaints - Hematologic/Lymphatic Reports no additional hematologic/lymphatic complaints - Allergic/Immunologic Reports no additional allergic/immunologic complaints [facility] Medical History: Medical History (Last Reviewed 08/17/21 @ 10:41 by Berny Darling RN) Acute ITP Breast CA COPD (chronic obstructive pulmonary disease) Fibrocystic breast changes HTN (hypertension) Irregular heart beat Lymphadenopathy, mediastinal Pulmonary nodules Thyroid disease Functional capacity: uses cane/walker Patient : No Family History: Family History (Last Reviewed 08/17/21 @ 10:41 by Berny Darling RN) Other No family history of breast cancer Surgical History: Surgical History (Last Reviewed 08/17/21 @ 10:41 by Berny Darling RN) S/P breast lumpectomy S/P hip replacement Social History: Social History (Last Reviewed 08/17/21 @ 10:41 by Berny Darling RN) Living Situation History: Household Members: Spouse Housing: House Do you presently have visiting nurse or other home services: No Alcohol History: Alcohol intake: never Alcohol History Details: Alcohol intake frequency: does not drink Tobacco History: Patient Tobacco Use Status: Former Tobacco user Tobacco use type: Cigarette Cigarette Packs Per Day: 2 Years Smoked: 40 years Smoke Quit Date: 2005 Substance Use History: Use of substances other than those prescribed or required for medical reasons: No Nutrition Assessment: Patient : No Occupation Assessmet: service: No Current occupational status: retired Oncology Screenings - ECOG Performance Status ECOG Performance Status: 1 Home Medications and Allergies Home Medications Medication Instructions Recorded Confirmed Type albuterol sulfate 90 mcg/actuation 2 puff INHALATION Q4H PRN 12/06/20 08/17/21 History aerosol inhaler atenolol 25 mg tablet 1 tab PO DAILY 12/06/20 08/17/21 History digoxin 250 mcg (0.25 mg) tablet 1 tab PO DAILY 12/06/20 08/17/21 History fluticasone 250 mcg-salmeterol 50 1 inh INHALATION BID 12/06/20 08/17/21 History mcg/dose blistr powdr for inhalation (Advair Diskus) guaifenesin 600 mg tablet, 600 mg PO BEDTIME 12/06/20 08/17/21 History extended release 12 hr (Mucinex) levothyroxine 75 mcg tablet 1 tab PO QAM 12/06/20 08/17/21 History montelukast 10 mg tablet 1 tab PO DAILY 12/06/20 08/17/21 History tiotropium bromide 18 mcg capsule 18 mcg INHALATION QAM 12/06/20 08/17/21 History with inhalation device (Spiriva with HandiHaler) latanoprost 0.005 % eye drops 1 drp OPHTHALMIC-RIGHT BEDTIME 12/07/20 08/17/21 History ascorbate calcium (vitamin C) 500 500 mg PO DAILY 01/25/21 08/17/21 History mg tablet clorazepate dipotassium 3.75 mg 3.75 mg PO BEDTIME PRN 01/25/21 08/17/21 History tablet biotin 500 mcg capsule 250 mcg PO DAILY 02/11/21 08/17/21 History calcium carb 333 mg-vit D3 133 3 tab PO DAILY 02/11/21 08/17/21 History unit-mag ox 133 mg-zinc oxide 5 mg tab multivitamin 1 cap PO DAILY 02/11/21 08/17/21 History prednisone 2.5 mg PO DAILY 07/13/21 08/17/21 History Allergies Allergy/AdvReac Type Severity Reaction Status Date / Time Carbapenems Allergy Severe RASH Verified 08/17/21 10:42 cefaclor Allergy Severe rash, Verified 08/17/21 10:42 itching cefadroxil [Cefadroxil] Allergy Severe RASH Verified 08/17/21 10:42 cephalexin [From KEFLEX] Allergy Severe RASH Verified 08/17/21 10:42 Cephalosporins Allergy Severe RASH Verified 08/17/21 10:42 chlorhexidine Allergy Severe MUMPS LIKE Verified 08/17/21 10:42 SWELLING TO MOUTH ciprofloxacin Allergy Severe RASH Verified 08/17/21 10:42 ibuprofen [IBUPROFEN] Allergy Severe RASH Verified 08/17/21 10:42 naproxen Allergy Severe RASH, Verified 08/17/21 10:42 rash, itching penicillin V Allergy Severe Rash Verified 08/17/21 10:42 Penicillins Allergy Severe RASH, HIVES Verified 08/17/21 10:42 Sulfa (Sulfonamide Allergy Severe RASH Verified 08/17/21 10:42 Antibiotics) acetaminophen AdvReac Severe PALPITATION Verified 08/17/21 10:42 S adhesives Allergy Severe skin Uncoded 08/17/21 10:42 irritation antiperspirants, deodorants Allergy Severe Rash Uncoded 08/17/21 10:42 carbapenam Allergy Severe Rash Uncoded 08/17/21 10:42 chephlasporins Allergy Severe rash, Uncoded 08/17/21 10:42 itching Chlorhexidine Allergy Severe Rash Uncoded 08/17/21 10:42 duracef Allergy Severe rash, Uncoded 08/17/21 10:42 itching DURACEPT Allergy Severe RASH Uncoded 08/17/21 10:42 shellfish Allergy Severe severe Uncoded 08/17/21 10:42 hives Exam Vital signs: Vital Signs Temp 96.9 F 08/17/21 10:39 Pulse 73 08/17/21 10:39 Resp 18 08/17/21 10:39 BP 149/73 H 08/17/21 10:39 Pulse Ox 97 08/17/21 10:39 Intake & Output 08/16/21 08/17/21 08/17/21 18:59 06:59 18:59 Other: Weight 54.4 kg Weight in Grams [id number] Weight 54.4 kg BMI result Body Mass Index 20.5 - Constitutional Present: no acute distress - Routine HEENT Exam Head: Present: normal inspection Eye: Present: normal appearance ENT: Present: mucous membranes moist - Routine Neck Exam Present: full ROM - Routine Respiratory Exam Present: CTAB - Routine Cardiovascular Exam Cardiovascular: Present: RRR, S1, S2 - Routine Abdominal Exam Present: soft, nontender - Routine Rectal Exam Patient deferred: digital exam - Routine Extremities Exam Present: nontender - Routine Back/Spine/Pelvis Exam Back/Spine: Present: full ROM - Routine Skin Exam Present: intact, ecchymosis - Routine Neurological Exam Present: alert, oriented X3 - Routine Psychiatric Exam Present: normal affect Data - Labs CBC & Chem 7: 08/17/21 10:58 08/17/21 10:58 Assessment and Plan Patient Active problem list reviewed?: Yes (1) Acute ITP Status: Inactive Assessment and plan: This is a pleasant 86-year-old lady who had presented to the hospital back in November with significant thrombocytopenia and hemoptysis. Platelet count was 7. She was initially started on steroids. Initially the trend was still low. Between 12/06 and 12/10 platelets were 7, 8, 9. On 12/11 it was 21. On 12/12 it was 13. 5/2 it was 7. 5/3 it was 33. 5/4 it was 63. A bone marrow exam was done, on 12/12, under platelet cover which revealed: Mildly hypercellular marrow with maturing trilineage hematopoiesis and megakaryocytic hyperplasia. Findings are consistent with peripheral platelet destruction/consumption with compensated tree megakaryocytic hyperplasia. No marrow infiltrative processes seen and overt features of dysplasia are not present. Flow cytometry is negative for a B-cell lymphoproliferative disorder. She then received IVIG between 12/13 through 12/15. Her platelets started improving: On 12/23 there were 81, 12/31 there were 44. She was on a prednisone taper. She was then advised to increase the prednisone to 20 mg. her platelet count on 01/01: was 42. I was concerned if the platelets are dropping she would need IVIG, however platelet count on 01/07, was encouraging at 137. Platelet count was actually back up to normal on February 11, at 167. She has been doing better. Previously her platelet count was 114. Then 108. It was 99 a couple of weeks ago. Today's platelets are 97. They do appear to be more or less stable. They are hovering around a 100. She is hanging in there. She was on a prednisone taper. She has been on 2.5mg, over the 5 weeks. PLAN: Will continue her on the same dose of prednisone for now. I will monitor her platelet count carefully, on a q 2 weekly basis. She may need a little bit of steroids does for maintenance. Hopefully the platelets will stay around this range. Will give her IVIG, if the platelets drop to below 50, since she responded to it in the past. She will return in 1 month for a follow-up visit. Thank you, CC: Dr. Nikolay Romero. (2) Pulmonary nodules Status: Acute Assessment and plan: The patient is an 86-year-old woman with a known history of COPD, breast cancer status post resection, and pulmonary nodules follow-up for many years. She was admitted to the hospital was found to have severe thrombocytopenia. The patient was given a dose of IVIG and started on prednisone for ITP. She also required platelet transfusions. During the hospitalization she did undergo a CT scan of the chest back in November 2020 which demonstrated a 2.5 x 1.5 cm spiculated nodule along with other satellite spiculated nodules and mediastinal lymphadenopathy. Findings at the time very concerning for a malignant process. However, with her significant thrombocytopenia was deemed unsafe to biopsy the areas. Her platelet count has been better. From a respiratory status the patient has been doing well denies any significant weight loss or night sweats. She denies any significant coughing or shortness of breath. We did review the CT scan in the office and she understands the the findings are much worse than her previous CT scans years ago. Therefore, the patient may need to undergo biopsies. But, need to make sure platelet issue has stabilized. Based on the concerning findings will have undergo a PET scan and also PFTs in order to find the optimal in place to biopsy with the highest yield and low is risk. 03/08/2021 the patient was seen for pulmonary follow-up visit. Overall she is doing well after the bronchoscopy. She tolerated well without any apparent complications. The bronchoscopy demonstrated normal airways without any endobronchial lesions. Patient did undergo right upper lobe washings brushings and also transbronchial biopsies demonstrating bronchoalveolar tissue with reactive inflammatory changes as well as evidence of bleeding. No evidence of any malignancy. It was explained to the patient that although the results are reassuring, still concern is about the interval worsening of the nodular density. Close imaging studies were recommended At this point she would rather not follow the nodular density closely since she is not planned to undergo any further diagnostic or surgical interventions. She is still on the prednisone, taper. She will cut down to 5 mg now. The patient understands that if she develops worsening respiratory symptoms she is to call the pulmonary office for further evaluation otherwise. She is to follow up in 3-4 months to assess clinical status. The patient again would like not to additional imaging studies at this time. PLAN: To discuss it further with Dr. Romero, during follow-up visit. Thanks, - Time Spent With Patient Time Spent with Patient (in minutes): 30
[2021-08-17 10:59] LABS: MANUAL DIFF FLAG NO
[2021-08-17 11:07] LABS: Basophils Absolute Auto 0.1 X10*3/uL (0.0-0.2); Basophils Percent Auto 0.6 % (0-2); Eosinophils Absolute Auto 0.1 X10*3/uL (0.0-0.4); Eosinophils Percent Auto 0.8 % (0-4); Hematocrit 38.8 % (37.0-47.0); Hemoglobin 13.1 g/dl (12.0-16.0); Imm Gran Abs Auto 0.05 X10*3/uL (0.00-0.03); Imm Gran Pct Auto 0.6 % (0.0-0.4); Lymphocytes Absolute Auto 0.5 X10*3/uL (1.2-4.9); Lymphocytes Percent Auto 5.8 % (20-40); Mean Corpuscular HGB Conc 33.8 g/dl (31.0-35.0); Mean Corpuscular Hemoglobin 30.6 pg (27.0-33.0); Mean Corpuscular Volume 90.7 fL (80.0-98.0); Mean Platelet Volume 9.4 fL (9.4-12.3); Monocytes Absolute Auto 0.5 X10*3/uL (0.1-1.2); Monocytes Percent Auto 5.8 % (2-11); Neutrophils Absolute Auto 7.1 x10*3/uL (2.0-8.3); Neutrophils Percent Auto 86.4 % (45-73); Red Blood Count 4.28 X10*6/uL (4.20-5.50); Red Cell Distribution Width 12.9 % (11.0-16.0); White Blood Count 8.3 X10*3/uL (4.8-10.8)
[2021-08-17 11:16] LABS: Platelet Count 97 X10*3/uL (160-400)
[2021-08-17 11:48] LABS: Alanine Aminotransferase 19 U/L (0-31); Albumin Level 4.1 g/dL (3.5-5.0); Alkaline Phosphatase 79 U/L (39-117); Anion Gap 12 (12-20); Aspartate Amino Transferase 20 U/L (5-31); Blood Urea Nitrogen 28 mg/dL (9-16); Calcium 9.6 mg/dL (8.4-10.2); Carbon Dioxide 27 mmol/L (22-29); Chloride 102 mmol/L (96-108); Estimated Glomerular Filt Rate > 60; Glucose Random 108 mg/dL (60-115); Potassium 4.8 mmol/L (3.3-5.1); Sodium 136 mmol/L (135-145); Total Protein 6.7 g/dL (6.5-8.0)
[2021-08-17 11:59] LABS: Bilirubin Total 0.4 mg/dL (0.0-1.0)
--- NOTE | 2021-08-17 16:31 | MHC.HEMONC ---
Pt presented for sched Hem f/u appt, VSS, labs drawn/reviewed, nurse reviewed pt hx and med list. Pt reports she continues to take Prednisone 2.5 mg daily. Pt reported getting COVID-[address] Harrison was in to meet w/ pt. pt was d/c'd w/ next hem f/u booked in 1 month.
[2021-09-14 10:19] LABS: MANUAL DIFF FLAG NO
[2021-09-14 10:22] VITALS: BP 138/65; PULSE 68; RESP 18; TEMP 36.6; O2SAT 97; BMI 20.4
[2021-09-14 10:27] LABS: Basophils Absolute Auto 0.1 X10*3/uL (0.0-0.2); Basophils Percent Auto 0.6 % (0-2); Eosinophils Absolute Auto 0.1 X10*3/uL (0.0-0.4); Hematocrit 41.2 % (37.0-47.0); Hemoglobin 13.6 g/dl (12.0-16.0); Imm Gran Abs Auto 0.07 X10*3/uL (0.00-0.03); Imm Gran Pct Auto 0.8 % (0.0-0.4); Lymphocytes Absolute Auto 0.6 X10*3/uL (1.2-4.9); Lymphocytes Percent Auto 7.2 % (20-40); Mean Corpuscular Hemoglobin 30.1 pg (27.0-33.0); Mean Corpuscular Volume 91.2 fL (80.0-98.0); Mean Platelet Volume 9.5 fL (9.4-12.3); Monocytes Absolute Auto 0.7 X10*3/uL (0.1-1.2); Monocytes Percent Auto 8.6 % (2-11); Neutrophils Absolute Auto 6.8 x10*3/uL (2.0-8.3); Neutrophils Percent Auto 81.8 % (45-73); Platelet Count 115 X10*3/uL (160-400); Red Blood Count 4.52 X10*6/uL (4.20-5.50); Red Cell Distribution Width 12.6 % (11.0-16.0); White Blood Count 8.4 X10*3/uL (4.8-10.8)
--- NOTE | 2021-09-14 10:27 | P.PNHO_ITS ---
Medical Summary - Medical Summary Date of Service: 09/14/21 Chief complaint: Follow-up for: ITP. Medical Summary: DIAGNOSIS: ITP. CURRENT THERAPY: IVIG. PREDNISONE. Down to 2.5 mg daily, for last 6 weeks. However she inadvertantly took 7.5 mg for a week, now alternating 5 mg with 2.5 mg every other day. Interval History Interval history: This is a pleasant 86-year-old lady, here for a follow-up visit. She tells me she has been doing very well. She denies any major complaints today. She feels rather fatigued. Her energy level is blah. She wishes she had more energy. She still notices some bruising here and there but no major bleeding. She denies any fever nor chills. No headache no dizziness. She denies chest pain or trouble breathing. No abdominal pain nausea vomiting heartburn indigestion. Her bowels are working without any gross blood in it. She enjoys a good appetite. Her weight is stable. She is presently on 5 mg alternating with 2.5 mg of prednisone, over the past 2 weeks or so. She is able to tolerate it well, without major side effects. She is in good spirits, Rest of the review of systems is unremarkable. Hospital course: Patient was initially seen in [facility], back in November,. This is an 85 year old lady with a history of COPD, breast cancer, HTN, who presented to the ED, on 12/06, with hemoptysis. She reported 5 days of intermittent cough productive of clear phlegm mixed with blood. She had some shortness of breath which is chronic and unchanged from her baseline. She denied any fevers or chills. She denied chest pain or palpitations. Her workup in the ED was significant for severe thrombocytopenia with platelets of 7, D-dimer of 6064. She underwent CTA which showed no evidence of pulmonary embolism but 2 right upper lobe lung lesions concerning for malignancy. She denies a known history of thrombocytopenia, although her previous CBC from April 2020 shows a platelet count of 117. She denies the use of blood thinner or aspirin at home. She denies any hematuria or bleeding from the gums or nose. She has had hemorrhoidal bleeding in the past, but not right now. She may have lost a few pounds over the past month or so, but no significant weight loss noted. She has been fully vaccinated for COVID 19 with Pfizer vaccine, the second dose of which she received 11/04. One unit of platelets was transfused. She presented with severe thrombocytopenia, with a platelet count less than 10. She was also diagnosed with this suspicious lung mass.She was transfused platelets and workup was initiated. She underwent evaluation by both Pulmonary and Hematology. 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 She was subsequently started on systemic steroids. However her platelet counts did not improve right away. She underwent a bone marrow biopsy which showed: Mildly hypercellular marrow with maturing trilineage hematopoiesis and megakaryocyte hyperplasia. See description and comment. The findings are consistent with peripheral platelet destruction/consumption with compensatory megakaryocyte hyperplasia. No marrow infiltrative process is seen and overt features of dysplasia are not present. Concurrent flow cytometry is negative for a B-cell lymphoproliferative disorder. She was started on IVIG (x 2 days) with daily improvement in her platelets counts to >60k at the time of discharge. In regards to her lung mass, biopsy was deferred due to thrombocytopenia and she was referred to the pulmonary clinic for outpatient workup. This turned out to be benign. Review of Systems - Constitutional Reports no additional constitutional complaints - Eyes Reports no additional eye complaints - ENT Reports no additional ear, nose, mouth, and throat complaints - Cardiovascular Reports no additional cardiovascular complaints - Respiratory Reports no additional respiratory complaints - Gastrointestinal Reports no additional gastrointestinal complaints - Genitourinary Reports no additional female genitourinary complaints - Musculoskeletal Reports no additional musculoskeletal complaints - Integumentary/Breasts Skin/Breast: Reports no additional skin complaints - Neurologic Reports no additional neurologic complaints, Reports hearing normal - Psychiatric Reports no additional psychiatric complaints - Endocrine Reports no additional endocrine complaints - Hematologic/Lymphatic Reports no additional hematologic/lymphatic complaints - Allergic/Immunologic Reports no additional allergic/immunologic complaints [facility] Medical History: Medical History (Last Reviewed 08/17/21 @ 10:41 by Berny Darling RN) Acute ITP Breast CA COPD (chronic obstructive pulmonary disease) Fibrocystic breast changes HTN (hypertension) Irregular heart beat Lymphadenopathy, mediastinal Pulmonary nodules Thyroid disease Functional capacity: uses cane/walker Patient : No Family History: Family History (Last Reviewed 08/17/21 @ 10:41 by Berny Darling RN) Other No family history of breast cancer Surgical History: Surgical History (Last Reviewed 08/17/21 @ 10:41 by Berny Darling RN) S/P breast lumpectomy S/P hip replacement Social History: Social History (Last Reviewed 08/17/21 @ 10:41 by Berny Darling RN) Living Situation History: Household Members: Spouse Housing: House Do you presently have visiting nurse or other home services: No Tobacco History: Patient Tobacco Use Status: Former Tobacco user Tobacco use type: Cigarette Cigarette Packs Per Day: 2 Years Smoked: 40 years Smoke Quit Date: 2005 Substance Use History: Use of substances other than those prescribed or required for medical reasons : No Nutrition Assessment: Patient : No Occupation Assessmet: service: No Current occupational status: retired Oncology Screenings - ECOG Performance Status ECOG Performance Status: 1 Home Medications and Allergies Home Medications Medication Instructions Recorded Confirmed Type albuterol sulfate 90 2 puff INHALATION Q4H 12/06/20 09/14/21 History mcg/actuation PRN aerosol inhaler atenolol 25 mg tablet 1 tab PO DAILY 12/06/20 09/14/21 History digoxin 250 mcg (0.25 1 tab PO DAILY 12/06/20 09/14/21 History mg) tablet fluticasone 250 1 inh INHALATION BID 12/06/20 09/14/21 History mcg-salmeterol 50 mcg/dose blistr powdr for inhalation (Advair Diskus) guaifenesin 600 mg 600 mg PO BEDTIME 12/06/20 09/14/21 History tablet, extended release 12 hr (Mucinex) levothyroxine 75 mcg 1 tab PO QAM 12/06/20 09/14/21 History tablet montelukast 10 mg 1 tab PO DAILY 12/06/20 09/14/21 History tablet tiotropium bromide 18 18 mcg INHALATION QAM 12/06/20 09/14/21 History mcg capsule with inhalation device (Spiriva with HandiHaler) latanoprost 0.005 % eye 1 drp OPHTHALMIC-RIGHT 12/07/20 09/14/21 History drops BEDTIME ascorbate calcium 500 mg PO DAILY 01/25/21 09/14/21 History (vitamin C) 500 mg tablet clorazepate dipotassium 3.75 mg PO BEDTIME PRN 01/25/21 09/14/21 History 3.75 mg tablet biotin 500 mcg capsule 250 mcg PO DAILY 02/11/21 09/14/21 History calcium carb 333 mg-vit 3 tab PO DAILY 02/11/21 09/14/21 History D3 133 unit-mag ox 133 mg-zinc oxide 5 mg tab multivitamin 1 cap PO DAILY 02/11/21 09/14/21 History prednisone 2.5 mg PO DAILY 07/13/21 09/14/21 History Allergies Allergy/AdvReac Type Severity Reaction Status Date / Time Carbapenems Allergy Severe RASH Verified 09/14/21 10:24 cefaclor Allergy Severe rash, Verified 09/14/21 10:24 itching cefadroxil Allergy Severe RASH Verified 09/14/21 10:24 [Cefadroxil] cephalexin [From Allergy Severe RASH Verified 09/14/21 10:24 KEFLEX] Cephalosporins Allergy Severe RASH Verified 09/14/21 10:24 chlorhexidine Allergy Severe MUMPS LIKE Verified 09/14/21 10:24 SWELLING TO MOUTH ciprofloxacin Allergy Severe RASH Verified 09/14/21 10:24 ibuprofen [IBUPROFEN] Allergy Severe RASH Verified 09/14/21 10:24 naproxen Allergy Severe RASH, Verified 09/14/21 10:24 rash, itching penicillin V Allergy Severe Rash Verified 09/14/21 10:24 Penicillins Allergy Severe RASH, HIVES Verified 09/14/21 10:24 Sulfa (Sulfonamide Allergy Severe RASH Verified 09/14/21 10:24 Antibiotics) acetaminophen AdvReac Severe PALPITATION Verified 09/14/21 10:24 S adhesives Allergy Severe skin Uncoded 08/17/21 10:42 irritation antiperspirants, Allergy Severe Rash Uncoded 08/17/21 10:42 deodorants carbapenam Allergy Severe Rash Uncoded 08/17/21 10:42 chephlasporins Allergy Severe rash, Uncoded 08/17/21 10:42 itching Chlorhexidine Allergy Severe Rash Uncoded 08/17/21 10:42 duracef Allergy Severe rash, Uncoded 08/17/21 10:42 itching DURACEPT Allergy Severe RASH Uncoded 08/17/21 10:42 shellfish Allergy Severe severe Uncoded 08/17/21 10:42 hives Exam Vital signs: Vital Signs Temp 97.8 F 09/14/21 10:22 Pulse 68 09/14/21 10:22 Resp 18 09/14/21 10:22 BP 138/65 09/14/21 10:22 Pulse Ox 97 02/01/22 10:22 Intake & Output 09/13/21 09/14/21 09/14/21 18:59 06:59 18:59 Other: Weight 53.9 kg [place] Weight in Grams [address] Weight 53.9 kg BMI result [place] 4d Body Mass Index 20.4 - Constitutional Present: no acute distress - Routine HEENT Exam Head: Present: normal inspection Eye: Present: normal appearance ENT: Present: mucous membranes moist - Routine Neck Exam Present: full ROM - Routine Respiratory Exam Present: CTAB - Routine Cardiovascular Exam Cardiovascular: Present: RRR, S1, S2 - Routine Abdominal Exam Present: soft, nontender - Routine Rectal Exam Patient deferred: digital exam - Routine Extremities Exam Present: nontender - Routine Back/Spine/Pelvis Exam Back/Spine: Present: full ROM - Routine Skin Exam Present: intact, ecchymosis - Routine Neurological Exam Present: alert, oriented X3 - Routine Psychiatric Exam Present: normal affect Data - Labs CBC & Chem 7: 09/14/21 10:18 09/14/21 10:18 Assessment and Plan Patient Active problem list reviewed?: Yes (1) Acute ITP Status: Inactive Assessment and plan: This is a pleasant 86-year-old lady who had presented to the hospital back in November with significant thrombocytopenia and hemoptysis. Platelet count was 7. She was initially started on steroids. Initially the trend was still low. Between 12/06 and 12/10 platelets were 7, 8, 9. On 12/11 it was 21. On 12/12 it was 13. 5/2 it was 7. 5/3 it was 33. 5/4 it was 63. A bone marrow exam was done, on 12/12, under platelet cover which revealed: Mildly hypercellular marrow with maturing trilineage hematopoiesis and megakaryocytic hyperplasia. Findings are consistent with peripheral platelet destruction/consumption with compensated tree megakaryocytic hyperplasia. No marrow infiltrative processes seen and overt features of dysplasia are not present. Flow cytometry is negative for a B-cell lymphoproliferative disorder. She then received IVIG between 12/13 through 12/16/19. Her platelets started improving: On 12/23 there were 81, 12/31 there were 44. She was on a prednisone taper. She was then advised to increase the prednisone to 20 mg. her platelet count on 01/01: was 42. I was concerned if the platelets are dropping she would need IVIG, however platelet count on 01/07, was encouraging at 137. Platelet count was actually back up to normal on February 11, at 167. She has been doing better. Previously her platelet count was 114. Then 108. It was 99 a few weeks ago. Today's platelets is 115. It was 97, last time. The platelet count does appear to have improved. It is over a 100. She is holding stable. She was on a prednisone taper. She had been on 2.5mg, but then inadvertently took 7.5 mg. Currently alternating 5 mg with 2.5 mg every other day. PLAN: l advised her to lower the dose back to 2.5 mg daily. Even if the platelet count stays around 90 it would be reasonable. I will monitor her platelet count carefully, on a q 2 weekly basis. She may need a little bit of steroids does for maintenance. Will give her IVIG, only if the platelets drop to below 50, since she responded to it in the past. She will return in 1 month for a follow-up visit. Thank you, CC: Dr. Domínguez. Dr. Nikolay Romero. (2) Pulmonary nodules Status: Acute Assessment and plan: The patient is an 86-year-old woman with a known history of COPD, breast cancer status post resection, and pulmonary nodules follow-up for many years. She was admitted to the hospital was found to have severe thrombocytopenia. The patient was given a dose of IVIG and started on prednisone for ITP. She also required platelet transfusions. During the hospitalization she did undergo a CT scan of the chest back in November 2020 which demonstrated a 2.5 x 1.5 cm spiculated nodule along with other satellite spiculated nodules and mediastinal lymphadenopathy. Findings at the time very concerning for a malignant process. However, with her significant thrombocytopenia was deemed unsafe to biopsy the areas. Her platelet count has been better. From a respiratory status the patient has been doing well denies any significant weight loss or night sweats. She denies any significant coughing or shortness of breath. We did review the CT scan in the office and she understands the the findings are much worse than her previous CT scans years ago. Therefore, the patient may need to undergo biopsies. But, need to make sure platelet issue has stabilized. Based on the concerning findings will have undergo a PET scan and also PFTs in order to find the optimal in place to biopsy with the highest yield and low is risk. 03/08/2021 the patient was seen for pulmonary follow-up visit. Overall she is doing well after the bronchoscopy. She tolerated well without any apparent complications. The bronchoscopy demonstrated normal airways without any endobronchial lesions. Patient did undergo right upper lobe washings brushings and also transbronchial biopsies demonstrating bronchoalveolar tissue with reactive inflammatory changes as well as evidence of bleeding. No evidence of any malignancy. It was explained to the patient that although the results are reassuring, still concern is about the interval worsening of the nodular density. Close imaging studies were recommended At this point she would rather not follow the nodular density closely since she is not planned to undergo any further diagnostic or surgical interventions. She is still on the prednisone, taper. She will cut down to 5 mg now. The patient understands that if she develops worsening respiratory symptoms she is to call the pulmonary office for further evaluation otherwise. PLAN: She is to follow up in 4 months to assess clinical status. The patient again would like not to additional imaging studies at this time. To discuss it further with Dr. Romero, during follow-up visit. Thanks, - Time Spent With Patient Time Spent with Patient (in minutes): 25
[2021-09-14 10:46] LABS: Alanine Aminotransferase 17 U/L (0-31); Albumin Level 4.1 g/dL (3.5-5.0); Alkaline Phosphatase 82 U/L (39-117); Anion Gap 12 (12-20); Aspartate Amino Transferase 20 U/L (5-31); Bilirubin Total 0.4 mg/dL (0.0-1.0); Blood Urea Nitrogen 28 mg/dL (9-16); Calcium 9.9 mg/dL (8.4-10.2); Carbon Dioxide 31 mmol/L (22-29); Chloride 99 mmol/L (96-108); Creatinine Clr Calc Pharmacy 47.9; Estimated Glomerular Filt Rate > 60; Glucose Random 85 mg/dL (60-115); Potassium 4.5 mmol/L (3.3-5.1); Sodium 137 mmol/L (135-145); Total Protein 6.7 g/dL (6.5-8.0)
--- NOTE | 2021-09-14 10:50 | MHC.HEMONC ---
Pt here for Hem follow up with Dr Harrison. Labs drawn by glycerin operator-specimen to lab. Clinical summary updated by nurse. Pt states she was on a prednisone taper however she messed up with her medication and accidentally took 7mg for 7-[address] Harrison notified and into see pt. Labs reviewed by provider. Discharge packet givena with follow up appointment.
[2021-10-12 10:55] VITALS: BP 147/66; PULSE 73; RESP 14; TEMP 36.7; O2SAT 96; BMI 20.5
[2021-10-12 11:27] LABS: MANUAL DIFF FLAG NO
[2021-10-12 11:31] LABS: Basophils Absolute Auto 0.1 X10*3/uL (0.0-0.2); Basophils Percent Auto 0.6 % (0-2); Eosinophils Absolute Auto 0.1 X10*3/uL (0.0-0.4); Eosinophils Percent Auto 0.6 % (0-4); Hematocrit 38.9 % (37.0-47.0); Imm Gran Abs Auto 0.06 X10*3/uL (0.00-0.03); Imm Gran Pct Auto 0.7 % (0.0-0.4); Lymphocytes Absolute Auto 0.5 X10*3/uL (1.2-4.9); Lymphocytes Percent Auto 5.1 % (20-40); Mean Corpuscular HGB Conc 33.4 g/dl (31.0-35.0); Mean Corpuscular Volume 89.6 fL (80.0-98.0); Mean Platelet Volume 10.1 fL (9.4-12.3); Monocytes Absolute Auto 0.6 X10*3/uL (0.1-1.2); Monocytes Percent Auto 6.6 % (2-11); Neutrophils Absolute Auto 7.7 x10*3/uL (2.0-8.3); Neutrophils Percent Auto 86.4 % (45-73); Red Blood Count 4.34 X10*6/uL (4.20-5.50); Red Cell Distribution Width 12.9 % (11.0-16.0); White Blood Count 8.8 X10*3/uL (4.8-10.8)
[2021-10-12 11:32] LABS: Platelet Count 60 X10*3/uL (160-400)
--- NOTE | 2021-10-12 11:41 | P.PNHO_ITS ---
Medical Summary - Medical Summary Date of Service: 10/12/21 Chief complaint: Follow-up for: ITP. Medical Summary: DIAGNOSIS: ITP. CURRENT THERAPY: IVIG. PREDNISONE. Down to 2.5 mg daily, for last 6 weeks. However she inadvertantly took 7.5 mg for a week, now alternating 5 mg with 2.5 mg every other day. Interval History Interval history: This is a pleasant 86-year-old lady, here for a follow-up visit. She tells me she has been feeling more tired lately. She has good energy in the morning however she feels more tired as the day progresses. She has noticed some easy bruising lately. She still notices some bruising here and there but no major bleeding. She denies any fever nor chills. No headache no dizziness. She denies chest pain or trouble breathing. No abdominal pain nausea vomiting heartburn indigestion. Her bowels are working without any gross blood in it. She enjoys a good amy etite. Her weight is stable. She is presently on 2.5 mg of prednisone, over the past 2 weeks or so. She is able to tolerate it well, without major side effects. She is in good spirits, Rest of the review of systems is unremarkable. Hospital course: Patient was initially seen in house, back in November,. This is an 85 year old lady with a history of COPD, breast cancer, HTN, who presented to the ED, on 12/06, with hemoptysis. She reported 5 days of intermittent cough productive of clear phlegm mixed with blood. She had some shortness of breath which is chronic and unchanged from her baseline. She denied any fevers or chills. She denied chest pain or palpitations. Her workup in the ED was significant for severe thrombocytopenia with platelets of 7, D-dimer of 6064. She underwent CTA which showed no evidence of pulmonary embolism but 2 right upper lobe lung lesions concerning for malignancy. She denies a known history of thrombocytopenia, although her previous CBC from April 2020 shows a platelet count of 117. She denies the use of blood thinner or aspirin at home. She denies any hematuria or bleeding from the gums or nose. She has had hemorrhoidal bleeding in the past, but not right now. She may have lost a few pounds over the past month or so, but no significant weight loss noted. She has been fully vaccinated for COVID 19 with Pfizer vaccine, the second dose of which she received 11/04. One unit of platelets was transfused. She presented with severe thrombocytopenia, with a platelet count less than 10. She was also diagnosed with this suspicious lung mass.She was transfused platelets and workup was initiated. She underwent evaluation by both Pulmonary and Hematology. 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 She was subsequently started on systemic steroids. However her platelet counts did not improve right away. She underwent a bone marrow biopsy which showed: Mildly hypercellular marrow with maturing trilineage hematopoiesis and megakary ocyte hyperplasia. See description and comment. The findings are consistent with peripheral platelet destruction/consumption with compensatory megakaryocyte hyperplasia. No marrow infiltrative process is seen and overt features of dysplasia are not present. Concurrent flow cytometry is negative for a B-cell lymphoproliferative disorder. She was started on IVIG (x 2 days) with daily improvement in her platelets counts to >60k at the time of discharge. In regards to her lung mass, biopsy was deferred due to thrombocytopenia and she was referred to the pulmonary clinic for outpatient workup. This turned out to be benign. Review of Systems - Constitutional Reports no additional constitutional complaints, Reports fatigue, Reports lack of energy, Reports malaise, Reports weight loss - Eyes Reports no additional eye complaints - ENT Reports no additional ear, nose, mouth, and throat complaints - Cardiovascular Reports no additional cardiovascular complaints - Respiratory Reports no additional respiratory complaints - Gastrointestinal Reports no additional gastrointestinal complaints - Genitourinary Reports no additional female genitourinary complaints - Musculoskeletal Reports no additional musculoskeletal complaints - Integumentary/Breasts Skin/Breast: Reports no additional skin complaints - Neurologic Reports no additional neurologic complaints, Reports hearing normal - Psychiatric Reports no additional psychiatric complaints - Endocrine Reports no additional endocrine complaints - Hematologic/Lymphatic Reports no additional hematologic/lymphatic complaints - Allergic/Immunologic Reports no additional allergic/immunologic complaints [facility] Medical History: Medical History (Last Reviewed 10/12/21 @ 10:57 by April Romero CMA) Acute ITP Breast CA COPD (chronic obstructive pulmonary disease) Fibrocystic breast changes HTN (hypertension) Irregular heart beat Lymphadenopathy, mediastinal Pulmonary nodules Thyroid disease Functional capacity: uses cane/walker Patient : No Family History: Family History (Last Reviewed 10/12/21 @ 10:57 by April Romero CMA) Other No family history of breast cancer Surgical History: Surgical History (Last Reviewed 10/12/21 @ 10:57 by April Romero CMA) S/P breast lumpectomy S/P hip replacement Social History: Social History (Last Updated 10/12/21 @ 10:58 by April Romero CMA) Living Situation History: Household Members: Spouse Housing: House Are you a primary home child care provider to a significant other at home: No Do you presently have visiting nurse or other home services: No Alcohol History Details: 1. How often do you have a drink containing alcohol?: a. Never Tobacco History: Patient Tobacco Use Status: Former Tobacco user Tobacco use type: Cigarette Cigarette Packs Per Day: 2 Years Smoked: 40 years Smoke Quit Date: 2005 Substance Use History: Use of substances other than those prescribed or required for medical reasons : No Nutrition Assessment: Patient : No Occupation Assessmet: service: No Current occupational status: retired Oncology Screenings - ECOG Performance Status ECOG Performance Status: 1 Home Medications and Allergies Home Medications Medication Instructions Recorded Confirmed Type albuterol sulfate 90 mcg/actuation 2 puff INHALATION Q4H PRN 12/06/20 10/12/21 History aerosol inhaler atenolol 25 mg tablet 1 tab PO DAILY 12/06/20 10/12/21 History digoxin 250 mcg (0.25 mg) tablet 1 tab PO DAILY 12/06/20 10/12/21 History fluticasone 250 mcg-salmeterol 50 1 inh INHALATION BID 12/06/20 10/12/21 History mcg/dose blistr powdr for inhalation (Advair Diskus) guaifenesin 600 mg tablet, 600 mg PO BEDTIME 12/06/20 10/12/21 History extended release 12 hr (Mucinex) levothyroxine 75 mcg tablet 1 tab PO QAM 12/06/20 10/12/21 History montelukast 10 mg tablet 1 tab PO DAILY 12/06/20 10/12/21 History tiotropium bromide 18 mcg capsule 18 mcg INHALATION QAM 12/06/20 10/12/21 History with inhalation device (Spiriva with HandiHaler) latanoprost 0.005 % eye drops 1 drp OPHTHALMIC-RIGHT BEDTIME 12/07/20 10/12/21 History ascorbate calcium (vitamin C) 500 500 mg PO DAILY 01/25/21 10/12/21 History mg tablet clorazepate dipotassium 3.75 mg 3.75 mg PO BEDTIME PRN 01/25/21 10/12/21 History tablet biotin 500 mcg capsule 250 mcg PO DAILY 02/11/21 10/12/21 History calcium carb 333 mg-vit D3 133 3 tab PO DAILY 02/11/21 10/12/21 History unit-mag ox 133 mg-zinc oxide 5 mg tab multivitamin 1 cap PO DAILY 02/11/21 10/12/21 History prednisone 2.5 mg PO DAILY 07/13/21 10/12/21 History Allergies Allergy/AdvReac Type Severity Reaction Status Date / Time Carbapenems Allergy Severe RASH Verified 10/12/21 11:02 cefaclor Allergy Severe rash, Verified 10/12/21 11:02 itching cefadroxil [Cefadroxil] Allergy Severe RASH Verified 10/12/21 11:02 cephalexin [From KEFLEX] Allergy Severe RASH Verified 10/12/21 11:02 Cephalosporins Allergy Severe RASH Verified 10/12/21 11:02 chlorhexidine Allergy Severe MUMPS LIKE Verified 10/12/21 11:02 SWELLING TO MOUTH ciprofloxacin Allergy Severe RASH Verified 10/12/21 11:02 ibuprofen [IBUPROFEN] Allergy Severe RASH Verified 10/12/21 11:02 naproxen Allergy Severe RASH, Verified 10/12/21 11:02 rash, itching Penicillins Allergy Severe RASH, HIVES Verified 10/12/21 11:02 Sulfa (Sulfonamide Allergy Severe RASH Verified 10/12/21 11:02 Antibiotics) acetaminophen AdvReac Severe PALPITATION Verified 10/12/21 11:02 S adhesives Allergy Severe skin Uncoded 10/12/21 11:02 irritation antiperspirants, deodorants Allergy Severe Rash Uncoded 10/12/21 11:02 duracef Allergy Severe rash, Uncoded 10/12/21 11:02 itching DURACEPT Allergy Severe RASH Uncoded 10/12/21 11:02 shellfish Allergy Severe severe Uncoded 10/12/21 11:02 hives Exam Vital signs: Vital Signs Temp 98.0 F 10/12/21 10:55 Pulse 73 10/12/21 10:55 Resp 14 10/12/21 10:55 BP 147/66 H 10/12/21 10:55 Pulse Ox 96 10/12/21 10:55 Intake & Output 02/10/12/21 10/12/21 18:59 06:59 18:59 Other: Weight 54.1 kg [place] Weight in Grams 98519 Weight 54.1 kg BMI result Body Mass Index 20.5 - Constitutional Present: no acute distress - Routine HEENT Exam Head: Present: normal inspection Eye: Present: normal appearance ENT: Present: mucous membranes moist - Routine Neck Exam Present: full ROM - Routine Respiratory Exam Present: CTAB - Routine Cardiovascular Exam Cardiovascular: Present: RRR, S1, S2 - Routine Abdominal Exam Present: soft, nontender - Routine Rectal Exam Patient deferred: digital exam - Routine Extremities Exam Present: nontender - Routine Back/Spine/Pelvis Exam Back/Spine: Present: full ROM - Routine Skin Exam Present: intact, ecchymosis - Routine Neurological Exam Present: alert, oriented X3 - Routine Psychiatric Exam Present: normal affect Data - Labs CBC & Chem 7: 10/12/21 11:25 10/12/21 11:25 Assessment and Plan Patient Active problem list reviewed?: Yes (1) Acute ITP Status: Inactive Assessment and plan: This is a pleasant 86-year-old lady who had presented to the hospital back in November with significant thrombocytopenia and hemoptysis. Platelet count was 7. She was initially started on steroids. Initially the trend was still low. Between 12/06 and 12/10 platelets were 7, 8, 9. On 12/11 it was 21. On 12/12 it was 13. 5/2 it was 7. 5/3 it was 33. 5/4 it was 63. A bone marrow exam was done, on 12/12, under platelet cover which revealed: Mildly hypercellular marrow with maturing trilineage hematopoiesis and megakaryocytic hyperplasia. Findings are consistent with peripheral platelet destruction/consumption with compensated tree megakaryocytic hyperplasia. No marrow infiltrative processes seen and overt features of dysplasia are not present. Flow cytometry is negative for a B-cell lymphoproliferative disorder. She then received IVIG between 12/13 through 12/16/19. Her platelets started improving: On 12/23 there were 81, 12/31 there were 44. She was on a prednisone taper. She was then advised to increase the prednisone to 20 mg. her platelet count on 01/01: was 42. I was concerned if the platelets are dropping she would need IVIG, however platelet count on 01/07, was encouraging at 137. Platelet count was actually back up to normal on February 11, at 167. She has been doing better. Previously her platelet count was 114. Then 108. It was 99 a few weeks ago. Then 97, then 115. The platelet count does appear to have improved. It is over a 100. She is holding stable. She was on a prednisone taper. She had been on 2.5mg, but then inadvertently took 7.5 mg. She had been alternating 5 mg with 2.5 mg every other day. She was advised to go down to 2.5 mg daily. Lately she noted that she was more tired than usual. She also noted some bruising. Platelets are down to 60,000 today. Two weeks ago there were 99. PLAN: l advised her to increase the dose back up to 5 mg daily. That should help her energy level and body aches as well. Even if the platelet count stays above 50 it would be reasonable. I will monitor her platelet count carefully, on a q 2 weekly basis. She may need a little bit of steroids does for maintenance. Will give her IVIG, only if the platelets drop to below 50, since she responded to it in the past. She will return in 1 month for a follow-up visit. Thank you, CC: Dr. Domínguez. Dr. Nikolay Romero. (2) Pulmonary nodules Status: Acute Assessment and plan: The patient is an 86-year-old woman with a known history of COPD, breast cancer status post resection, and pulmonary nodules follow-up for many years. She was admitted to the hospital was found to have severe thrombocytopenia. The patient was given a dose of IVIG and started on prednisone for ITP. She also required platelet transfusions. During the hospitalization she did undergo a CT scan of the chest back in November 2020 which demonstrated a 2.5 x 1.5 cm spiculated nodule along with other satellite spiculated nodules and mediastinal lymphadenopathy. Findings at the time very concerning for a malignant process. However, with her significant thrombocytopenia was deemed unsafe to biopsy the areas. Her platelet count has been better. From a respiratory status the patient has been doing well denies any significant weight loss or night sweats. She denies any significant coughing or shortness of breath. We did review the CT scan in the office and she understands the the findings are much worse than her previous CT scans years ago. Therefore, the patient may need to undergo biopsies. But, need to make sure platelet issue has stabilized. Based on the concerning findings will have undergo a PET scan and also PFTs in order to find the optimal in place to biopsy with the highest yield and low is risk. 03/08/2021 the patient was seen for pulmonary follow-up visit. Overall she is doing well after the bronchoscopy. She tolerated well without any apparent complications. The bronchoscopy demonstrated normal airways without any endobronchial lesions. Patient did undergo right upper lobe washings brushings and also transbronchial biopsies demonstrating bronchoalveolar tissue with reactive inflammatory changes as well as evidence of bleeding. No evidence of any malignancy. It was explained to the patient that although the results are reassuring, still concern is about the interval worsening of the nodular density. Close imaging studies were recommended At this point she would rather not follow the nodular density closely since she is not planned to undergo any further diagnostic or surgical interventions. She is still on the Prednisone. She will increase upto 5 mg now. The patient understands that if she develops worsening respiratory symptoms she is to call the pulmonary office for further evaluation otherwise. PLAN: She is to follow up in 4 months to assess clinical status. The patient again would like not to additional imaging studies at this time. To discuss it further with Dr. Romero, during follow-up visit. Thanks, - Time Spent With Patient Time Spent with Patient (in minutes): 25
[2021-10-12 11:50] LABS: Alanine Aminotransferase 15 U/L (0-31); Albumin Level 4.1 g/dL (3.5-5.0); Alkaline Phosphatase 92 U/L (39-117); Anion Gap 13 (12-20); Aspartate Amino Transferase 21 U/L (5-31); Bilirubin Total 0.3 mg/dL (0.0-1.0); Blood Urea Nitrogen 29 mg/dL (9-16); Calcium 9.8 mg/dL (8.4-10.2); Carbon Dioxide 27 mmol/L (22-29); Chloride 98 mmol/L (96-108); Creatinine Clr Calc Pharmacy 50.8; Estimated Glomerular Filt Rate > 60; Glucose Random 98 mg/dL (60-115); Potassium 4.9 mmol/L (3.3-5.1); Sodium 133 mmol/L (135-145); Total Protein 6.8 g/dL (6.5-8.0)
--- NOTE | 2021-10-12 15:03 | MHC.HEMONCMA ---
PAtient was in for follow up. Clinical summary reviewed and updated, VSS. Labs were drawn. Pt to return in 1 month.
--- NOTE | 2021-10-26 15:51 | MHC.HEMONC ---
Pt called to ask what PLT result was today (drawn outpatient). She has been on prednisone 5mg daily for last two weeks. PLT today =60. Per Dr Harrison pt is to stay on 5mg prednisone daily and re-check plt in 2 weeks. She verbalized understanding.
--- NOTE | 2021-10-26 16:16 | MHC.HEMONC ---
Pt called to say that she is waiting 3 weeks to re-check CBC. I informed Dr Harrison.
--- NOTE | 2021-11-10 15:28 | MHC.HEMONC ---
Platelet count 75 called to pt. Pt asked about prednisone dose. At this time she is taking 5mg daily, and she states Dr Harrison is weaning the prednisone. Dr Harrison is out of the office this week. Spoke with Dr Garcia, and pt to continue with 5mg daily, and will discuss with Dr Harrison at her follow up scheduled for 11/16
[2021-11-16 09:47] VITALS: BP 134/63; PULSE 70; RESP 14; TEMP 36.1; O2SAT 97; BMI 20.5
[2021-11-16 10:26] LABS: MANUAL DIFF FLAG NO
[2021-11-16 10:33] LABS: Basophils Absolute Auto 0.1 X10*3/uL (0.0-0.2); Basophils Percent Auto 0.4 % (0-2); Eosinophils Absolute Auto 0.1 X10*3/uL (0.0-0.4); Eosinophils Percent Auto 0.6 % (0-4); Hematocrit 37.8 % (37.0-47.0); Hemoglobin 12.4 g/dl (12.0-16.0); Imm Gran Abs Auto 0.15 X10*3/uL (0.00-0.03); Imm Gran Pct Auto 1.3 % (0.0-0.4); Lymphocytes Absolute Auto 0.5 X10*3/uL (1.2-4.9); Mean Corpuscular HGB Conc 32.8 g/dl (31.0-35.0); Mean Corpuscular Volume 88.3 fL (80.0-98.0); Mean Platelet Volume 9.7 fL (9.4-12.3); Monocytes Absolute Auto 0.8 X10*3/uL (0.1-1.2); Monocytes Percent Auto 7.4 % (2-11); Neutrophils Absolute Auto 9.8 x10*3/uL (2.0-8.3); Neutrophils Percent Auto 86.3 % (45-73); Red Blood Count 4.28 X10*6/uL (4.20-5.50); Red Cell Distribution Width 12.9 % (11.0-16.0); White Blood Count 11.4 X10*3/uL (4.8-10.8)
[2021-11-16 10:34] LABS: Platelet Count 71 X10*3/uL (160-400)
[2021-11-16 10:52] LABS: Alanine Aminotransferase 16 U/L (0-31); Albumin Level 3.9 g/dL (3.5-5.0); Alkaline Phosphatase 92 U/L (39-117); Anion Gap 11 (12-20); Aspartate Amino Transferase 17 U/L (5-31); Bilirubin Total 0.4 mg/dL (0.0-1.0); Blood Urea Nitrogen 24 mg/dL (9-16); Calcium 9.8 mg/dL (8.4-10.2); Carbon Dioxide 31 mmol/L (22-29); Chloride 95 mmol/L (96-108); Creatinine Clr Calc Pharmacy 51.7; Estimated Glomerular Filt Rate > 60; Glucose Random 106 mg/dL (60-115); Potassium 5.1 mmol/L (3.3-5.1); Sodium 132 mmol/L (135-145); Total Protein 6.5 g/dL (6.5-8.0)
--- NOTE | 2021-11-16 13:47 | MHC.HEMONCMA ---
Pt was in for follow up. Clinical summary reviewed and updated, VSS. Labs were drawn. Pt to return in 1 month.
--- NOTE | 2021-11-16 16:56 | PM.HEMONCPN ---
Medical Summary - Medical Summary Date of Service: 11/16/21 Chief complaint: Follow-up for: ITP. Medical Summary: DIAGNOSIS: ITP. CURRENT THERAPY: IVIG. PREDNISONE. She was down to 2.5 mg daily, for 6 weeks. However she inadvertantly took 7.5 mg for a week, was then alternating 5 mg with 2.5 mg every other day. Presently taking 5 mg daily for the past month. Interval History Interval history: This is a pleasant 86-year-old lady, here for a follow-up visit. She tells me she has had a tough week. For the past 10 days or so she has been dragging. She feels like she has no energy. Denies fever chills no night sweats. No chest pain cough nor shortness of breath. She has noticed some easy bruising on her left upper arm where she whacked herself on the vanity. She denies any major bleeding. No headache no dizziness. She denies chest pain or trouble breathing. No abdominal pain nausea vomiting heartburn indigestion. Her bowels are working without any gross blood in it. She enjoys a good appetite. Her weight is stable. She is presently on 5 mg of prednisone, over the past 4 weeks or so. She is able to tolerate it well, without major side effects. She is in good spirits, Rest of the review of systems is unremarkable. Hospital course: Patient was initially seen in [place], back in November,. This is an 85 year old lady with a history of COPD, breast cancer, HTN, who presented to the ED, on 12/06, with hemoptysis. She reported 5 days of intermittent cough productive of clear phlegm mixed with blood. She had some shortness of breath which is chronic and unchanged from her baseline. She denied any fevers or chills. She denied chest pain or palpitations. Her workup in the ED was significant for severe thrombocytopenia with platelets of 7, D-dimer of 6064. She underwent CTA which showed no evidence of pulmonary embolism but 2 right upper lobe lung lesions concerning for malignancy. She denies a known history of thrombocytopenia, although her previous CBC from April 2020 shows a platelet count of 117. She denies the use of blood thinner or aspirin at home. She denies any hematuria or bleeding from the gums or nose. She has had hemorrhoidal bleeding in the past, but not right now. She may have lost a few pounds over the past month or so, but no significant weight loss noted. She has been fully vaccinated for COVID 19 with Pfizer vaccine, the second dose of which she received 11/04. One unit of platelets was transfused. She presented with severe thrombocytopenia, with a platelet count less than 10. She was also diagnosed with this suspicious lung mass.She was transfused platelets and workup was initiated. She underwent evaluation by both Pulmonary and Hematology. 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 She was subsequently started on systemic steroids. However her platelet counts did not improve right away. She underwent a bone marrow biopsy which showed: Mildly hypercellular marrow with maturing trilineage hematopoiesis and megakaryocyte hyperplasia. See description and comment. The findings are consistent with peripheral platelet destruction/consumption with compensatory megakaryocyte hyperplasia. No marrow infiltrative process is seen and overt features of dysplasia are not present. Concurrent flow cytometry is negative for a B-cell lymphoproliferative disorder. She was started on IVIG (x 2 days) with daily improvement in her platelets counts to >60k at the time of discharge. In regards to her lung mass, biopsy was deferred due to thrombocytopenia and she was referred to the pulmonary clinic for outpatient workup. This turned out to be benign. Review of Systems - Constitutional Reports no additional constitutional complaints, Reports fatigue, Denies fever(s), Denies frequent falls, Denies headache(s), Reports lack of energy, Reports malaise, Reports weakness, Reports weight gain - Eyes Reports no additional eye complaints - ENT Reports no additional ear, nose, mouth, and throat complaints - Cardiovascular Reports no additional cardiovascular complaints - Respiratory Reports no additional respiratory complaints - Gastrointestinal Reports no additional gastrointestinal complaints - Genitourinary Reports no additional female genitourinary complaints - Musculoskeletal Reports no additional musculoskeletal complaints - Integumentary/Breasts Skin/Breast: Reports no additional skin complaints - Neurologic Reports no additional neurologic complaints, Reports hearing normal - Psychiatric Reports no additional psychiatric complaints - Endocrine Reports no additional endocrine complaints - Hematologic/Lymphatic Reports no additional hematologic/lymphatic complaints - Allergic/Immunologic Reports no additional allergic/immunologic complaints [facility] Medical History: Medical History (Last Reviewed 11/16/21 @ 09:50 by April Romero CMA) Acute ITP Breast CA COPD (chronic obstructive pulmonary disease) Fibrocystic breast changes HTN (hypertension) Irregular heart beat Lymphadenopathy, mediastinal Pulmonary nodules Thyroid disease Functional capacity: uses cane/walker Patient : No Family History: Family History (Last Reviewed 11/16/21 @ 09:50 by April Romero CMA) Other No family history of breast cancer Surgical History: Surgical History (Last Reviewed 11/16/21 @ 09:50 by April Romero CMA) S/P breast lumpectomy S/P hip replacement Social History: Social History (Last Updated 11/16/21 @ 09:51 by April Romero CMA) Living Situation History: Household Members: Spouse Housing: House Are you a primary adult live in caregiver to a significant other at home: No Do you presently have visiting nurse or other home services: No Alcohol History Details: 1. How often do you have a drink containing alcohol?: a. Never Tobacco History: Patient Tobacco Use Status: Former Tobacco user Tobacco use type: Cigarette Cigarette Packs Per Day: 2 Years Smoked: 40 years Smoke Quit Date: 2005 Substance Use History: Use of substances other than those prescribed or required for medical reasons: No Domestic Abuse History: Have you been hit, kicked, punched, or otherwise hurt by someone within the past year? If so, by whom?: No Do you feel safe in your current relationship?: Yes Homicidal Assessment: Do you have thoughts of harming others: None Do you have a plan to hurt others: No Plan Do you have the means to hurt others: No Nutrition Assessment: Recently lost weight without trying: No Patient : No Occupation Assessmet: service: No Current occupational status: retired Oncology Screenings - ECOG Performance Status ECOG Performance Status: 1 Home Medications and Allergies Home Medications Medication Instructions Recorded Confirmed Type albuterol sulfate 90 mcg/actuation 2 puff INHALATION Q4H PRN 12/06/20 11/16/21 History aerosol inhaler atenolol 25 mg tablet 1 tab PO DAILY 12/06/20 11/16/21 History digoxin 250 mcg (0.25 mg) tablet 1 tab PO DAILY 12/06/20 11/16/21 History fluticasone 250 mcg-salmeterol 50 1 inh INHALATION BID 12/06/20 11/16/21 History mcg/dose blistr powdr for inhalation (Advair Diskus) guaifenesin 600 mg tablet, 600 mg PO BEDTIME 12/06/20 11/16/21 History extended release 12 hr (Mucinex) levothyroxine 75 mcg tablet 1 tab PO QAM 12/06/20 11/16/21 History montelukast 10 mg tablet 1 tab PO DAILY 12/06/20 11/16/21 History tiotropium bromide 18 mcg capsule 18 mcg INHALATION QAM 12/06/20 11/16/21 History with inhalation device (Spiriva with HandiHaler) latanoprost 0.005 % eye drops 1 drp OPHTHALMIC-RIGHT BEDTIME 12/07/20 11/16/21 History ascorbate calcium (vitamin C) 500 500 mg PO DAILY 01/25/21 11/16/21 History mg tablet clorazepate dipotassium 3.75 mg 3.75 mg PO BEDTIME PRN 01/25/21 11/16/21 History tablet biotin 500 mcg capsule 250 mcg PO DAILY 02/11/21 11/16/21 History calcium carb 333 mg-vit D3 133 3 tab PO DAILY 02/11/21 11/16/21 History unit-mag ox 133 mg-zinc oxide 5 mg tab multivitamin 1 cap PO DAILY 02/11/21 11/16/21 History prednisone 2.5 mg PO DAILY 07/13/21 11/16/21 History Allergies Allergy/AdvReac Type Severity Reaction Status Date / Time Carbapenems Allergy Severe RASH Verified 11/16/21 09:51 cefaclor Allergy Severe rash, Verified 11/16/21 09:51 itching cefadroxil [Cefadroxil] Allergy Severe RASH Verified 11/16/21 09:51 cephalexin [From KEFLEX] Allergy Severe RASH Verified 11/16/21 09:51 Cephalosporins Allergy Severe RASH Verified 11/16/21 09:51 chlorhexidine Allergy Severe MUMPS LIKE Verified 11/16/21 09:51 SWELLING TO MOUTH ciprofloxacin Allergy Severe RASH Verified 11/16/21 09:51 ibuprofen [IBUPROFEN] Allergy Severe RASH Verified 11/16/21 09:51 naproxen Allergy Severe RASH, Verified 11/16/21 09:51 rash, itching Penicillins Allergy Severe RASH, HIVES Verified 11/16/21 09:51 Sulfa (Sulfonamide Allergy Severe RASH Verified 11/16/21 09:51 Antibiotics) acetaminophen AdvReac Severe PALPITATION Verified 11/16/21 09:51 S adhesives Allergy Severe skin Uncoded 11/16/21 09:51 irritation antiperspirants, deodorants Allergy Severe Rash Uncoded 11/16/21 09:51 duracef Allergy Severe rash, Uncoded 11/16/21 09:51 itching DURACEPT Allergy Severe RASH Uncoded 11/16/21 09:51 shellfish Allergy Severe severe Uncoded 11/16/21 09:51 hives Exam Vital signs: Vital Signs Temp 97 F 11/16/21 09:47 Pulse 70 11/16/21 09:47 Resp 14 11/16/21 09:47 BP 134/63 11/16/21 09:47 Pulse Ox 97 11/16/21 09:47 Intake & Output 11/15/21 11/16/21 11/16/21 18:59 06:59 18:59 Other: Weight 54.2 kg [place] Weight in Grams [id number] Weight 54.2 kg BMI result Body Mass Index 20.5 - Constitutional Present: no acute distress - Routine HEENT Exam Head: Present: normal inspection Eye: Present: normal appearance ENT: Present: mucous membranes moist - Routine Neck Exam Present: full ROM - Routine Respiratory Exam Present: CTAB - Routine Cardiovascular Exam Cardiovascular: Present: RRR, S1, S2 - Routine Abdominal Exam Present: soft, nontender - Routine Rectal Exam Patient deferred: digital exam - Routine Extremities Exam Present: nontender - Routine Back/Spine/Pelvis Exam Back/Spine: Present: full ROM - Routine Skin Exam Present: intact, ecchymosis - Routine Neurological Exam Present: alert, oriented X3 - Routine Psychiatric Exam Present: normal affect Data - Labs CBC & Chem 7: 11/16/21 10:25 11/16/21 10:25 Assessment and Plan Patient Active problem list reviewed?: Yes (1) Acute ITP Status: Inactive Assessment and plan: This is a pleasant 86-year-old lady who had presented to the hospital back in November with significant thrombocytopenia and hemoptysis. Platelet count was 7. She was initially started on steroids. Initially the trend was still low. Between 12/06 and 12/10 platelets were 7, 8, 9. On 12/11 it was 21. On 12/12 it was 13. 5/2 it was 7. 5/3 it was 33. 5/4 it was 63. A bone marrow exam was done, on 12/12, under platelet cover which revealed: Mildly hypercellular marrow with maturing trilineage hematopoiesis and megakaryocytic hyperplasia. Findings are consistent with peripheral platelet destruction/consumption with compensated tree megakaryocytic hyperplasia. No marrow infiltrative processes seen and overt features of dysplasia are not present. Flow cytometry is negative for a B-cell lymphoproliferative disorder. She then received IVIG between 12/13 through 12/16/19. Her platelets started improving: On 12/23 there were 81, 12/31 there were 44. She was on a prednisone taper. She was then advised to increase the prednisone to 20 mg. her platelet count on 01/01: was 42. I was concerned if the platelets are dropping she would need IVIG, however platelet count on 01/07, was encouraging at 137. Platelet count was actually back up to normal on February 11, at 167. She has been doing better. Previously her platelet count was 114. Then 108. It was 99 a few weeks ago. Then 97, then 115. The platelet count does appear to have improved. It is over a 100. She is holding stable. She was on a prednisone taper. She had been on 2.5mg, but then inadvertently took 7.5 mg. She had been alternating 5 mg with 2.5 mg every other day. She was advised to go down to 2.5 mg daily. However her platelet count went down to 60,000. She was advised to take 5 mg of prednisone every day. Platelet count 2 weeks ago was 75,000. Today's platelet count is 71. Lately she noted that she was more tired than usual. She also noted bruising at the site of trauma. PLAN: l advised her to continue to take the prednisone 5 mg daily. Hopefully that will help her energy level and body aches as well. A platelet count above 50,000 would be reasonable. I will monitor her platelet count carefully, on a q 2 weekly basis. She may need a little bit of steroids dose for maintenance. Will give her IVIG, only if the platelets drop to below 50, since she responded to it in the past. She will return in 1 month for a follow-up visit. Thank you, CC: Dr. Domínguez. Dr. Nikolay Romero. (2) Pulmonary nodules Status: Acute Assessment and plan: The patient is an 86-year-old woman with a known history of COPD, breast cancer status post resection, and pulmonary nodules follow-up for many years. She was admitted to the hospital was found to have severe thrombocytopenia. The patient was given a dose of IVIG and started on prednisone for ITP. She also required platelet transfusions. During the hospitalization she did undergo a CT scan of the chest back in November 2020 which demonstrated a 2.5 x 1.5 cm spiculated nodule along with other satellite spiculated nodules and mediastinal lymphadenopathy. Findings at the time very concerning for a malignant process. However, with her significant thrombocytopenia was deemed unsafe to biopsy the areas. Her platelet count has been better. From a respiratory status the patient has been doing well denies any significant weight loss or night sweats. She denies any significant coughing or shortness of breath. We did review the CT scan in the office and she understands the the findings are much worse than her previous CT scans years ago. Therefore, the patient may need to undergo biopsies. But, need to make sure platelet issue has stabilized. Based on the concerning findings will have undergo a PET scan and also PFTs in order to find the optimal in place to biopsy with the highest yield and low is risk. 03/08/2021 the patient was seen for pulmonary follow-up visit. Overall she is doing well after the bronchoscopy. She tolerated well without any apparent complications. The bronchoscopy demonstrated normal airways without any endobronchial lesions. Patient did undergo right upper lobe washings brushings and also transbronchial biopsies demonstrating bronchoalveolar tissue with reactive inflammatory changes as well as evidence of bleeding. No evidence of any malignancy. It was explained to the patient that although the results are reassuring, still concern is about the interval worsening of the nodular density. Close imaging studies were recommended At this point she would rather not follow the nodular density closely since she is not planned to undergo any further diagnostic or surgical interventions. She is still on the Prednisone. She will continue to take 5 mg now. The patient understands that if she develops worsening respiratory symptoms she is to call the pulmonary office for further evaluation otherwise. PLAN: She is to follow up in 4 months to assess clinical status. The patient again would like not to additional imaging studies at this time. She will discuss it further with Dr. Romero, at her upcoming follow-up visit. Thanks, - Time Spent With Patient Time Spent with Patient (in minutes): 30
--- NOTE | 2021-11-30 15:40 | HO.HEMONCPA ---
NO PA REQUIRED FOR RITUXIN. DRUG COVERED UNDER MEDICARE PART B BENEFITS.
[2021-12-03 13:49] LABS: Basophils Absolute Auto 0.1 X10*3/uL (0.0-0.2); Basophils Percent Auto 0.4 % (0-2); Eosinophils Percent Auto 0.1 % (0-4); Hemoglobin 11.6 g/dl (12.0-16.0); Imm Gran Abs Auto 0.25 X10*3/uL (0.00-0.03); Imm Gran Pct Auto 1.6 % (0.0-0.4); Lymphocytes Absolute Auto 0.3 X10*3/uL (1.2-4.9); Lymphocytes Percent Auto 1.9 % (20-40); MANUAL DIFF FLAG SCAN; Mean Corpuscular HGB Conc 33.1 g/dl (31.0-35.0); Mean Corpuscular Hemoglobin 28.9 pg (27.0-33.0); Mean Corpuscular Volume 87.3 fL (80.0-98.0); Mean Platelet Volume 11.6 fL (9.4-12.3); Monocytes Absolute Auto 0.5 X10*3/uL (0.1-1.2); Monocytes Percent Auto 3.2 % (2-11); Neutrophils Absolute Auto 14.6 x10*3/uL (2.0-8.3); Neutrophils Percent Auto 92.8 % (45-73); Red Blood Count 4.01 X10*6/uL (4.20-5.50); Red Cell Distribution Width 12.9 % (11.0-16.0); SCAN SMEAR FLAG 1; White Blood Count 15.7 X10*3/uL (4.8-10.8)
[2021-12-03 13:53] LABS: Platelet Count 39 X10*3/uL (160-400)
[2021-12-03 14:00] LABS: Alanine Aminotransferase 15 U/L (0-31); Albumin Level 3.7 g/dL (3.5-5.0); Alkaline Phosphatase 95 U/L (39-117); Anion Gap 13 (12-20); Aspartate Amino Transferase 19 U/L (5-31); Bilirubin Total 0.5 mg/dL (0.0-1.0); Blood Urea Nitrogen 29 mg/dL (9-16); Calcium 9.6 mg/dL (8.4-10.2); Carbon Dioxide 28 mmol/L (22-29); Chloride 96 mmol/L (96-108); Creatinine Clr Calc Pharmacy 49.6; Estimated Glomerular Filt Rate > 60; Glucose Random 114 mg/dL (60-115); Potassium 5.2 mmol/L (3.3-5.1); Sodium 132 mmol/L (135-145); Total Protein 6.4 g/dL (6.5-8.0)
[2021-12-03 14:08] LABS: SLIDE REVIEW VERIFIED
--- NOTE | 2021-12-03 15:29 | MHC.HEMONC ---
Chemotherapy teaching completed: Rituxan- patient accompanied by daughter and . Labs obtained: CBC/CMP/HEP PANEL. Platelets improved to 39. Patient is currently on 10mg Prednisone. Reviewed side effects of Rituxan and possibility of infusion reaction. Patient is reluctant to start infusion due to high allergy history. Dr. Harrison updated. Patient would like to reassess platelets next week and think about the infusion if needed. Pharmacy notified. Patient does not want to sign consent at this time.
[2021-12-06 04:46] LABS: HBS Num1 1.37 mIU/mL (0-7.99); HBc Num1 0.11 S/CO (0.00-0.79); HBsAGNum1 0.14 S/CO (0.00-0.99); Hepatitis B Core Antibody Nonreactive (Nonreactive); Hepatitis B Surface Antigen Negative (Negative); ~Hepatitis B Surface Antibody NONREACTIVE (Nonreactive)
[2021-12-07 09:37] VITALS: BMI 20.2
[2021-12-07 09:38] VITALS: BP 131/59; PULSE 82; TEMP 36.8; O2SAT 94
[2021-12-07] MEDS: Famotidine/PF 20 MG/2 ML VIAL IVPUSH (09:49)
[2021-12-07] MEDS: diphenhydrAMINE HCL 50 MG/ML VIAL 25 MG IVPUSH (09:49)
[2021-12-07] MEDS: Ondansetron ODT 8 MG TAB.RAPDIS TRANSLINGU (09:49)
--- NOTE | 2021-12-07 12:23 | P.PNHO_ITS ---
Medical Summary - Medical Summary Date of Service: 12/07/21 Chief complaint: Follow-up for: ITP. Medical Summary: DIAGNOSIS: ITP. CURRENT THERAPY: IVIG. PREDNISONE. She was down to 2.5 mg daily, for 6 weeks. Presently taking 20 mg, since yesterday. Previously on 10 mg for a couple weeks. Before that she was not 5 milligram. Here to start rituximab. Interval History Interval history: This is a pleasant 86-year-old lady, here for a follow-up visit. Up until October her platelets were more or less stable: 11/09: Platelets 75. 4/5 platelets 71. 4/19 platelets 28. She was advised to increase the prednisone to 10 mg daily. On 12/03 platelets 39. I had originally scheduled her for rituximab for today however the patient wanted to wait on that. She was seen in the emergency room for hemoptysis, yesterday: complaint: hemoptysis Onset (ago): day(s) (last night) Location: chest Severity: mild Relieving factors: none Exacerbating factors: other (coughing - noted > 5 episodes of scant brb, also had small nose bleed that resolved with pinching) Associated symptoms: denies other symptoms. Platelet count was noted to be down to 19,000. I advised her to increase to 20 mg of prednisone and come in to start a course of rituximab, today. She tells me she has had no energy. Denies fever chills no night sweats. No chest pain cough nor shortness of breath. She has noticed some easy bruising on her left upper arm where she whacked herself on the vanity. She denies any major bleeding. No headache no dizziness. She denies chest pain or trouble breathing. The hemoptysis has resolved. No abdominal pain nausea vomiting heartburn indigestion. Her bowels are working without any gross blood in it. She enjoys a good appetite. Her weight is stable. She is presently on 20 mg of prednisone, increased from 10 mg yesterday.. She is able to tolerate it well, without major side effects. She is in good spirits, Rest of the review of systems is unremarkable. Unfortunately, the CT from yesterday revealed: -Significant interval increase in size of now 6 cm right perihilar mass concerning for malignancy. There has been interval development/enlargement of innumerable bilateral pulmonary nodules concerning for metastatic disease. Also noted is an approximately 5 cm pleural-based mass with associated destruction of the right posterior fifth rib. -No pulmonary embolus identified. Hospital course: Patient was initially seen in house, back in November,. This is an 85 year old lady with a history of COPD, breast cancer, HTN, who presented to the ED, on 12/06, with hemoptysis. She reported 5 days of intermittent cough productive of clear phlegm mixed with blood. She had some shortness of breath which is chronic and unchanged from her baseline. She denied any fevers or chills. She denied chest pain or palpitations. Her workup in the ED was significant for severe thrombocytopenia with platelets of 7, D-dimer of 6064. She underwent CTA which showed no evidence of pulmonary embolism but 2 right upper lobe lung lesions concerning for malignancy. She denies a known history of thrombocytopenia, although her previous CBC from April 2020 shows a platelet count of 117. She denies the use of blood thinner or aspirin at home. She denies any hematuria or bleeding from the gums or nose. She has had hemorrhoidal bleeding in the past, but not right now. She may have lost a few pounds over the past month or so, but no significant weight loss noted. She has been fully vaccinated for COVID 19 with [employer] vaccine, the second dose of which she received 11/04. One unit of platelets was transfused. She presented with severe thrombocytopenia, with a platelet count less than 10. She was also diagnosed with this suspicious lung mass.She was transfused platelets and workup was initiated. She underwent evaluation by both Pulmonary and Hematology. 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 She was subsequently started on systemic steroids. However her platelet counts did not improve right away. She underwent a bone marrow biopsy which showed: Mildly hypercellular marrow with maturing trilineage hematopoiesis and megakaryocyte hyperplasia. See description and comment. The findings are consistent with peripheral platelet destruction/consumption with compensatory megakaryocyte hyperplasia. No marrow infiltrative process is seen and overt features of dysplasia are not present. Concurrent flow cytometry is negative for a B-cell lymphoproliferative disorder. She was started on IVIG (x 2 days) with daily improvement in her platelets counts to >60k at the time of discharge. In regards to her lung mass, biopsy was deferred due to thrombocytopenia and she was referred to the pulmonary clinic for outpatient workup. This turned out to be benign. Review of Systems - Neurologic Reports system reviewed and no additional complaints, except as documented, Reports hearing normal, Reports weakness, Denies frequent falls, Denies headache(s) [facility] Medical History: Medical History (Last Updated 12/08/21 @ 18:27 by Nikolay Romero MD) Acute ITP Bilateral lung cancer Breast CA COPD (chronic obstructive pulmonary disease) Fibrocystic breast changes HTN (hypertension) Irregular heart beat Lymphadenopathy, mediastinal Pulmonary nodules Thyroid disease Worsening headaches Functional capacity: uses cane/walker Family History: Family History (Last Reviewed 11/16/21 @ 09:50 by April Romero CMA) Other No family history of breast cancer Surgical History: Surgical History (Last Reviewed 12/06/21 @ 08:50 by Tracey Chandler DO) S/P breast lumpectomy S/P hip replacement Social History: Social History (Last Reviewed 12/06/21 @ 08:50 by Tracey Chandler DO) Living Situation History: Household Members: Spouse Housing: House Are you a primary professional healthcare representative to a significant other at home: No Do you presently have visiting nurse or other home services: No Tobacco History: Patient Tobacco Use Status: Former Tobacco user Tobacco use type: Cigarette Cigarette Packs Per Day: 2 Years Smoked: 40 years Smoke Quit Date: 2005 Occupation Assessmet: service: No Current occupational status: retired Home Medications and Allergies Current Medications: Current Medications Diphenhydramine HCl (Diphenhydramine Hcl 50 Mg/Ml Vial) 25 mg IVPUSH ONCE FAY Stop: 12/07/21 23:59 Last Admin: 12/07/21 09:49 Dose: 25 mg Documented by: Famotidine (Famotidine/Pf 20 Mg/2 Ml Vial) 20 mg IVPUSH ONCE FAY Stop: 12/07/21 23:59 Last Admin: 12/07/21 09:49 Dose: 20 mg Documented by: Heparin Sodium (Porcine) (Heparin Sodium,Porcine Flush 500 Unit/5 Ml Syringe) 500 unit IVFLUSH ONCE FAY Stop: 12/07/21 23:59 Rituximab 500 mg/ Rituximab 90 (mg/ Sodium Chloride) 309 mls @ 0 mls/hr IV ONCE FAY; Protocol Stop: 12/07/21 23:59 Last Infusion: 12/07/21 11:36 Dose: 52 mls/hr Documented by: Ondansetron HCl (Ondansetron Odt 8 Mg Tab.Rapdis) 8 mg TRANSLINGU ONCE FAY Stop: 12/07/21 23:59 Last Admin: 12/07/21 09:49 Dose: 8 mg Documented by: Home Medications Medication Instructions Recorded Confirmed Type albuterol sulfate 90 mcg/actuation 2 puff INHALATION Q4H PRN 12/06/20 11/16/21 History aerosol inhaler atenolol 25 mg tablet 1 tab PO DAILY 12/06/20 11/16/21 History digoxin 250 mcg (0.25 mg) tablet 1 tab PO DAILY 12/06/20 11/16/21 History fluticasone 250 mcg-salmeterol 50 1 inh INHALATION BID 12/06/20 11/16/21 History mcg/dose blistr powdr for inhalation (Advair Diskus) guaifenesin 600 mg tablet, 600 mg PO BEDTIME 12/06/20 11/16/21 History extended release 12 hr (Mucinex) levothyroxine 75 mcg tablet 1 tab PO QAM 12/06/20 11/16/21 History montelukast 10 mg tablet 1 tab PO DAILY 12/06/20 11/16/21 History tiotropium bromide 18 mcg capsule 18 mcg INHALATION QAM 12/06/20 11/16/21 History with inhalation device (Spiriva with HandiHaler) latanoprost 0.005 % eye drops 1 drp OPHTHALMIC-RIGHT BEDTIME 12/07/20 11/16/21 History ascorbate calcium (vitamin C) 500 500 mg PO DAILY 01/25/21 11/16/21 History mg tablet clorazepate dipotassium 3.75 mg 3.75 mg PO BEDTIME PRN 01/25/21 11/16/21 History tablet biotin 500 mcg capsule 250 mcg PO DAILY 02/11/21 11/16/21 History calcium carb 333 mg-vit D3 133 3 tab PO DAILY 02/11/21 11/16/21 History unit-mag ox 133 mg-zinc oxide 5 mg tab multivitamin 1 cap PO DAILY 02/11/21 11/16/21 History prednisone 5 mg tablet 5 mg PO DAILY 12/08/21 History Allergies Allergy/AdvReac Type Severity Reaction Status Date / Time Carbapenems Allergy Severe RASH Verified 12/08/21 11:13 cefaclor Allergy Severe rash, Verified 12/08/21 11:13 itching cefadroxil [Cefadroxil] Allergy Severe RASH Verified 12/08/21 11:13 cephalexin [From KEFLEX] Allergy Severe RASH Verified 12/08/21 11:13 Cephalosporins Allergy Severe RASH Verified 12/08/21 11:13 chlorhexidine Allergy Severe MUMPS LIKE Verified 12/08/21 11:13 SWELLING TO MOUTH ciprofloxacin Allergy Severe RASH Verified 12/08/21 11:13 ibuprofen [IBUPROFEN] Allergy Severe RASH Verified 12/08/21 11:13 naproxen Allergy Severe RASH, Verified 12/08/21 11:13 rash, itching Penicillins Allergy Severe RASH, HIVES Verified 12/08/21 11:13 Sulfa (Sulfonamide Allergy Severe RASH Verified 12/08/21 11:13 Antibiotics) acetaminophen AdvReac Severe PALPITATION Verified 12/08/21 11:13 S adhesives Allergy Severe skin Uncoded 12/08/21 11:13 irritation antiperspirants, deodorants Allergy Severe Rash Uncoded 12/08/21 11:13 duracef Allergy Severe rash, Uncoded 12/08/21 11:13 itching DURACEPT Allergy Severe RASH Uncoded 12/08/21 11:13 shellfish Allergy Severe severe Uncoded 12/08/21 11:13 hives Exam Vital signs: Vital Signs Temp 98.2 F 12/07/21 09:38 Pulse 82 12/07/21 09:38 Resp 14 11/16/21 09:47 BP 131/59 L 12/07/21 09:38 Pulse Ox 94 12/07/21 09:38 Intake & Output 12/06/21 12/07/21 12/07/21 18:59 06:59 18:59 Intake Total 14.3 / 14.3 Balance 14.3 / 14.3 Intake: Intake, IV Amount 14.3 / 14.3 riTUXimab 500 mg riTUXimab 90 14.3 / 14.3 mg In 0.9 % Sodium Chloride 250 ml @ As Directed IV ONCE [facility] Rx#:[id number] Other: Weight 53.6 kg Weight in Grams 59256 Weight 53.6 kg BMI result Body Mass Index 20.2 - Constitutional Present: no acute distress - Routine HEENT Exam Head: Present: normal inspection - Routine Neck Exam Present: full ROM - Routine Respiratory Exam Present: CTAB - Routine Cardiovascular Exam Cardiovascular: Present: RRR, S1, S2 - Routine Abdominal Exam Present: soft, nontender - Routine Rectal Exam Patient deferred: digital exam - Routine Extremities Exam Present: nontender - Routine Back/Spine/Pelvis Exam Back/Spine: Present: full ROM - Routine Skin Exam Present: intact, ecchymosis - Routine Neurological Exam Present: alert, oriented X3 - Routine Psychiatric Exam Present: normal affect Data - Labs CBC & Chem 7: 12/03/21 13:38 12/03/21 13:38 Assessment and Plan Patient Active problem list reviewed?: Yes (1) Acute ITP Status: Acute Assessment and plan: This is a pleasant 86-year-old lady who had presented to the hospital back in November with significant thrombocytopenia and hemoptysis. Platelet count was 7. She was initially started on steroids. Initially the trend was still low. Between 12/06 and 12/10 platelets were 7, 8, 9. On 12/11 it was 21. On 12/12 it was 13. 5/2 it was 7. 5/3 it was 33. 5/4 it was 63. A bone marrow exam was done, on 12/12, under platelet cover which revealed: Mildly hypercellular marrow with maturing trilineage hematopoiesis and megakaryocytic hyperplasia. Findings are consistent with peripheral platelet destruction/consumption with compensated tree megakaryocytic hyperplasia. No marrow infiltrative processes seen and overt features of dysplasia are not present. Flow cytometry is negative for a B-cell lymphoproliferative disorder. She then received IVIG between 12/13 through 12/16/19. Her platelets started improving: On 12/23 there were 81, 12/31 there were 44. She was on a prednisone taper. She was then advised to increase the prednisone to 20 mg. her platelet count on 01/01: was 42. I was concerned if the platelets are dropping she would need IVIG, however platelet count on 01/07, was encouraging at 137. Platelet count was actually back up to normal on February 11, at 167. She has been doing better. Previously her platelet count was 114. Then 108. It was 99 a few weeks ago. Then 97, then 115. The platelet count does appear to have improved. It is over a 100. She was on a prednisone taper. She had been on 2.5mg, but then inadvertently took 7.5 mg. She had been alternating 5 mg with 2.5 mg every other day. She was advised to go down to 2.5 mg daily. However her platelet count went down to 60,000. She was advised to take 5 mg of prednisone every day. Lately she noted that she was more tired than usual. She also noted bruising at the site of trauma. Platelet count a month ago was 75,000. Then 11/16: 71, 11/30: 28, 12/03: 39, 12/06: 19. Prednisone was increased to 10 mg per day. Here to start on Rituximab. Details of the regimen including potential side effects of hypersensitivity reaction, skin rash, shortness of breath, fever chills, pancytopenia, pulmonary toxicity were all addressed with her. She understands and is willing to proceed. PLAN: Hope fully she will have a lasting response to that. She actually tolerated it very well. l advised her to continue to take the prednisone 10 mg daily. I will monitor her platelet count carefully, on a q weekly basis. She will return in 1 month for a follow-up visit. Thank you, CC: Dr. Domínguez. Dr. Nikolay Romero. (2) Pulmonary nodules Status: Acute Assessment and plan: The patient is an 86-year-old woman with a known history of COPD, breast cancer status post resection, and pulmonary nodules follow-up for many years. She was admitted to the hospital was found to have severe thrombocytopenia. The patient was given a dose of IVIG and started on prednisone for ITP. She also required platelet transfusions. During the hospitalization she did undergo a CT scan of the chest back in November 2020 which demonstrated a 2.5 x 1.5 cm spiculated nodule along with other satellite spiculated nodules and mediastinal lymphadenopathy. Findings at the time very concerning for a malignant process. However, with her significant thrombocytopenia was deemed unsafe to biopsy the areas. Her platelet count has been better. From a respiratory status the patient has been doing well denies any significant weight loss or night sweats. She denies any significant coughing or shortness of breath. We did review the CT scan in the office and she understands the the findings are much worse than her previous CT scans years ago. Therefore, the patient may need to undergo biopsies. But, need to make sure platelet issue has stabilized. Based on the concerning findings will have undergo a PET scan and also PFTs in order to find the optimal in place to biopsy with the highest yield and low is risk. 03/08/2021 the patient was seen for pulmonary follow-up visit. Overall she is doing well after the bronchoscopy. She tolerated well without any apparent complications. The bronchoscopy demonstrated normal airways without any endobronchial lesions. Patient did undergo right upper lobe washings brushings and also transbronchial biopsies demonstrating bronchoalveolar tissue with reactive inflammatory changes as well as evidence of bleeding. No evidence of any malignancy. It was explained to the patient that although the results are reassuring, still concern is about the interval worsening of the nodular density. Close imaging studies were recommended At this point she would rather not follow the nodular density closely since she is not planned to undergo any further diagnostic or surgical interventions. She is still on the Prednisone. She will continue to take 5 mg now. The patient understands that if she develops worsening respiratory symptoms she is to call the pulmonary office for further evaluation otherwise. She presented to the ER on 12/06 with hemoptysis. Platelets down to 19,000. CTA from 12/06 revealed: -Significant interval increase in size of now 6 cm right perihilar mass concerning for malignancy. There has been interval development/enlargement of innumerable bilateral pulmonary nodules concerning for metastatic disease. Also noted is an approximately 5 cm pleural-based mass with associated destruction of the right posterior fifth rib. -No pulmonary embolus identified. VTE: Negative Unfortunately there has been significant progression. In the past she has declined further imaging. PLAN: I shared the results with Dr. Romero. She is going to be seeing him in the near future, to discuss further plan. Thanks, - Time Spent With Patient Time Spent with Patient (in minutes): 30
--- NOTE | 2021-12-07 15:03 | MHC.HEMONC ---
Here for c1d1 rituxan, accomanied by daughter and . Labs reviewed by milagros PATINO for treatment today. Premedicated with zofran 8 mg PO, benadryl 25 mg IV and famotidine 20 mg IV. She is allergic to tylenol. Rituxumab tolerated well. Pt aware of appt next week.
[2021-12-13 11:55] LABS: Basophils Absolute Auto 0.1 X10*3/uL (0.0-0.2); Basophils Percent Auto 0.3 % (0-2); Eosinophils Percent Auto 0.1 % (0-4); Hematocrit 33.5 % (37.0-47.0); Hemoglobin 10.9 g/dl (12.0-16.0); Imm Gran Abs Auto 0.93 X10*3/uL (0.00-0.03); Imm Gran Pct Auto 3.1 % (0.0-0.4); Lymphocytes Absolute Auto 0.3 X10*3/uL (1.2-4.9); MANUAL DIFF FLAG SCAN; Mean Corpuscular HGB Conc 32.5 g/dl (31.0-35.0); Mean Corpuscular Volume 86.1 fL (80.0-98.0); Mean Platelet Volume 11.7 fL (9.4-12.3); Monocytes Absolute Auto 1.4 X10*3/uL (0.1-1.2); Monocytes Percent Auto 4.7 % (2-11); Neutrophils Absolute Auto 27.5 x10*3/uL (2.0-8.3); Neutrophils Percent Auto 90.8 % (45-73); Red Blood Count 3.89 X10*6/uL (4.20-5.50); Red Cell Distribution Width 13.1 % (11.0-16.0); SCAN SMEAR FLAG 1
[2021-12-13 12:07] LABS: Alanine Aminotransferase 15 U/L (0-31); Albumin Level 3.4 g/dL (3.5-5.0); Alkaline Phosphatase 125 U/L (39-117); Anion Gap 13 (12-20); Aspartate Amino Transferase 18 U/L (5-31); Bilirubin Total 0.7 mg/dL (0.0-1.0); Blood Urea Nitrogen 27 mg/dL (9-16); Calcium 9.2 mg/dL (8.4-10.2); Carbon Dioxide 25 mmol/L (22-29); Chloride 94 mmol/L (96-108); Estimated Glomerular Filt Rate > 60; Glucose Random 121 mg/dL (60-115); Potassium 4.5 mmol/L (3.3-5.1); Sodium 127 mmol/L (135-145)
[2021-12-13 12:35] LABS: Platelet Count 30 X10*3/uL (160-400); White Blood Count 30.2 X10*3/uL (4.8-10.8)
[2021-12-13 12:38] LABS: SLIDE REVIEW VERIFIED
--- NOTE | 2021-12-13 14:57 | MHC.HEMONC ---
Pt called this morning to say that she hasn't felt well since Rituxin infusion last Monday . She has c/o fatigue, insomnia but sleepy during the day. No other s/sx except she feels weak as well. She stated that she did not want Rituxin tomorrow. I had her come in for labs today. CBC and CMP left for Dr Garcia's review. PLT 30. Pt WBC is 30+ and although she recently increased prednisone to 10mg - it has never been this high. Per Dr Garcia - pt to come in tomorrow for cultures and ? hydration. Pt is aware. 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
--- NOTE | 2021-12-14 08:30 | MHC.HEMONC ---
pt went to ER during night per Dr Garcia. She is currently there. The was canceled for our Clinic today.
== END 2021-12-28 | disposition home or self-care (01) ==
LOC: HO.ONC 12:00
PROVIDERS: PCP Internal Medicine; Visit Provider Internal Medicine Medical Oncology
DX: D69.3 Immune thrombocytopenic purpura (principal); R91.8 Other nonspecific abnormal finding of lung field; J44.9 Chronic obstructive pulmonary disease, unspecified; Z85.3 Personal history of malignant neoplasm of breast; Z79.52 Long term (current) use of systemic steroids
CPT/HCPCS: 36415; 80053; 85025; 86300; 86704; 86706; 87340; 96375; 96413; 96415; 99211; 99213; 99214; J1200; J9312

== ENCOUNTER 2021-12-14 04:58 | Inpatient (IN) | payer MEDICARE, OTHER, SELFPAY ==
[2021-12-14] VITALS (7 sets, daily range): BP systolic 102–160; BP diastolic 49–70; PULSE 75–120; RESP 14–20; TEMP 36.3–36.9; O2SAT 92–97; BMI 20.4
--- NOTE | ~2021-12-14 | XR_ITS ---
EXAMINATION: XR CHEST CLINICAL INFORMATION: Shortness of breath COMPARISON: 12/06/2021 TECHNIQUE: Frontal view of the chest was obtained. FINDINGS: Lung volumes are symmetric. Redemonstrated mass overlying the mid right lung measures up to approximately 7.2 cm, similar to prior. There is redemonstration of multiple scattered bilateral lung nodules, some of which appear slightly more prominent compared to prior. No evidence of pneumothorax or significant pleural effusion. The cardiomediastinal silhouette is stable. No acute osseous findings are seen. XR/XR chest 1V IMPRESSION: Redemonstrated right lung mass and multiple bilateral lung nodules, with overall slightly worsened radiographic appearance since 12/06/2021.
--- NOTE | 2021-12-14 05:24 | ECG_ITS ---
Test Reason : DYSPNEA Blood Pressure : / mmHG Vent. Rate : 100 BPM Atrial Rate : 100 BPM P-R Int : 132 ms QRS Dur : 076 ms QT Int : 330 ms P-R-T Axes : 056 036 056 degrees QTc Int : 425 ms Sinus rhythm with Premature atrial complexes Nonspecific ST abnormality Abnormal ECG When compared with ECG of 06-DEC-2021 08:53, Premature atrial complexes are now Present Nonspecific T wave abnormality now evident in Lateral leads Referred By: Sara Moreno Electronically Signed By:CLARIBEL MARCANO MD
--- NOTE | 2021-12-14 05:25 | ED_ITS ---
HPI - SOB/Dyspnea General Chief Complaint: Dyspnea Stated Complaint: sob Time Seen by Provider: 12/14/21 05:24 Source: patient Mode of arrival: EMS History of Present Illness HPI Narrative: 86-year-old female who has a past medical history bilateral lung cancer, ITP, COPD (not on home oxygen), who states that she has started Rituxan last week and then received her 2nd COVID booster yesterday. Patient states that she woke up in the middle night very short of breath, set up tried to take her inhaler but still remained quite short of breath and call the ambulance. She denies any recent fever, chills, GI or symptoms and denies any chest pain/palpitations. Related Data Home Medications Medication Instructions Recorded Confirmed albuterol sulfate 90 mcg/actuation 2 puff INHALATION Q4H PRN 12/06/20 11/16/21 aerosol inhaler atenolol 25 mg tablet 1 tab PO DAILY 12/06/20 11/16/21 digoxin 250 mcg (0.25 mg) tablet 1 tab PO DAILY 12/06/20 11/16/21 fluticasone 250 mcg-salmeterol 50 1 inh INHALATION BID 12/06/20 11/16/21 mcg/dose blistr powdr for inhalation (Advair Diskus) guaifenesin 600 mg tablet, 600 mg PO BEDTIME 12/06/20 11/16/21 extended release 12 hr (Mucinex) levothyroxine 75 mcg tablet 1 tab PO QAM 12/06/20 11/16/21 montelukast 10 mg tablet 1 tab PO DAILY 12/06/20 11/16/21 tiotropium bromide 18 mcg capsule 18 mcg INHALATION QAM 12/06/20 11/16/21 with inhalation device (Spiriva with HandiHaler) latanoprost 0.005 % eye drops 1 drp OPHTHALMIC-RIGHT BEDTIME 12/07/20 11/16/21 ascorbate calcium (vitamin C) 500 500 mg PO DAILY 01/25/21 11/16/21 mg tablet clorazepate dipotassium 3.75 mg 3.75 mg PO BEDTIME PRN 01/25/21 11/16/21 tablet biotin 500 mcg capsule 250 mcg PO DAILY 02/11/21 11/16/21 calcium carb 333 mg-vit D3 133 3 tab PO DAILY 02/11/21 11/16/21 unit-mag ox 133 mg-zinc oxide 5 mg tab multivitamin 1 cap PO DAILY 02/11/21 11/16/21 prednisone 5 mg tablet 5 mg PO DAILY 12/08/21 Allergies Allergy/AdvReac Type Severity Reaction Status Date / Time Carbapenems Allergy Severe RASH Verified 12/08/21 11:13 cefaclor Allergy Severe rash, Verified 12/08/21 11:13 itching cefadroxil [Cefadroxil] Allergy Severe RASH Verified 12/08/21 11:13 cephalexin [From KEFLEX] Allergy Severe RASH Verified 12/08/21 11:13 Cephalosporins Allergy Severe RASH Verified 12/08/21 11:13 chlorhexidine Allergy Severe MUMPS LIKE Verified 12/08/21 11:13 SWELLING TO MOUTH ciprofloxacin Allergy Severe RASH Verified 12/08/21 11:13 ibuprofen [IBUPROFEN] Allergy Severe RASH Verified 12/08/21 11:13 naproxen Allergy Severe RASH, Verified 12/08/21 11:13 rash, itching Penicillins Allergy Severe RASH, HIVES Verified 12/08/21 11:13 Sulfa (Sulfonamide Allergy Severe RASH Verified 12/08/21 11:13 Antibiotics) acetaminophen AdvReac Severe PALPITATION Verified 12/08/21 11:13 S adhesives Allergy Severe skin Uncoded 12/08/21 11:13 irritation antiperspirants, deodorants Allergy Severe Rash Uncoded 12/08/21 11:13 duracef Allergy Severe rash, Uncoded 12/08/21 11:13 itching DURACEPT Allergy Severe RASH Uncoded 12/08/21 11:13 shellfish Allergy Severe severe Uncoded 12/08/21 11:13 hives Review of Systems Review of Systems: Pertinent positives and negatives as stated in HPI 10 point review of systems is otherwise negative. [facility] Past Medical History Source: nursing notes reviewed Medical History Acute ITP Bilateral lung cancer Breast CA COPD (chronic obstructive pulmonary disease) Fibrocystic breast changes HTN (hypertension) Irregular heart beat Lymphadenopathy, mediastinal Pulmonary nodules Thyroid disease Worsening headaches Surgical History S/P breast lumpectomy S/P hip replacement Family History Family History Other No family history of breast cancer Social History Social History Household Members: Spouse Housing: House Are you a primary rn critical care to a significant other at home: No Do you presently have visiting nurse or other home services: No Alcohol intake: never Patient Tobacco Use Status: Former Tobacco user Quit Date: 2005 Tobacco use type: Cigarette Cigarette Packs Per Day: 2 Years Smoked: 40 years Use of substances other than those prescribed or required for medical reasons: No Advance Directives: No service: No Current occupational status: retired Physical Exam Vital Signs: Vital Signs: Last Vital Signs Temp 98.4 F 12/14/21 07:25 Pulse 90 12/14/21 07:25 Resp 16 12/14/21 07:25 BP 112/55 L 12/14/21 07:25 Pulse Ox 94 12/14/21 07:25 BMI result Body Mass Index 20.4 VITAL SIGNS: Reviewed. GENERAL: Well developed, well nourished, in no acute distress. HEAD: Normocephalic/atraumatic EYES: PERRLA, EOMI EARS: Ext canals without abnormality OROPHARYNX: no oral lesions noted, posterior pharynx clear LUNGS: Good inspiratory effort, no expiratory wheeze, tachypnea is present. SpO2<93> CARDIOVASCULAR: Regular rate and rhythm without noted murmurs, no JVD or lower extremity edema. ABDOMEN: Soft, non-tender, non-distended with bowel sounds. MUSCULOSKELETAL: No tenderness, deformities, or effusions noted on gross inspection. EXTREMITIES: No cyanosis, clubbing or edema. SKIN: Inspection of the skin reveals no rashes NEUROLOGIC: Alert and oriented x 4. Strength and sensation to light touch were grossly intact x 4. Course Course Course Narrative: This is an 86-year-old female with history and clinical presentation consistent shortness of breath, will evaluate if this is secondary to COPD versus underlying lung mass, as oxygenation appears to be well and she did not receive any intervention treatment in route. Review of all investigations demonstrates worsening thrombocytopenia, otherwise minimal evidence to suggest acute COPD exacerbation raising the question of whether not the patient shortness of breath that she experienced may be secondary to massive fact. All results discussed with her, Heme/Onc consulted, and and case was discussed with inpatient hospitalist who accepts admission. MDM - SOB/Dyspnea Lab Data Result diagrams: 12/14/21 05:47 12/14/21 05:47 Labs: Lab Results 12/14/21 12/14/21 12/14/21 Range/Units 05:47 05:47 05:47 WBC 30.0 H* (4.8-10.8) X10*3/uL RBC 3.95 L (4.20-5.50) X10*6/uL Hgb 11.2 L (12.0-16.0) g/dl Hct 33.5 L (37.0-47.0) % MCV 84.8 (80.0-98.0) fL MCH 28.4 (27.0-33.0) pg MCHC 33.4 (31.0-35.0) g/dl RDW 13.0 (11.0-16.0) % Plt Count 17 L* (160-400) X10*3/uL MPV 12.6 H (9.4-12.3) fL Immature Gran % (Auto) 3.0 H (0.0-0.4) % Neut % (Auto) 89.9 H (45-73) % Lymph % (Auto) 1.2 L (20-40) % [place] % (Auto) 5.4 (2-11) % Eos % (Auto) 0.2 (0-4) % Baso % (Auto) 0.3 (0-2) % Lymph # (Auto) 0.4 L (1.2-4.9) X10*3/uL [place] # (Auto) 1.6 H (0.1-1.2) X10*3/uL Eos # (Auto) 0.1 (0.0-0.4) X10*3/uL Baso # (Auto) 0.1 (0.0-0.2) X10*3/uL Abs Immat Gran (auto) 0.90 H (0.00-0.03) X10*3/uL Absolute Neuts (auto) 27.0 H (2.0-8.3) x10*3/uL Absolute Nucleated RBC 0.000 (0.0-0.012) X10*3/uL Nucleated RBC % (auto) 0.0 (0.0-0.2) /100WBC Smear Tech's Comments VERIFIED PT 14.9 H (9.9-13.0) SEC INR 1.3 H (0.9-1.1) VBG pH (7.32-7.43) VBG pCO2 mmHg VBG pO2 mmHg VBG HCO3 (22-26) mmol/L VBG O2 Saturation % VBG Base Excess mmol/L Sodium 132 L (135-145) mmol/L Potassium 4.1 (3.3-5.1) mmol/L Chloride 94 L (96-108) mmol/L Carbon Dioxide 27 (22-29) mmol/L Anion Gap 15 (12-20) BUN 24 H (9-16) mg/dL Creatinine 0.69 (0.5-1.4) mg/dL Estim Creat Clear Calc 50.7 Estimated GFR > 60 Random Glucose 111 (60-115) mg/dL Lactic Acid (0.5-2.0) mmol/L Calcium 9.6 (8.4-10.2) mg/dL Total Bilirubin 0.8 (0.0-1.0) mg/dL AST 21 (5-31) U/L ALT 19 (0-31) U/L Alkaline Phosphatase 146 H (39-117) U/L B-Natriuretic Peptide (<100) pg/mL Total Protein 6.5 (6.5-8.0) g/dL Albumin 3.6 (3.5-5.0) g/dL 12/14/21 12/14/21 12/14/21 Range/Units 05:47 05:47 05:55 WBC (4.8-10.8) X10*3/uL RBC (4.20-5.50) X10*6/uL Hgb (12.0-16.0) g/dl Hct (37.0-47.0) % MCV (80.0-98.0) fL MCH (27.0-33.0) pg MCHC (31.0-35.0) g/dl RDW (11.0-16.0) % Plt Count (160-400) X10*3/uL MPV (9.4-12.3) fL Immature Gran % (Auto) (0.0-0.4) % Neut % (Auto) (45-73) % Lymph % (Auto) (20-40) % [place] % (Auto) (2-11) % Eos % (Auto) (0-4) % Baso % (Auto) (0-2) % Lymph # (Auto) (1.2-4.9) X10*3/uL [place] # (Auto) (0.1-1.2) X10*3/uL Eos # (Auto) (0.0-0.4) X10*3/uL Baso # (Auto) (0.0-0.2) X10*3/uL Abs Immat Gran (auto) (0.00-0.03) X10*3/uL Absolute Neuts (auto) (2.0-8.3) x10*3/uL Absolute Nucleated RBC (0.0-0.012) X10*3/uL Nucleated RBC % (auto) (0.0-0.2) /100WBC Smear Tech's Comments PT (9.9-13.0) SEC INR (0.9-1.1) VBG pH 7.45 H (7.32-7.43) VBG pCO2 39 mmHg VBG pO2 43 mmHg VBG HCO3 27 H (22-26) mmol/L VBG O2 Saturation 68.0 % VBG Base Excess 3.6 mmol/L Sodium (135-145) mmol/L Potassium (3.3-5.1) mmol/L Chloride (96-108) mmol/L Carbon Dioxide (22-29) mmol/L Anion Gap (12-20) BUN (9-16) mg/dL Creatinine (0.5-1.4) mg/dL Estim Creat Clear Calc Estimated GFR Random Glucose (60-115) mg/dL Lactic Acid 1.2 (0.5-2.0) mmol/L Calcium (8.4-10.2) mg/dL Total Bilirubin (0.0-1.0) mg/dL AST (5-31) U/L ALT (0-31) U/L Alkaline Phosphatase (39-117) U/L B-Natriuretic Peptide 136 H (<100) pg/mL Total Protein (6.5-8.0) g/dL Albumin (3.5-5.0) g/dL ECG Data Attestation: I personally reviewed and interpreted this ECG as follows: Prior ECG tracings: available for review Interpretation: Sinus rhythm, HR-100, no STEMI, NH/QRS/QTC is within normal limits. Discharge Plan Discharge Clinical Impression: Shortness of breath, COPD (chronic obstructive pulmonary disease), Thrombocytopenia Patient Disposition: Admitted As Inpatient Prescriptions: No Action fluticasone propion-salmeterol [Advair Diskus] 250-50 mcg/dose Blister With Device 1 inh INHALATION BID 0RF atenolol 25 mg tablet 1 tab PO DAILY 0RF digoxin 250 mcg (0.25 mg) tablet 1 tab PO DAILY 0RF levothyroxine 75 mcg tablet 1 tab PO QAM 0RF montelukast 10 mg tablet 1 tab PO DAILY 0RF albuterol sulfate 90 mcg/actuation HFA aerosol inhaler 2 puff inhalation Q4H PRN (Reason: Shortness Of Breath Or Wheezing) 0RF Spiriva with HandiHaler 18 mcg Capsule, W/Inhalation Device 18 mcg INHALATION QAM 0RF guaifenesin [Mucinex] 600 mg Tablet Extended Release 12hr 600 mg PO BEDTIME 0RF latanoprost 0.005 % drops 1 drp ophthalmic-Right BEDTIME 0RF clorazepate dipotassium 3.75 mg tablet 3.75 mg PO BEDTIME PRN (Reason: Insomnia) 0RF biotin 500 mcg Capsule 250 mcg PO DAILY 0RF multivitamin Capsule 1 cap PO DAILY 0RF calcium carb-D3-mag ox-zinc ox 333 mg-133 unit -133 mg-5 mg Tablet 3 tab PO DAILY 0RF ascorbate calcium (vitamin C) 500 mg tablet 500 mg PO DAILY 0RF prednisone 5 mg tablet 5 mg PO DAILY 0RF
[2021-12-14] MEDS: methylPREDNISolone Sod Succ 125 MG/2 ML VIAL IVPUSH (05:58)
[2021-12-14 06:02] LABS: Eosinophils Absolute Auto 0.1 X10*3/uL (0.0-0.4); Eosinophils Percent Auto 0.2 % (0-4); Hemoglobin 11.2 g/dl (12.0-16.0); PLT CLUMP 1; SCAN SMEAR FLAG 1
[2021-12-14 06:03] LABS: Basophils Absolute Auto 0.1 X10*3/uL (0.0-0.2); Basophils Percent Auto 0.3 % (0-2); Hematocrit 33.5 % (37.0-47.0); Lymphocytes Absolute Auto 0.4 X10*3/uL (1.2-4.9); Lymphocytes Percent Auto 1.2 % (20-40); MANUAL DIFF FLAG SCAN; Mean Corpuscular HGB Conc 33.4 g/dl (31.0-35.0); Mean Corpuscular Hemoglobin 28.4 pg (27.0-33.0); Mean Corpuscular Volume 84.8 fL (80.0-98.0); Mean Platelet Volume 12.6 fL (9.4-12.3); Monocytes Absolute Auto 1.6 X10*3/uL (0.1-1.2); Monocytes Percent Auto 5.4 % (2-11); Neutrophils Percent Auto 89.9 % (45-73); Red Blood Count 3.95 X10*6/uL (4.20-5.50); Venous Blood Gas Refer to POC result
[2021-12-14 06:04] LABS: VBG Base Excess 3.6 mmol/L; VBG HCO3 27 mmol/L (22-26); VBG pCO2 39 mmHg; VBG pH 7.45 (7.32-7.43); VBG pO2 43 mmHg
[2021-12-14 06:05] LABS: INTERNATIONAL NORM RATIO 1.3 (0.9-1.1); Prothrombin Time 14.9 SEC (9.9-13.0)
[2021-12-14 06:07] LABS: Platelet Count 17 X10*3/uL (160-400)
[2021-12-14 06:08] LABS: Lactic Acid 1.2 mmol/L (0.5-2.0)
[2021-12-14 06:13] LABS: Alanine Aminotransferase 19 U/L (0-31); Albumin Level 3.6 g/dL (3.5-5.0); Alkaline Phosphatase 146 U/L (39-117); Anion Gap 15 (12-20); Aspartate Amino Transferase 21 U/L (5-31); Bilirubin Total 0.8 mg/dL (0.0-1.0); Blood Urea Nitrogen 24 mg/dL (9-16); Calcium 9.6 mg/dL (8.4-10.2); Carbon Dioxide 27 mmol/L (22-29); Chloride 94 mmol/L (96-108); Creatinine Clr Calc Pharmacy 50.7; Estimated Glomerular Filt Rate > 60; Glucose Random 111 mg/dL (60-115); Potassium 4.1 mmol/L (3.3-5.1); Sodium 132 mmol/L (135-145); Total Protein 6.5 g/dL (6.5-8.0)
--- NOTE | 2021-12-14 06:16 | PC.NURSE ---
Addendum entered by Aniyah Motley 12/14/21 06:17: results of wbc 30 and pallets 17L Original Note: Reported Critical labs to provider and MIGUEL Tamayo.
[2021-12-14 06:17] LABS: B Type Natriuretic Peptide 136 pg/mL (<100)
[2021-12-14 06:23] LABS: SLIDE REVIEW VERIFIED
--- NOTE | 2021-12-14 09:21 | PHA.MEDREC ---
Pharmacy Consult ? Medication Reconciliation Pharmacy has completed the medication reconciliation.
[2021-12-14 12:30] LABS: COVID-19 Test Negative (Negative)
--- NOTE | 2021-12-14 13:29 | P.CONPL_ITS ---
History of Present Illness History of Present Illness Consult date: 12/14/21 Requesting physician: Marshall Thomas Chief complaint: sob Narrative: 86-year-old lady with underlying history of COPD, 80 P, breast cancer, known right sided lung mass undergoing outpatient workup with pulmonary and oncology services admitted on 12/14/2021 with acute onset of dyspnea. On ER evaluation patient was noted to have significant leukocytosis and thrombocytopenia. She was started on bronchodilators and systemic glucocorticoids for treatment possible COPD exacerbation and admitted to general medical lal. This morning patient states that her dyspnea has improved significantly. She does complain of cough productive of small amount of phlegm. Review of Systems Constitutional: Constitutional: Denies daytime sleepiness, Denies excessive sweating, Denies fatigue, Denies fever(s), Denies lethargy, Denies malaise, Denies night sweats, Denies snoring and Reports weight loss Eyes: Eyes: Denies blurry vision and Denies itchy eyes ENT: Denies nasal congestion, Denies post nasal drip, Denies sinus pain, Denies sinus pressure and Denies other ( Thrush) Cardiovascular: Cardiovascular: Denies chest pain, Denies pedal edema, Reports dyspnea, Reports dyspnea on exertion, Denies orthopnea and Denies paroxysmal nocturnal dyspnea Respiratory: Respiratory: Reports cough, Denies hemoptysis, Reports excessive phlegm production, Reports dyspnea, Reports dyspnea on exertion, Denies snoring and Denies wheezing Gastrointestinal: Gastrointestinal: Denies abdominal pain and Denies heartburn Musculoskeletal: Musculoskeletal: Denies myalgias, Denies arthralgias and Denies joint swelling Integumentary/Breasts: Skin/Breast: Denies rash Neurologic: Denies memory loss and Denies seizure-like activity Psychiatric: Psychiatric: Denies abnormal sleep pattern, Denies anxiety and Denies memory loss Endocrine: Endocrine: Denies excessive sweating, Denies fatigue and Denies heat intolerance Hematologic/Lymphatic: Hematologic/Lymphatic: Denies easy bruising Allergic/Immunologic: Allergic/Immunologic: Denies itchy eyes, Denies seasonal rhinorrhea and Denies wheezing PMFSH Past Medical History Medical History Acute ITP Bilateral lung cancer Breast CA COPD (chronic obstructive pulmonary disease) Fibrocystic breast changes HTN (hypertension) Irregular heart beat Lymphadenopathy, mediastinal Pulmonary nodules Thyroid disease Worsening headaches Family History Family History Other No family history of breast cancer Surgical History Surgical History S/P breast lumpectomy S/P hip replacement Social History Social History Household Members: Spouse Housing: House Are you a primary child day care provider to a significant other at home: No Do you presently have visiting nurse or other home services: No Alcohol intake: never Patient Tobacco Use Status: Former Tobacco user Quit Date: 2005 Tobacco use type: Cigarette Cigarette Packs Per Day: 2 Years Smoked: 40 years Use of substances other than those prescribed or required for medical reasons: No Advance Directives: No service: No Current occupational status: retired Meds Allergies Allergy/AdvReac Type Severity Reaction Status Date / Time Carbapenems Allergy Severe RASH Verified 12/08/21 11:13 cefaclor Allergy Severe rash, Verified 12/08/21 11:13 itching cefadroxil [Cefadroxil] Allergy Severe RASH Verified 12/08/21 11:13 cephalexin [From KEFLEX] Allergy Severe RASH Verified 12/08/21 11:13 Cephalosporins Allergy Severe RASH Verified 12/08/21 11:13 chlorhexidine Allergy Severe MUMPS LIKE Verified 12/08/21 11:13 SWELLING TO MOUTH ciprofloxacin Allergy Severe RASH Verified 12/08/21 11:13 ibuprofen [IBUPROFEN] Allergy Severe RASH Verified 12/08/21 11:13 naproxen Allergy Severe RASH, Verified 12/08/21 11:13 rash, itching Penicillins Allergy Severe RASH, HIVES Verified 12/08/21 11:13 Sulfa (Sulfonamide Allergy Severe RASH Verified 12/08/21 11:13 Antibiotics) acetaminophen AdvReac Severe PALPITATION Verified 12/08/21 11:13 S adhesives Allergy Severe skin Uncoded 12/08/21 11:13 irritation antiperspirants, deodorants Allergy Severe Rash Uncoded 12/08/21 11:13 duracef Allergy Severe rash, Uncoded 12/08/21 11:13 itching DURACEPT Allergy Severe RASH Uncoded 12/08/21 11:13 shellfish Allergy Severe severe Uncoded 12/08/21 11:13 hives Active Medications: Current Medications Acetaminophen (Acetaminophen 325 Mg Tablet) 650 mg PO Q6H PRN PRN Reason: Pain, Mild (Pain Scale 1-3) Enoxaparin Sodium (Enoxaparin Sodium 40 Mg/0.4 Ml Syringe) 40 mg SUBCUT Q12H [facility] Last Admin: 12/14/21 09:22 Dose: Not Given Documented by: Sodium Chloride (0.9 % Sodium Chloride Flush 3 Ml Syringe) 3 ml IVFLUSH QSHIFT [facility] Home Medications Medication Instructions Recorded Confirmed Last Taken Type albuterol sulfate 90 mcg/actuation 2 puff INHALATION Q4H PRN 12/06/20 12/14/21 12/14/21 History aerosol inhaler atenolol 25 mg tablet 1 tab PO DAILY 12/06/20 12/14/21 02/25/21 History digoxin 250 mcg (0.25 mg) tablet 1 tab PO DAILY 12/06/20 12/14/21 12/13/21 H istory fluticasone 250 mcg-salmeterol 50 1 inh INHALATION BID 12/06/20 12/14/21 12/14/21 History mcg/dose blistr powdr for inhalation (Advair Diskus) guaifenesin 600 mg tablet, 600 mg PO BEDTIME 12/06/20 12/14/21 12/13/21 History extended release 12 hr (Mucinex) levothyroxine 75 mcg tablet 1 tab PO QAM 12/06/20 12/14/21 12/14/21 History montelukast 10 mg tablet 1 tab PO DAILY 12/06/20 12/14/21 12/13/21 History tiotropium bromide 18 mcg capsule 18 mcg INHALATION QAM 12/06/20 12/14/21 12/13/21 History with inhalation device (Spiriva with HandiHaler) latanoprost 0.005 % eye drops 1 drp OPHTHALMIC-RIGHT BEDTIME 12/07/20 12/14/21 12/13/21 History ascorbate calcium (vitamin C) 500 500 mg PO DAILY 01/25/21 12/14/21 12/13/21 History mg tablet clorazepate dipotassium 3.75 mg 3.75 mg PO BEDTIME PRN 01/25/21 12/14/21 12/13/21 History tablet biotin 500 mcg capsule 250 mcg PO DAILY 02/11/21 12/14/21 12/13/21 History calcium carb 333 mg-vit D3 133 3 tab PO DAILY 02/11/21 12/14/21 12/13/21 History unit-mag ox 133 mg-zinc oxide 5 mg tab multivitamin 1 cap PO DAILY 02/11/21 12/14/21 12/13/21 History prednisone 5 mg tablet 10 mg PO DAILY 12/08/21 12/14/21 12/13/21 History Physical Exam Vital Signs: Vital Signs: Last Vital Signs Temp 98.4 F 12/14/21 07:25 Pulse 90 12/14/21 07:25 Resp 16 12/14/21 07:25 BP 112/55 L 12/14/21 07:25 Pulse Ox 94 12/14/21 07:25 BMI result Body Mass Index 20.4 Const: General: no acute distress and alert Nutritional Appearance: not obese Orientation/consciousness: Other orientation findings ( oriented) HEENT: Head: Yes atraumatic Mouth: no other ( thrush) Throat: No postnasal drainage Eyes: General: appearance normal, both eyes and all related structures Sclerae: sclerae normal EOM: EOMs intact bilaterally Neck: Neck: Yes supple Lymphatic: no lymphadenopathy noted Resp: Effort & Inspection: normal respiratory effort and no use of accessory muscles Auscultation: clear to auscultation bilaterally Cardio: Rate: regular rate Rhythm: regular rhythm Heart sounds: no gallops, no murmurs and no rubs GI: Palpation (GI): Soft to palpation and Other GI palpation findings present ( nontender) Skin: General skin exam: other ( warm) Rashes: no rashes Extrem: General: No clubbing, No cyanosis and No edema Results Laboratory Findings CBC and BMP: 12/14/21 05:47 12/14/21 05:47 ABG, PT/INR, D-dimer: PT/INR, D-dimer PT 14.9 SEC (9.9-13.0) H 12/14/21 05:47 INR 1.3 (0.9-1.1) H 12/14/21 05:47 Abnormal lab findings: Abnormal Labs 12/14/21 12/14/21 12/14/21 05:47 05:47 05:47 WBC 30.0 H* RBC 3.95 L Hgb 11.2 L Hct 33.5 L Plt Count 17 L* MPV 12.6 H Immature Gran % (Auto) 3.0 H Neut % (Auto) 89.9 H Lymph % (Auto) 1.2 L Lymph # (Auto) 0.4 L [place] # (Auto) 1.6 H Abs Immat Gran (auto) 0.90 H Absolute Neuts (auto) 27.0 H PT 14.9 H INR 1.3 H VBG pH VBG HCO3 Sodium 132 L Chloride 94 L BUN 24 H Alkaline Phosphatase 146 H B-Natriuretic Peptide 12/14/21 12/14/21 05:47 05:55 WBC RBC Hgb Hct Plt Count MPV Immature Gran % (Auto) Neut % (Auto) Lymph % (Auto) Lymph # (Auto) [place] # (Auto) Abs Immat Gran (auto) Absolute Neuts (auto) PT INR VBG pH 7.45 H VBG HCO3 27 H Sodium Chloride BUN Alkaline Phosphatase B-Natriuretic Peptide 136 H Diagnostic Findings Chest x-ray: report reviewed and image reviewed CT scan - chest: report reviewed and image reviewed Assessment and Plan (1) Postobstructive pneumonia: Status: Acute (2) COPD (chronic obstructive pulmonary disease): Status: Acute (3) Lung mass: Status: Acute Plan Impression: 86-year-old lady with known right middle lobe 6 cm lung mass with what appears to be bilateral metastatic disease undergoing outpatient workup with pulmonary and oncology services admitted with an acute episode of dyspnea. At this time patient does not seem to have exacerbation of her underlying COPD. It appears she has a component of postobstructive pneumonia secondary to extrinsic compression of one of a right middle lobe bronchi. Recommendations: Consider discontinuation of systemic glucocorticoids. Consider treatment with antibiotic for postobstructive pneumonia. Would advise against tissue sampling while patient is actively infected and has significant thrombocytopenia. Continue outpatient workup of a known lung cancer. Recommendations related to attending via secure message. Will sign off. Procedures Date of Service Date of Service: 12/14/21
--- NOTE | 2021-12-14 13:34 | PC.NURSE ---
Pt resting in bed quietly. No complaints at this time.
--- NOTE | 2021-12-14 16:00 | W.PM.IDCN ---
History of Present Illness Data of Consult Service Date: 12/14/21 Requesting physician: Marshall Thomas Primary Care Provider: Raheem Domínguez MD HPI Reason for consult: shortness of breath She woke up with shortness of breath and dry cough. She has received COVID shots She has had intermittent hemoptysis Review of Systems Review of Systems: Yes all other systems are reviewed and are negative PMFSH Past Medical History Medical History Acute ITP Bilateral lung cancer Breast CA COPD (chronic obstructive pulmonary disease) Fibrocystic breast changes HTN (hypertension) Irregular heart beat Lymphadenopathy, mediastinal Pulmonary nodules Thyroid disease Worsening headaches Family History Family History Other No family history of breast cancer Family history: reviewed and not pertinent Surgical History Surgical History S/P breast lumpectomy S/P hip replacement Social History Social History Household Members: Spouse Housing: House Are you a primary reservoir caretaker to a significant other at home: No Do you presently have visiting nurse or other home services: No Alcohol intake: never Patient Tobacco Use Status: Former Tobacco user Quit Date: 2005 Tobacco use type: Cigarette Cigarette Packs Per Day: 2 Years Smoked: 40 years Use of substances other than those prescribed or required for medical reasons: No Advance Directives: No service: No Current occupational status: retired Meds Allergies Allergy/AdvReac Type Severity Reaction Status Date / Time Carbapenems Allergy Severe RASH Verified 12/22/21 05:31 cefaclor Allergy Severe rash, Verified 12/22/21 05:31 itching cefadroxil [Cefadroxil] Allergy Severe RASH Verified 12/22/21 05:31 cephalexin [From KEFLEX] Allergy Severe RASH Verified 12/22/21 05:31 Cephalosporins Allergy Severe RASH Verified 12/22/21 05:31 chlorhexidine Allergy Severe MUMPS LIKE Verified 12/22/21 05:31 SWELLING TO MOUTH ciprofloxacin Allergy Severe RASH Verified 12/22/21 05:31 ibuprofen [IBUPROFEN] Allergy Severe RASH Verified 12/22/21 05:31 naproxen Allergy Severe RASH, Verified 12/22/21 05:31 rash, itching Penicillins Allergy Severe RASH, HIVES Verified 12/22/21 05:31 Sulfa (Sulfonamide Allergy Severe RASH Verified 12/22/21 05:31 Antibiotics) acetaminophen AdvReac Severe PALPITATION Verified 12/22/21 05:31 S adhesives Allergy Severe skin Uncoded 12/22/21 05:31 irritation antiperspirants, deodorants Allergy Severe Rash Uncoded 12/22/21 05:31 duracef Allergy Severe rash, Uncoded 12/22/21 05:31 itching DURACEPT Allergy Severe RASH Uncoded 12/22/21 05:31 shellfish Allergy Severe severe Uncoded 12/22/21 05:31 hives Active Medications: Current Medications Acetaminophen (Acetaminophen 325 Mg Tablet) 650 mg PO Q6H PRN PRN Reason: Pain, Mild (Pain Scale 1-3) Enoxaparin Sodium (Enoxaparin Sodium 40 Mg/0.4 Ml Syringe) 40 mg SUBCUT Q12H [facility] Last Admin: 12/14/21 09:22 Dose: Not Given Documented by: Sodium Chloride (0.9 % Sodium Chloride Flush 3 Ml Syringe) [facility] Medications Medication Instructions Recorded Confirmed Last Taken Type albuterol sulfate 90 mcg/actuation 2 puff INHALATION Q4H PRN 12/06/20 12/14/21 12/14/21 History aerosol inhaler atenolol 25 mg tablet 1 tab PO DAILY 12/06/20 12/14/21 02/25/21 History digoxin 250 mcg (0.25 mg) tablet 1 tab PO DAILY 12/06/20 12/14/21 12/13/21 History fluticasone 250 mcg-salmeterol 50 1 inh INHALATION BID 12/06/20 12/14/21 12/14/21 History mcg/dose blistr powdr for inhalation (Advair Diskus) guaifenesin 600 mg tablet, 600 mg PO BEDTIME 12/06/20 12/14/21 12/13/21 History extended release 12 hr (Mucinex) levothyroxine 75 mcg tablet 1 tab PO QAM 12/06/20 12/14/21 12/14/21 History montelukast 10 mg tablet 1 tab PO DAILY 12/06/20 12/14/21 12/13/21 History tiotropium bromide 18 mcg capsule 18 mcg INHALATION QAM 12/06/20 12/14/21 12/13/21 History with inhalation device (Spiriva with HandiHaler) latanoprost 0.005 % eye drops 1 drp OPHTHALMIC-RIGHT BEDTIME 12/07/20 12/14/21 12/13/21 History ascorbate calcium (vitamin C) 500 500 mg PO DAILY 01/25/21 12/14/21 12/13/21 History mg tablet clorazepate dipotassium 3.75 mg 3.75 mg PO BEDTIME PRN 01/25/21 12/14/21 12/13/21 History tablet biotin 500 mcg capsule 250 mcg PO DAILY 02/11/21 12/14/21 12/13/21 History calcium carb 333 mg-vit D3 133 3 tab PO DAILY 02/11/21 12/14/21 12/13/21 History unit-mag ox 133 mg-zinc oxide 5 mg tab multivitamin 1 cap PO DAILY 02/11/21 12/14/21 12/13/21 History prednisone 5 mg tablet 10 mg PO DAILY 12/08/21 12/14/21 12/13/21 History Physical Exam Vital Signs: Vital Signs: Last Vital Signs Temp 98.5 F 12/14/21 15:42 Pulse 89 12/14/21 15:42 Resp 18 12/14/21 15:42 BP 102/49 L 12/14/21 15:42 Pulse Ox 95 12/14/21 15:42 BMI result Body Mass Index 20.4 Const: General: cooperative Eyes: General: appearance normal, both eyes and all related structures Pupils: Equal, round and reactive pupils present Resp: Effort & Inspection: normal respiratory effort Cardio: Rate: regular rate Rhythm: regular rhythm GI: Palpation (GI): Soft to palpation and nontender Skin: General skin exam: no rashes or lesions noted Neuro: Cranial nerves: Yes Equal, round and reactive pupils present Results Labs CBC & Chem 7: 12/21/21 05:59 12/21/21 05:59 Labs: Short CBC 12/14/21 Range/Units 05:47 WBC 30.0 H* (4.8-10.8) X10*3/uL Hgb 11.2 L (12.0-16.0) g/dl Hct 33.5 L (37.0-47.0) % Plt Count 17 L* (160-400) X10*3/uL Smear Path Review SEE NOTE BMP 12/14/21 05:47 Sodium 132 L Potassium 4.1 Chloride 94 L Carbon Dioxide 27 BUN 24 H Creatinine 0.69 Calcium 9.6 Liver Function 12/14/21 Range/Units 05:47 Total Bilirubin 0.8 (0.0-1.0) mg/dL AST 21 (5-31) U/L ALT 19 (0-31) U/L Alkaline Phosphatase 146 H (39-117) U/L Albumin 3.6 (3.5-5.0) g/dL Assessment and Plan (1) Postobstructive pneumonia: Status: Resolved Leukemoid reaction There are large lung malignancies Possible staph/strep gram negative /fungus (2) Shortness of breath: Status: Resolved (3) Thrombocytopenia: Status: Acute (4) Bilateral lung cancer: (5) Pulmonary nodules: Status: Acute Plan Check cryptococcal antigen Would start Vancomycin and Zosyn,duration to be determined possible 5-7 day
--- NOTE | 2021-12-14 16:54 | P.HPHOSP_ITS ---
History of Present Illness Date of Service: 12/14/21 Chief Complaint: Shortness of Brath 86-year-old female who has a past medical history bilateral lung cancer, ITP, COPD (not on home oxygen), who states that she has started Rituxan last week and then received her 2nd COVID booster yesterday.? Patient states that she woke up in the middle night very short of breath, set up tried to take her inhaler but still remained quite short of breath and call the ambulance.? She denies any recent fever, chills, GI or symptoms and denies any chest pain/palpitations. Review of Systems Review of Systems: Denies chest pain Admit shortness of breath Denies nausea vomiting diarrhea Denies fever chills [facility] Medical History (Updated 12/14/21 @ 17:03 by Marshall Thomas DO) Acute ITP Bilateral lung cancer Breast CA COPD (chronic obstructive pulmonary disease) Fibrocystic breast changes HTN (hypertension) Irregular heart beat Lymphadenopathy, mediastinal Pulmonary nodules Thyroid disease Worsening headaches Family History Other No family history of breast cancer Surgical History S/P breast lumpectomy S/P hip replacement Social History Household Members: Spouse Housing: House Are you a primary administrator health care facility to a significant other at home: No Do you presently have visiting nurse or other home services: No Alcohol intake: never Patient Tobacco Use Status: Former Tobacco user Quit Date: 2005 Tobacco use type: Cigarette Cigarette Packs Per Day: 2 Years Smoked: 40 years Use of substances other than those prescribed or required for medical reasons: No Advance Directives: No service: No Current occupational status: retired Meds Allergies Allergy/AdvReac Type Severity Reaction Status Date / Time Carbapenems Allergy Severe RASH Verified 12/08/21 11:13 cefaclor Allergy Severe rash, Verified 12/08/21 11:13 itching cefadroxil [Cefadroxil] Allergy Severe RASH Verified 12/08/21 11:13 cephalexin [From KEFLEX] Allergy Severe RASH Verified 12/08/21 11:13 Cephalosporins Allergy Severe RASH Verified 12/08/21 11:13 chlorhexidine Allergy Severe MUMPS LIKE Verified 12/08/21 11:13 SWELLING TO MOUTH ciprofloxacin Allergy Severe RASH Verified 12/08/21 11:13 ibuprofen [IBUPROFEN] Allergy Severe RASH Verified 12/08/21 11:13 naproxen Allergy Severe RASH, Verified 12/08/21 11:13 rash, itching Penicillins Allergy Severe RASH, HIVES Verified 12/08/21 11:13 Sulfa (Sulfonamide Allergy Severe RASH Verified 12/08/21 11:13 Antibiotics) acetaminophen AdvReac Severe PALPITATION Verified 12/08/21 11:13 S adhesives Allergy Severe skin Uncoded 12/08/21 11:13 irritation antiperspirants, deodorants Allergy Severe Rash Uncoded 12/08/21 11:13 duracef Allergy Severe rash, Uncoded 12/08/21 11:13 itching DURACEPT Allergy Severe RASH Uncoded 12/08/21 11:13 shellfish Allergy Severe severe Uncoded 12/08/21 11:13 hives Active Medications: Current Medications Acetaminophen (Acetaminophen 325 Mg Tablet) 650 mg PO Q6H PRN PRN Reason: Pain, Mild (Pain Scale 1-3) Albuterol Sulfate (Albuterol Sulfate 90 Mcg 8 Gm Inhaler) 2 puff INHALE Q4H PRN PRN Reason: Shortness Of Breath Or Wheezing Ascorbic Acid (Ascorbic Acid 500 Mg Tablet) 500 mg PO DAILY [facility] Atenolol (Atenolol 25 Mg Tablet) 25 mg PO DAILY [facility]; Protocol Digoxin (Digoxin 0.25 Mg Tablet) mg PO DAILY [facility] Enoxaparin Sodium (Enoxaparin Sodium 40 Mg/0.4 Ml Syringe) 40 mg SUBCUT Q12H [facility] Last Admin: 12/14/21 09:22 Dose: Not Given Documented by: Guaifenesin (Guaifenesin La 600 Mg Tab.Er.12h) 600 mg PO BEDTIME [facility] Piperacillin Sod/Tazobactam (Sod 3.375 gm/ Sodium Chloride) 50 mls @ 100 mls/hr IV Q8H [facility] Vancomycin HCl 1,000 mg/ (Sodium Chloride) 270 mls @ 270 mls/hr IV Q12H [facility] Latanoprost (Latanoprost 0.005 % Ophth Xena 2.5 Ml Drops) 1 drop EYE-RIGHT BEDTIME [facility] Levothyroxine Sodium (Levothyroxine Sodium 75 Mcg Tablet) 75 mcg PO QAM [facility] Montelukast Sodium (Montelukast Sodium 10 Mg Tablet) 10 mg PO DAILY [facility] Multivitamins/Vitamin C (Multivitamin Tablet) tab PO DAILY [facility] Non-Formulary Medication (Biotin) 250 mcg PO DAILY [facility] Non-Formulary Medication (Calcium Carb-D3-Mag Ox-Zinc Ox) 3 tab PO DAILY [facility] Non-Formulary Medication (Clorazepate Dipotassium) 3.75 mg PO BEDTIME PRN PRN Reason: Insomnia Non-Formulary Medication (Fluticasone Propion-Salmeterol [Advair Diskus]) 1 inhalation INHALE BID [facility] Pharmacy Consult (Consult Rx Vancomycin Dosing) 1 each MISCELLANE DAILY PRN PRN Reason: Consult order Prednisone (Prednisone 5 Mg Tablet) 10 mg PO DAILY [facility] Sodium Chloride (0.9 % Sodium Chloride Flush 3 Ml Syringe) 3 ml IVFLUSH QSHIFT [facility] Tiotropium [place] (Tiotropium [place] 18 Mcg Cap.W.Dev) puff INHALE QAM [facility] Home Medications Medication Instructions Recorded Confirmed Last Taken Type albuterol sulfate 90 mcg/actuation 2 puff INHALATION Q4H PRN 12/06/20 12/14/21 12/14/21 History aerosol inhaler atenolol 25 mg tablet 1 tab PO DAILY 12/06/20 12/14/21 02/25/21 History digoxin 250 mcg (0.25 mg) tablet 1 tab PO DAILY 12/06/20 12/14/21 12/13/21 History fluticasone 250 mcg-salmeterol 50 1 inh INHALATION BID 12/06/20 12/14/21 12/14/21 History mcg/dose blistr powdr for inhalation (Advair Diskus) guaifenesin 600 mg tablet, 600 mg PO BEDTIME 12/06/20 12/14/21 12/13/21 History extended release 12 hr (Mucinex) levothyroxine 75 mcg tablet 1 tab PO QAM 12/06/20 12/14/21 12/14/21 History montelukast 10 mg tablet 1 tab PO DAILY 12/06/20 12/14/21 12/13/21 History tiotropium bromide 18 mcg capsule 18 mcg INHALATION QAM 12/06/20 12/14/21 12/13/21 History with inhalation device (Spiriva with HandiHaler) latanoprost 0.005 % eye drops 1 drp OPHTHALMIC-RIGHT BEDTIME 12/07/20 12/14/21 12/13/21 History ascorbate calcium (vitamin C) 500 500 mg PO DAILY 01/25/21 12/14/21 12/13/21 History mg tablet clorazepate dipotassium 3.75 mg 3.75 mg PO BEDTIME PRN 01/25/21 12/14/21 12/13/21 History tablet biotin 500 mcg capsule 250 mcg PO DAILY 02/11/21 12/14/21 12/13/21 History calcium carb 333 mg-vit D3 133 3 tab PO DAILY 02/11/21 12/14/21 12/13/21 History unit-mag ox 133 mg-zinc oxide 5 mg tab multivitamin 1 cap PO DAILY 02/11/21 12/14/21 12/13/21 History prednisone 5 mg tablet 10 mg PO DAILY 12/08/21 12/14/21 12/13/21 History Physical Exam Vital Signs and Narrative: Vital Signs: Last Vital Signs Temp 98.5 F 12/14/21 15:42 Pulse 89 12/14/21 15:42 Resp 18 12/14/21 15:42 BP 102/49 L 12/14/21 15:42 Pulse Ox 95 12/14/21 15:42 BMI result Body Mass Index 20.4 Const: Other: Awake alert oriented x3 no acute distress Resp: Other: Diminished all lung joe with bilateral basilar and inspiratory crackles Cardio: Other: No S4; positive S1-S2; no S3 murmurs or gallops GI: Other: Soft nontender nondistended normoactive bowel sounds Extrem: Other: No edema bilaterally Results Labs CBC and Chem 7: 12/14/21 05:47 12/14/21 05:47 Labs: Laboratory Results - last 24 hr 12/14/21 12/14/21 12/14/21 05:47 05:47 05:47 MCV 84.8 MCH 28.4 MCHC 33.4 RDW 13.0 Plt Count 17 L* MPV 12.6 H Immature Gran % (Auto) 3.0 H Neut % (Auto) 89.9 H Lymph % (Auto) 1.2 L Major % (Auto) 5.4 Eos % (Auto) 0.2 Baso % (Auto) 0.3 Lymph # (Auto) 0.4 L Major # (Auto) 1.6 H Eos # (Auto) 0.1 Baso # (Auto) 0.1 Abs Immat Gran (auto) 0.90 H Absolute Neuts (auto) 27.0 H Absolute Nucleated RBC 0.000 Nucleated RBC % (auto) 0.0 Smear Tech's Comments VERIFIED Smear Path Review SEE NOTE PT 14.9 H INR 1.3 H VBG pH VBG pCO2 VBG pO2 VBG HCO3 VBG O2 Saturation VBG Base Excess Anion Gap 15 Estim Creat Clear Calc 50.7 Estimated GFR > 60 Random Glucose 111 Lactic Acid Calcium 9.6 Total Bilirubin 0.8 AST 21 ALT 19 Alkaline Phosphatase 146 H B-Natriuretic Peptide Total Protein 6.5 Albumin 3.6 COVID-19 (J LUIS) [employer] 12/14/21 12/14/21 12/14/21 05:47 05:47 05:55 MCV MCH MCHC RDW Plt Count MPV Immature Gran % (Auto) Neut % (Auto) Lymph % (Auto) Major % (Auto) Eos % (Auto) Baso % (Auto) Lymph # (Auto) Major # (Auto) Eos # (Auto) Baso # (Auto) Abs Immat Gran (auto) Absolute Neuts (auto) Absolute Nucleated RBC Nucleated RBC % (auto) Smear Tech's Comments Smear Path Review PT INR VBG pH 7.45 H VBG pCO2 39 VBG pO2 43 VBG HCO3 27 H VBG O2 Saturation 68.0 VBG Base Excess 3.6 Anion Gap Estim Creat Clear Calc Estimated GFR Random Glucose Lactic Acid 1.2 Calcium Total Bilirubin AST ALT Alkaline Phosphatase B-Natriuretic Peptide 136 H Total Protein Albumin COVID-19 (J LUIS) COVIDCEINT 12/14/21 12:10 MCV MCH MCHC RDW Plt Count MPV Immature Gran % (Auto) Neut % (Auto) Lymph % (Auto) Major % (Auto) Eos % (Auto) Baso % (Auto) Lymph # (Auto) Major # (Auto) Eos # (Auto) Baso # (Auto) Abs Immat Gran (auto) Absolute Neuts (auto) Absolute Nucleated RBC Nucleated RBC % (auto) Smear Tech's Comments Smear Path Review PT INR VBG pH VBG pCO2 VBG pO2 VBG HCO3 VBG O2 Saturation VBG Base Excess Anion Gap Estim Creat Clear Calc Estimated GFR Random Glucose Lactic Acid Calcium Total Bilirubin AST ALT Alkaline Phosphatase B-Natriuretic Peptide Total Protein Albumin COVID-19 (J LUIS) Negative COVID-19 Clin Com See Note Imaging Radiologist's Impressions: Impressions Chest X-Ray 12/14/21 05:50 IMPRESSION: Redemonstrated right lung mass and multiple bilateral lung nodules, with overall slightly worsened radiographic appearance since 12/06/2021. Assessment and Plan (1) Lung mass: Status: Acute (2) Postobstructive pneumonia: Status: Acute (3) Thrombocytopenia: Status: Acute Plan 86-year-old female presents to the emergency room with worsening fatigue and worsening of lung mass by CT[place] [address]. Given dose of Rituxan 2 days ago; has been feeling fatigued and more short of breath since that time. [place] [id number] 1. Post obstructive pneumonia -as per ID; vancomycin and Zosyn -await cultures 2. Thrombocytopenia -discussed with Hematology -follow-up platelet count in a.m. -hematology consult 3. Hypertension -acceptable control on current therapies -adjust as indicated 4. Lung mass -increased in size since last CT scan. Scheduled for outpatient pulmonary workup with Dr. Romero -initial bronchoscopy negative for malignancy; question need for needle biopsy -discuss with Dr. Romero in a.m.as he will be consist [facility] outpatient Full code Lovenox Patient will require 1-2 midnights going forward for treatment of a postobstructive pneumonia with vancomycin Zosyn and question further delineation of lung mass. This cannot be accomplished and all left acute sciatic Quality Stroke Does the patient have a stroke diagnosis?: No VTE Prior VTE?: No VTE Risk Level:: Medical - moderate - high VTE Device Contraindication: Treatment Not Indicated VTE Drug Contraindication: N/A - Med Ordered
--- NOTE | 2021-12-14 17:33 | PHA.PROG ---
Admission Date/Time: December 14, 2021 08:17 Indication: Weight in k kg Adjusted body weight in K Serum Creatinine - Last 168 Hours 12/14/21 05:47 Creatinine 0.69 Estimated CrCl and GFR - Last 168 Hours 12/14/21 05:47 Estim Creat Clear Calc 50.7 Estimated GFR > 60 Vancomycin Loading Dose: 1000 MG Current Vancomycin Dosing Regimen: 100Q 24H Vancomycin Monitoring using AUC goal of 400 - 600 range with trough as surrogate marker: 427 Date and Time for next Vancomycin Level to be drawn: 12/16 @ 1500 Pharmacist Comments on Vancomycin Plan: Vancomycin dosing will take advantage of [employer]RX as a clinical decision support tool that uses Bayesian modeling to calculate individual patient's pharmacokinetic parameters and forecast the patient's drug concentration time course with the target goal AUC 24 range of 400 - 600 mg/L/hr.
[2021-12-14] MEDS: 0.9 % Sodium Chloride Flush 3 ML SYRINGE IVFLUSH ×2 (17:37→23:57)
[2021-12-14] MEDS: Piperacillin Sodium/Tazobactam 4.5 GM in 0.9 % Sodium Chloride 100 ML IV ×2 (17:42→23:06)
[2021-12-14] MEDS: vancomycin HCL 1,000 MG in 0.9 % Sodium Chloride 250 ML 270 MG IV (18:10)
--- NOTE | 2021-12-14 19:58 | PC.NURSE ---
Attempted to call report report to med/surg unit will receive call back from nurse when available.
--- NOTE | 2021-12-14 20:24 | PC.NURSE ---
Report given to MIGUEL Caba on Med/Surg.
[2021-12-14] MEDS: guaiFENesin LA 600 MG TAB.ER.12H PO (21:14)
[2021-12-14] MEDS: Latanoprost 0.005 % Ophth Sol 2.5 ML DROPS 1 DROP EYE-RIGHT (23:04)
[2021-12-14] MEDS: Montelukast Sodium 10 MG TABLET PO (23:06)
[2021-12-14] MEDS: Digoxin 0.25 MG TABLET PO (23:06)
[2021-12-15] MEDS: clonazePAM 0.5 MG TABLET PO (01:49)
[2021-12-15] MEDS: Piperacillin Sodium/Tazobactam 4.5 GM in 0.9 % Sodium Chloride 100 ML IV ×4 (05:31→22:29)
[2021-12-15 06:41] LABS: Basophils Absolute Auto 0.1 X10*3/uL (0.0-0.2); Basophils Percent Auto 0.3 % (0-2); Eosinophils Percent Auto 0.1 % (0-4); Hematocrit 31.9 % (37.0-47.0); Hemoglobin 10.4 g/dl (12.0-16.0); Imm Gran Abs Auto 0.94 X10*3/uL (0.00-0.03); Imm Gran Pct Auto 3.2 % (0.0-0.4); Lymphocytes Absolute Auto 0.7 X10*3/uL (1.2-4.9); Lymphocytes Percent Auto 2.4 % (20-40); MANUAL DIFF FLAG SCAN; Mean Corpuscular HGB Conc 32.6 g/dl (31.0-35.0); Mean Corpuscular Hemoglobin 28.4 pg (27.0-33.0); Mean Corpuscular Volume 87.2 fL (80.0-98.0); Mean Platelet Volume 11.2 fL (9.4-12.3); Monocytes Absolute Auto 1.1 X10*3/uL (0.1-1.2); Monocytes Percent Auto 3.7 % (2-11); Neutrophils Absolute Auto 26.3 x10*3/uL (2.0-8.3); Neutrophils Percent Auto 90.3 % (45-73); Red Blood Count 3.66 X10*6/uL (4.20-5.50); Red Cell Distribution Width 13.2 % (11.0-16.0); SCAN SMEAR FLAG 1; White Blood Count 29.2 X10*3/uL (4.8-10.8)
[2021-12-15 06:44] LABS: Platelet Count 46 X10*3/uL (160-400)
[2021-12-15 07:01] LABS: Alanine Aminotransferase 14 U/L (0-31); Albumin Level 3.2 g/dL (3.5-5.0); Alkaline Phosphatase 122 U/L (39-117); Anion Gap 12 (12-20); Aspartate Amino Transferase 14 U/L (5-31); Bilirubin Total 0.5 mg/dL (0.0-1.0); Blood Urea Nitrogen 19 mg/dL (9-16); Calcium 9.1 mg/dL (8.4-10.2); Carbon Dioxide 27 mmol/L (22-29); Chloride 98 mmol/L (96-108); Creatinine Clr Calc Pharmacy 50.7; Estimated Glomerular Filt Rate > 60; Glucose Fasting 92 mg/dL (60-99); Potassium 4.1 mmol/L (3.3-5.1); Sodium 133 mmol/L (135-145); Total Protein 5.5 g/dL (6.5-8.0)
[2021-12-15 07:32] LABS: SLIDE REVIEW VERIFIED
[2021-12-15 07:38] VITALS: BP 134/63; PULSE 66; RESP 16; TEMP 36.3; O2SAT 94
--- NOTE | 2021-12-15 08:36 | MHC.CM.PN ---
CM met with Patient at bedside and addressed IMM with her, providing her with the original and placing a copy on the chart. Patient lives in a house with her /HCP/Daniel @ [phone] and she uses a cane to assist with mobility. Patient required no services [employer]PA[employer] and home/no services is the goal. CM has initiated and will follow for dc planning.PCP is DR. Raheem Domínguez and Patient received Pfizer/Covid vax and booster X3 and an additional Moderna booster.
[2021-12-15] MEDS: Ascorbic Acid 500 MG TABLET PO (10:21)
[2021-12-15] MEDS: Multivitamin TABLET 1 TAB PO (10:21)
[2021-12-15] MEDS: predniSONE 5 MG TABLET 10 MG PO (10:22)
[2021-12-15] MEDS: 0.9 % Sodium Chloride Flush 3 ML SYRINGE IVFLUSH ×2 (10:23→17:30)
[2021-12-15] MEDS: Enoxaparin Sodium 40 MG/0.4 ML SYRINGE SUBCUT ×2 (10:23→19:48)
--- NOTE | 2021-12-15 12:32 | HO.PM.IMPN ---
Subjective Subjective Date of Service: 12/15/21 Review of Systems Denies chest pain Admit shortness of breath Denies nausea vomiting diarrhea Denies fever chills Physical Exam Vital Signs: Vital Signs: Last Vital Signs Temp 97.4 F 12/15/21 07:38 Pulse 66 12/15/21 07:38 Resp 16 12/15/21 07:38 BP 134/63 12/15/21 07:38 Pulse Ox 94 12/15/21 07:38 BMI result Body Mass Index 20.4 Const: Other: Awake alert oriented x3 no acute distress Resp: Other: Diminished all lung joe with bilateral basilar and inspiratory crackles Cardio: Other: No S4; positive S1-S2; no S3 murmurs or gallops GI: Other: Soft nontender nondistended normoactive bowel sounds Extrem: Other: No edema bilaterally Objective Data Active Medications Acetaminophen (Acetaminophen 325 Mg Tablet) 650 mg PO Q6H PRN PRN Reason: Pain, Mild (Pain Scale 1-3) Albuterol Sulfate (Albuterol Sulfate 90 Mcg 8 Gm Inhaler) 2 puff INHALE Q4H PRN PRN Reason: Shortness Of Breath Or Wheezing Ascorbic Acid (Ascorbic Acid 500 Mg Tablet) 500 mg PO DAILY [facility] Last Admin: 12/15/21 10:21 Dose: 500 mg Documented by: FAN Atenolol (Atenolol 25 Mg Tablet) 25 mg PO DAILY [facility]; Protocol Last Admin: 12/15/21 10:31 Dose: Not Given Documented by: FAN Non-Admin Reason: Patient Refused Digoxin (Digoxin 0.25 Mg Tablet) 0.25 mg PO BEDTIME [facility] Last Admin: 12/14/21 23:06 Dose: 0.25 mg Documented by: WHITNEY Enoxaparin Sodium (Enoxaparin Sodium 40 Mg/0.4 Ml Syringe) 40 mg SUBCUT Q12H [facility] Last Admin: 12/15/21 10:23 Dose: 40 mg Documented by: FAN Guaifenesin (Guaifenesin La 600 Mg Tab.Er.12h) 600 mg PO BEDTIME [facility] Last Admin: 12/14/21 21:14 Dose: 600 mg Documented by: WHITNEY Vancomycin HCl 1,000 mg/ (Sodium Chloride) 270 mls @ 270 mls/hr IV Q24H [facility] Last Infusion: 12/14/21 20:47 Dose: 0 mls/hr Documented by: WHITNEY Piperacillin Sod/Tazobactam (Sod 4.5 gm/ Sodium Chloride) 100 mls @ 200 mls/hr IV Q6H [facility] Last Admin: 12/15/21 11:39 Dose: 200 mls/hr Documented by: FAN Latanoprost (Latanoprost 0.005 % Ophth Xena 2.5 Ml Drops) 1 drop EYE-RIGHT BEDTIME [facility] Last Admin: 12/14/21 23:04 Dose: 1 drop Documented by: WHITNEY Montelukast Sodium (Montelukast Sodium 10 Mg Tablet) 10 mg PO BEDTIME [facility] Last Admin: 12/14/21 23:06 Dose: 10 mg Documented by: WHITNEY Multivitamins/Vitamin C (Multivitamin Tablet) 1 tab PO DAILY [facility] Last Admin: 12/15/21 10:21 Dose: 1 tab Documented by: FAN Non-Formulary Medication (Clorazepate Dipotassium) 3.75 mg PO BEDTIME PRN PRN Reason: Insomnia Patient Own Med ( Fluticasone/Salmeterol 250mcg/50mcg (Advair)) 1 each INHALE BID [facility] Last Admin: 12/15/21 10:24 Dose: 1 each Documented by: FAN Patient Own Med ( Levothyroxine 75 Mcg Tab) 1 each PO DAILY@0600 [facility] Last Admin: 12/15/21 06:04 Dose: 1 each Documented by: RENARD Pharmacy Consult (Consult Rx Vancomycin Dosing) 1 each MISCELLANE DAILY PRN PRN Reason: Consult order Prednisone (Prednisone 5 Mg Tablet) 10 mg PO DAILY [facility] Last Admin: 12/15/21 10:22 Dose: 10 mg Documented by: FAN Sodium Chloride (0.9 % Sodium Chloride Flush 3 Ml Syringe) 3 ml IVFLUSH QSHIFT [facility] Last Admin: 12/15/21 10:23 Dose: 3 ml Documented by: FAN Tiotropium [place] (Tiotropium [place] 18 Mcg Cap.W.Dev) 1 puff INHALE BEDTIME [facility] Last Admin: 12/14/21 22:35 Dose: 1 puff Documented by: NARGIS Labs CBC & Chem 7: 12/15/21 06:19 12/15/21 06:19 Labs: Laboratory Results - last 24 hr 12/15/21 12/15/21 06:19 06:19 MCV 87.2 MCH 28.4 MCHC 32.6 RDW 13.2 Plt Count 46 L D MPV 11.2 Immature Gran % (Auto) 3.2 H Neut % (Auto) 90.3 H Lymph % (Auto) 2.4 L [place] % (Auto) 3.7 Eos % (Auto) 0.1 Baso % (Auto) 0.3 Lymph # (Auto) 0.7 L [place] # (Auto) 1.1 Eos # (Auto) 0.0 Baso # (Auto) 0.1 Abs Immat Gran (auto) 0.94 H Absolute Neuts (auto) 26.3 H Absolute Nucleated RBC 0.000 Nucleated RBC % (auto) 0.0 Smear Tech's Comments VERIFIED Anion Gap 12 Estim Creat Clear Calc 50.7 Estimated GFR > 60 Fasting Glucose 92 Calcium 9.1 Total Bilirubin 0.5 AST 14 ALT 14 Alkaline Phosphatase 122 H Total Protein 5.5 L Albumin 3.2 L Microbiology Microbiology Results: Microbiology 12/14/21 05:47 Blood Culture - Preliminary Blood - Venous No growth after 24 hours. 12/14/21 05:47 Blood Culture - Preliminary Blood - Venous No growth after 24 hours. Assessment and Plan (1) Postobstructive pneumonia: Status: Acute (2) Thrombocytopenia: Status: Acute (3) Thrombocytopenia: Status: Acute (4) Lung mass: Status: Acute Plan 86-year-old female presents to the emergency room with worsening fatigue and worsening of lung mass by CT. [place] [id number]. Given dose of Rituxan 2 days ago; has been feeling fatigued and more short of breath since that time. [place] [address] 1. Post obstructive pneumonia -as per ID; vancomycin and Zosyn (09/20) -await cultures -?timing of BX 2. Thrombocytopenia -discussed with Hematology -follow-up platelet count in a.m. -hematology consult 3. Hypertension -acceptable control on current therapies -adjust as indicated 4. Lung mass -increased in size since last CT scan. Scheduled for outpatient pulmonary workup with Dr. Romero -initial bronchoscopy negative for malignancy; question need for needle biopsy -discuss with Dr. Romero in a.m.as he will be continuing care as outpatient Full code Lovenox Patient will require hospitalizationfor treatment of a postobstructive pneumonia with vancomycin Zosyn and question further delineation of lung mass. Quality Stroke Does the patient have a stroke diagnosis?: No VTE Prior VTE?: No VTE Risk Level:: Medical - moderate - high VTE Device Contraindication: Treatment Not Indicated VTE Drug Contraindication: N/A - Med Ordered
[2021-12-15 15:31] VITALS: BP 131/64; PULSE 70; RESP 17; TEMP 36.7; O2SAT 95
[2021-12-15] MEDS: vancomycin HCL 1,000 MG in 0.9 % Sodium Chloride 250 ML 270 MG IV (18:41)
[2021-12-15 19:32] VITALS: BP 146/70; PULSE 73; RESP 18; TEMP 36.8; O2SAT 94
[2021-12-15 19:40] VITALS: PULSE 73; RESP 18
[2021-12-15] MEDS: Montelukast Sodium 10 MG TABLET PO (19:49)
[2021-12-15] MEDS: guaiFENesin LA 600 MG TAB.ER.12H PO (19:49)
[2021-12-15] MEDS: Digoxin 0.25 MG TABLET PO (19:49)
[2021-12-15] MEDS: Latanoprost 0.005 % Ophth Sol 2.5 ML DROPS 1 DROP EYE-RIGHT (19:51)
[2021-12-15 23:11] VITALS: BP 151/61; PULSE 75; RESP 17; TEMP 36.3; O2SAT 96
--- NOTE | 2021-12-15 23:47 | PC.NURSE ---
patient took her own Clorazepate,med stored in [facility] under pt name,need to be resended to pharmacy for a labeling
[2021-12-16] MEDS: 0.9 % Sodium Chloride Flush 3 ML SYRINGE IVFLUSH ×3 (00:08→17:47)
[2021-12-16] MEDS: Piperacillin Sodium/Tazobactam 4.5 GM in 0.9 % Sodium Chloride 100 ML IV ×4 (05:23→22:54)
[2021-12-16 06:05] LABS: Hematocrit 33.9 % (37.0-47.0); PLT CLUMP 1; SCAN SMEAR FLAG 1
[2021-12-16 06:07] LABS: Basophils Absolute Auto 0.1 X10*3/uL (0.0-0.2); Basophils Percent Auto 0.3 % (0-2); Eosinophils Absolute Auto 0.1 X10*3/uL (0.0-0.4); Eosinophils Percent Auto 0.3 % (0-4); Hemoglobin 11.2 g/dl (12.0-16.0); Imm Gran Abs Auto 0.95 X10*3/uL (0.00-0.03); Lymphocytes Absolute Auto 0.5 X10*3/uL (1.2-4.9); Lymphocytes Percent Auto 1.5 % (20-40); MANUAL DIFF FLAG SCAN; Mean Corpuscular Hemoglobin 28.1 pg (27.0-33.0); Mean Corpuscular Volume 85.2 fL (80.0-98.0); Mean Platelet Volume 12.1 fL (9.4-12.3); Monocytes Absolute Auto 1.6 X10*3/uL (0.1-1.2); Monocytes Percent Auto 4.9 % (2-11); Neutrophils Absolute Auto 28.6 x10*3/uL (2.0-8.3); Red Blood Count 3.98 X10*6/uL (4.20-5.50); Red Cell Distribution Width 13.1 % (11.0-16.0)
[2021-12-16 06:22] LABS: White Blood Count 31.8 X10*3/uL (4.8-10.8)
[2021-12-16 06:23] LABS: Platelet Count 28 X10*3/uL (160-400)
[2021-12-16 06:32] LABS: Alanine Aminotransferase 19 U/L (0-31); Albumin Level 3.2 g/dL (3.5-5.0); Alkaline Phosphatase 142 U/L (39-117); Anion Gap 13 (12-20); Aspartate Amino Transferase 21 U/L (5-31); Bilirubin Total 0.7 mg/dL (0.0-1.0); Blood Urea Nitrogen 22 mg/dL (9-16); Carbon Dioxide 25 mmol/L (22-29); Chloride 99 mmol/L (96-108); Estimated Glomerular Filt Rate > 60; Glucose Fasting 73 mg/dL (60-99); Potassium 3.9 mmol/L (3.3-5.1); Sodium 133 mmol/L (135-145); Total Protein 5.6 g/dL (6.5-8.0)
[2021-12-16 06:40] LABS: SLIDE REVIEW VERIFIED
[2021-12-16 08:00] VITALS: BP 104/58; PULSE 91; RESP 16; TEMP 37.3; O2SAT 95
[2021-12-16] MEDS: Multivitamin TABLET 1 TAB PO (09:32)
[2021-12-16] MEDS: predniSONE 5 MG TABLET 10 MG PO (09:33)
[2021-12-16] MEDS: Ascorbic Acid 500 MG TABLET PO (09:33)
[2021-12-16] MEDS: Enoxaparin Sodium 40 MG/0.4 ML SYRINGE SUBCUT ×2 (09:33→21:38)
--- NOTE | 2021-12-16 12:31 | HO.PM.IMPN ---
Subjective Subjective Date of Service: 12/16/21 Review of Systems Denies chest pain Admit shortness of breath Denies nausea vomiting diarrhea Denies fever chills Physical Exam Vital Signs: Vital Signs: Last Vital Signs Temp 99.1 F 12/16/21 08:00 Pulse 91 12/16/21 08:00 Resp 16 12/16/21 08:00 BP 104/58 L 12/16/21 08:00 Pulse Ox 95 12/16/21 08:00 BMI result Body Mass Index 20.4 Const: Other: Awake alert oriented x3 no acute distress Resp: Other: Diminished all lung joe with bilateral basilar and inspiratory crackles Cardio: Other: No S4; positive S1-S2; no S3 murmurs or gallops GI: Other: Soft nontender nondistended normoactive bowel sounds Extrem: Other: No edema bilaterally Objective Data Active Medications Acetaminophen (Acetaminophen 325 Mg Tablet) 650 mg PO Q6H PRN PRN Reason: Pain, Mild (Pain Scale 1-3) Albuterol Sulfate (Albuterol Sulfate 90 Mcg 8 Gm Inhaler) 2 puff INHALE Q4H PRN PRN Reason: Shortness Of Breath Or Wheezing Ascorbic Acid (Ascorbic Acid 500 Mg Tablet) 500 mg PO DAILY [facility] Last Admin: 12/16/21 09:33 Dose: 500 mg Documented by: SHERI Atenolol (Atenolol 25 Mg Tablet) 25 mg PO DAILY [facility]; Protocol Last Admin: 12/16/21 09:32 Dose: Not Given Documented by: SHERI Non-Admin Reason: Patient Refused Digoxin (Digoxin 0.25 Mg Tablet) 0.25 mg PO BEDTIME [facility] Last Admin: 12/15/21 19:49 Dose: 0.25 mg Documented by: WHITNEY Enoxaparin Sodium (Enoxaparin Sodium 40 Mg/0.4 Ml Syringe) 40 mg SUBCUT Q12H [facility] Last Admin: 12/16/21 09:33 Dose: 40 mg Documented by: SHERI Guaifenesin (Guaifenesin La 600 Mg Tab.Er.12h) 600 mg PO BEDTIME [facility] Last Admin: 12/15/21 19:49 Dose: 600 mg Documented by: WHITNEY Vancomycin HCl 1,000 mg/ (Sodium Chloride) 270 mls @ 270 mls/hr IV Q24H [facility] Last Infusion: 12/15/21 19:50 Dose: 0 mls/hr Documented by: WHITNEY Piperacillin Sod/Tazobactam (Sod 4.5 gm/ Sodium Chloride) 100 mls @ 200 mls/hr IV Q6H [facility] Last Admin: 12/16/21 11:48 Dose: 200 mls/hr Documented by: LINDA Latanoprost (Latanoprost 0.005 % Ophth Xena 2.5 Ml Drops) 1 drop EYE-RIGHT BEDTIME [facility] Last Admin: 12/15/21 19:51 Dose: 1 drop Documented by: WHITNEY Montelukast Sodium (Montelukast Sodium 10 Mg Tablet) 10 mg PO BEDTIME [facility] Last Admin: 12/15/21 19:49 Dose: 10 mg Documented by: WHITNEY Multivitamins/Vitamin C (Multivitamin Tablet) 1 tab PO DAILY [facility] Last Admin: 12/16/21 09:32 Dose: 1 tab Documented by: SHERI Patient Own Med ( Clorazepate Dipotassium 3.75 Mg) 1 each PO BEDTIME PRN PRN Reason: Insomnia Patient Own Med ( Fluticasone/Salmeterol 250mcg/50mcg (Advair)) 1 each INHALE BID [facility] Last Admin: 12/16/21 09:32 Dose: 1 each Documented by: SHERI Patient Own Med ( Levothyroxine 75 Mcg Tab) 1 each PO DAILY@0600 [facility] Last Admin: 12/16/21 05:42 Dose: 1 each Documented by: RENARD Pharmacy Consult (Consult Rx Vancomycin Dosing) 1 each MISCELLANE DAILY PRN PRN Reason: Consult order Prednisone (Prednisone 5 Mg Tablet) 10 mg PO DAILY [facility] Last Admin: 12/16/21 09:33 Dose: 10 mg Documented by: SHERI Sodium Chloride (0.9 % Sodium Chloride Flush 3 Ml Syringe) 3 ml IVFLUSH QSHIFT [facility] Last Admin: 12/16/21 09:31 Dose: 3 ml Documented by: SHERI Tiotropium [place] (Tiotropium [place] 18 Mcg Cap.W.Dev) 1 puff INHALE BEDTIME [facility] Last Admin: 12/15/21 19:39 Dose: 1 puff Documented by: NARGIS Labs CBC & Chem 7: 12/16/21 05:50 12/16/21 05:50 Labs: Laboratory Results - last 24 hr 12/16/21 12/16/21 05:50 05:50 MCV 85.2 MCH 28.1 MCHC 33.0 RDW 13.1 Plt Count 28 L D MPV 12.1 Immature Gran % (Auto) 3.0 H Neut % (Auto) 90.0 H Lymph % (Auto) 1.5 L [place] % (Auto) 4.9 Eos % (Auto) 0.3 Baso % (Auto) 0.3 Lymph # (Auto) 0.5 L [place] # (Auto) 1.6 H Eos # (Auto) 0.1 Baso # (Auto) 0.1 Abs Immat Gran (auto) 0.95 H Absolute Neuts (auto) 28.6 H Absolute Nucleated RBC 0.000 Nucleated RBC % (auto) 0.0 Smear Tech's Comments VERIFIED Anion Gap 13 Estim Creat Clear Calc 48.0 Estimated GFR > 60 Fasting Glucose 73 Calcium 9.0 Total Bilirubin 0.7 AST 21 D ALT 19 Alkaline Phosphatase 142 H Total Protein 5.6 L Albumin 3.2 L Microbiology Microbiology Results: Microbiology 12/14/21 05:47 Blood Culture - Preliminary Blood - Venous No growth after 48 hours. 12/14/21 05:47 Blood Culture - Preliminary Blood - Venous No growth after 48 hours. Assessment and Plan (1) Postobstructive pneumonia: Status: Acute (2) Thrombocytopenia: Status: Acute (3) Acute ITP: Status: Acute Plan 86-year-old female presents to the emergency room with worsening fatigue and worsening of lung mass by CT. [place] [address]. Given dose of Rituxan 2 days ago; has been feeling fatigued and more short of breath since that time. [place] [address] 1. Post obstructive pneumonia -as per ID; vancomycin and Zosyn (10/18) -?timing of BX 2. Thrombocytopenia -discussed with Hematology -follow-up platelet count in a.m. -hematology consult 3. Hypertension -acceptable control on current therapies -adjust as indicated 4. Lung mass -increased in size since last CT scan. Scheduled for outpatient pulmonary workup with Dr. Romero -initial bronchoscopy negative for malignancy; question need for needle biopsy -discuss with Dr. Romero ...suggests BX this admission as pt now symptomatic with increase size Full code Lovenox Patient will require hospitalizationfor treatment of a postobstructive pneumonia with vancomycin Zosyn and question further delineation of lung mass. Quality Stroke Does the patient have a stroke diagnosis?: No VTE Prior VTE?: No VTE Risk Level:: Medical - moderate - high VTE Device Contraindication: Treatment Not Indicated VTE Drug Contraindication: N/A - Med Ordered
[2021-12-16 15:34] VITALS: BP 119/57; PULSE 79; RESP 18; TEMP 36.4; O2SAT 98
[2021-12-16 16:37] LABS: Vancomycin Random 6.8 mcg/mL (15-20)
--- NOTE | 2021-12-16 17:00 | HE.PHANOTE ---
vancomycin addendum: dose increased to 1250 mg, anticipated AUC 489 first level low at 6.8, will recheck level after 2 doses and reevaluate
[2021-12-16] MEDS: vancomycin HCL 1,250 MG in 0.9 % Sodium Chloride 250 ML 166.67 MG IV (18:32)
[2021-12-16 20:24] VITALS: PULSE 99; O2SAT 94
[2021-12-16] MEDS: Digoxin 0.25 MG TABLET PO (21:36)
[2021-12-16] MEDS: Montelukast Sodium 10 MG TABLET PO (21:37)
[2021-12-16] MEDS: traZODone HCL 50 MG TABLET PO (21:37)
[2021-12-16] MEDS: Latanoprost 0.005 % Ophth Sol 2.5 ML DROPS 1 DROP EYE-RIGHT (21:40)
[2021-12-16] MEDS: guaiFENesin LA 600 MG TAB.ER.12H PO (22:59)
[2021-12-16 23:30] VITALS: BP 183/86; PULSE 87; RESP 18; TEMP 36.9; O2SAT 95
[2021-12-17] VITALS (7 sets, daily range): BP systolic 106–155; BP diastolic 56–69; PULSE 85–107; RESP 17–18; TEMP 36.1–36.9; O2SAT 93–97
[2021-12-17] MEDS: Piperacillin Sodium/Tazobactam 4.5 GM in 0.9 % Sodium Chloride 100 ML IV ×4 (05:33→23:27)
[2021-12-17] MEDS: 0.9 % Sodium Chloride Flush 3 ML SYRINGE IVFLUSH ×4 (05:53→21:06)
[2021-12-17 06:12] LABS: Basophils Absolute Auto 0.1 X10*3/uL (0.0-0.2); Basophils Percent Auto 0.4 % (0-2); Eosinophils Absolute Auto 0.1 X10*3/uL (0.0-0.4); Eosinophils Percent Auto 0.3 % (0-4); Hematocrit 32.3 % (37.0-47.0); Hemoglobin 10.7 g/dl (12.0-16.0); Imm Gran Abs Auto 0.93 X10*3/uL (0.00-0.03); Imm Gran Pct Auto 2.9 % (0.0-0.4); Lymphocytes Absolute Auto 0.7 X10*3/uL (1.2-4.9); Lymphocytes Percent Auto 2.2 % (20-40); MANUAL DIFF FLAG SCAN; Mean Corpuscular HGB Conc 33.1 g/dl (31.0-35.0); Mean Corpuscular Hemoglobin 28.7 pg (27.0-33.0); Mean Corpuscular Volume 86.6 fL (80.0-98.0); Mean Platelet Volume 11.2 fL (9.4-12.3); Monocytes Absolute Auto 1.3 X10*3/uL (0.1-1.2); Monocytes Percent Auto 3.9 % (2-11); Neutrophils Absolute Auto 29.5 x10*3/uL (2.0-8.3); Neutrophils Percent Auto 90.3 % (45-73); Red Blood Count 3.73 X10*6/uL (4.20-5.50); Red Cell Distribution Width 13.2 % (11.0-16.0); SCAN SMEAR FLAG 1
[2021-12-17 06:21] LABS: Platelet Count 34 X10*3/uL (160-400); White Blood Count 32.6 X10*3/uL (4.8-10.8)
[2021-12-17 06:36] LABS: Alanine Aminotransferase 17 U/L (0-31); Albumin Level 3.1 g/dL (3.5-5.0); Alkaline Phosphatase 140 U/L (39-117); Anion Gap 12 (12-20); Aspartate Amino Transferase 18 U/L (5-31); Bilirubin Total 0.7 mg/dL (0.0-1.0); Blood Urea Nitrogen 17 mg/dL (9-16); Calcium 8.8 mg/dL (8.4-10.2); Carbon Dioxide 25 mmol/L (22-29); Chloride 101 mmol/L (96-108); Creatinine Clr Calc Pharmacy 46.8; Estimated Glomerular Filt Rate > 60; Glucose Fasting 81 mg/dL (60-99); Sodium 134 mmol/L (135-145); Total Protein 5.3 g/dL (6.5-8.0)
[2021-12-17 07:11] LABS: SLIDE REVIEW VERIFIED
[2021-12-17] MEDS: polyethylene glycoL 3350 17 GM POWD.PACK PO (08:46)
[2021-12-17] MEDS: predniSONE 5 MG TABLET 10 MG PO (08:48)
[2021-12-17] MEDS: Multivitamin TABLET 1 TAB PO (08:48)
[2021-12-17] MEDS: Ascorbic Acid 500 MG TABLET PO (08:48)
--- NOTE | 2021-12-17 14:21 | MHC.CM.PN ---
AWAITING ONCOLOGY CONSULT PATIENT MAY BE HERE OVER THE WEEKEND.
--- NOTE | 2021-12-17 15:30 | HO.PM.IMPN ---
Subjective Subjective Date of Service: 12/17/21 Review of Systems Denies chest pain Admit shortness of breath Denies nausea vomiting diarrhea Denies fever chills Physical Exam Vital Signs: Vital Signs: Last Vital Signs Temp 97.3 F 12/17/21 12:32 Pulse 107 H 12/17/21 12:32 Resp 18 12/17/21 08:34 BP 131/68 12/17/21 12:32 Pulse Ox 95 12/17/21 12:32 BMI result Body Mass Index 20.4 Const: Other: Awake alert oriented x3 no acute distress Resp: Other: Diminished all lung joe with bilateral basilar and inspiratory crackles Cardio: Other: No S4; positive S1-S2; no S3 murmurs or gallops GI: Other: Soft nontender nondistended normoactive bowel sounds Extrem: Other: No edema bilaterally Objective Data Active Medications Acetaminophen (Acetaminophen 325 Mg Tablet) 650 mg PO Q6H PRN PRN Reason: Pain, Mild (Pain Scale 1-3) Albuterol Sulfate (Albuterol Sulfate 90 Mcg 8 Gm Inhaler) 2 puff INHALE Q4H PRN PRN Reason: Shortness Of Breath Or Wheezing Ascorbic Acid (Ascorbic Acid 500 Mg Tablet) 500 mg PO DAILY [facility] Last Admin: 12/17/21 08:48 Dose: 500 mg Documented by: ERICA Atenolol (Atenolol 25 Mg Tablet) 25 mg PO DAILY [facility]; Protocol Last Admin: 12/17/21 08:48 Dose: Not Given Documented by: ERICA Non-Admin Reason: Patient Refused Digoxin (Digoxin 0.25 Mg Tablet) 0.25 mg PO BEDTIME [facility] Last Admin: 12/16/21 21:36 Dose: 0.25 mg Documented by: YARY Enoxaparin Sodium (Enoxaparin Sodium 40 Mg/0.4 Ml Syringe) 40 mg SUBCUT Q12H [facility] Last Admin: 12/17/21 08:51 Dose: Not Given Documented by: ERICA Non-Admin Reason: blood per rectum Guaifenesin (Guaifenesin La 600 Mg Tab.Er.12h) 600 mg PO BEDTIME [facility] Last Admin: 12/16/21 22:59 Dose: 600 mg Documented by: YARY Piperacillin Sod/Tazobactam (Sod 4.5 gm/ Sodium Chloride) 100 mls @ 200 mls/hr IV Q6H [facility] Last Infusion: 12/17/21 13:04 Dose: 0 mls/hr Documented by: ERICA Vancomycin HCl 1,250 mg/ (Sodium Chloride) 250 mls @ 166.667 mls/hr IV Q24H [facility] Last Infusion: 12/16/21 21:48 Dose: 0 mls/hr Documented by: YARY Latanoprost (Latanoprost 0.005 % Ophth Xena 2.5 Ml Drops) 1 drop EYE-RIGHT BEDTIME [facility] Last Admin: 12/16/21 21:40 Dose: 1 drop Documented by: YARY Montelukast Sodium (Montelukast Sodium 10 Mg Tablet) 10 mg PO BEDTIME [facility] Last Admin: 12/16/21 21:37 Dose: 10 mg Documented by: YARY Multivitamins/Vitamin C (Multivitamin Tablet) 1 tab PO DAILY [facility] Last Admin: 12/17/21 08:48 Dose: 1 tab Documented by: ERICA Patient Own Med ( Clorazepate Dipotassium 3.75 Mg) 1 each PO BEDTIME PRN PRN Reason: Insomnia Patient Own Med ( Fluticasone/Salmeterol 250mcg/50mcg (Advair)) 1 each INHALE BID [facility] Last Admin: 12/17/21 08:33 Dose: 1 each Documented by: MERCEDEZ Patient Own Med ( Levothyroxine 75 Mcg Tab) 1 each PO DAILY@0600 [facility] Last Admin: 12/17/21 05:34 Dose: 1 each Documented by: YARY Pharmacy Consult (Consult Rx Vancomycin Dosing) 1 each MISCELLANE DAILY PRN PRN Reason: Consult order Polyethylene Glycol (Polyethylene Glycol 3350 17 Gm Powd.Pack) 17 gm PO DAILY PRN PRN Reason: Constipation Last Admin: 12/17/21 08:46 Dose: 17 gm Documented by: ERICA Prednisone (Prednisone 5 Mg Tablet) 10 mg PO DAILY [facility] Last Admin: 12/17/21 08:48 Dose: 10 mg Documented by: ERICA Sodium Chloride (0.9 % Sodium Chloride Flush 3 Ml Syringe) 3 ml IVFLUSH QSHIFT [facility] Last Admin: 12/17/21 08:46 Dose: 3 ml Documented by: ERICA Tiotropium [place] (Tiotropium [place] 18 Mcg Cap.W.Dev) 1 puff INHALE BEDTIME [facility] Last Admin: 12/15/21 19:39 Dose: 1 puff Documented by: NARGIS Labs CBC & Chem 7: 12/17/21 05:57 12/17/21 05:57 Labs: Laboratory Results - last 24 hr 12/16/21 12/17/21 12/17/21 15:54 05:57 05:57 MCV 86.6 MCH 28.7 MCHC 33.1 RDW 13.2 Plt Count 34 L MPV 11.2 Immature Gran % (Auto) 2.9 H Neut % (Auto) 90.3 H Lymph % (Auto) 2.2 L [place] % (Auto) 3.9 Eos % (Auto) 0.3 Baso % (Auto) 0.4 Lymph # (Auto) 0.7 L [place] # (Auto) 1.3 H Eos # (Auto) 0.1 Baso # (Auto) 0.1 Abs Immat Gran (auto) 0.93 H Absolute Neuts (auto) 29.5 H Absolute Nucleated RBC 0.000 Nucleated RBC % (auto) 0.0 Smear Tech's Comments VERIFIED Anion Gap 12 Estim Creat Clear Calc 46.8 Estimated GFR > 60 Fasting Glucose 81 Calcium 8.8 Total Bilirubin 0.7 AST 18 ALT 17 Alkaline Phosphatase 140 H Total Protein 5.3 L Albumin 3.1 L Random Vancomycin 6.8 L Assessment and Plan (1) Postobstructive pneumonia: Status: Acute (2) Thrombocytopenia: Status: Acute (3) HTN (hypertension): Status: Acute (4) Lung mass: Status: Acute Plan 86-year-old female presents to the emergency room with worsening fatigue and worsening of lung mass by CT. [place] [address]. Given dose of Rituxan 2 days ago; has been feeling fatigued and more short of breath since that time. [place] [address] 1. Post obstructive pneumonia -as per ID; vancomycin and Zosyn (11/18) 2. Thrombocytopenia -discussed with Hematology -follow-up platelet count in a.m. -hematology consult 3. Hypertension -acceptable control on current therapies -adjust as indicated 4. Lung mass -increased in size since last CT scan. Scheduled for outpatient pulmonary workup with Dr. Romero -outpatient BX Full code Lovenox Patient will require hospitalizationfor treatment of a postobstructive pneumonia with vancomycin Zosyn and question further delineation of lung mass. Quality Stroke Does the patient have a stroke diagnosis?: No VTE Prior VTE?: No VTE Risk Level:: Medical - moderate - high VTE Device Contraindication: Treatment Not Indicated VTE Drug Contraindication: N/A - Med Ordered
[2021-12-17] MEDS: vancomycin HCL 1,250 MG in 0.9 % Sodium Chloride 250 ML 166.67 MG IV (17:41)
--- NOTE | 2021-12-17 18:45 | PC.NURSE ---
1031: Pt felt dizzy and was seeing white. BP 91/52 HR 95 room air sat 92-94%. Pt assisted BTB with feet elevated. Dr Thomas notified and in to see pt. Pt stated she was starting to feel a bit better after getting into bed. Repeat BP 90/52 HR [address] Thomas aware.
[2021-12-17] MEDS: Enoxaparin Sodium 40 MG/0.4 ML SYRINGE SUBCUT (21:05)
[2021-12-17] MEDS: Latanoprost 0.005 % Ophth Sol 2.5 ML DROPS 1 DROP EYE-RIGHT (21:06)
[2021-12-17] MEDS: guaiFENesin LA 600 MG TAB.ER.12H PO (21:06)
[2021-12-17] MEDS: Digoxin 0.25 MG TABLET PO (21:06)
[2021-12-17] MEDS: Montelukast Sodium 10 MG TABLET PO (21:06)
[2021-12-17] MEDS: traZODone HCL 50 MG TABLET PO (23:27)
[2021-12-18] VITALS (8 sets, daily range): BP systolic 100–137; BP diastolic 58–63; PULSE 69–95; RESP 14–20; TEMP 36–37.1; O2SAT 92–96
[2021-12-18] MEDS: Piperacillin Sodium/Tazobactam 4.5 GM in 0.9 % Sodium Chloride 100 ML IV ×4 (06:03→22:35)
[2021-12-18 06:28] LABS: Basophils Percent Auto 0.4 % (0-2); Eosinophils Percent Auto 0.2 % (0-4); Lymphocytes Percent Auto 1.8 % (20-40); Mean Corpuscular Volume 86.1 fL (80.0-98.0); Monocytes Percent Auto 2.9 % (2-11); PLT CLUMP 1; Red Cell Distribution Width 13.2 % (11.0-16.0); SCAN SMEAR FLAG 1
[2021-12-18 06:30] LABS: Basophils Absolute Auto 0.2 X10*3/uL (0.0-0.2); Eosinophils Absolute Auto 0.1 X10*3/uL (0.0-0.4); Hematocrit 30.4 % (37.0-47.0); Hemoglobin 10.1 g/dl (12.0-16.0); Imm Gran Abs Auto 1.16 X10*3/uL (0.00-0.03); Imm Gran Pct Auto 3.1 % (0.0-0.4); Lymphocytes Absolute Auto 0.7 X10*3/uL (1.2-4.9); MANUAL DIFF FLAG SCAN; Mean Corpuscular HGB Conc 33.2 g/dl (31.0-35.0); Mean Corpuscular Hemoglobin 28.6 pg (27.0-33.0); Mean Platelet Volume 11.6 fL (9.4-12.3); Monocytes Absolute Auto 1.1 X10*3/uL (0.1-1.2); Neutrophils Absolute Auto 34.7 x10*3/uL (2.0-8.3); Neutrophils Percent Auto 91.6 % (45-73); Red Blood Count 3.53 X10*6/uL (4.20-5.50)
[2021-12-18 06:35] LABS: Alanine Aminotransferase 19 U/L (0-31); Albumin Level 2.9 g/dL (3.5-5.0); Alkaline Phosphatase 135 U/L (39-117); Anion Gap 13 (12-20); Aspartate Amino Transferase 21 U/L (5-31); Bilirubin Total 0.6 mg/dL (0.0-1.0); Blood Urea Nitrogen 17 mg/dL (9-16); Calcium 8.7 mg/dL (8.4-10.2); Carbon Dioxide 23 mmol/L (22-29); Chloride 102 mmol/L (96-108); Creatinine Clr Calc Pharmacy 50.1; Estimated Glomerular Filt Rate > 60; Glucose Fasting 92 mg/dL (60-99); Potassium 3.2 mmol/L (3.3-5.1); Sodium 135 mmol/L (135-145)
[2021-12-18 06:38] LABS: Platelet Count 26 X10*3/uL (160-400)
[2021-12-18 06:45] LABS: White Blood Count 37.8 X10*3/uL (4.8-10.8)
[2021-12-18 06:59] LABS: SLIDE REVIEW VERIFIED
[2021-12-18] MEDS: Ascorbic Acid 500 MG TABLET PO (09:53)
[2021-12-18] MEDS: 0.9 % Sodium Chloride Flush 3 ML SYRINGE IVFLUSH ×3 (09:53→22:36)
[2021-12-18] MEDS: predniSONE 5 MG TABLET 10 MG PO (09:53)
[2021-12-18] MEDS: Multivitamin TABLET 1 TAB PO (09:54)
[2021-12-18] MEDS: Enoxaparin Sodium 40 MG/0.4 ML SYRINGE SUBCUT ×2 (09:54→21:23)
[2021-12-18] MEDS: atenoloL 25 MG TABLET PO (10:05)
--- NOTE | 2021-12-18 14:52 | HO.PM.IMPN ---
Subjective Subjective Date of Service: 12/18/21 Review of Systems Denies chest pain Admit shortness of breath Denies nausea vomiting diarrhea Denies fever chills Physical Exam Vital Signs: Vital Signs: Last Vital Signs Temp 98.5 F 12/18/21 12:00 Pulse 71 12/18/21 12:00 Resp 20 12/18/21 12:00 BP 108/58 L 12/18/21 12:00 Pulse Ox 95 12/18/21 12:00 BMI result Body Mass Index 20.4 Const: Other: Awake alert oriented x3 no acute distress Resp: Other: Diminished all lung joe with bilateral basilar and inspiratory crackles Cardio: Other: No S4; positive S1-S2; no S3 murmurs or gallops GI: Other: Soft nontender nondistended normoactive bowel sounds Extrem: Other: No edema bilaterally Objective Data Active Medications Acetaminophen (Acetaminophen 325 Mg Tablet) 650 mg PO Q6H PRN PRN Reason: Pain, Mild (Pain Scale 1-3) Albuterol Sulfate (Albuterol Sulfate 90 Mcg 8 Gm Inhaler) 2 puff INHALE Q4H PRN PRN Reason: Shortness Of Breath Or Wheezing Ascorbic Acid (Ascorbic Acid 500 Mg Tablet) 500 mg PO DAILY [facility] Last Admin: 12/18/21 09:53 Dose: 500 mg Documented by: MILDRED Atenolol (Atenolol 25 Mg Tablet) 25 mg PO DAILY [facility]; Protocol Last Admin: 12/18/21 10:05 Dose: 25 mg Documented by: MILDRED Digoxin (Digoxin 0.25 Mg Tablet) 0.25 mg PO BEDTIME [facility] Last Admin: 12/17/21 21:06 Dose: 0.25 mg Documented by: DEB Enoxaparin Sodium (Enoxaparin Sodium 40 Mg/0.4 Ml Syringe) 40 mg SUBCUT Q12H [facility] Last Admin: 12/18/21 09:54 Dose: 40 mg Documented by: MILDRED Guaifenesin (Guaifenesin La 600 Mg Tab.Er.12h) 600 mg PO BEDTIME [facility] Last Admin: 12/17/21 21:06 Dose: 600 mg Documented by: DEB Piperacillin Sod/Tazobactam (Sod 4.5 gm/ Sodium Chloride) 100 mls @ 200 mls/hr IV Q6H [facility] Last Infusion: 12/18/21 14:06 Dose: 200 mls/hr Documented by: MILDRED Vancomycin HCl 1,250 mg/ (Sodium Chloride) 250 mls @ 166.667 mls/hr IV Q24H [facility] Last Infusion: 12/17/21 20:30 Dose: 0 mls/hr Documented by: DEB Latanoprost (Latanoprost 0.005 % Ophth [place] 2.5 Ml Drops) 1 drop EYE-RIGHT BEDTIME [facility] Last Admin: 12/17/21 21:06 Dose: 1 drop Documented by: DEB Montelukast Sodium (Montelukast Sodium 10 Mg Tablet) 10 mg PO BEDTIME [facility] Last Admin: 12/17/21 21:06 Dose: 10 mg Documented by: DEB Multivitamins/Vitamin C (Multivitamin Tablet) 1 tab PO DAILY [facility] Last Admin: 12/18/21 09:54 Dose: 1 tab Documented by: MILDRED Patient Own Med ( Clorazepate Dipotassium 3.75 Mg) 1 each PO BEDTIME PRN PRN Reason: Insomnia Patient Own Med ( Fluticasone/Salmeterol 250mcg/50mcg (Advair)) 1 each INHALE BID [facility] Last Admin: 12/18/21 08:21 Dose: 1 each Documented by: MERCEDEZ Patient Own Med ( Levothyroxine 75 Mcg Tab) 1 each PO DAILY@0600 [facility] Last Admin: 12/18/21 06:04 Dose: 1 each Documented by: DEB Pharmacy Consult (Consult Rx Vancomycin Dosing) 1 each MISCELLANE DAILY PRN PRN Reason: Consult order Polyethylene Glycol (Polyethylene Glycol 3350 17 Gm Powd.Pack) 17 gm PO DAILY PRN PRN Reason: Constipation Last Admin: 12/17/21 08:46 Dose: 17 gm Documented by: ERICA Prednisone (Prednisone 5 Mg Tablet) 10 mg PO DAILY [facility] Last Admin: 12/18/21 09:53 Dose: 10 mg Documented by: MILDRED Sodium Chloride (0.9 % Sodium Chloride Flush 3 Ml Syringe) 3 ml IVFLUSH QSHIFT [facility] Last Admin: 12/18/21 09:53 Dose: 3 ml Documented by: MILDRED Tiotropium Tiline (Tiotropium [place]iline 18 Mcg Cap.W.Dev) 1 puff INHALE BEDTIME [facility] Last Admin: 12/17/21 20:13 Dose: Not Given Documented by: ETELVINA Non-Admin Reason: See Note Labs CBC & Chem 7: 12/18/21 06:00 12/18/21 06:00 Labs: Laboratory Results - last 24 hr 12/18/21 12/18/21 06:00 06:00 MCV 86.1 MCH 28.6 MCHC 33.2 RDW 13.2 Plt Count 26 L MPV 11.6 Immature Gran % (Auto) 3.1 H Neut % (Auto) 91.6 H Lymph % (Auto) 1.8 L [place] % (Auto) 2.9 Eos % (Auto) 0.2 Baso % (Auto) 0.4 Lymph # (Auto) 0.7 L [place] # (Auto) 1.1 Eos # (Auto) 0.1 Baso # (Auto) 0.2 Abs Immat Gran (auto) 1.16 H Absolute Neuts (auto) 34.7 H Absolute Nucleated RBC 0.000 Nucleated RBC % (auto) 0.0 Smear Tech's Comments VERIFIED Anion Gap 13 Estim Creat Clear Calc 50.1 Estimated GFR > 60 Fasting Glucose 92 Calcium 8.7 Total Bilirubin 0.6 AST 21 ALT 19 Alkaline Phosphatase 135 H Total Protein 5.0 L Albumin 2.9 L Assessment and Plan (1) Postobstructive pneumonia: Status: Acute (2) Thrombocytopenia: Status: Acute (3) HTN (hypertension): Status: Acute (4) Lung mass: Status: Acute Plan 86-year-old female presents to the emergency room with worsening fatigue and worsening of lung mass by CT. [place] [address]. Given dose of Rituxan 2 days ago; has been feeling fatigued and more short of breath since that [place]. [place] [address] 1. Post obstructive pneumonia -as per ID; vancomycin and Zosyn (12/18) 2. Thrombocytopenia -discussed with Hematology -follow-up platelet count in a.m. -hematology consult 3. Hypertension -acceptable control on current therapies -adjust as indicated 4. Lung mass -increased in size since last CT scan. Scheduled for outpatient pulmonary workup with Dr. Romero -outpatient BX Full code Lovenox Patient will require hospitalizationfor treatment of a postobstructive pneumonia with vancomycin Zosyn and question further delineation of lung mass. Quality Stroke Does the patient have a stroke diagnosis?: No VTE Prior VTE?: No VTE Risk Level:: Medical - moderate - high VTE Device Contraindication: Treatment Not Indicated VTE Drug Contraindication: N/A - Med Ordered
[2021-12-18 15:48] LABS: Vancomycin Trough 11.1 mcg/mL (10.0-20.0)
--- NOTE | 2021-12-18 16:06 | HE.PHANOTE ---
Vanco increased 1500 mg predicted auc 530 trough 13.5
[2021-12-18] MEDS: Latanoprost 0.005 % Ophth Sol 2.5 ML DROPS 1 DROP EYE-RIGHT (21:22)
[2021-12-18] MEDS: guaiFENesin LA 600 MG TAB.ER.12H PO (21:23)
[2021-12-18] MEDS: Digoxin 0.25 MG TABLET PO (21:23)
[2021-12-18] MEDS: Montelukast Sodium 10 MG TABLET PO (21:23)
[2021-12-18] MEDS: traZODone HCL 25 MG HALFTAB PO (22:35)
[2021-12-19 03:15] VITALS: BP 143/67; PULSE 80; RESP 16; TEMP 36.1; O2SAT 97
[2021-12-19] MEDS: Piperacillin Sodium/Tazobactam 4.5 GM in 0.9 % Sodium Chloride 100 ML IV ×4 (06:02→23:04)
[2021-12-19 06:57] LABS: Basophils Absolute Auto 0.2 X10*3/uL (0.0-0.2); Basophils Percent Auto 0.4 % (0-2); Eosinophils Absolute Auto 0.1 X10*3/uL (0.0-0.4); Eosinophils Percent Auto 0.3 % (0-4); Hematocrit 28.8 % (37.0-47.0); Hemoglobin 9.5 g/dl (12.0-16.0); Imm Gran Abs Auto 1.48 X10*3/uL (0.00-0.03); Imm Gran Pct Auto 3.9 % (0.0-0.4); Lymphocytes Absolute Auto 0.6 X10*3/uL (1.2-4.9); Lymphocytes Percent Auto 1.6 % (20-40); MANUAL DIFF FLAG SCAN; Mean Corpuscular Hemoglobin 28.5 pg (27.0-33.0); Mean Corpuscular Volume 86.5 fL (80.0-98.0); Mean Platelet Volume 12.4 fL (9.4-12.3); Monocytes Absolute Auto 1.3 X10*3/uL (0.1-1.2); Monocytes Percent Auto 3.4 % (2-11); Neutrophils Absolute Auto 34.2 x10*3/uL (2.0-8.3); Neutrophils Percent Auto 90.4 % (45-73); Red Blood Count 3.33 X10*6/uL (4.20-5.50); Red Cell Distribution Width 13.2 % (11.0-16.0); SCAN SMEAR FLAG 1
[2021-12-19 07:21] LABS: Alanine Aminotransferase 15 U/L (0-31); Albumin Level 2.8 g/dL (3.5-5.0); Alkaline Phosphatase 143 U/L (39-117); Anion Gap 14 (12-20); Aspartate Amino Transferase 17 U/L (5-31); Bilirubin Total 0.5 mg/dL (0.0-1.0); Blood Urea Nitrogen 19 mg/dL (9-16); Calcium 8.8 mg/dL (8.4-10.2); Carbon Dioxide 22 mmol/L (22-29); Chloride 103 mmol/L (96-108); Creatinine Clr Calc Pharmacy 53.1; Estimated Glomerular Filt Rate > 60; Glucose Fasting 63 mg/dL (60-99); Potassium 3.1 mmol/L (3.3-5.1); Sodium 136 mmol/L (135-145); Total Protein 4.8 g/dL (6.5-8.0)
[2021-12-19 07:57] VITALS: BP 147/56; PULSE 76; RESP 20; TEMP 36.9; O2SAT 95
[2021-12-19 07:57] LABS: Platelet Count 20 X10*3/uL (160-400); White Blood Count 37.9 X10*3/uL (4.8-10.8)
[2021-12-19 07:59] LABS: SLIDE REVIEW VERIFIED
--- NOTE | 2021-12-19 08:35 | HE.PHANOTE ---
re vanco Dose was increased to 1500mg q24 but was not given. Due to elevated WBC count, I am changing the order to 750mg q12h. 1500mg is 27.8 mg/kg which is too much to give. 750mg is 13.9 mg/kg. While I hesitate to increase the frequency due to her age, it seems she is rapidly clearing the medication. Last trough was 11.1, and with the missed dose on 12/18, we will need to get her to/maintain her therapuetic level. Please monitor renal function. Next trough is 12/20 @1900
[2021-12-19] MEDS: 0.9 % Sodium Chloride Flush 3 ML SYRINGE IVFLUSH ×3 (09:07→20:27)
[2021-12-19] MEDS: Enoxaparin Sodium 40 MG/0.4 ML SYRINGE SUBCUT ×2 (09:08→20:27)
[2021-12-19] MEDS: atenoloL 25 MG TABLET PO (09:08)
[2021-12-19] MEDS: predniSONE 5 MG TABLET 10 MG PO (09:08)
[2021-12-19] MEDS: Multivitamin TABLET 1 TAB PO (09:08)
[2021-12-19] MEDS: Ascorbic Acid 500 MG TABLET PO (09:08)
[2021-12-19] MEDS: vancomycin HCL 750 MG in 0.9 % Sodium Chloride 250 ML 265 MG IV ×2 (09:09→20:25)
[2021-12-19] MEDS: Diphenoxylate/Atrop 2.5/0.025 TABLET 1 TAB PO ×2 (11:13→18:35)
[2021-12-19 11:32] VITALS: BP 98/55; PULSE 65; RESP 20; TEMP 36.6; O2SAT 95
--- NOTE | 2021-12-19 14:04 | HO.PM.IMPN ---
Subjective Subjective Date of Service: 12/19/21 Review of Systems Denies chest pain Admit shortness of breath Denies nausea vomiting diarrhea Denies fever chills Physical Exam Vital Signs: Vital Signs: Last Vital Signs Temp 97.8 F 12/19/21 11:32 Pulse 65 12/19/21 11:32 Resp 20 12/19/21 11:32 BP 98/55 L 12/19/21 11:32 Pulse Ox 95 12/19/21 11:32 BMI result Body Mass Index 20.4 Const: Other: Awake alert oriented x3 no acute distress Resp: Other: Diminished all lung joe with bilateral basilar and inspiratory crackles Cardio: Other: No S4; positive S1-S2; no S3 murmurs or gallops GI: Other: Soft nontender nondistended normoactive bowel sounds Extrem: Other: No edema bilaterally Objective Data Active Medications Acetaminophen (Acetaminophen 325 Mg Tablet) 650 mg PO Q6H PRN PRN Reason: Pain, Mild (Pain Scale 1-3) Albuterol Sulfate (Albuterol Sulfate 90 Mcg 8 Gm Inhaler) 2 puff INHALE Q4H PRN PRN Reason: Shortness Of Breath Or Wheezing Ascorbic Acid (Ascorbic Acid 500 Mg Tablet) 500 mg PO DAILY [facility] Last Admin: 12/19/21 09:08 Dose: 500 mg Documented by: ERICA Atenolol (Atenolol 25 Mg Tablet) 25 mg PO DAILY [facility]; Protocol Last Admin: 12/19/21 09:08 Dose: 25 mg Documented by: ERICA Digoxin (Digoxin 0.25 Mg Tablet) 0.25 mg PO BEDTIME [facility] Last Admin: 12/18/21 21:23 Dose: 0.25 mg Documented by: DEB Diphenoxylate HCl/Atropine (Diphenoxylate/Atrop 2.5/0.025 Tablet) 1 tab PO TID PRN PRN Reason: Diarrhea Last Admin: 12/19/21 11:13 Dose: 1 tab Documented by: ERICA Enoxaparin Sodium (Enoxaparin Sodium 40 Mg/0.4 Ml Syringe) 40 mg SUBCUT Q12H [facility] Last Admin: 12/19/21 09:08 Dose: 40 mg Documented by: ERICA Guaifenesin (Guaifenesin La 600 Mg Tab.Er.12h) 600 mg PO BEDTIME [facility] Last Admin: 12/18/21 21:23 Dose: 600 mg Documented by: DEB Piperacillin Sod/Tazobactam (Sod 4.5 gm/ Sodium Chloride) 100 mls @ 200 mls/hr IV Q6H [facility] Last Infusion: 12/19/21 11:45 Dose: 0 mls/hr Documented by: ERICA Vancomycin HCl 750 mg/ Sodium (Chloride) 265 mls @ 265 mls/hr IV Q12H [facility] Last Infusion: 12/19/21 10:09 Dose: 0 mls/hr Documented by: ERICA Latanoprost (Latanoprost 0.005 % Ophth Xena 2.5 Ml Drops) 1 drop EYE-RIGHT BEDTIME [facility] Last Admin: 12/18/21 21:22 Dose: 1 drop Documented by: DEB Montelukast Sodium (Montelukast Sodium 10 Mg Tablet) 10 mg PO BEDTIME [facility] Last Admin: 12/18/21 21:23 Dose: 10 mg Documented by: DEB Multivitamins/Vitamin C (Multivitamin Tablet) 1 tab PO DAILY [facility] Last Admin: 12/19/21 09:08 Dose: 1 tab Documented by: ERICA Patient Own Med ( Clorazepate Dipotassium 3.75 Mg) 1 each PO BEDTIME PRN PRN Reason: Insomnia Patient Own Med ( Fluticasone/Salmeterol 250mcg/50mcg (Advair)) 1 each INHALE BID [facility] Last Admin: 12/19/21 10:11 Dose: 1 each Documented by: ERICA Patient Own Med ( Levothyroxine 75 Mcg Tab) 1 each PO DAILY@0600 [facility] Last Admin: 12/19/21 06:02 Dose: 1 each Documented by: DEB Pharmacy Consult (Consult Rx Vancomycin Dosing) 1 each MISCELLANE DAILY PRN PRN Reason: Consult order Polyethylene Glycol (Polyethylene Glycol 3350 17 Gm Powd.Pack) 17 gm PO DAILY PRN PRN Reason: Constipation Last Admin: 12/17/21 08:46 Dose: 17 gm Documented by: ERICA Prednisone (Prednisone 5 Mg Tablet) 10 mg PO DAILY [facility] Last Admin: 12/19/21 09:08 Dose: 10 mg Documented by: ERICA Sodium Chloride (0.9 % Sodium Chloride Flush 3 Ml Syringe) 3 ml IVFLUSH QSHIFT [facility] Last Admin: 12/19/21 09:07 Dose: 3 ml Documented by: ERICA Tiotropium [place] (Tiotropium [place] 18 Mcg Cap.W.Dev) 1 puff INHALE RDAILY [facility] Last Admin: 12/19/21 12:50 Dose: 1 puff Documented by: ERICA Labs CBC & Chem 7: 12/19/21 05:46 12/19/21 05:46 Labs: Laboratory Results - last 24 hr 12/18/21 12/19/21 12/19/21 15:11 05:46 05:46 MCV 86.5 MCH 28.5 MCHC 33.0 RDW 13.2 Plt Count 20 L* MPV 12.4 H Immature Gran % (Auto) 3.9 H Neut % (Auto) 90.4 H Lymph % (Auto) 1.6 L [place] % (Auto) 3.4 Eos % (Auto) 0.3 Baso % (Auto) 0.4 Lymph # (Auto) 0.6 L [place] # (Auto) 1.3 H Eos # (Auto) 0.1 Baso # (Auto) 0.2 Abs Immat Gran (auto) 1.48 H Absolute Neuts (auto) 34.2 H Absolute Nucleated RBC 0.000 Nucleated RBC % (auto) 0.0 Smear Tech's Comments VERIFIED Anion Gap 14 Estim Creat Clear Calc 53.1 Estimated GFR > 60 Fasting Glucose 63 Calcium 8.8 Total Bilirubin 0.5 AST 17 ALT 15 Alkaline Phosphatase 143 H Total Protein 4.8 L Albumin 2.8 L Vancomycin Trough 11.1 Microbiology Microbiology Results: Microbiology 12/14/21 05:47 Blood Culture - Final Blood - Venous No growth after 5 days. 12/14/21 05:47 Blood Culture - Final Blood - Venous No growth after 5 days. Assessment and Plan (1) Postobstructive pneumonia: Status: Acute (2) Thrombocytopenia: Status: Acute (3) HTN (hypertension): Status: Acute Plan 86-year-old female presents to the emergency room with worsening fatigue and worsening of lung mass by CT. [place] [address]. Given dose of Rituxan 2 days ago; has been feeling fatigued and more short of breath since that time. [place] [address] 1. Post obstructive pneumonia -as per ID; vancomycin and Zosyn (01/18) 2. Thrombocytopenia -discussed with Hematology -follow-up platelet count in a.m. -hematology consult 3. Hypertension -acceptable control on current therapies -adjust as indicated 4. Lung mass -increased in size since last CT scan. Scheduled for outpatient pulmonary workup with Dr. Romero -outpatient [facility] Full code Lovenox Patient will require hospitalizationfor treatment of a postobstructive pneumonia with vancomycin Zosyn and question further delineation of lung mass. Quality Stroke Does the patient have a stroke diagnosis?: No VTE Prior VTE?: No VTE Risk Level:: Medical - moderate - high VTE Device Contraindication: Treatment Not Indicated VTE Drug Contraindication: N/A - Med Ordered
[2021-12-19 15:52] VITALS: BP 97/54; PULSE 63; RESP 18; TEMP 37.1; O2SAT 97
--- NOTE | 2021-12-19 19:20 | PC.NURSE ---
Pt medicated twice this shift with lomotil. Has had 4 BMS in BR but flushes prior to staff seeing stool. States it has been liquid. Encouraged pt to have staff monitor stools for accurate reporting.
[2021-12-19 19:41] VITALS: BP 104/51; PULSE 82; RESP 18; TEMP 36.9; O2SAT 97
[2021-12-19] MEDS: guaiFENesin LA 600 MG TAB.ER.12H PO (20:26)
[2021-12-19] MEDS: Montelukast Sodium 10 MG TABLET PO (20:27)
[2021-12-19] MEDS: Digoxin 0.25 MG TABLET PO (20:27)
[2021-12-19] MEDS: Latanoprost 0.005 % Ophth Sol 2.5 ML DROPS 1 DROP EYE-RIGHT (20:29)
[2021-12-19] MEDS: traZODone HCL 25 MG HALFTAB PO (21:58)
[2021-12-19 23:22] VITALS: BP 125/73; PULSE 70; RESP 19; TEMP 36.2; O2SAT 92
[2021-12-20] VITALS (7 sets, daily range): BP systolic 102–137; BP diastolic 57–65; PULSE 66–78; RESP 16–20; TEMP 36.3–36.9; O2SAT 94–98
[2021-12-20] MEDS: Diphenoxylate/Atrop 2.5/0.025 TABLET 1 TAB PO ×2 (01:41→15:55)
[2021-12-20 06:12] LABS: Basophils Absolute Auto 0.1 X10*3/uL (0.0-0.2); Basophils Percent Auto 0.1 % (0-2); Eosinophils Absolute Auto 0.1 X10*3/uL (0.0-0.4); Eosinophils Percent Auto 0.3 % (0-4); Hematocrit 28.9 % (37.0-47.0); Hemoglobin 9.4 g/dl (12.0-16.0); Imm Gran Abs Auto 1.64 X10*3/uL (0.00-0.03); Imm Gran Pct Auto 3.8 % (0.0-0.4); Lymphocytes Absolute Auto 0.6 X10*3/uL (1.2-4.9); Lymphocytes Percent Auto 1.5 % (20-40); Mean Corpuscular HGB Conc 32.5 g/dl (31.0-35.0); Mean Corpuscular Hemoglobin 28.3 pg (27.0-33.0); Mean Platelet Volume 12.2 fL (9.4-12.3); Monocytes Absolute Auto 1.3 X10*3/uL (0.1-1.2); Neutrophils Absolute Auto 39.3 x10*3/uL (2.0-8.3); Neutrophils Percent Auto 91.3 % (45-73); Red Blood Count 3.32 X10*6/uL (4.20-5.50); Red Cell Distribution Width 13.3 % (11.0-16.0); SCAN SMEAR FLAG 1; WBC ABN SCTR 1
[2021-12-20 06:13] LABS: WBC ABN SCTR FOR CBC 1
[2021-12-20 06:14] LABS: MANUAL DIFF FLAG SCAN
[2021-12-20 06:18] LABS: Platelet Count 20 X10*3/uL (160-400); White Blood Count 43.1 X10*3/uL (4.8-10.8)
[2021-12-20 06:34] LABS: Alanine Aminotransferase 16 U/L (0-31); Albumin Level 2.8 g/dL (3.5-5.0); Alkaline Phosphatase 155 U/L (39-117); Anion Gap 13 (12-20); Aspartate Amino Transferase 18 U/L (5-31); Bilirubin Total 0.4 mg/dL (0.0-1.0); Blood Urea Nitrogen 20 mg/dL (9-16); Calcium 8.9 mg/dL (8.4-10.2); Carbon Dioxide 24 mmol/L (22-29); Chloride 102 mmol/L (96-108); Creatinine Clr Calc Pharmacy 52.3; Estimated Glomerular Filt Rate > 60; Glucose Fasting 71 mg/dL (60-99); Potassium 2.9 mmol/L (3.3-5.1); Sodium 136 mmol/L (135-145); Total Protein 4.9 g/dL (6.5-8.0)
[2021-12-20 06:39] LABS: SLIDE REVIEW VERIFIED
--- NOTE | 2021-12-20 06:50 | P.CDIC_ITS ---
CDI Concurrent Query Documentation Clarification: PHYSICIAN'S DOCUMENTATION REQUEST Date of Query: 12/20/21 0651 Patient Name: Isabell Deshpande Admit Date: 12/14/21 Dear Doctor, A review of the medical record indicates additional documentation may be needed. Please review below and update the documentation accordingly. Clinical Indicators: Risk Factors/Clinical Indicators/Treatments PMH: bilateral lung cancer, COPD Shortness of breath respiratory rate 14-20 Treated with IV Vancomycin and IV Zosyn Based on the above, could you clarify in the Progress Notes further specificity regarding the most likely type of pneumonia you suspect you are treating (even if specific organism may not be known)? * Simple Pneumonia * Complex Pneumonia * Other type * Unable to determine Use of terms such as suspected, likely, concern for, or probable (associated with a specific diagnosis that is being evaluated, monitored, or treated as if it exists) are acceptable and can be coded in the inpatient setting, when documented at the time of discharge. Thank you, Tati [place] [insert CDI's credentials] Extension: [4-digit phone extension] Please use your independent medical judgment in providing your response. THIS QUERY IS PART OF THE PERMANENT MEDICAL RECORD Provider Response: Other Other Diagnosis: Postobstructive pneumonia secondary to lung mass
[2021-12-20] MEDS: Enoxaparin Sodium 40 MG/0.4 ML SYRINGE SUBCUT ×2 (09:05→20:21)
[2021-12-20] MEDS: vancomycin HCL 750 MG in 0.9 % Sodium Chloride 250 ML 265 MG IV ×2 (09:06→20:21)
[2021-12-20] MEDS: predniSONE 5 MG TABLET 10 MG PO (09:06)
[2021-12-20] MEDS: 0.9 % Sodium Chloride Flush 3 ML SYRINGE IVFLUSH ×3 (09:06→20:21)
[2021-12-20] MEDS: atenoloL 25 MG TABLET PO (09:06)
[2021-12-20] MEDS: Ascorbic Acid 500 MG TABLET PO (09:06)
[2021-12-20] MEDS: Multivitamin TABLET 1 TAB PO (09:06)
--- NOTE | 2021-12-20 11:03 | P.CNHO_ITS ---
Subjective - Subjective Chief complaint: Consult for: 1. ITP. 2. Lung mass. Patient: new to practice Consult date: 12/20/21 Requesting Physician: Martha. Primary Care Provider: Raheem Domínguez MD Medical Summary: DIAGNOSIS: 1. ITP. 2. LUNG MASS. HPI - Consult Narrative Reason for consult: Consult for: 1. Lung mass. 2. ITP. Narrative: Isabell Deshpande is a pleasant 86 year old lady, who states that she started Rituxan last week and then received her 2nd COVID booster yesterday.? She woke up in the middle night very short of breath. She got up and tried to take her inhaler but still remained quite short of breath and called the ambulance.? She denies any recent fever, chills, GI or symptoms and denies any chest pain/palpitations. Past medical history: Bilateral lung cancer, COPD (not on home oxygen), ITP. Review of Systems - Constitutional Reports system reviewed and no additional complaints, except as documented, Reports anorexia, Reports lack of energy, Reports weakness, Reports weight loss - Eyes Reports system reviewed and no additional complaints, except as documented - ENT Reports system reviewed and no additional complaints, except as documented - Cardiovascular Reports system reviewed and no additional complaints, except as documented - Respiratory Reports no additional respiratory complaints, Reports dyspnea, Reports dyspnea on exertion - Gastrointestinal Reports system reviewed and no additional complaints, except as documented - Genitourinary Reports no additional female genitourinary complaints - Musculoskeletal Reports system reviewed and no additional complaints, except as documented - Integumentary/Breasts Skin/Breast: Reports no additional skin complaints - Neurologic Denies memory loss, Denies seizure-like activity - Psychiatric Reports system reviewed and no additional complaints, except as documented - Endocrine Reports no additional endocrine complaints - Hematologic/Lymphatic Reports system reviewed and no additional complaints, except as documented - Allergic/Immunologic Reports system reviewed and no additional complaints, except as documented Oncology Screenings - ECOG Performance Status ECOG Performance Status: 2 PMFSH Medical History: Medical History (Last Reviewed 12/22/21 @ 12:56 by Herlinda North, PT) Acute ITP Bilateral lung cancer Breast CA COPD (chronic obstructive pulmonary disease) Fibrocystic breast changes HTN (hypertension) Irregular heart beat Lymphadenopathy, mediastinal Pulmonary nodules Thyroid disease Worsening headaches Functional capacity: uses cane/walker Patient : No Family History: Family History (Last Reviewed 12/14/21 @ 16:56 by Marshall Thomas DO) Other No family history of breast cancer Family history: reviewed and not pertinent Surgical History: Surgical History (Last Reviewed 12/22/21 @ 12:56 by Herlinda North PT) S/P breast lumpectomy S/P hip replacement Social History: Social History (Last Reviewed 12/14/21 @ 16:56 by Marshall Thomas DO) Living Situation History: Household Members: Spouse Housing: House Are you a primary morning caregiver to a significant other at home: No Do you presently have visiting nurse or other home services: No Tobacco History: Patient Tobacco Use Status: Former Tobacco user Tobacco use type: Cigarette Cigarette Packs Per Day: 2 Years Smoked: 40 years Smoke Quit Date: 2005 Substance Use History: Use of substances other than those prescribed or required for medical reasons : No Advance Directives: Advance Directives: No Advance Directives Information Provided: Advance Directives Information Provided comment: Declined Occupation Assessmet: service: No Current occupational status: retired Home Medications and Allergies Current Medications: Current Medications Acetaminophen (Acetaminophen 325 Mg Tablet) 650 mg PO Q6H PRN PRN Reason: Pain, Mild (Pain Scale 1-3) Albuterol Sulfate (Albuterol Sulfate 90 Mcg 8 Gm Inhaler) 2 puff INHALE Q4H PRN PRN Reason: Shortness Of Breath Or Wheezing Ascorbic Acid (Ascorbic Acid 500 Mg Tablet) 500 mg PO DAILY [facility] Last Admin: 12/20/21 09:06 Dose: 500 mg Documented by: Atenolol (Atenolol 25 Mg Tablet) 25 mg PO DAILY [facility]; Protocol Last Admin: 12/20/21 09:06 Dose: 25 mg Documented by: Digoxin (Digoxin 0.25 Mg Tablet) 0.25 mg PO BEDTIME [facility] Last Admin: 12/19/21 20:27 Dose: 0.25 mg Documented by: Diphenoxylate HCl/Atropine (Diphenoxylate/Atrop 2.5/0.025 Tablet) 1 tab PO TID PRN PRN Reason: Diarrhea Last Admin: 12/20/21 01:41 Dose: 1 tab Documented by: Enoxaparin Sodium (Enoxaparin Sodium 40 Mg/0.4 Ml Syringe) 40 mg SUBCUT Q12H [facility] Last Admin: 12/20/21 09:05 Dose: 40 mg Documented by: Guaifenesin (Guaifenesin La 600 Mg Tab.Er.12h) 600 mg PO BEDTIME [facility] Last Admin: 12/19/21 20:26 Dose: 600 mg Documented by: Piperacillin Sod/Tazobactam (Sod 4.5 gm/ Sodium Chloride) 100 mls @ 200 mls/hr IV Q6H [facility] Last Admin: 12/20/21 05:45 Dose: Not Given Documented by: Vancomycin HCl 750 mg/ Sodium (Chloride) 265 mls @ 265 mls/hr IV Q12H [facility] Last Infusion: 12/20/21 10:29 Dose: Infused Documented by: Latanoprost (Latanoprost 0.005 % Ophth Xena 2.5 Ml Drops) 1 drop EYE-RIGHT BEDTIME [facility] Last Admin: 12/19/21 20:29 Dose: 1 drop Documented by: Montelukast Sodium (Montelukast Sodium 10 Mg Tablet) 10 mg PO BEDTIME [facility] Last Admin: 12/19/21 20:27 Dose: 10 mg Documented by: Multivitamins/Vitamin C (Multivitamin Tablet) 1 tab PO DAILY [facility] Last Admin: 12/20/21 09:06 Dose: 1 tab Documented by: Patient Own Med ( Clorazepate Dipotassium 3.75 Mg) 1 each PO BEDTIME PRN PRN Reason: Insomnia Patient Own Med ( Fluticasone/Salmeterol 250mcg/50mcg (Advair)) 1 each INHALE BID [facility] Last Admin: 12/20/21 07:52 Dose: 1 each Documented by: Patient Own Med ( Levothyroxine 75 Mcg Tab) 1 each PO DAILY@0600 [facility] Last Admin: 12/20/21 05:38 Dose: 1 each Documented by: Pharmacy Consult (Consult Rx Vancomycin Dosing) 1 each MISCELLANE DAILY PRN PRN Reason: Consult order Polyethylene Glycol (Polyethylene Glycol 3350 17 Gm Powd.Pack) 17 gm PO DAILY PRN PRN Reason: Constipation Last Admin: 12/17/21 08:46 Dose: 17 gm Documented by: Prednisone (Prednisone 5 Mg Tablet) 10 mg PO DAILY [facility] Last Admin: 12/20/21 09:06 Dose: 10 mg Documented by: Sodium Chloride (0.9 % Sodium Chloride Flush 3 Ml Syringe) 3 ml IVFLUSH QSHIFT [facility] Last Admin: 12/20/21 09:06 Dose: 3 ml Documented by: Tiotropium [place] (Tiotropium [place] 18 Mcg Cap.W.Dev) 1 puff INHALE RDAILY [facility] Last Admin: 12/20/21 07:51 Dose: 1 puff Documented by: Home Medications Medication Instructions Recorded Confirmed Type albuterol sulfate 90 mcg/actuation 2 puff INHALATION Q4H PRN 12/06/20 12/14/21 History aerosol inhaler atenolol 25 mg tablet 1 tab PO DAILY 12/06/20 12/14/21 History digoxin 250 mcg (0.25 mg) tablet 1 tab PO DAILY 12/06/20 12/14/21 History fluticasone 250 mcg-salmeterol 50 1 inh INHALATION BID 12/06/20 12/14/21 History mcg/dose blistr powdr for inhalation (Advair Diskus) guaifenesin 600 mg tablet, 600 mg PO BEDTIME 12/06/20 12/14/21 History extended release 12 hr (Mucinex) levothyroxine 75 mcg tablet 1 tab PO QAM 12/06/20 12/14/21 History montelukast 10 mg tablet 1 tab PO DAILY 12/06/20 12/14/21 History tiotropium bromide 18 mcg capsule 18 mcg INHALATION QAM 12/06/20 12/14/21 History with inhalation device (Spiriva with HandiHaler) latanoprost 0.005 % eye drops 1 drp OPHTHALMIC-RIGHT BEDTIME 12/07/20 12/14/21 History ascorbate calcium (vitamin C) 500 500 mg PO DAILY 01/25/21 12/14/21 History mg tablet clorazepate dipotassium 3.75 mg 3.75 mg PO BEDTIME PRN 01/25/21 12/14/21 History tablet biotin 500 mcg capsule 250 mcg PO DAILY 02/11/21 12/14/21 History calcium carb 333 mg-vit D3 133 3 tab PO DAILY 02/11/21 12/14/21 History unit-mag ox 133 mg-zinc oxide 5 mg tab multivitamin 1 cap PO DAILY 02/11/21 12/14/21 History prednisone 5 mg tablet 10 mg PO DAILY 12/08/21 12/14/21 History Allergies Allergy/AdvReac Type Severity Reaction Status Date / Time Carbapenems Allergy Severe RASH Verified 12/22/21 05:31 cefaclor Allergy Severe rash, Verified 12/22/21 05:31 itching cefadroxil [Cefadroxil] Allergy Severe RASH Verified 12/22/21 05:31 cephalexin [From KEFLEX] Allergy Severe RASH Verified 12/22/21 05:31 Cephalosporins Allergy Severe RASH Verified 12/22/21 05:31 chlorhexidine Allergy Severe MUMPS LIKE Verified 12/22/21 05:31 SWELLING TO MOUTH ciprofloxacin Allergy Severe RASH Verified 12/22/21 05:31 ibuprofen [IBUPROFEN] Allergy Severe RASH Verified 12/22/21 05:31 naproxen Allergy Severe RASH, Verified 12/22/21 05:31 rash, itching Penicillins Allergy Severe RASH, HIVES Verified 12/22/21 05:31 Sulfa (Sulfonamide Allergy Severe RASH Verified 12/22/21 05:31 Antibiotics) acetaminophen AdvReac Severe PALPITATION Verified 12/22/21 05:31 S adhesives Allergy Severe skin Uncoded 12/22/21 05:31 irritation antiperspirants, deodorants Allergy Severe Rash Uncoded 12/22/21 05:31 duracef Allergy Severe rash, Uncoded 12/22/21 05:31 itching DURACEPT Allergy Severe RASH Uncoded 12/22/21 05:31 shellfish Allergy Severe severe Uncoded 12/22/21 05:31 hives Physical Exam Vital signs: Vital Signs Temp 98.4 F 12/20/21 08:00 Pulse 78 12/20/21 08:00 Resp 20 12/20/21 08:00 BP 130/59 L 12/20/21 08:00 Pulse Ox 94 12/20/21 08:00 Intake & Output 12/19/21 12/20/21 12/20/21 18:59 06:59 18:59 Intake Total 865 / 1620 755 / 1620 265 / 265 Balance 865 / 1620 755 / 1620 265 / 265 Intake: Intake, Oral Amount 400 / 790 390 / 790 Intake, IV Amount 465 / 830 365 / 830 265 / 265 Piperacillin Sodium/Tazobactam 200 / 300 100 / 300 4.5 gm In 0.9 % Sodium Chloride 100 ml @ 200 mls/hr IV Q6H [facility] Rx#:[id number] vancomycin HCL 750 mg In 0.9 % 265 / 530 265 / 530 265 / 265 Sodium Chloride 250 ml @ 265 mls/hr IV Q12H [facility] Rx#: [id number] Other: Meal Refused No NPO No Breakfast % Eaten 50% Lunch % Eaten 50% Dinner % Eaten 100% Number of Unmeasured Voids 4 4 Number of Bowel Movements 3 5 Urine Bathroom Bathroom Urine Color Yellow Last Bowel Movement 12/20/21 Stool Bathroom Bathroom Stool Amount Large Moderate Stool Color Brown Stool Consistency Liquid Loose Weight 54 kg - Constitutional Present: mild distress - Routine HEENT Exam Head: Present: normal inspection, normocephalic ENT: Present: mucous membranes moist - Routine Neck Exam Present: supple - Routine Respiratory Exam Present: CTAB - Routine Cardiovascular Exam Cardiovascular: Present: RRR, S1, S2 - Routine Abdominal Exam Present: soft, nontender - Routine Extremities Exam Present: nontender - Routine Skin Exam Present: normal turgor - Routine Neurological Exam Present: alert, oriented X3 - Detailed Neurological Exam: Coma Scale Eye Opening: Spontaneous (4) Verbal Response: Oriented (5) Motor Response: Obeys commands (6) Seymour Coma Scale Total: 15 Hem/Onc Consult Result - Labs CBC & Chem 7: 12/21/21 05:59 12/21/21 05:59 Labs: Short CBC 12/20/21 Range/Units 05:39 WBC 43.1 H* (4.8-10.8) X10*3/uL Hgb 9.4 L (12.0-16.0) g/dl Hct 28.9 L (37.0-47.0) % Plt Count 20 L* (160-400) X10*3/uL BMP 12/20/21 05:39 Sodium 136 Potassium 2.9 L Chloride 102 Carbon Dioxide 24 BUN 20 H Creatinine 0.67 Calcium 8.9 Liver Function 12/20/21 Range/Units 05:39 Total Bilirubin 0.4 (0.0-1.0) mg/dL AST 18 (5-31) U/L ALT 16 (0-31) U/L Alkaline Phosphatase 155 H (39-117) U/L Albumin 2.8 L (3.5-5.0) g/dL Assessment and Plan Patient Active problem list reviewed?: Yes (1) Chronic ITP (idiopathic thrombocytopenia) Status: Acute Assessment and plan: 86 year old lady with history of chronic ITP. This is a pleasant 86-year-old lady who had presented to the hospital back in November,, with significant thrombocytopenia and hemoptysis. Platelet count was 7. She was initially started on steroids. Initially the trend was still low. Between 12/06 and 12/10 platelets were 7, 8, 9. On 12/11 it was 21. On 12/12 it was 13. 5/2 it was 7. 5/3 it was 33. 5/4 it was 63. A bone marrow exam was done, on 12/12, under platelet cover which revealed: Mildly hypercellular marrow with maturing trilineage hematopoiesis and megakaryocytic hyperplasia. Findings are consistent with peripheral platelet destruction/consumption with compensated tree megakaryocytic hyperplasia. No marrow infiltrative processes seen and overt features of dysplasia are not present. Flow cytometry is negative for a B-cell lymphoproliferative disorder. She then received IVIG between 12/13 through 12/16/19. Her platelets started improving: On 12/23 there were 81, 12/31 there were 44. She was on a prednisone taper. She was then advised to increase the prednisone to 20 mg. her platelet count on 01/01: was 42. I was concerned if the platelets are dropping she would need IVIG, however platelet count on 01/07, was encouraging at 137. Platelet count was actually back up to normal on February 11, at 167. She has been doing better. Previously her platelet count was 114. Then 108. It was 99 a few weeks ago. Then 97, then 115. The platelet count does appear to have improved. It is over a 100. She was on a prednisone taper. She had been on 2.5mg, but then inadvertently took 7.5 mg. She had been alternating 5 mg with 2.5 mg every other day. She was advised to go down to 2.5 mg daily. However her platelet count went down to 60,000. She was advised to take 5 mg of prednisone every day. Lately she noted that she was more tired than usual. She also noted bruising at the site of trauma. Platelet count a month ago was 75,000. Then 11/16: 71, 11/30: 28, 12/03: 39, 12/06: 19. Prednisone was increased to 10 mg per day. She was started on Rituximab, on 12/07. Details of the regimen including potential side effects of hypersensitivity reaction, skin rash, shortness of breath, fever chills, pancytopenia, pulmonary toxicity were all addressed with her. She understood and is willing to proceed. She actually tolerated it very well. l advised her to continue to take the prednisone 10 mg daily. However, she presented to the hospital with SOB :She woke up in the middle night very short of breath. She got up and tried to take her inhaler but still remained quite short of breath and called the ambulance.? She denies any recent fever, chills, GI or symptoms and denies any chest pain/palpitations. [place] [address]. Given dose of Rituxan 2 days ago; has been feeling fatigued and more short of breath since that time. [place] [id number] She was started on full dose steroids. Plts came upto 34. Then back down to 26. PLAN: To continue steroids. To continue to monitor plts. Can give IVIG, if they remain low, she has responded to that in the past. (2) Mass of lung parenchyma Status: Acute Assessment and plan: 86-year-old lady with a history of a lung mass. 03/08/2021 the patient was seen for pulmonary follow-up visit. Overall she is doing well after the bronchoscopy. She tolerated well without any apparent complications. The bronchoscopy demonstrated normal airways without any endobronchial lesions. Patient did undergo right upper lobe washings brushings and also transbronchial biopsies demonstrating bronchoalveolar tissue with reactive inflammatory changes as well as evidence of bleeding. No evidence of any malignancy. It was explained to the patient that although the results are reassuring, still concern is about the interval worsening of the nodular density. Close imaging studies were recommended At this point she would rather not follow the nodular density closely since she is not planned to undergo any further diagnostic or surgical interventions. She is still on the Prednisone. She will continue to take 5 mg now. The patient understands that if she develops worsening respiratory symptoms she is to call the pulmonary office for further evaluation otherwise. She presented to the ER on 12/06 with hemoptysis. Platelets down to 19,000. CTA from 12/06 revealed: -Significant interval increase in size of now 6 cm right perihilar mass concerning for malignancy. There has been interval development/enlargement of innumerable bilateral pulmonary nodules concerning for metastatic disease. Also noted is an approximately 5 cm pleural-based mass with associated destruction of the right posterior fifth rib. -No pulmonary embolus identified. VTE: Negative Unfortunately there has been significant progression. In the past she has declined further imaging. she was diagnosed with post-obstructive pneumonia. She was treated with 7 days of vancomycin and piperacillin/tazobactam as per Infectious Disease and Pulmonology. Platelet count nitish was 20 and was 26 on the day of discharge. Regarding the lung mass, it was increase in size since the prior CT scan. PLAN: She will need outpatient biopsy with her data examination clerk, Dr Nikolay Romero, once her platelet count is within a safe range. She was discharged home with VNA services and should have a repeat CBCd drawn in 1 week. Thanks, (3) Leucocytosis Status: Acute Assessment and plan: 86 year old lady with Leucocytosis: This is multifactorial: Related to the pneumonia. Leukemoid reaction related to underlying malignancy. Neutrophil demargination related to steroids. - Time Spent With Patient Time Spent with Patient (in minutes): 30
[2021-12-20] MEDS: Piperacillin Sodium/Tazobactam 4.5 GM in 0.9 % Sodium Chloride 100 ML IV ×3 (11:43→22:38)
--- NOTE | 2021-12-20 16:24 | MHC.CM.PN ---
PT NOT YET MEDICALLY CLEARED FOR DC DC PLAN REMAINS HOME WITH NO SERVICES FAMILY TO TRANSPORT
--- NOTE | 2021-12-20 16:59 | HO.PM.IMPN ---
Subjective Subjective Date of Service: 12/20/21 Interval History: Diarrhea somewhat improved but states she still feels weak. Is ambulatory in room with staff Review of Systems Denies chest pain Admit shortness of breath Denies nausea vomiting diarrhea Denies fever chills Physical Exam Vital Signs: Vital Signs: Last Vital Signs Temp 97.7 F 12/20/21 15:57 Pulse 66 12/20/21 15:57 Resp 18 12/20/21 15:57 BP 119/63 12/20/21 15:57 Pulse Ox 96 12/20/21 15:57 BMI result Body Mass Index 20.4 Const: Other: Awake alert oriented x3 no acute distress Resp: Other: Diminished all lung joe with bilateral basilar and inspiratory crackles Cardio: Other: No S4; positive S1-S2; no S3 murmurs or gallops GI: Other: Soft nontender nondistended normoactive bowel sounds Extrem: Other: No edema bilaterally Objective Data Active Medications Acetaminophen (Acetaminophen 325 Mg Tablet) 650 mg PO Q6H PRN PRN Reason: Pain, Mild (Pain Scale 1-3) Albuterol Sulfate (Albuterol Sulfate 90 Mcg 8 Gm Inhaler) 2 puff INHALE Q4H PRN PRN Reason: Shortness Of Breath Or Wheezing Ascorbic Acid (Ascorbic Acid 500 Mg Tablet) 500 mg PO DAILY [facility] Last Admin: 12/20/21 09:06 Dose: 500 mg Documented by: LINDA Atenolol (Atenolol 25 Mg Tablet) 25 mg PO DAILY [facility]; Protocol Last Admin: 12/20/21 09:06 Dose: 25 mg Documented by: LINDA Digoxin (Digoxin 0.25 Mg Tablet) 0.25 mg PO BEDTIME [facility] Last Admin: 12/19/21 20:27 Dose: 0.25 mg Documented by: YARY Diphenoxylate HCl/Atropine (Diphenoxylate/Atrop 2.5/0.025 Tablet) 1 tab PO TID PRN PRN Reason: Diarrhea Last Admin: 12/20/21 15:55 Dose: 1 tab Documented by: LINDA Enoxaparin Sodium (Enoxaparin Sodium 40 Mg/0.4 Ml Syringe) 40 mg SUBCUT Q12H [facility] Last Admin: 12/20/21 09:05 Dose: 40 mg Documented by: LINDA Guaifenesin (Guaifenesin La 600 Mg Tab.Er.12h) 600 mg PO BEDTIME [facility] Last Admin: 12/19/21 20:26 Dose: 600 mg Documented by: YARY Piperacillin Sod/Tazobactam (Sod 4.5 gm/ Sodium Chloride) 100 mls @ 200 mls/hr IV Q6H [facility] Last Infusion: 12/20/21 12:17 Dose: 0 mls/hr Documented by: LINDA Vancomycin HCl 750 mg/ Sodium (Chloride) 265 mls @ 265 mls/hr IV Q12H [facility] Last Infusion: 12/20/21 10:29 Dose: 0 mls/hr Documented by: LINDA Latanoprost (Latanoprost 0.005 % Ophth Xena 2.5 Ml Drops) 1 drop EYE-RIGHT BEDTIME [facility] Last Admin: 12/19/21 20:29 Dose: 1 drop Documented by: YARY Montelukast Sodium (Montelukast Sodium 10 Mg Tablet) 10 mg PO BEDTIME [facility] Last Admin: 12/19/21 20:27 Dose: 10 mg Documented by: YARY Multivitamins/Vitamin C (Multivitamin Tablet) 1 tab PO DAILY [facility] Last Admin: 12/20/21 09:06 Dose: 1 tab Documented by: LINDA Patient Own Med ( Clorazepate Dipotassium 3.75 Mg) 1 each PO BEDTIME PRN PRN Reason: Insomnia Patient Own Med ( Fluticasone/Salmeterol 250mcg/50mcg (Advair)) 1 each INHALE BID [facility] Last Admin: 12/20/21 07:52 Dose: 1 each Documented by: ROSAURA Patient Own Med ( Levothyroxine 75 Mcg Tab) 1 each PO DAILY@0600 [facility] Last Admin: 12/20/21 05:38 Dose: 1 each Documented by: YARY Pharmacy Consult (Consult Rx Vancomycin Dosing) 1 each MISCELLANE DAILY PRN PRN Reason: Consult order Polyethylene Glycol (Polyethylene Glycol 3350 17 Gm Powd.Pack) 17 gm PO DAILY PRN PRN Reason: Constipation Last Admin: 12/17/21 08:46 Dose: 17 gm Documented by: ERICA Prednisone (Prednisone 5 Mg Tablet) 10 mg PO DAILY [facility] Last Admin: 12/20/21 09:06 Dose: 10 mg Documented by: ILNDA Sodium Chloride (0.9 % Sodium Chloride Flush 3 Ml Syringe) 3 ml IVFLUSH QSHIFT [facility] Last Admin: 12/20/21 09:06 Dose: 3 ml Documented by: LINDA Tiotropium [place] (Tiotropium [place] 18 Mcg Cap.W.Dev) 1 puff INHALE RDAILY [facility] Last Admin: 12/20/21 07:51 Dose: 1 puff Documented by: ROSAURA Labs CBC & Chem 7: 12/20/21 05:39 12/20/21 05:39 Labs: Laboratory Results - last 24 hr 12/20/21 12/20/21 05:39 05:39 MCV 87.0 MCH 28.3 MCHC 32.5 RDW 13.3 Plt Count 20 L* MPV 12.2 Immature Gran % (Auto) 3.8 H Neut % (Auto) 91.3 H Lymph % (Auto) 1.5 L Hanson % (Auto) 3.0 Eos % (Auto) 0.3 Baso % (Auto) 0.1 Lymph # (Auto) 0.6 L Hanson # (Auto) 1.3 H Eos # (Auto) 0.1 Baso # (Auto) 0.1 Abs Immat Gran (auto) 1.64 H Absolute Neuts (auto) 39.3 H Absolute Nucleated RBC 0.000 Nucleated RBC % (auto) 0.0 Smear Tech's Comments VERIFIED Anion Gap 13 Estim Creat Clear Calc 52.3 Estimated GFR > 60 Fasting Glucose 71 Calcium 8.9 Total Bilirubin 0.4 AST 18 ALT 16 Alkaline Phosphatase 155 H Total Protein 4.9 L Albumin 2.8 L Assessment and Plan (1) Mass of lung parenchyma: Status: Acute (2) Postobstructive pneumonia: Status: Acute (3) Thrombocytopenia: Status: Acute Plan 86-year-old female presents to the emergency room with worsening fatigue and worsening of lung mass by CT. [place] [address]. Given dose of Rituxan 2 days ago; has been feeling fatigued and more short of breath since that time. [place] [address] 1. Post obstructive pneumonia -completed therapies. Will follow-up with Oncology as outpatient -hopeful DC in a.m. 2. Thrombocytopenia -discussed with Hematology... Will follow in a.m. -follow-up platelet count in a.m. -leukocytosis likely multifactorial between infection and prednisone per Hematology 3. Hypertension -acceptable control on current therapies -adjust as indicated 4. Lung mass -increased in size since last CT scan. Scheduled for outpatient pulmonary workup with Dr. Romero -outpatient BX Full code Lovenox Patient will require hospitalizationfor treatment of a postobstructive pneumonia with vancomycin Zosyn and question further delineation of lung mass. Quality Stroke Does the patient have a stroke diagnosis?: No VTE Prior VTE?: No VTE Risk Level:: Medical - moderate - high VTE Device Contraindication: Treatment Not Indicated VTE Drug Contraindication: N/A - Med Ordered
[2021-12-20 19:37] LABS: Vancomycin Trough 16.2 mcg/mL (10.0-20.0)
[2021-12-20] MEDS: Digoxin 0.25 MG TABLET PO (20:21)
[2021-12-20] MEDS: guaiFENesin LA 600 MG TAB.ER.12H PO (20:21)
[2021-12-20] MEDS: Montelukast Sodium 10 MG TABLET PO (20:21)
--- NOTE | 2021-12-20 20:22 | HE.PHANOTE ---
Vancomycin Dosing Addendum Vancomycin Trough 16.2 ( up from 11.1 on 12/18). Unsure why vancomycin changed from 1250 mg q24h to 750 mg q12h. Will get another trough before AM dose and may need to change back to q24h dosing.
[2021-12-20] MEDS: traZODone HCL 25 MG HALFTAB PO (21:33)
[2021-12-20] MEDS: Latanoprost 0.005 % Ophth Sol 2.5 ML DROPS 1 DROP EYE-RIGHT (21:33)
[2021-12-20] MEDS: Nystatin Oral Susp 500,000 UNIT/5 ML ORAL.SUSP 400000 UNIT PO (21:33)
[2021-12-21 04:00] VITALS: BP 128/57; PULSE 65; RESP 16; TEMP 36.2; O2SAT 96
[2021-12-21] MEDS: Piperacillin Sodium/Tazobactam 4.5 GM in 0.9 % Sodium Chloride 100 ML IV ×2 (05:35→12:32)
[2021-12-21 06:12] LABS: Basophils Absolute Auto 0.2 X10*3/uL (0.0-0.2); Basophils Percent Auto 0.4 % (0-2); Eosinophils Absolute Auto 0.1 X10*3/uL (0.0-0.4); Eosinophils Percent Auto 0.3 % (0-4); Hematocrit 29.2 % (37.0-47.0); Hemoglobin 9.5 g/dl (12.0-16.0); Imm Gran Abs Auto 1.48 X10*3/uL (0.00-0.03); Imm Gran Pct Auto 3.5 % (0.0-0.4); Lymphocytes Absolute Auto 0.6 X10*3/uL (1.2-4.9); Lymphocytes Percent Auto 1.3 % (20-40); MANUAL DIFF FLAG SCAN; Mean Corpuscular HGB Conc 32.5 g/dl (31.0-35.0); Mean Corpuscular Hemoglobin 28.3 pg (27.0-33.0); Mean Corpuscular Volume 86.9 fL (80.0-98.0); Mean Platelet Volume 13.4 fL (9.4-12.3); Monocytes Absolute Auto 1.1 X10*3/uL (0.1-1.2); Monocytes Percent Auto 2.7 % (2-11); Neutrophils Absolute Auto 39.1 x10*3/uL (2.0-8.3); Neutrophils Percent Auto 91.8 % (45-73); Red Blood Count 3.36 X10*6/uL (4.20-5.50); Red Cell Distribution Width 13.3 % (11.0-16.0); SCAN SMEAR FLAG 1
[2021-12-21 06:24] LABS: PLT ABN DIST 1; Platelet Count 26 X10*3/uL (160-400)
[2021-12-21 06:27] LABS: Alanine Aminotransferase 15 U/L (0-31); Albumin Level 2.8 g/dL (3.5-5.0); Alkaline Phosphatase 156 U/L (39-117); Anion Gap 13 (12-20); Aspartate Amino Transferase 17 U/L (5-31); Bilirubin Total 0.4 mg/dL (0.0-1.0); Blood Urea Nitrogen 20 mg/dL (9-16); Calcium 9.1 mg/dL (8.4-10.2); Carbon Dioxide 23 mmol/L (22-29); Chloride 106 mmol/L (96-108); Creatinine Clr Calc Pharmacy 43.8; Estimated Glomerular Filt Rate > 60; Glucose Fasting 92 mg/dL (60-99); Potassium 3.4 mmol/L (3.3-5.1); Sodium 139 mmol/L (135-145); Total Protein 4.9 g/dL (6.5-8.0); White Blood Count 42.6 X10*3/uL (4.8-10.8)
[2021-12-21 06:29] LABS: Vancomycin Trough 18.3 mcg/mL (10.0-20.0)
[2021-12-21 06:47] LABS: SLIDE REVIEW VERIFIED
--- NOTE | 2021-12-21 07:02 | HE.PHANOTE ---
re vanco scr rise to 0.80, and newest trough is 18.3, will lower frequency to q24 to allow for kidney function to resolve. new dose is 750 or 13.9 mg/kg q24h. Getting a random tomorrow at 1900 for SAFETY, NOT EFFICACY Thanks Zac
[2021-12-21 08:00] VITALS: BP 117/56; PULSE 65; RESP 16; TEMP 36.8; O2SAT 95
[2021-12-21] MEDS: Ascorbic Acid 500 MG TABLET PO (08:37)
[2021-12-21] MEDS: Multivitamin TABLET 1 TAB PO (08:37)
[2021-12-21] MEDS: predniSONE 5 MG TABLET 10 MG PO (08:37)
[2021-12-21] MEDS: Nystatin Oral Susp 500,000 UNIT/5 ML ORAL.SUSP 400000 UNIT PO ×2 (08:37→12:33)
[2021-12-21] MEDS: atenoloL 25 MG TABLET PO (08:37)
[2021-12-21] MEDS: 0.9 % Sodium Chloride Flush 3 ML SYRINGE IVFLUSH (08:38)
[2021-12-21 08:47] VITALS: PULSE 65; RESP 19; O2SAT 95
[2021-12-21 09:16] LABS: Procalcitonin 0.21 ng/mL
[2021-12-21 11:47] VITALS: BP 104/59; PULSE 62; RESP 15; TEMP 36.2; O2SAT 95
--- NOTE | 2021-12-21 11:58 | MHC.CM.PN ---
PLAN IS DC HOME TOMORROW (12/22/21) REFERRAL TO [facility] CASE MANAGEMENT FOLLOWING.
--- NOTE | 2021-12-21 12:24 | P.F2F_ITS ---
Service Date Service Date: 12/21/21 Encounter Date of encounter: 12/21/21 Reasons for Services Signs and symptoms assessed: thrombocytopenia respiratory Reason for penitentiary: medication management, medication treatment and teach disease management Reason for physical therapy: home safety and mobility, therapeutic exercises, gait/transfer training, assess need for DME, ADL training and energy conservation MD Overseeing Care: Raheem Domínguez Homebound: Leaving the home is medically contraindicated at this time without the asist of a device and/or another person due th the listed conditions above and below. Reason homebound: immunosuppression / infection risk and weakness related to hospital stay Certification: Based on the above findings, I certify that this patient is confined to the home and needs intermittent penitentiary care, physical therapy and/or speech therapy, or continues to need occupational therapy. The patient is under my care, and I have initiated the establishment of the plan of care. The patient will be followed by a physician who will periodically review the plan of care.
--- NOTE | 2021-12-21 12:52 | PM.DS ---
DS: Providers Provider Date of Service: 12/21/21 Date of admission: 12/14/21 08:17 Date of discharge: 12/21/21 Primary care physician: Raheem Domínguez MD Consults: 12/14/21 08:19 Consult to Infectious Diseases Routine Consulting Provider: Kami Chi Reason for consultation: Lung mass Has provider been notified: No Consult to Pulmonology Routine Consulting Provider: Raheem Horton Reason for consultation: lung mass Has provider been notified: No 12/20/21 08:21 Consult to Hematology / Oncology Routine Consulting Provider: William Harrison Reason for consultation: Leukocytosis/lung mass Has provider been notified: No DS: Diagnosis Discharge Diagnosis (1) Mass of lung parenchyma: Status: Acute (2) Postobstructive pneumonia: Status: Acute (3) Thrombocytopenia: Status: Acute (4) Chronic ITP (idiopathic thrombocytopenia): Status: Acute DS: Summary Hospital Course Hospital Course: from admission H+P by hospitalist Marshall Thomas DO, 12/14/21: 86-year-old female who has a past medical history bilateral lung cancer, ITP, COPD (not on home oxygen), who states that she has started Rituxan last week and then received her 2nd COVID booster yesterday.? Patient states that she woke up in the middle night very short of breath, set up tried to take her inhaler but still remained quite short of breath and call the ambulance.? She denies any recent fever, chills, GI or symptoms and denies any chest pain/palpitations. Ms Deshpande was admitted to the hospitalist service and diagnosed with post-obstructive pneumonia. She was treated with 7 days of vancomycin and piperacillin/tazobactam as per Infectious Disease and Pulmonology. Hematology was consulted due to significant leukocytosis, which was attributed to a combination of steroid-induced demargination, underlying lung mass, and pneumonia. Platelet count nitish was 20 and was 26 on the day of discharge. Reagdring the lung mass, it was increase in size since the prior CT scan. She will need outpatient biopsy with her private duty aide, Dr Nikolay Romero, once her platelet count is within a safe range. She was discharged home with [facility]NA services and should have a repeat CBCd drawn in 1 week. Time Spent with Patient Time attestation: Total time spent providing and/or coordinating discharge services: 40 Discharge coordination time: Greater than 30 minutes Quality: Safe Use of Opioids Does Pt have an Active Cancer Diagnosis on the Problem List?: No Quality: Stroke Does the patient have a stroke diagnosis?: No Physical Exam Vital Signs: Vital Signs: Last Vital Signs Temp 97.2 F 12/21/21 11:47 Pulse 62 12/21/21 11:47 Resp 15 12/21/21 11:47 BP 104/59 L 12/21/21 11:47 Pulse Ox 95 12/21/21 11:47 BMI result Body Mass Index 20.4 Gen: in no acute distress HEENT: sclera anicteric, moist mucus membranes, no mucosal bleeding Neck: supple Lungs: diminished R side Heart: regular rate and rhythm, no murmurs Abd: soft, non-tender, non-distended Ext: no edema Skin: warm/well-perfused, no petechiae Neuro: alert and oriented x3, no focal findings Psych: appropriate affect DS: Data Data Completed and Pending Completed studies during hospitalization [Text1]: Laboratory Results WBC 42.6 X10*3/uL (4.8-10.8) H* 12/21/21 05:59 RBC 3.36 X10*6/uL (4.20-5.50) L 12/21/21 05:59 Hgb 9.5 g/dl (12.0-16.0) L 12/21/21 05:59 Hct 29.2 % (37.0-47.0) L 12/21/21 05:59 MCV 86.9 fL (80.0-98.0) 12/21/21 05:59 MCH 28.3 pg (27.0-33.0) 12/21/21 05:59 MCHC 32.5 g/dl (31.0-35.0) 12/21/21 05:59 RDW 13.3 % (11.0-16.0) 12/21/21 05:59 Plt Count 26 X10*3/uL (160-400) L D 12/21/21 05:59 MPV 13.4 fL (9.4-12.3) H 12/21/21 05:59 Immature Gran % (Auto) 3.5 % (0.0-0.4) H 12/21/21 05:59 Neut % (Auto) 91.8 % (45-73) H 12/21/21 05:59 Lymph % (Auto) 1.3 % (20-40) L 12/21/21 05:59 [place] % (Auto) 2.7 % (2-11) 12/21/21 05:59 Eos % (Auto) 0.3 % (0-4) 12/21/21 05:59 Baso % (Auto) 0.4 % (0-2) 12/21/21 05:59 Lymph # (Auto) 0.6 X10*3/uL (1.2-4.9) L 12/21/21 05:59 [place] # (Auto) 1.1 X10*3/uL (0.1-1.2) 12/21/21 05:59 Eos # (Auto) 0.1 X10*3/uL (0.0-0.4) 12/21/21 05:59 Baso # (Auto) 0.2 X10*3/uL (0.0-0.2) 12/21/21 05:59 Abs Immat Gran (auto) 1.48 X10*3/uL (0.00-0.03) H 12/21/21 05:59 Absolute Neuts (auto) 39.1 x10*3/uL (2.0-8.3) H 12/21/21 05:59 Absolute Nucleated RBC 0.000 X10*3/uL (0.0-0.012) 12/21/21 05:59 Nucleated RBC % (auto) 0.0 /100WBC (0.0-0.2) 12/21/21 05:59 Smear Tech's Comments VERIFIED 12/21/21 05:59 Smear Path Review SEE NOTE 12/14/21 05:47 PT 14.9 SEC (9.9-13.0) H 12/14/21 05:47 INR 1.3 (0.9-1.1) H 12/14/21 05:47 VBG pH 7.45 (7.32-7.43) H 12/14/21 05:55 VBG pCO2 39 mmHg 12/14/21 05:55 VBG pO2 43 mmHg 12/14/21 05:55 VBG HCO3 27 mmol/L (22-26) H 12/14/21 05:55 VBG O2 Saturation 68.0 % 12/14/21 05:55 VBG Base Excess 3.6 mmol/L 12/14/21 05:55 Sodium 139 mmol/L (135-145) 12/21/21 05:59 Potassium 3.4 mmol/L (3.3-5.1) 12/21/21 05:59 Chloride 106 mmol/L (96-108) 12/21/21 05:59 Carbon Dioxide 23 mmol/L (22-29) 12/21/21 05:59 Anion Gap 13 (12-20) 12/21/21 05:59 BUN 20 mg/dL (9-16) H 12/21/21 05:59 Creatinine 0.80 mg/dL (0.5-1.4) 12/21/21 05:59 Estim Creat Clear Calc 43.8 12/21/21 05:59 Estimated GFR > 60 12/21/21 05:59 Random Glucose 111 mg/dL (60-115) 12/14/21 05:47 Fasting Glucose 92 mg/dL (60-99) 12/21/21 05:59 Lactic Acid 1.2 mmol/L (0.5-2.0) 12/14/21 05:47 Calcium 9.1 mg/dL (8.4-10.2) 12/21/21 05:59 Total Bilirubin 0.4 mg/dL (0.0-1.0) 12/21/21 05:59 AST 17 U/L (5-31) 12/21/21 05:59 ALT 15 U/L (0-31) 12/21/21 05:59 Alkaline Phosphatase 156 U/L (39-117) H 12/21/21 05:59 B-Natriuretic Peptide 136 pg/mL (<100) H 12/14/21 05:47 Total Protein 4.9 g/dL (6.5-8.0) L 12/21/21 05:59 Albumin 2.8 g/dL (3.5-5.0) L 12/21/21 05:59 Procalcitonin 0.21 ng/mL 12/21/21 05:59 Vancomycin Trough 18.3 mcg/mL (10.0-20.0) 12/21/21 05:59 Random Vancomycin 6.8 mcg/mL (15-20) L 12/16/21 15:54 COVID-19 (J LUIS) Negative (Negative) 12/14/21 12:10 COVID-19 Clin Com See Note 12/14/21 12:10 Impressions Chest X-Ray 12/14/21 05:50 IMPRESSION: Redemonstrated right lung mass and multiple bilateral lung nodules, with overall slightly worsened radiographic appearance since 12/06/2021. Discharge Plan Discharge Patient Disposition: Home Health Service Discharge Diagnosis: ITP, lung mass, postobstructive pneumonia Referrals: William Harrison MD [Physician] - 1 Week Raheem Domínguez MD [Primary Care Provider] - 1 Week Nikolay Romero MD [Physician] - 1 Week Discharge Medications: New nystatin 100,000 unit/mL Suspension 400,000 unit PO QID Qty: 160 0RF Protocol: Apply to: Apply to: swish and swallow Continued fluticasone propion-salmeterol [Advair Diskus] 250-50 mcg/dose Blister With Device 1 inh INHALATION BID 0RF atenolol 25 mg tablet 1 tab PO DAILY 0RF digoxin 250 mcg (0.25 mg) tablet 1 tab PO DAILY 0RF levothyroxine 75 mcg tablet 1 tab PO QAM 0RF montelukast 10 mg tablet 1 tab PO DAILY 0RF albuterol sulfate 90 mcg/actuation HFA aerosol inhaler 2 puff inhalation Q4H PRN (Reason: Shortness Of Breath Or Wheezing) 0RF Spiriva with HandiHaler 18 mcg Capsule, W/Inhalation Device 18 mcg INHALATION QAM 0RF guaifenesin [Mucinex] 600 mg Tablet Extended Release 12hr 600 mg PO BEDTIME 0RF latanoprost 0.005 % drops 1 drp ophthalmic-Right BEDTIME 0RF clorazepate dipotassium 3.75 mg tablet 3.75 mg PO BEDTIME PRN (Reason: Insomnia) 0RF biotin 500 mcg Capsule 250 mcg PO DAILY 0RF multivitamin Capsule 1 cap PO DAILY 0RF calcium carb-D3-mag ox-zinc ox 333 mg-133 unit -133 mg-5 mg Tablet 3 tab PO DAILY 0RF ascorbate calcium (vitamin C) 500 mg tablet 500 mg PO DAILY 0RF prednisone 5 mg tablet 10 mg PO DAILY 0RF Discharge Orders: Discharge Order (Routine); Ordered 12/21/21 Ordered By: Fabrice Landry Diet: advance to usual diet Activity on Discharge: As tolerated Stand Alone Forms: Patient Portal Discharge page Other Ambulatory Orders: Complete Blood Count Man Dif (Routine) Timeframe: 2 Days Facility: [facility] - Location: Laboratory Ordered By: Fabrice Landry Care Plan Goals: normal platelet count, prevention of bleeding diagnosis and treatment of lung mass Health Concerns: ITP, lung mass, postobstructive pneumonia Plan of Treatment: resume prednisone; check CBC with differential in 2 days (, 12/23/21) follow up with Hematology in 1 week (Dr Harrison) follow up with Primary Care in 1 week follow up with Pulmonology in 2 weeks (Dr Romero) to plan for biopsy of lung mass Assessment: see Discharge Summary Patient Instructions: Immune Thrombocytopenia (DC)
--- NOTE | 2021-12-21 13:13 | MHC.CM.PN ---
Addendum entered by Bhargavi Cho 12/21/21 13:25: PER PATIENT REQUEST, A REFERRAL FOR [facility] IS PLACED. PATIENT HOPING TO SECURE MEALS ON WHEELS. Original Note: PLAN IS HOME TODAY WITH [facility] IMM 12/20 IN CHART
== END 2021-12-21 15:11 | disposition home health service (06) | DRG 194 ==
LOC: HO.ED 08:01 → HO.EDOVER 08:22 → HO.S3 19:12
PROVIDERS: Internal Medicine; Admitting Provider Hospitalist; Emergency Provider Student in an Organized Health Care Education/Training Program; PCP Internal Medicine; Visit Provider Family Medicine
DX: J18.9 Pneumonia, unspecified organism (principal); J44.0 Chronic obstructive pulmonary disease with (acute) lower respiratory infection; C78.02 Secondary malignant neoplasm of left lung; C78.01 Secondary malignant neoplasm of right lung; R04.2 Hemoptysis; D69.3 Immune thrombocytopenic purpura; I10 Essential (primary) hypertension; Z20.822 Contact with and (suspected) exposure to COVID-19; Z87.891 Personal history of nicotine dependence; Z91.013 Allergy to seafood; Z88.0 Allergy status to penicillin; Z88.1 Allergy status to other antibiotic agents; Z88.2 Allergy status to sulfonamides; Z88.6 Allergy status to analgesic agent; Z88.8 Allergy status to other drugs, medicaments and biological substances; Z79.51 Long term (current) use of inhaled steroids; Z79.890 Hormone replacement therapy; Z79.899 Other long term (current) drug therapy
CPT/HCPCS: 36415; 71045; 80053; 80202; 82803; 83605; 83880; 84145; 85025; 85610; 87040; 87635; 93005; 94640; 96374; 99285; J1650; J2543; J2930; J3370

== ENCOUNTER 2021-12-22 05:20 | Emergency (ER) | payer MEDICARE, OTHER, SELFPAY ==
[2021-12-22] VITALS (9 sets, daily range): BP systolic 119–141; BP diastolic 54–78; PULSE 66–84; RESP 16–20; TEMP 36.4–37.2; O2SAT 90–96; BMI 24.5
--- NOTE | ~2021-12-22 | MR_ITS ---
MR CERVICAL SPINE WITHOUT CONTRAST CLINICAL INFORMATION: Abnormal cervical spine CT. COMPARISON: Cervical spine CT 12/22/2021. TECHNIQUE: MRI of the cervical spine was obtained using routine sequences without contrast. FINDINGS: Redemonstrated rightward convex scoliotic curvature of the cervical spine and partially imaged leftward convex curvature of the thoracic spine. There is heterogeneous marrow signal throughout the anterior and posterior elements of the imaged cervicothoracic spine. Given the history of a known lung mass, can be further assessed with a whole-body bone scan to exclude osseous metastatic disease. At the site of previously seen partial left C6 facet discontinuity on CT, there decreased marrow signal which could be secondary to sclerosis in the setting of a chronic fracture in this location however given the history of malignancy, an underlying pathologic lesion would be difficult to exclude. Partially imaged mass within the right lung and partially imaged erosive posterior right rib lesion, better demonstrated on the recent chest CT as are multiple bilateral pulmonary nodules. Severe disc volume loss at C3-C7. Anterior subluxation of C6 on C7 and C7 on T1 as well as C2 on C3. Advanced hypertrophic degenerative changes involving the right lateral atlantoaxial articulation. Intracranially there is cerebral volume loss. C2-C3: Disc osteophyte and ligamentum flavum thickening result in mild narrowing of the central canal. Advanced uncovertebral joint hypertrophy and hypertrophic facet arthropathy result in moderate to severe bilateral foraminal stenosis. C3-C4: Diffuse osteophytic ridging. Uncovertebral joint spurring and facet arthropathy result in moderate to severe bilateral foraminal stenosis. C4-C5: Diffuse osteophytic ridging and ligamentum flavum thickening result in mild narrowing of the central canal. Advanced uncovertebral joint hypertrophy and hypertrophic facet arthropathy result in severe bilateral foraminal stenosis. C5-C6: Disc osteophyte and ligamentum flavum thickening result in severe central canal stenosis and mass effect on the cord. Advanced uncovertebral joint hypertrophy and hypertrophic facet arthropathy result in severe bilateral foraminal stenosis. C6-C7: Anterior subluxation. Disc osteophyte and ligamentum flavum thickening result in mild to moderate central canal stenosis. Advanced uncovertebral joint hypertrophy and hypertrophic facet arthropathy result in moderate to severe bilateral foraminal stenosis. C7-T1: Slight annular disc bulge. No central canal stenosis and no foraminal stenosis. MR/MR cervical spine wo con IMPRESSION: - At the site of previously seen partial left C6 facet discontinuity on CT and cervical spine CT, there is decreased marrow signal which could be secondary to sclerosis in the setting of a chronic fracture in this location however given the history of malignancy, an underlying pathologic lesion would be difficult to exclude. Major ligaments intact throughout the cervical spine. - There is heterogeneous marrow signal throughout the anterior and posterior elements of the imaged cervicothoracic spine and bony calvarium that can be further assessed with a bone scan to assess for osseous metastatic disease. - Partially imaged mass within the right lung and partially imaged erosive posterior right rib lesion, better demonstrated on the recent chest CT as are multiple bilateral pulmonary nodules. - Advanced cervical spondylosis, greatest at C5-C6 where advanced spondylitic changes result in severe central canal stenosis and mass effect on the cord. Advanced spondylitic changes result in varying degrees of moderate to severe foraminal stenosis throughout the cervical spine as described. Advanced hypertrophic degenerative changes involving the right atlantoaxial articulation with associated impingement of the exiting right nerve root.
--- NOTE | ~2021-12-22 | CT_ITS ---
EXAMINATION: CT CERVICAL SPINE WITHOUT CONTRAST CLINICAL INFORMATION: Fall, pain COMPARISON: 12/06/2021 TECHNIQUE: Helical axial tomographic images through the cervical spine without contrast were obtained. Coronal and sagittal reformatted images were obtained and reviewed as well. This CT examination was performed using dose optimization techniques as appropriate, variously including the following: *Automated exposure control *Adjustment of mA and/or kV according to patient size (this includes techniques or standardized protocols for targeted exams where dose is matched to indication/reason for exam; i.e. extremities or head) *Use of iterative reconstruction technique DLP: 907 mGy-cm FINDINGS: Severe degenerative disc disease throughout the cervical spine. There is near complete loss of disc height at C3-4 and C4-5. There is severe endplate sclerosis and anterior as well as posterior osteophytosis at C5-6 and C6-7. Normal prevertebral soft tissues. There is severe multilevel facet arthropathy there is fusion of the right C4-5 facet. There is fragmentation of the inferior articulating pillar of C5, superior and inferior articular pillars of C6 and superior articulating pillar of C7 on the left, for example on sagittal image 18/50. Axial images 137-149/271. Multiple bilateral pulmonary nodules are seen, increased in size and number from the prior CTA chest 12/06/2021. CT/CT cervical spine wo con IMPRESSION: Worsened pulmonary metastatic disease. In a background of extensive degenerative disc disease and multilevel facet arthropathy, there is fragmentation of the articulating pillars at the left C5-6 and C6-7 facet joints with several regions of curvilinear lucency. This does not have the typical appearance of an acute fracture but a chronic or acute on chronic fracture are possible. Recommend correlation with physical exam. If clinically indicated, cervical spine MRI may be helpful for further evaluation. This critical result was discussed with Abbie PATINO by telephone at 12/22/2021 7:26 AM and it was ascertained that the content and urgency of the report was understood at the time of direct communication.
--- NOTE | ~2021-12-22 | CT_ITS ---
EXAMINATION: CT HEAD WITHOUT CONTRAST CLINICAL INFORMATION: Fall. Pain. COMPARISON: None. TECHNIQUE: Contiguous axial imaging was performed from the skull base to vertex without intravenous contrast. This CT examination was performed using dose optimization techniques as appropriate, variously including the following: * Automated exposure control * Adjustment of mA and/or kV according to patient size (this includes techniques or standardized protocols for targeted exams where dose is matched to indication/reason for exam; i.e. extremities or head) Use of iterative reconstruction technique DLP: 907 mGy-cm. FINDINGS: There is no evidence of acute intracranial hemorrhage or territorial infarction. No abnormal mass effect or midline shift is seen. Jhaveri to white matter differentiation is well preserved. No extra-axial fluid collections are identified. No hydrocephalus. Proportional prominence of the ventricles and sulcal spaces is consistent with mild volume loss. Patchy periventricular and deep white matter hypoattenuation is consistent with mild small vessel ischemic changes. Left frontal lobe parenchymal calcification. Prominent subgaleal hematoma overlies the right parietal region with overlying skin majo. No underlying calvarial fracture. The mastoid air cells and visualized portions of the paranasal sinuses are well aerated. CT/CT head/brain wo con IMPRESSION: No acute intracranial pathology.
--- NOTE | ~2021-12-22 | CT_ITS ---
EXAMINATION: CT PELVIS WITHOUT CONTRAST CLINICAL INFORMATION: Fall with unclear source of pain. COMPARISON: None TECHNIQUE: Helical scanning was performed with submillimeter collimation through the pelvis. Sagittal and coronal multiplanar 2-D reconstructions were obtained. This CT examination was performed using dose optimization techniques as appropriate, variously including the following: *Automated exposure control *Adjustment of mA and/or kV according to patient size (this includes techniques or standardized protocols for targeted exams where dose is matched to indication/reason for exam; i.e. extremities or head) *Use of iterative reconstruction technique DLP: 293 mGy-cm FINDINGS: PELVIS: Evaluation of the intrapelvic structures due to artifact from bilateral hip arthroplasty hardware. Likely calcified uterine fibroids present. Colonic diverticulosis without diverticulitis. No lymphadenopathy seen. OSSEOUS STRUCTURES: There are bilateral total hip arthroplasties. The femoral head components articulate appropriately with the acetabular components. There is lucency surrounding the right acetabular component which can be seen in the setting of loosening. 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 There is subtle cortical disruption of the overlying acetabular bone, as seen on series 6 image 184. This could represent a fracture. Additionally, there is a buckled appearance involving the left pubic bone along the pubic symphysis, which could represent a superior pubic ramus fracture which is nondisplaced. Fracture of the right inferior pubic ramus. The sacroiliac joints are symmetric. Appropriate alignment of the pubic symphysis. CT/CT pelvis wo con IMPRESSION: Bilateral total hip arthroplasties with alignment maintained. There is lucency surrounding the right acetabular component which can be seen in the setting of loosening. 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 Additionally there is buckling of the central aspect of the left superior pubic ramus, concerning for fracture. There is a right inferior pubic ramus fracture.
--- NOTE | 2021-12-22 05:58 | ED_ITS ---
HPI - Fall General Chief Complaint: Fall Stated Complaint: Fall Time Seen by Provider: 12/22/21 05:40 Source: patient and EMS Mode of arrival: EMS Limitations: no limitations History of Present Illness HPI Narrative: Patient comes to the emergency room complaining of a mechanical fall. Patient was discharged from the hospital yesterday. Patient was diagnosed with mass of the lung parenchyma, postobstructive pneumonia, thrombocytopenia/chronic ITP. Patient states that she got up to go to the bathroom, her socks were too big and she tripped, hitting the back of her head. Patient states that she did not lose consciousness. Patient denies neck pain, only localized pain in the scalp. Patient states that she did not sustain any other injuries Related Data Home Medications Medication Instructions Recorded Confirmed albuterol sulfate 90 mcg/actuation 2 puff INHALATION Q4H PRN 12/06/20 12/14/21 aerosol inhaler atenolol 25 mg tablet 1 tab PO DAILY 12/06/20 12/14/21 digoxin 250 mcg (0.25 mg) tablet 1 tab PO DAILY 12/06/20 12/14/21 fluticasone 250 mcg-salmeterol 50 1 inh INHALATION BID 12/06/20 12/14/21 mcg/dose blistr powdr for inhalation (Advair Diskus) guaifenesin 600 mg tablet, 600 mg PO BEDTIME 12/06/20 12/14/21 extended release 12 hr (Mucinex) levothyroxine 75 mcg tablet 1 tab PO QAM 12/06/20 12/14/21 montelukast 10 mg tablet 1 tab PO DAILY 12/06/20 12/14/21 tiotropium bromide 18 mcg capsule 18 mcg INHALATION QAM 12/06/20 12/14/21 with inhalation device (Spiriva with HandiHaler) latanoprost 0.005 % eye drops 1 drp OPHTHALMIC-RIGHT BEDTIME 12/07/20 12/14/21 ascorbate calcium (vitamin C) 500 500 mg PO DAILY 01/25/21 12/14/21 mg tablet clorazepate dipotassium 3.75 mg 3.75 mg PO BEDTIME PRN 01/25/21 12/14/21 tablet biotin 500 mcg capsule 250 mcg PO DAILY 02/11/21 12/14/21 calcium carb 333 mg-vit D3 133 3 tab PO DAILY 02/11/21 12/14/21 unit-mag ox 133 mg-zinc oxide 5 mg tab multivitamin 1 cap PO DAILY 02/11/21 12/14/21 prednisone 5 mg tablet 10 mg PO DAILY 12/08/21 12/14/21 Previous Rx's Medication Instructions Recorded nystatin 100,000 unit/mL oral 400,000 unit PO QID #160 ml 12/21/21 suspension Allergies Allergy/AdvReac Type Severity Reaction Status Date / Time Carbapenems Allergy Severe RASH Verified 12/22/21 05:31 cefaclor Allergy Severe rash, Verified 12/22/21 05:31 itching cefadroxil [Cefadroxil] Allergy Severe RASH Verified 12/22/21 05:31 cephalexin [From KEFLEX] Allergy Severe RASH Verified 12/22/21 05:31 Cephalosporins Allergy Severe RASH Verified 12/22/21 05:31 chlorhexidine Allergy Severe MUMPS LIKE Verified 12/22/21 05:31 SWELLING TO MOUTH ciprofloxacin Allergy Severe RASH Verified 12/22/21 05:31 ibuprofen [IBUPROFEN] Allergy Severe RASH Verified 12/22/21 05:31 naproxen Allergy Severe RASH, Verified 12/22/21 05:31 rash, itching Penicillins Allergy Severe RASH, HIVES Verified 12/22/21 05:31 Sulfa (Sulfonamide Allergy Severe RASH Verified 12/22/21 05:31 Antibiotics) acetaminophen AdvReac Severe PALPITATION Verified 12/22/21 05:31 S adhesives Allergy Severe skin Uncoded 12/22/21 05:31 irritation antiperspirants, deodorants Allergy Severe Rash Uncoded 12/22/21 05:31 duracef Allergy Severe rash, Uncoded 12/22/21 05:31 itching DURACEPT Allergy Severe RASH Uncoded 12/22/21 05:31 shellfish Allergy Severe severe Uncoded 12/22/21 05:31 hives Review of Systems Review of Systems: Constitutional : No Weight loss, No Fever, No Chills, No Night Sweats, No Fatigue, No Malaise ENT/Mouth : No Hearing loss, No Ear Pain, No Nasal Congestion, No Sinus Pain, No Hoarseness, No sore throat, No Rhinorrhea, No Swallowing Difficulty Eyes: No Eye Pain, No Swelling, No Redness, No Foreign Body, No Discharge, No Vision Changes Cardiovascular : No Chest Pain, No SOB, No Dyspnea on Exertion, No Orthopnea, No Edema, No Palpitations Respiratory : No Cough, No Sputum, No Wheezing, No Smoke Exposure, No Dyspnea, recuperating from COPD/pneumonia Gastrointestinal : No Nausea, No Vomiting, patient complaining of diarrhea secondary to antibiotic use, patient on Imodium, was discharged yesterday, no suspicion of C diff at this time. Denies constipation, No abdominal pain Pain, No Hematochezia, No Melena Genitourinary : no irregular bleeding, No Dysuria, No Urinary Frequency, No Hem aturia, No Urinary Incontinence, No Urgency, No Flank Pain, No Urinary Flow Changes, No Hesitancy Musculoskeletal : No joint pain, No Myalgias, No Joint Swelling Skin : Patient has a laceration to the back of the scalp and ecchymosis, complaining of localized pain Neuro : No Weakness, No Numbness, No Paresthesias, No Loss of Consciousness, No Dizziness, No Headache Psych : No Anxiety/Panic, No Depression, No SI/HI/AH/VH, No Social Issues, Heme/Lymph: No Bruising, No Bleeding,No Lymphadenopathy Endocrine : No Polyuria, No Polydipsia, No Temperature Intolerance [facility] Past Medical History Medical History Acute ITP Bilateral lung cancer Breast CA COPD (chronic obstructive pulmonary disease) Fibrocystic breast changes HTN (hypertension) Irregular heart beat Lymphadenopathy, mediastinal Pulmonary nodules Thyroid disease Worsening headaches Surgical History S/P breast lumpectomy S/P hip replacement Family History Family History Other No family history of breast cancer Social History Social History Household Members: Spouse Housing: House Are you a primary primary care physician to a significant other at home: No Do you presently have visiting nurse or other home services: No Alcohol intake: never Patient Tobacco Use Status: Former Tobacco user Quit Date: 2005 Tobacco use type: Cigarette Cigarette Packs Per Day: 2 Years Smoked: 40 years service: No Current occupational status: retired Physical Exam Vital Signs: Vital Signs: Last Vital Signs Temp 97.5 F 12/22/21 05:27 Pulse 79 12/22/21 05:27 Resp 20 12/22/21 05:27 BP 140/62 H 12/22/21 05:27 Pulse Ox 90 L 12/22/21 05:27 BMI result Body Mass Index 24.5 Const: Other: Appearance: Alert. Oriented X3. No acute distress. Eyes: Pupils equal, round and reactive to light. ENT: Pharynx normal. Neck: Normal inspection. Neck supple. No lymph nodes noted. No crepitus CVS: Normal heart rate and rhythm. Pulses normal. Normal S1 and S2 Respiratory: No respiratory distress. Breath sounds normal. No Wheezing. No rales , oxygen saturation 90% on room air Abdomen: Soft and nontender. No rigidity. No distention. Skin: Skin warm and dry. Patient health law 3 cm laceration to the scalp, large ecchymosis, minimal pain to palpation Extremities: No lower extremity edema. No Lacerations. No Rash Neuro: Oriented X 3. No motor deficit. No sensory deficit. Moving all extremities. No slurred speech. CN 2 through 12 grossly intact Psych: calm, cooperative, normal affect Course Course Course Narrative: Six majo were applied. Patient declined topical anesthetic Head CT pending. Patient denies headache. when we were moving pt to help her get cleaned up, pt c/o pelvic pain, CT of the head and pelvis pending, sign-out given to Dr. Leiva Procedures Laceration Laceration 1: Site: scalp Size (cm): 4 Description: linear Depth: simple, single layer Number of sutures: 6 Technique: other (Blomkest) Discharge Plan Discharge Clinical Impression: Fall, Laceration of scalp Patient Disposition: Still a Patient Prescriptions: No Action fluticasone propion-salmeterol [Advair Diskus] 250-50 mcg/dose Blister With Device 1 inh INHALATION BID 0RF atenolol 25 mg tablet 1 tab PO DAILY 0RF digoxin 250 mcg (0.25 mg) tablet 1 tab PO DAILY 0RF levothyroxine 75 mcg tablet 1 tab PO QAM 0RF montelukast 10 mg tablet 1 tab PO DAILY 0RF albuterol sulfate 90 mcg/actuation HFA aerosol inhaler 2 puff inhalation Q4H PRN (Reason: Shortness Of Breath Or Wheezing) 0RF Spiriva with HandiHaler 18 mcg Capsule, W/Inhalation Device 18 mcg INHALATION QAM 0RF guaifenesin [Mucinex] 600 mg Tablet Extended Release 12hr 600 mg PO BEDTIME 0RF latanoprost 0.005 % drops 1 drp ophthalmic-Right BEDTIME 0RF clorazepate dipotassium 3.75 mg tablet 3.75 mg PO BEDTIME PRN (Reason: Insomnia) 0RF biotin 500 mcg Capsule 250 mcg PO DAILY 0RF multivitamin Capsule 1 cap PO DAILY 0RF calcium carb-D3-mag ox-zinc ox 333 mg-133 unit -133 mg-5 mg Tablet 3 tab PO DAILY 0RF nystatin 100,000 unit/mL Suspension 400,000 unit PO QID Qty: 160 0RF Protocol: Apply to: Apply to: swish and swallow ascorbate calcium (vitamin C) 500 mg tablet 500 mg PO DAILY 0RF prednisone 5 mg tablet 10 mg PO DAILY 0RF
--- NOTE | 2021-12-22 06:26 | PC.NURSE ---
6 majo applied to wound to back right side of head by MD Mackey. Pt incontinent of diarrhea, provided pericare and a complete bed change. Pt off to CT on hospital bed. Daughter at bedside.
--- NOTE | 2021-12-22 07:17 | PC.NURSE ---
Report received from Nimco RIVERA. patient presented for fall at home, laceration to head, repaired with majo, daughter at bedside. Patient with bowel movement when rolling to reposition, cleaned patient and placed on bedpan to finish, cleaned again when done. Patient is alert and oriented. Respirations regular and even. Patient cries out when repositioned by staff, but reports she is in no pain at this time and is just noisy . Full ROM/strength of extremities. Bruising to right hand noted, per patient from a week ago. Bruising on upper arm due to prior IV. Awaiting CT scan at this time.
--- NOTE | 2021-12-22 08:45 | PC.NURSE ---
Patient on and off bed church numerous times. Cleaned of soft stool. Imaging showing possible chronic neck fracture, Dr. Leiva to bedside to discuss need for further imaging and C-collar. Patient refusing c-collar, ok per Dr. Leiva. Patient gone to MRI at this time.
--- NOTE | 2021-12-22 11:50 | PC.NURSE ---
Pt remains alert and oriented x4, calm and cooperative. Per MD Elmology trial pt ambulating with walker and assist, pt needed 2 assist to get OOB and ambulate. Pt able to ambulated 3 steps with walker and 2 assist, pt states I have pain with walking but was unable to state where pain is. Pt states I don't feel great walking . MD aware. Pt in stretcher resting, daughter at bedside.
[2021-12-22 12:14] LABS: COVID-19 Test Negative (Negative); IDNOW Serial# 16C4AD1C
--- NOTE | 2021-12-22 13:36 | MHC.CM.ED ---
Addendum entered by Karla Avila 12/22/21 14:57: [facility] requesting when next Rituxan infusion is due. T/W reached out to Darcie in Oncology. Darcie will provide that info to NEELA BECERRA. Original Note: Received case management consult from Dr Leiva. Patient was d/c'd home from [facility] with [facility] on 12/21. Patient returned to the ER due to a fall. Found to have a pelvis fx. Other workup essentially negative. Physical therapy eval completed. Acute rehab is recommended. Met with patient in regards to discharge planning. Patient lives with her , and ambulates independently. Patient's has Parkinson's and isn't able to assist her in the home. PCP verified. Patient is vaccinated and boosted against Covid. Patient is requesting referral to [facility]. Referral made via [facility]. Patient believes her has a copy of her HCP. T/W spoke with patient's daughter, Marlena, via telephone at [phone]. Verified to Marlena that referral has been made to [facility]. Marlena is not aware of patient having a HCP. Spoke with Dr Domínguez's office. No HCP on file there. Continue to monitor for d/c needs.
--- NOTE | 2021-12-22 13:56 | PC.NURSE ---
Patient awake after a brief nap. Reports needing to use the bedpan again. Patient able to minimally boost bottom to use bed church. Reports no pain, discomfort from position. Patient to be placed in rehab due to inability to go home and care for self. Patient is aware and agreeable to plan. Will continue to monitor.
--- NOTE | 2021-12-22 16:27 | MHC.CM.ED ---
CM called and spoke with Nurse Navigator for oncology, Darcie, regarding pt next dose of Rituxan. Per Darcie, pt had difficulty time with first infusion and they will not infuse another without a f/u oncology visit to discuss options for care. Darcie also told CM that pt should attend rehab, as they would not want to infuse medication in weakened state. [facility] updated and offered a bed for this evening. Pt and daughter aware of discussion with oncology and with bed offer for [facility]. Pt and daughter agree with oncology and happily accept bed at [facility]. Ambulance booked for 1730. Med nec completed. RN, and Stitching Machine Setter aware. CM to follow for d/c needs.
--- NOTE | 2021-12-22 17:15 | PC.NURSE ---
Pt alert and oriented x4, calm and cooperative. Pt denies pain at rest, complains of pain with movement. States she is unsure where pain exactly is when asked. NO IV in place. Vitals stable. Pt discharged to [facility], daughter at bedside and aware. Pt and daughter educated on dc, both agree to plan of care.
--- NOTE | 2021-12-22 17:23 | PC.NURSE ---
Pt to be picked up at 1730 by EMS to [facility]. Report given to MIGUEL Jurado, phone number [phone].
== END 2021-12-22 18:58 ==
PROVIDERS: Emergency Provider Emergency Medicine; PCP Internal Medicine
DX: S01.01XA Laceration without foreign body of scalp, initial encounter (principal); G44.309 Post-traumatic headache, unspecified, not intractable; M54.2 Cervicalgia; R10.2 Pelvic and perineal pain; W01.0XXA Fall on same level from slipping, tripping and stumbling without subsequent striking against object, initial encounter; Y93.9 Activity, unspecified; Y92.9 Unspecified place or not applicable; Y99.9 Unspecified external cause status; Z20.822 Contact with and (suspected) exposure to COVID-19; Z79.899 Other long term (current) drug therapy; Z87.891 Personal history of nicotine dependence
CPT/HCPCS: 12002; 70450; 72125; 72141; 72192; 87635; 97162; 99284; 99285